=== PATIENT | male | born 1960 | race African-American/Black ===

== ENCOUNTER 2018-01-12 09:36 | Inpatient (IN) | payer MEDICAID ==
[2018-01-12] MEDS ORDERED: INSULIN REG, HUMAN 100 UNIT/ML 3 ML VIAL (PYX) SUBCUT ONE (09:51)
--- NOTE | 2018-01-12 09:51 | ER Document Report ---
ED General - General Stated Complaint: DIABETIC ISSUES Time Seen by Provider: 01/12/18 09:49 Notes: 57-year-old male patient to the emergency department chief complaint of possible DKA. Patient from [facility]. In an argument with family member. Staying at a hotel. Has not been taking his insulin or other medications. States that he was having a hard time eating as his mouth was extremely dry. Excessive thirst and urination. Denies any chest pain but states that it is difficult to swallow. Denies any open sores on his body. No recent surgeries. Denies any significant chest pain or shortness of breath. EMS was called. EMS noted blood sugar over 500. IV was established. Fluids begun. TRAVEL OUTSIDE OF THE [place] IN LAST 30 DAYS: No - HPI Onset: Yesterday Onset/Duration: Gradual, Worse Quality of pain: No pain Severity: Severe Associated symptoms: Vomiting Similar symptoms previously: Yes - Related Data Allergies/Adverse Reactions: No Known Allergies Allergy (Verified 08/22/14 10:28) Past Medical History - General Information source: Patient - Social History Smoking Status: Smoker,Current Status Unk Frequency of alcohol use: None Drug Abuse: None Lives with: Alone Family History: CAD - father at 59 of heart problems, DM - mother - Past Medical History Cardiac Medical History: Reports: Hx Hypercholesterolemia, Hx Hypertension Pulmonary Medical History: Denies: Hx Tuberculosis Endocrine Medical History: Reports: Hx Diabetes Mellitus Type 1, Hx Diabetes Mellitus Type 2 Renal/ Medical History: Reports: Hx Benign Prostatic Hyperplasia Psychiatric Medical History: Reports: Hx Depression Past Surgical History: Reports: Hx Orthopedic Surgery - jaw - Immunizations Hx Diphtheria, Pertussis, Tetanus Vaccination: No Hx Pneumococcal Vaccination: 05/09/13 Review of Systems - Review of Systems Constitutional: Weakness. denies: Chills, Diaphoresis, Fever, Malaise EENT: Blurred vision, Throat pain, Difficulty swallowing. denies: Double vision , Mouth pain, Mouth swelling Cardiovascular: Palpitations, Heart racing, Dizziness, Lightheaded. denies: Chest pain, Dyspnea, Syncope, Edema Respiratory: denies: Cough, Hurts to breathe, Short of breath, Wheezing Gastrointestinal: Nausea, Vomiting. denies: Abdominal pain, Diarrhea Genitourinary: denies: Burning, Dysuria, Discharge Skin: denies: Dryness, Lesions, Lumps, Rash Neurological/Psychological: denies: Confusion, Weakness, Numbness Physical Exam - Vital signs Vitals: Resp Pulse Ox 22 H 100 01/12/18 09:42 01/12/18 09:42 Interpretation: Tachycardic, Tachypneic - Notes Notes: Strong smell of ketones on breath - General General appearance: Appears well, Alert In distress: Mild - HEENT Head: Normocephalic, Atraumatic Eyes: Normal Pupils: PERRL Mucous membranes: Dry Pharynx: Normal Neck: Normal - Respiratory Respiratory status: No respiratory distress Chest status: Nontender Breath sounds: Normal Chest palpation: Normal - Cardiovascular Rhythm: Regular, Tachycardia Murmur: No - Abdominal Inspection: Normal Distension: No distension Bowel sounds: Normal Tenderness: Nontender Organomegaly: No organomegaly - Back Back: Normal, Nontender - Extremities General upper extremity: Normal inspection, Nontender, Normal color, Normal ROM , Normal temperature General lower extremity: Normal inspection, Nontender, Normal color, Normal ROM , Normal temperature, Normal weight bearing. No: Elvin's sign - Neurological Neuro grossly intact: Yes Cognition: Normal Orientation: AAOx4 Ethan Coma Scale Eye Opening: Spontaneous Ethan Coma Scale Verbal: Oriented [place] Coma Scale Motor: Obeys Commands Ethan Coma Scale Total: 15 Speech: Normal Motor strength normal: LUE, RUE, LLE, RLE Sensory: Normal - Psychological Associated symptoms: Normal affect, Normal mood - Skin Skin Temperature: Warm Skin Moisture: Dry Skin Color: Normal Course - Re-evaluation Re-evalutation: 01/12/18 14:12 Patient in DKA. Slightly elevated potassium that this should come down with insulin. Has a anion gap of 28. PH is 7.11. Patient meets criteria for ICU. Consulted hospitalist. Started on insulin drip at this time. Transfer to ICU shortly. 01/12/18 14:13 Laboratory 01/12/18 01/12/18 01/12/18 09:55 09:55 09:55 WBC 14.8 H RBC 4.82 Hgb 14.8 Hct 45.8 MCV 95 MCH 30.7 MCHC 32.3 RDW 14.1 H Plt Count 320 Seg Neutrophils % 86.8 H Lymphocytes % 8.5 L Monocytes % 4.3 Eosinophils % 0.0 Basophils % 0.4 Absolute Neutrophils 12.9 H Absolute Lymphocytes 1.3 Absolute Monocytes 0.6 Absolute Eosinophils 0.0 Absolute Basophils 0.1 VBG pH VBG pCO2 VBG HCO3 VBG Base Excess Sodium Cancelled Potassium Cancelled Chloride Cancelled Carbon Dioxide Cancelled Anion Gap Cancelled BUN Cancelled Creatinine Cancelled Est GFR ( Amer) Cancelled Est GFR (Non-Af Amer) Cancelled Glucose Cancelled POC Glucose Calcium Cancelled Phosphorus Cancelled Magnesium Cancelled Total Bilirubin Cancelled Direct Bilirubin Cancelled Neonat Total Bilirubin Cancelled Neonat Direct Bilirubin Cancelled Neonat Indirect Bili Cancelled AST Cancelled ALT Cancelled Alkaline Phosphatase Cancelled Troponin I < 0.012 Total Protein Cancelled Albumin Cancelled Urine Color Urine Appearance Urine pH Ur Specific [place] Urine Protein Urine Glucose (UA) Urine Ketones Urine Blood Urine Nitrite Urine Bilirubin Urine Urobilinogen Ur Leukocyte Esterase Urine WBC (Auto) Urine Mucus (Auto) Urine Ascorbic Acid 01/12/18 01/12/18 01/12/18 10:22 11:23 11:46 WBC RBC Hgb Hct MCV MCH MCHC RDW Plt Count Seg Neutrophils % Lymphocytes % Monocytes % Eosinophils % Basophils % Absolute Neutrophils Absolute Lymphocytes Absolute Monocytes Absolute Eosinophils Absolute Basophils VBG pH 7.11 L* VBG pCO2 28.6 L VBG HCO3 8.8 L VBG Base Excess -19.3 Sodium Cancelled Potassium Cancelled Chloride Cancelled Carbon Dioxide Cancelled Anion Gap Cancelled BUN Cancelled Creatinine Cancelled Est GFR ( Amer) Cancelled Est GFR (Non-Af Amer) Cancelled Glucose Cancelled POC Glucose 495 H* Calcium Cancelled Phosphorus Cancelled Magnesium Cancelled Total Bilirubin Cancelled Direct Bilirubin Cancelled Neonat Total Bilirubin Cancelled Neonat Direct Bilirubin Cancelled Neonat Indirect Bili Cancelled AST Cancelled ALT Cancelled Alkaline Phosphatase Cancelled Troponin I Total Protein Cancelled Albumin Cancelled Urine Color Urine Appearance Urine pH Ur Specific [place] Urine Protein Urine Glucose (UA) Urine Ketones Urine Blood Urine Nitrite Urine Bilirubin Urine Urobilinogen Ur Leukocyte Esterase Urine WBC (Auto) Urine Mucus (Auto) Urine Ascorbic Acid 01/12/18 01/12/18 01/12/18 11:49 12:55 13:10 WBC RBC Hgb Hct MCV MCH MCHC RDW Plt Count Seg Neutrophils % Lymphocytes % Monocytes % Eosinophils % Basophils % Absolute Neutrophils Absolute Lymphocytes Absolute Monocytes Absolute Eosinophils Absolute Basophils VBG pH VBG pCO2 VBG HCO3 VBG Base Excess Sodium 142.6 Potassium 5.8 H Chloride 109 H Carbon Dioxide 6 L* Anion Gap 28 H BUN 21 H Creatinine 1.36 H Est GFR ( Amer) > 60 Est GFR (Non-Af Amer) 54 L Glucose 437 H* POC Glucose 421 H* Calcium 9.2 Phosphorus 5.0 H Magnesium 2.6 H Total Bilirubin 0.4 Direct Bilirubin 0.4 Neonat Total Bilirubin Not Reportable Neonat Direct Bilirubin Not Reportable Neonat Indirect Bili Not Reportable AST 32 ALT 140 H Alkaline Phosphatase 107 Troponin I Total Protein 7.3 Albumin 4.2 Urine Color STRAW Urine Appearance CLEAR Urine pH 5.0 Ur Specific [place] 1.023 Urine Protein 30 H Urine Glucose (UA) >=500 H Urine Ketones 80 H Urine Blood SMALL H Urine Nitrite NEGATIVE Urine Bilirubin NEGATIVE Urine Urobilinogen NEGATIVE Ur Leukocyte Esterase NEGATIVE Urine WBC (Auto) 0 Urine Mucus (Auto) RARE Urine Ascorbic Acid NEGATIVE Chest X-Ray 01/12/18 10:02 IMPRESSION: NO ACUTE RADIOGRAPHIC FINDING IN THE CHEST. - Vital Signs Vital signs: Temp Pulse Resp BP Pulse Ox 98.1 F 21 H 131/87 H 99 01/12/18 09:50 01/12/18 12:01 01/12/18 12:01 01/12/18 12:01 - Laboratory Result Diagrams: 01/12/18 09:55 01/12/18 13:10 Laboratory results interpreted by me: 01/12/18 01/12/18 01/12/18 09:55 10:22 11:23 WBC 14.8 H RDW 14.1 H Seg Neutrophils % 86.8 H Lymphocytes % 8.5 L Absolute Neutrophils 12.9 H VBG pH 7.11 L* VBG pCO2 28.6 L VBG HCO3 8.8 L Potassium Chloride Carbon Dioxide Anion Gap BUN Creatinine Est GFR (Non-Af Amer) Glucose POC Glucose 495 H* Phosphorus Magnesium ALT Urine Protein Urine Glucose (UA) Urine Ketones Urine Blood 01/12/18 01/12/18 01/12/18 11:49 12:55 13:10 WBC RDW Seg Neutrophils % Lymphocytes % Absolute Neutrophils VBG pH VBG pCO2 VBG HCO3 Potassium 5.8 H Chloride 109 H Carbon Dioxide 6 L* Anion Gap 28 H BUN 21 H Creatinine 1.36 H Est GFR (Non-Af Amer) 54 L Glucose 437 H* POC Glucose 421 H* Phosphorus 5.0 H Magnesium 2.6 H ALT 140 H Urine Protein 30 H Urine Glucose (UA) >=500 H Urine Ketones 80 H Urine Blood SMALL H - EKG Interpretation by Me EKG shows normal: [place], Intervals, QRS Complexes, ST-T Waves Rate: Tachycardia Critical Care Note - Critical Care Note Total time excluding time spent on procedures (mins): 45 Comments: metabolic disturbance, acidosis, DKA Discharge - Discharge Clinical Impression: Diabetic ketoacidosis Qualifiers: Diabetes mellitus type: type 1 Diabetes mellitus complication detail: without coma Qualified Code(s): E10.10 - Type 1 diabetes mellitus with ketoacidosis without coma Condition: Good Disposition: ADMITTED INPATIENT Admitting Provider: [facility] Unit Admitted: ICU
[2018-01-12] MEDS ORDERED: PROCHLORPERAZINE EDISYLATE INJ 10 MG/2 ML VIAL IV ONE (10:02)
[2018-01-12 10:10] LABS: ABSOLUTE BASOPHILS # (AUTO) 0.1 10^3/uL (0.0-0.2); ABSOLUTE LYMPHOCYTES (AUTO) 1.3 10^3/uL (0.5-4.7); ABSOLUTE MONOCYTES (AUTO) 0.6 10^3/uL (0.1-1.4); ABSOLUTE NEUT (AUTO) 12.9 10^3/uL (1.7-8.2); BASOPHILS % (AUTO) 0.4 % (0-2); HEMATOCRIT 45.8 % (37.9-51.0); HEMOGLOBIN 14.8 g/dL (13.5-17.0); LYMPHOCYTES % (AUTO) 8.5 % (13-45); MEAN CORPUSCULAR HEMOGLOBIN 30.7 pg (27.0-33.4); MEAN CORPUSCULAR HGB CONC 32.3 g/dL (32.0-36.0); MEAN CORPUSCULAR VOLUME 95 fl (80-97); MONOCYTES % (AUTO) 4.3 % (3-13); PLATELET COUNT 320 10^3/uL (150-450); RED BLOOD COUNT 4.82 10^6/uL (4.35-5.55); RED CELL DISTRIBUTION WIDTH 14.1 % (11.5-14.0); SEGMENTED NEUTROPHILS % (AUTO) 86.8 % (42-78); TOTAL CELLS COUNTED % (AUTO) 100 %; WHITE BLOOD COUNT 14.8 10^3/uL (4.0-10.5)
[2018-01-12] MEDS ORDERED: LIDOCAINE 2% VISCOUS SOLN 20 ML UDCUP PO ONE (10:30)
[2018-01-12] MEDS ORDERED: MAG HYDROX/AL HYDROX/SIMETH SUSP 30 ML UDCUP PO ONE (10:30)
[2018-01-12] MEDS ORDERED: FAMOTIDINE INJ/PF 20 MG/2 ML SDV IV ONE (10:30)
--- NOTE | 2018-01-12 10:30 | RADIOLOGY REPORT (SQ) ---
EXAM DESCRIPTION: CHEST SINGLE VIEW COMPLETED DATE/TIME: 01/12/2018 10:22 am REASON FOR STUDY: sob COMPARISON: None. EXAM PARAMETERS: NUMBER OF VIEWS: One view. TECHNIQUE: Single frontal radiographic view of the chest acquired. RADIATION DOSE: NA LIMITATIONS: None. FINDINGS: LUNGS AND PLEURA: No opacities, masses or pneumothorax. No pleural effusion. MEDIASTINUM AND HILAR STRUCTURES: No masses. Contour normal. HEART AND VASCULAR STRUCTURES: Heart normal in size. Normal vasculature. BONES: No acute findings. HARDWARE: None in the chest. OTHER: No other significant finding. IMPRESSION: NO ACUTE RADIOGRAPHIC FINDING IN THE CHEST. TECHNICAL DOCUMENTATION: JOB ID: [id number] [employer]- All Rights Reserved Reading location - IP/workstation name: [email or web address]
[2018-01-12] MEDS: NORMAL SALINE 1000 ML 1,000 ML IV PRN ×2 (10:34→12:42)
[2018-01-12 10:39] LABS: VENOUS BLOOD BASE EXCESS -19.3 mmol/L; VENOUS BLOOD HCO3 8.8 mmol/L (20-32); VENOUS BLOOD PCO2 28.6 mmHg (35-63)
[2018-01-12 10:42] LABS: VENOUS BLOOD PH 7.11 (7.30-7.42)
[2018-01-12 12:38] LABS: APPEARANCE,URINE CLEAR; BILIRUBIN,URINE NEGATIVE (NEGATIVE); COLOR,URINE STRAW; GLUCOSE, URINE >=500 mg/dL (NEGATIVE); KETONES,URINE 80 mg/dL (NEGATIVE); LEUKOCYTE ESTERASE,URINE NEGATIVE (NEGATIVE); NITRITE,URINE NEGATIVE (NEGATIVE); PROTEIN,URINE 30 mg/dL (NEGATIVE); URINE SPECIFIC GRAVITY 1.023; UROBILINOGEN,URINE NEGATIVE mg/dL (<2.0)
[2018-01-12 13:52] LABS: ALANINE AMINOTRANSFERASE 140 U/L (21-72); ALBUMIN 4.2 g/dL (3.5-5.0); ALKALINE PHOSPHATASE 107 U/L (38-126); ASPARTATE AMINO TRANSFERASE 32 U/L (17-59); BILIRUBIN,DIRECT 0.4 mg/dL (0.0-0.4); BILIRUBIN,TOTAL 0.4 mg/dL (0.2-1.3); BLOOD UREA NITROGEN 21 mg/dL (7-20); CALCIUM 9.2 mg/dL (8.4-10.2); POTASSIUM 5.8 mmol/L (3.6-5.0); TOTAL PROTEIN 7.3 g/dL (6.3-8.2)
[2018-01-12 13:57] LABS: CHLORIDE 109 mmol/L (98-107); SODIUM 142.6 mmol/L (137-145)
[2018-01-12 14:08] LABS: ANION GAP 28 (5-19)
[2018-01-12 14:09] LABS: CARBON DIOXIDE 6 mmol/L (22-30); GLUCOSE 437 mg/dL (75-110)
[2018-01-12] MEDS ORDERED: ONDANSETRON HCL INJ/PF 4 MG/2 ML SDV IV PRN (14:12)
[2018-01-12] MEDS ORDERED: ALBUTEROL SULFATE 0.083% NEB 2.5 MG/3 ML AMPUL NEB PRN (14:12)
[2018-01-12] MEDS ORDERED: NORMAL SALINE 1000 ML 1,000 ML IV PRN (14:12)
[2018-01-12] MEDS ORDERED: ACETAMINOPHEN 325 MG TABLET PO PRN (14:12)
[2018-01-12] MEDS ORDERED: ONDANSETRON 4 MG TAB.RAPDIS PO PRN (14:12)
[2018-01-12] MEDS ORDERED: DEXTROSE 50%-WATER 25 GM/50 ML DISP.SYRIN IV PRN ×2 (14:13)
[2018-01-12] MEDS ORDERED: NORMAL SALINE 100 ML with INSULIN REGULAR, HUMAN 100 UNIT IV PRN ×2 (14:13)
[2018-01-12] MEDS ORDERED: DEXTROSE 40% GEL 15 GM TUBE PO PRN ×2 (14:13)
[2018-01-12] MEDS ORDERED: GLUCAGON,HUMAN RECOMB 1 MG INJ IM PRN (14:13)
--- NOTE | 2018-01-12 15:22 | PDOC H&P ---
History of Present Illness Admission Date/PCP: 01/12/18 14:27 No PCP at present Patient complains of: Excessive thirst and frequent urination History of Present Illness: The patient is a 57 year old male with Insulin dependent diabetes Hypertension Hyperlipidemia Prior admission for DKA He presented to the hospital with polyuria and polydipsia and reported not having taken his meds including Insulin for several days due to stress and arguments with family members. Is somnolent, but able to answer questions and oriented. Was found to have DKA and was giben IV fluids and Insulin. Past Medical History Cardiac Medical History: Reports: Hyperlipidema, Hypertension Pulmonary Medical History: Denies: Tuberculosis Endocrine Medical History: Reports: Diabetes Mellitus Type 2 Psychiatric Medical History: Reports: Depression Past Surgical History Past Surgical History: Reports: Orthopedic Surgery - jaw Social History Information Source: Patient Lives with: Alone Smoking Status: Smoker,Current Status Unk Frequency of Alcohol Use: Social Hx Recreational Drug Use: No Drugs: Marijuana Hx Prescription Drug Abuse: No - Advance Directive Resuscitation Status: Full Code Family History Family History: CAD - father at 59 of heart problems, DM - mother Parental Family History Reviewed: Yes Children Family History Reviewed: Yes Sibling(s) Family History Reviewed.: Yes Medication/Allergy Home Medications: No Home Medications 01/12/18 Allergies/Adverse Reactions: No Known Allergies Allergy (Verified 08/22/14 10:28) Review of Systems Constitutional: ABSENT: headache(s) Ears: ABSENT: hearing changes Nose, Mouth, and Throat: ABSENT: sore throat Cardiovascular: ABSENT: chest pain Respiratory: ABSENT: dyspnea Gastrointestinal: PRESENT: nausea Integumentary: ABSENT: pruritus Neurological: ABSENT: focal weakness Psychiatric: PRESENT: anxiety, depression Endocrine: PRESENT: polydipsia, polyuria Hematologic/Lymphatic: ABSENT: easy bleeding Allergic/Immunologic: ABSENT: seasonal rhinorrhea Physical Exam Vital Signs: Temp Pulse Resp BP Pulse Ox 98.1 F 18 146/88 H 99 01/12/18 09:50 01/12/18 14:12 01/12/18 14:12 01/12/18 14:12 General appearance: PRESENT: disheveled, thin Head exam: PRESENT: normocephalic Eye exam: PRESENT: PERRLA Ear exam: PRESENT: normal external ear exam Mouth exam: PRESENT: dry mucosa Teeth exam: PRESENT: poor dentation Neck exam: ABSENT: tracheal deviation Respiratory exam: PRESENT: symmetrical, unlabored. ABSENT: wheezes Cardiovascular exam: PRESENT: RRR GI/Abdominal exam: PRESENT: normal bowel sounds, soft. ABSENT: tenderness Rectal exam: PRESENT: deferred Extremities exam: ABSENT: pedal edema Neurological exam: PRESENT: oriented to person, oriented to place, oriented to situation, other - somnolent, no facial droop, motor strength 5/5 b/l upper extremities Psychiatric exam: PRESENT: other - somnolent Results Impressions: Chest X-Ray 01/12/18 10:02 IMPRESSION: NO ACUTE RADIOGRAPHIC FINDING IN THE CHEST. Assessment & Plan - Diagnosis (1) DKA (diabetic ketoacidoses) Qualifiers: Diabetes mellitus type: type 2 Diabetes mellitus complication detail: without coma Is this a current diagnosis for this admission?: Yes Plan: IV fluids, Insulin gtt per protocol, serial BMPs. (2) DVT prophylaxis Is this a current diagnosis for this admission?: Yes Plan: S/c Lovenox (3) Acute renal failure Is this a current diagnosis for this admission?: Yes Plan: Secondary to dehydration. IV fluids ordered. Monitor Creatinine ad urine output closely (4) Hyperkalemia Is this a current diagnosis for this admission?: Yes Plan: No EKG changes, will likely resolve with Insulin. - Time Time Spent: Greater than 70 Minutes - Inpatient Certification Based on my medical assessment, after consideration of the patient's comorbidities, presenting symptoms, or acuity I expect that the services needed warrant INPATIENT care.: Yes I certify that my determination is in accordance with my understanding of Medicare's requirements for reasonable and necessary INPATIENT services [42 CFR 412.3e].: Yes Medical Necessity: Need Close Monitoring Due to Risk of Patient Decompensation, Need For IV Fluids, Risk of Complication if Not Cared For in Hospital
[2018-01-12] MEDS ORDERED: PANTOPRAZOLE SODIUM 40 MG VIAL IV ONE (16:00)
[2018-01-12 17:07] LABS: URINE AMPHETAMINES SCREEN NEGATIVE; URINE BARBITURATES SCREEN NEGATIVE; URINE BENZODIAZEPINES SCREEN NEGATIVE; URINE MARIJUANA (THC) SCREEN NEGATIVE; URINE METHADONE SCREEN NEGATIVE; URINE PHENCYCLIDINE SCREEN NEGATIVE
[2018-01-12 17:30] LABS: URINE COCAINE SCREEN UNCONFIRMED POSITIVE
--- NOTE | 2018-01-12 17:31 | EKG REPORT ---
SEVERITY:- ABNORMAL ECG - SINUS TACHYCARDIA CONSIDER LEFT VENTRICULAR HYPERTROPHY : Confirmed by: Yang Pritchett 12-Jan-2018 17:30:58
[2018-01-12] MEDS: DEXTROSE 5%-NORMAL SALINE 1,000 ML IV PRN ×2 (17:32→22:39)
[2018-01-12 20:16] LABS: BLOOD UREA NITROGEN 16 mg/dL (7-20); CALCIUM 8.8 mg/dL (8.4-10.2); CHLORIDE 113 mmol/L (98-107); GLUCOSE 326 mg/dL (75-110); POTASSIUM 5.6 mmol/L (3.6-5.0)
[2018-01-12 20:22] LABS: SODIUM 143.3 mmol/L (137-145)
[2018-01-12 20:25] LABS: ANION GAP 20 (5-19)
[2018-01-12 20:26] LABS: CARBON DIOXIDE 10 mmol/L (22-30)
[2018-01-12] MEDS: PANTOPRAZOLE SODIUM 40 MG VIAL IV SCH (21:42)
[2018-01-13 00:11] LABS: BLOOD UREA NITROGEN 13 mg/dL (7-20); CALCIUM 8.8 mg/dL (8.4-10.2); CHLORIDE 118 mmol/L (98-107); GLUCOSE 126 mg/dL (75-110); SODIUM 146.5 mmol/L (137-145)
[2018-01-13 00:51] LABS: ANION GAP 12 (5-19)
[2018-01-13 00:52] LABS: CARBON DIOXIDE 17 mmol/L (22-30); POTASSIUM 3.7 mmol/L (3.6-5.0)
[2018-01-13 05:13] LABS: ALANINE AMINOTRANSFERASE 109 U/L (21-72); ALBUMIN 3.3 g/dL (3.5-5.0); ALKALINE PHOSPHATASE 80 U/L (38-126); ANION GAP 12 (5-19); ASPARTATE AMINO TRANSFERASE 24 U/L (17-59); BILIRUBIN,DIRECT 0.3 mg/dL (0.0-0.4); BILIRUBIN,TOTAL 0.4 mg/dL (0.2-1.3); BLOOD UREA NITROGEN 13 mg/dL (7-20); CALCIUM 8.7 mg/dL (8.4-10.2); CARBON DIOXIDE 18 mmol/L (22-30); CHLORIDE 115 mmol/L (98-107); CHOLESTEROL 213.18 mg/dL (0-200); GLUCOSE 167 mg/dL (75-110); LIPASE 58.3 U/L (23-300); SODIUM 144.5 mmol/L (137-145); TOTAL PROTEIN 6.1 g/dL (6.3-8.2); TRIGLYCERIDES 164 mg/dL (<150)
[2018-01-13 05:24] LABS: DIRECT LDL 88 mg/dL (<100)
[2018-01-13 05:27] LABS: ABSOLUTE LYMPHOCYTES (AUTO) 1.3 10^3/uL (0.5-4.7); ABSOLUTE MONOCYTES (AUTO) 0.8 10^3/uL (0.1-1.4); BASOPHILS % (AUTO) 0.4 % (0-2); EOSINOPHILS % (AUTO) 0.2 % (0-6); HEMATOCRIT 37.7 % (37.9-51.0); MEAN CORPUSCULAR HEMOGLOBIN 30.3 pg (27.0-33.4); MEAN CORPUSCULAR HGB CONC 33.7 g/dL (32.0-36.0); MONOCYTES % (AUTO) 7.6 % (3-13); PLATELET COUNT 264 10^3/uL (150-450); RED CELL DISTRIBUTION WIDTH 13.4 % (11.5-14.0); SEGMENTED NEUTROPHILS % (AUTO) 78.8 % (42-78); TOTAL CELLS COUNTED % (AUTO) 100 %; VLDL CHOLESTEROL 32.8 mg/dL (10-31); WHITE BLOOD COUNT 10.2 10^3/uL (4.0-10.5)
[2018-01-13 05:40] LABS: PHOSPHORUS 1.7 mg/dL (2.5-4.5)
[2018-01-13] MEDS: DEXTROSE 5%-NORMAL SALINE 1,000 ML IV PRN (05:43)
[2018-01-13 06:06] LABS: MEAN CORPUSCULAR VOLUME 90 fl (80-97)
[2018-01-13 06:13] LABS: HEMOGLOBIN 12.7 g/dL (13.5-17.0)
[2018-01-13] MEDS ORDERED: DEXTROSE 50%-WATER 25 GM/50 ML DISP.SYRIN IV PRN ×2 (08:40)
[2018-01-13] MEDS ORDERED: GLUCAGON,HUMAN RECOMB 1 MG INJ IM PRN (08:40)
[2018-01-13] MEDS ORDERED: INSULIN LISPRO 100 UNIT/ML 3 ML VIAL SUBCUT PRN (08:40)
[2018-01-13] MEDS ORDERED: DEXTROSE 40% GEL 15 GM TUBE PO PRN ×2 (08:40)
[2018-01-13 08:58] LABS: ANION GAP 8 (5-19); BLOOD UREA NITROGEN 11 mg/dL (7-20); CALCIUM 8.6 mg/dL (8.4-10.2); CARBON DIOXIDE 20 mmol/L (22-30); CHLORIDE 116 mmol/L (98-107); GLUCOSE 111 mg/dL (75-110); POTASSIUM 3.9 mmol/L (3.6-5.0); SODIUM 144.2 mmol/L (137-145)
[2018-01-13] MEDS: ASPIRIN 81 MG TABLET, ENT COATED PO SCH (09:38)
[2018-01-13] MEDS: ENOXAPARIN SODIUM INJ 40 MG/0.4 ML DISP.SYRIN SUBCUT SCH (09:39)
[2018-01-13] MEDS: PANTOPRAZOLE SODIUM 40 MG VIAL IV SCH ×2 (09:39→22:27)
[2018-01-13] MEDS ORDERED: GABAPENTIN 300 MG CAPSULE PO ONE (10:00)
[2018-01-13] MEDS ORDERED: INSULIN GLARGINE,HUM.REC.ANLOG 1,000 UNIT/10 ML UNIT SUBCUT ONE (10:28)
[2018-01-13] MEDS: PHOSPHORUS #1 250 MG TABLET PO SCH ×2 (10:47→16:29)
[2018-01-13] MEDS ORDERED: INSULIN GLARGINE,HUM.REC.ANLOG 300 UNIT/3 ML INSULN.PEN SUBCUT ONE (11:00)
--- NOTE | 2018-01-13 13:10 | PDOC PROGRESS REPORT ---
Subjective Progress Note for:: 01/13/18 Subjective:: 57 yr old male with h/o insulin dependent diabetes and medication non compliance. Presented to the ER with polyuria and polydypsia and was found to have DKA with a pH of 7.1. He was treated with IV fluids and Insulin gtt. His anion gap has closed. He has been started on lantus and meal time ISS. He is very hungry and would like something to eat. HbA1c 13.8. Urine drug screen was positive for Cocaine. Reason For Visit: DKA Physical Exam Vital Signs: Temp Pulse Resp BP Pulse Ox 98.1 F 91 19 122/70 99 01/13/18 08:18 01/13/18 08:18 01/13/18 10:00 01/13/18 09:29 01/13/18 10:00 Intake & Output 01/12/18 01/13/18 01/14/18 06:59 06:59 06:59 Intake Total 2142 650 Output Total 1000 350 Balance 1142 300 Weight 61.7 kg General appearance: PRESENT: no acute distress Head exam: PRESENT: normocephalic Ear exam: PRESENT: normal external ear exam Mouth exam: PRESENT: moist Neck exam: ABSENT: tracheal deviation Respiratory exam: PRESENT: symmetrical, unlabored. ABSENT: crackles Cardiovascular exam: PRESENT: RRR GI/Abdominal exam: PRESENT: normal bowel sounds, soft. ABSENT: tenderness Gentrourinary exam: ABSENT: indwelling catheter Extremities exam: ABSENT: pedal edema Neurological exam: PRESENT: alert, awake, oriented to person, oriented to place , oriented to time, oriented to situation Psychiatric exam: PRESENT: appropriate affect Results Laboratory Results: 01/13/18 03:50 01/13/18 08:04 01/12/18 01/12/18 01/12/18 17:20 18:17 19:45 WBC RBC Hgb Hct MCV MCH MCHC RDW Plt Count Seg Neutrophils % Lymphocytes % Monocytes % Eosinophils % Basophils % Absolute Neutrophils Absolute Lymphocytes Absolute Monocytes Absolute Eosinophils Absolute Basophils Sodium Cancelled Cancelled 143.3 Potassium Cancelled Cancelled 5.6 H Chloride Cancelled Cancelled 113 H Carbon Dioxide Cancelled Cancelled 10 L* Anion Gap Cancelled Cancelled 20 H BUN Cancelled Cancelled 16 Creatinine Cancelled Cancelled 1.13 Est GFR ( Amer) Cancelled Cancelled > 60 Est GFR (Non-Af Amer) Cancelled Cancelled > 60 Glucose Cancelled Cancelled 326 H Calcium Cancelled Cancelled 8.8 Phosphorus Magnesium Total Bilirubin AST ALT Alkaline Phosphatase Total Protein Albumin Triglycerides Cholesterol LDL Cholesterol Direct VLDL Cholesterol HDL Cholesterol Lipase TSH 01/12/18 01/13/18 01/13/18 23:46 03:50 03:50 WBC 10.2 RBC 4.20 L Hgb 12.7 L D Hct 37.7 L MCV 90 D MCH 30.3 MCHC 33.7 RDW 13.4 Plt Count 264 Seg Neutrophils % 78.8 H Lymphocytes % 13.0 Monocytes % 7.6 Eosinophils % 0.2 Basophils % 0.4 Absolute Neutrophils 8.0 Absolute Lymphocytes 1.3 Absolute Monocytes 0.8 Absolute Eosinophils 0.0 Absolute Basophils 0.0 Sodium 146.5 H 144.5 Potassium 3.7 D 4.0 Chloride 118 H 115 H Carbon Dioxide 17 L 18 L Anion Gap 12 12 BUN 13 13 Creatinine 1.00 0.97 Est GFR ( Amer) > 60 > 60 Est GFR (Non-Af Amer) > 60 > 60 Glucose 126 H 167 H Calcium 8.8 8.7 Phosphorus 1.7 L D Magnesium 2.3 Total Bilirubin 0.4 AST 24 ALT 109 H Alkaline Phosphatase 80 Total Protein 6.1 L Albumin 3.3 L Triglycerides 164 H Cholesterol 213.18 H LDL Cholesterol Direct 88 VLDL Cholesterol 32.8 H HDL Cholesterol 55 Lipase 58.3 TSH 01/13/18 01/13/18 03:50 08:04 WBC RBC Hgb Hct MCV MCH MCHC RDW Plt Count Seg Neutrophils % Lymphocytes % Monocytes % Eosinophils % Basophils % Absolute Neutrophils Absolute Lymphocytes Absolute Monocytes Absolute Eosinophils Absolute Basophils Sodium 144.2 Potassium 3.9 Chloride 116 H Carbon Dioxide 20 L Anion Gap 8 BUN 11 Creatinine 0.84 Est GFR ( Amer) > 60 Est GFR (Non-Af Amer) > 60 Glucose 111 H Calcium 8.6 Phosphorus Magnesium Total Bilirubin AST ALT Alkaline Phosphatase Total Protein Albumin Triglycerides Cholesterol LDL Cholesterol Direct VLDL Cholesterol HDL Cholesterol Lipase TSH 1.08 01/13/18 03:50 NT-Pro-B Natriuret Pep 110 Impressions: Chest X-Ray 01/12/18 10:02 IMPRESSION: NO ACUTE RADIOGRAPHIC FINDING IN THE CHEST. Assessment & Plan - Diagnosis (1) DKA (diabetic ketoacidoses) Qualifiers: Diabetes mellitus type: type 2 Diabetes mellitus complication detail: without coma Is this a current diagnosis for this admission?: Yes Plan: Resolved. lantus and ISS ordered (2) DVT prophylaxis Is this a current diagnosis for this admission?: Yes Plan: S/c Lovenox (3) Acute renal failure Is this a current diagnosis for this admission?: Yes Plan: Secondary to dehydration. Resolved (4) Hyperkalemia Is this a current diagnosis for this admission?: Yes Plan: Resolved (5) Hypertension Is this a current diagnosis for this admission?: Yes Plan: Lisinopril (6) Hyperlipidemia Is this a current diagnosis for this admission?: Yes Plan: Lipitor (7) Diabetic neuropathy Is this a current diagnosis for this admission?: Yes Plan: Gabapentin - Time Time Spent with patient: 35 or more minutes
[2018-01-13] MEDS: GABAPENTIN 300 MG CAPSULE PO SCH ×2 (13:34→22:27)
[2018-01-13] MEDS ORDERED: ATORVASTATIN CALCIUM 40 MG TABLET PO SCH (22:00)
[2018-01-14 04:50] LABS: ABSOLUTE BASOPHILS # (AUTO) 0.1 10^3/uL (0.0-0.2); ABSOLUTE LYMPHOCYTES (AUTO) 1.7 10^3/uL (0.5-4.7); ABSOLUTE MONOCYTES (AUTO) 0.5 10^3/uL (0.1-1.4); ABSOLUTE NEUT (AUTO) 4.4 10^3/uL (1.7-8.2); EOSINOPHILS % (AUTO) 0.5 % (0-6); HEMATOCRIT 36.7 % (37.9-51.0); HEMOGLOBIN 12.6 g/dL (13.5-17.0); MEAN CORPUSCULAR HEMOGLOBIN 30.2 pg (27.0-33.4); MEAN CORPUSCULAR HGB CONC 34.3 g/dL (32.0-36.0); MEAN CORPUSCULAR VOLUME 88 fl (80-97); MONOCYTES % (AUTO) 7.6 % (3-13); PLATELET COUNT 232 10^3/uL (150-450); RED BLOOD COUNT 4.16 10^6/uL (4.35-5.55); RED CELL DISTRIBUTION WIDTH 13.3 % (11.5-14.0); SEGMENTED NEUTROPHILS % (AUTO) 65.9 % (42-78); TOTAL CELLS COUNTED % (AUTO) 100 %; WHITE BLOOD COUNT 6.7 10^3/uL (4.0-10.5)
[2018-01-14 07:18] LABS: ALANINE AMINOTRANSFERASE 96 U/L (21-72); ALBUMIN 2.8 g/dL (3.5-5.0); ALKALINE PHOSPHATASE 75 U/L (38-126); ANION GAP 10 (5-19); ASPARTATE AMINO TRANSFERASE 46 U/L (17-59); BILIRUBIN,DIRECT 0.2 mg/dL (0.0-0.4); BILIRUBIN,TOTAL 0.3 mg/dL (0.2-1.3); BLOOD UREA NITROGEN 5 mg/dL (7-20); CALCIUM 8.7 mg/dL (8.4-10.2); CARBON DIOXIDE 22 mmol/L (22-30); CHLORIDE 111 mmol/L (98-107); GLUCOSE 109 mg/dL (75-110); PHOSPHORUS 3.2 mg/dL (2.5-4.5); POTASSIUM 3.5 mmol/L (3.6-5.0); SODIUM 142.6 mmol/L (137-145); TOTAL PROTEIN 5.7 g/dL (6.3-8.2)
[2018-01-14 07:51] VITALS: BP 151/94
[2018-01-14] MEDS ORDERED: INSULIN GLARGINE,HUM.REC.ANLOG 300 UNIT/3 ML INSULN.PEN SUBCUT SCH (08:00)
[2018-01-14] MEDS: PHOSPHORUS #1 250 MG TABLET PO SCH ×2 (08:34→10:29)
[2018-01-14] MEDS: GABAPENTIN 300 MG CAPSULE PO SCH (08:37)
[2018-01-14] MEDS ORDERED: MAGNESIUM OXIDE 400 MG TABLET PO SCH (10:00)
[2018-01-14] MEDS ORDERED: POTASSIUM CHLORIDE 10 MEQ TABLET.SA PO ONE (10:00)
[2018-01-14] MEDS: ENOXAPARIN SODIUM INJ 40 MG/0.4 ML DISP.SYRIN SUBCUT SCH (10:22)
[2018-01-14] MEDS: ASPIRIN 81 MG TABLET, ENT COATED PO SCH (10:29)
--- NOTE | 2018-01-14 10:50 | PDOC DISCHARGE SUMMARY ---
General - Admit/Disc Date/PCP Admission Date/Primary Care Provider: 01/12/18 14:27 No PCP- he will need to establish care Discharge Date: 01/14/18 - Discharge Diagnosis (1) DKA (diabetic ketoacidoses) Is this a current diagnosis for this admission?: Yes (2) DVT prophylaxis Is this a current diagnosis for this admission?: Yes (3) Acute renal failure Is this a current diagnosis for this admission?: Yes (4) Hyperkalemia Is this a current diagnosis for this admission?: Yes (5) Hypertension Is this a current diagnosis for this admission?: Yes (6) Hyperlipidemia Is this a current diagnosis for this admission?: Yes (7) Diabetic neuropathy Is this a current diagnosis for this admission?: Yes (8) Erectile dysfunction Is this a current diagnosis for this admission?: Yes (9) Hypophosphatemia Is this a current diagnosis for this admission?: Yes (10) Hypokalemia Is this a current diagnosis for this admission?: Yes - Additional Information Resuscitation Status: Full Code Discharge Diet: Diabetic Prescriptions: Atorvastatin Calcium [Lipitor 40 mg Tablet] 40 mg PO QHS 30 Days #30 tablet Aspirin [Ecotrin 81 mg EC Tablet] 81 mg PO DAILY 30 Days #30 tabec Insulin Aspart [Novolog Insulin 100 Unit/1 ml 10 ml] 4 unit SUBCUT AC #10 ml Insulin Glargine,Hum.rec.anlog [Lantus Insulin 100 Unit/mL] 25 unit SUBCUT QAM 30 Days #1 insuln.pen Lisinopril [Prinivil 5 mg Tablet] 5 mg PO DAILY 30 Days #30 tablet Magnesium Oxide [Mag-Ox 400 mg Tablet] 400 mg PO DAILY 30 Days #30 tablet Pregabalin [Lyrica 75 mg Capsule] 150 mg PO BID 30 Days #60 capsule Sildenafil Citrate [Viagra] 50 mg PO DAILYP PRN 30 Days #30 tablet PRN Reason: Home Medications: Gabapentin [Neurontin 300 mg Capsule] 900 mg PO Q8 01/12/18 Acetaminophen [Tylenol 325 mg Tablet] 650 mg PO Q4HP PRN tablet 01/14/18 Aspirin [Ecotrin 81 mg EC Tablet] 81 mg PO DAILY 30 Days #30 tabec 01/14/18 Atorvastatin Calcium [Lipitor 40 mg Tablet] 40 mg PO QHS 30 Days #30 tablet 06/ 04/18 Insulin Aspart [Novolog Insulin 100 Unit/1 ml 10 ml] 4 unit SUBCUT AC #10 ml 11/28 Insulin Glargine,Hum.rec.anlog [Lantus Insulin 100 Unit/mL] 25 unit SUBCUT QAM 30 Days #1 insuln.pen 01/14/18 Lisinopril [Prinivil 5 mg Tablet] 5 mg PO DAILY 30 Days #30 tablet 01/14/18 Magnesium Oxide [Mag-Ox 400 mg Tablet] 400 mg PO DAILY 30 Days #30 tablet Metformin HCl [Metformin HCl ER] 1,000 mg PO DAILY 30 Days #30 [id number] Pregabalin [Lyrica 75 mg Capsule] 150 mg PO BID 30 Days #60 capsule 01/14/18 Sildenafil Citrate [Viagra] 50 mg PO DAILYP PRN 30 Days #30 tablet 01/14/18 History of Present Illness History of Present Illness: The patient is a 57 year old male with Insulin dependent diabetes Hypertension Hyperlipidemia Prior admission for DKA He presented to the hospital with polyuria and polydipsia and reported not having taken his meds including Insulin for several days due to stress and arguments with family members. Was found to have DKA and was started on IV fluids and Insulin gtt. His ARF and DKA resolved. Electrolytes were replaced. He is doing better and has been able to tolerate meals. The patient reports that he is homeless and needs social work help to find a place to stay He requested prescriptions for all his meds including Metformin Atorvastatin Aspirin Lantus Novolog Lyrica Viagra Lisinopril Magnesium oxide Hospital Course Hospital Course: above Physical Exam Vital Signs: Temp Pulse Resp BP Pulse Ox 97.9 F 79 16 151/94 H 95 01/14/18 07:49 01/14/18 07:49 01/14/18 07:49 01/14/18 07:49 01/14/18 07:49 Intake & Output 01/13/18 01/14/18 01/15/18 06:59 06:59 06:59 Intake Total 2142 2094 350 Output Total 1000 975 Balance 1142 1119 350 Weight 61.7 kg 63.6 kg General appearance: PRESENT: no acute distress Respiratory exam: PRESENT: symmetrical, unlabored Results Laboratory Results: 01/14/18 04:31 01/14/18 04:31 01/14/18 01/14/18 04:31 04:31 WBC 6.7 RBC 4.16 L Hgb 12.6 L Hct 36.7 L MCV 88 MCH 30.2 MCHC 34.3 RDW 13.3 Plt Count 232 Seg Neutrophils % 65.9 Lymphocytes % 25.0 Monocytes % 7.6 Eosinophils % 0.5 Basophils % 1.0 Absolute Neutrophils 4.4 Absolute Lymphocytes 1.7 Absolute Monocytes 0.5 Absolute Eosinophils 0.0 Absolute Basophils 0.1 Sodium 142.6 Potassium 3.5 L Chloride 111 H Carbon Dioxide 22 Anion Gap 10 BUN 5 L Creatinine 0.81 Est GFR ( Amer) > 60 Est GFR (Non-Af Amer) > 60 Glucose 109 Calcium 8.7 Phosphorus 3.2 Magnesium 1.8 Total Bilirubin 0.3 AST 46 ALT 96 H Alkaline Phosphatase 75 Total Protein 5.7 L Albumin 2.8 L 01/13/18 03:50 NT-Pro-B Natriuret Pep 110 Impressions: Chest X-Ray 01/12/18 10:02 IMPRESSION: NO ACUTE RADIOGRAPHIC FINDING IN THE CHEST. Qualifiers - * PATIENT BEING DISCHARGED WITH ANY OF THE FOLLOWING DIAGNOSIS: No
[2018-01-14] MEDS ORDERED: LISINOPRIL 5 MG TABLET PO SCH (12:00)
[2018-01-14] MEDS ORDERED: PREGABALIN 75 MG CAPSULE PO SCH (18:00)
== END 2018-01-14 12:50 | disposition home or self-care (01) | DRG 638 ==
LOC: ER 09:36 → EH 14:27 → ICU 15:27
PROVIDERS: ADMIT Internal Medicine; ATTEND Internal Medicine
DX: E11.10 Type 2 diabetes mellitus with ketoacidosis without coma (principal); N17.9 Acute kidney failure, unspecified; E87.5 Hyperkalemia; E78.5 Hyperlipidemia, unspecified; I10 Essential (primary) hypertension; E86.0 Dehydration; E11.40 Type 2 diabetes mellitus with diabetic neuropathy, unspecified; E83.39 Other disorders of phosphorus metabolism; F14.90 Cocaine use, unspecified, uncomplicated; N52.9 Male erectile dysfunction, unspecified; Z79.82 Long term (current) use of aspirin; Z79.4 Long term (current) use of insulin; Z79.899 Other long term (current) drug therapy
CPT/HCPCS: 36415; 71045; 80048; 80053; 80061; 80076; 80307; 81001; 82803; 82962; 83036; 83690; 83735; 83880; 84100; 84443; 84484; 85025; 93005; 93010; 96361; 96374; 96375; 99291; J0780; J1650; J1815; J3490; J7030; S0028; S0164

== ENCOUNTER 2018-01-19 15:55 | Inpatient (IN) | payer MEDICAID ==
[2018-01-19] MEDS ORDERED: NORMAL SALINE 1000 ML 1,000 ML IV ONE ×2 (16:31→17:45)
[2018-01-19] MEDS ORDERED: ONDANSETRON 4 MG TAB.RAPDIS PO ONE (16:33)
--- NOTE | 2018-01-19 16:33 | ER Document Report ---
ED Medical Screen (RME) - General Chief Complaint: High Blood Sugar Stated Complaint: HIGH BLOOD SUGAR Time Seen by Provider: 01/19/18 16:31 Mode of Arrival: Wheelchair Information source: Patient Notes: This is a 57-year-old man with a history of insulin requiring diabetes and DKA in the past who presents to the emergency room with generalized weakness and just not feeling well which the patient states is consistent with previous episodes of DKA. Patient denies any vomiting. He states he has been taking his insulin. His Accu-Chek is high in triage. I have greeted and performed a rapid initial assessment of this patient. A comprehensive ED assessment and evaluation of the patient, analysis of test results and completion of medical decision making process we will be contacted by additional ED providers. TRAVEL OUTSIDE OF THE [place] IN LAST 30 DAYS: No - Related Data Allergies/Adverse Reactions: No Known Allergies Allergy (Verified 01/19/18 15:56) Past Medical History - Past Medical History Cardiac Medical History: Reports: Hx Hypercholesterolemia, Hx Hypertension Pulmonary Medical History: Denies: Hx Tuberculosis Endocrine Medical History: Reports: Hx Diabetes Mellitus Type 1, Hx Diabetes Mellitus Type 2 Renal/ Medical History: Reports: Hx Benign Prostatic Hyperplasia. Denies: Hx Peritoneal Dialysis Psychiatric Medical History: Reports: Hx Depression Past Surgical History: Reports: Hx Orthopedic Surgery - jaw - Immunizations Hx Diphtheria, Pertussis, Tetanus Vaccination: No Physical Exam - Vital signs Vitals: Temp Pulse Resp BP Pulse Ox 98.0 F 122 H 24 H 104/71 98 01/19/18 16:00 01/19/18 16:00 01/19/18 16:00 01/19/18 16:00 01/19/18 16:00 Course - Vital Signs Vital signs: Temp Pulse Resp BP Pulse Ox 98.0 F 122 H 24 H 104/71 98 01/19/18 16:00 01/19/18 16:00 01/19/18 16:00 01/19/18 16:00 01/19/18 16:00
[2018-01-19 17:07] LABS: VENOUS BLOOD PCO2 22.9 mmHg (35-63); VENOUS BLOOD PH 7.26 (7.30-7.42)
[2018-01-19 17:19] LABS: HEMATOCRIT 45.1 % (37.9-51.0); HEMOGLOBIN 14.8 g/dL (13.5-17.0); LYMPHOCYTES % (AUTO) 9.2 % (13-45); MEAN CORPUSCULAR HGB CONC 32.8 g/dL (32.0-36.0); MONOCYTES % (AUTO) 3.8 % (3-13); PLATELET COUNT 394 10^3/uL (150-450); RED BLOOD COUNT 4.93 10^6/uL (4.35-5.55); RED CELL DISTRIBUTION WIDTH 13.3 % (11.5-14.0); SEGMENTED NEUTROPHILS % (AUTO) 86.2 % (42-78); WHITE BLOOD COUNT 8.8 10^3/uL (4.0-10.5)
--- NOTE | 2018-01-19 17:19 | ER Document Report ---
ED General - General Chief Complaint: High Blood Sugar Stated Complaint: HIGH BLOOD SUGAR Time Seen by Provider: 01/19/18 16:31 Mode of Arrival: Wheelchair Information source: Patient Notes: 57-year-old male presents emergency department with complaints of generalized weakness. Patient feels like he is in DKA again. Patient states that he was just released from the hospital for DKA. He is a type I diabetic. Patient states that he has not had his insulin in the last day. He states that he left his insulin in a car and the car was towed. Patient states that he just got the insulin back this morning. He did give himself an injection. When he arrived in the emergency department, patient's blood sugar was reading high. Patient states that he is having some nausea and vomiting but denies any abdominal pain, diarrhea, constipation, chest pain, shortness of breath. TRAVEL OUTSIDE OF THE [place] IN LAST 30 DAYS: No - HPI Patient complains to provider of: generalized weakness Onset: Just prior to arrival Onset/Duration: Sudden Quality of pain: No pain Severity: None Pain Level: Denies Associated symptoms: None Exacerbated by: Denies Relieved by: Denies Similar symptoms previously: Yes Recently seen / treated by doctor: Yes - Related Data Allergies/Adverse Reactions: No Known Allergies Allergy (Verified 01/19/18 15:56) Past Medical History - General Information source: Patient - Social History Smoking Status: Never Smoker Chew tobacco use (# tins/day): No Frequency of alcohol use: None Drug Abuse: None Family History: CAD - father at 59 of heart problems, DM - mother Patient has suicidal ideation: No Patient has homicidal ideation: No - Past Medical History Cardiac Medical History: Reports: Hx Hypercholesterolemia, Hx Hypertension Pulmonary Medical History: Denies: Hx Tuberculosis Endocrine Medical History: Reports: Hx Diabetes Mellitus Type 1, Hx Diabetes Mellitus Type 2 Renal/ Medical History: Reports: Hx Benign Prostatic Hyperplasia. Denies: Hx Peritoneal Dialysis Psychiatric Medical History: Reports: Hx Depression Past Surgical History: Reports: Hx Orthopedic Surgery - jaw - Immunizations Hx Diphtheria, Pertussis, Tetanus Vaccination: No Hx Pneumococcal Vaccination: 05/09/13 Review of Systems - Review of Systems Constitutional: Weakness EENT: No symptoms reported Cardiovascular: No symptoms reported Respiratory: No symptoms reported Gastrointestinal: Nausea, Vomiting Genitourinary: No symptoms reported Male Genitourinary: No symptoms reported Musculoskeletal: No symptoms reported Skin: No symptoms reported Neurological/Psychological: No symptoms reported -: Yes All other systems reviewed and negative Physical Exam - Vital signs Vitals: Temp Pulse Resp BP Pulse Ox 98.0 F 122 H 24 H 104/71 98 01/19/18 16:00 01/19/18 16:00 01/19/18 16:00 01/19/18 16:00 01/19/18 16:00 - Notes Notes: PHYSICAL EXAMINATION: GENERAL: Well-appearing, well-nourished and in no acute distress. HEAD: Atraumatic, normocephalic. EYES: Pupils equal round and reactive to light, extraocular movements intact, sclera anicteric, conjunctiva are normal. ENT: Nares patent, oropharynx clear without exudates. Moist mucous membranes. NECK: Normal range of motion, supple without lymphadenopathy LUNGS: Breath sounds clear to auscultation bilaterally and equal. No wheezes rales or rhonchi. HEART: Regular rate and rhythm without murmurs ABDOMEN: Soft, nontender, nondistended abdomen. No guarding, no rebound. No masses appreciated. Musculoskeletal: Normal range of motion, no pitting or edema. No cyanosis. NEUROLOGICAL: Cranial nerves grossly intact. Normal speech, normal gait. Normal sensory, motor exams PSYCH: Normal mood, normal affect. SKIN: Warm, Dry, normal turgor, no rashes or lesions noted. Course - Re-evaluation Re-evalutation: 01/19/18 19:[address] Castillo. He will discuss the patient with the night hospitalist who is coming on, Dr. Delgado and put in orders. Patient started on DKA protocol. Currently stable. - Vital Signs Vital signs: Temp Pulse Resp BP Pulse Ox 98.0 F 122 H 17 137/98 H 100 01/19/18 16:00 01/19/18 16:00 01/19/18 17:01 01/19/18 17:01 01/19/18 17:01 - Laboratory Result Diagrams: 01/19/18 16:51 01/19/18 16:51 Laboratory results interpreted by me: 01/19/18 01/19/18 01/19/18 16:51 16:51 16:55 Seg Neutrophils % 86.2 H Lymphocytes % 9.2 L VBG pH 7.26 L VBG pCO2 22.9 L VBG HCO3 10.0 L Carbon Dioxide 10 L* Anion Gap 31 H Creatinine 1.76 H Est GFR ( Amer) 49 L Est GFR (Non-Af Amer) 40 L Glucose 573 H* POC Glucose Magnesium 2.9 H Direct Bilirubin 0.6 H Total Protein 8.7 H Urine Protein Urine Glucose (UA) Urine Ketones Urine Blood 01/19/18 01/19/18 17:05 19:05 Seg Neutrophils % Lymphocytes % VBG pH VBG pCO2 VBG HCO3 Carbon Dioxide Anion Gap Creatinine Est GFR ( Amer) Est GFR (Non-Af Amer) Glucose POC Glucose 233 H Magnesium Direct Bilirubin Total Protein Urine Protein 30 H Urine Glucose (UA) >=500 H Urine Ketones 80 H Urine Blood SMALL H Discharge - Discharge Clinical Impression: DKA (diabetic ketoacidoses) Qualifiers: Diabetes mellitus type: type 1 Diabetes mellitus complication detail: without coma Qualified Code(s): E10.10 - Type 1 diabetes mellitus with ketoacidosis without coma Condition: Stable Disposition: ADMITTED INPATIENT Admitting Provider: Hospitalist Unit Admitted: [facility]
[2018-01-19 17:20] LABS: ABSOLUTE BASOPHILS # (AUTO) 0.1 10^3/uL (0.0-0.2); ABSOLUTE LYMPHOCYTES (AUTO) 0.8 10^3/uL (0.5-4.7); ABSOLUTE MONOCYTES (AUTO) 0.3 10^3/uL (0.1-1.4); ABSOLUTE NEUT (AUTO) 7.6 10^3/uL (1.7-8.2); BASOPHILS % (AUTO) 0.8 % (0-2); TOTAL CELLS COUNTED % (AUTO) 100 %
[2018-01-19 17:21] LABS: MEAN CORPUSCULAR VOLUME 91 fl (80-97)
[2018-01-19 17:25] LABS: APPEARANCE,URINE CLEAR; BILIRUBIN,URINE NEGATIVE (NEGATIVE); COLOR,URINE STRAW; GLUCOSE, URINE >=500 mg/dL (NEGATIVE); KETONES,URINE 80 mg/dL (NEGATIVE); LEUKOCYTE ESTERASE,URINE NEGATIVE (NEGATIVE); NITRITE,URINE NEGATIVE (NEGATIVE); PROTEIN,URINE 30 mg/dL (NEGATIVE); URINE SPECIFIC GRAVITY 1.024; UROBILINOGEN,URINE NEGATIVE mg/dL (<2.0)
[2018-01-19 17:35] LABS: ALANINE AMINOTRANSFERASE 43 U/L (21-72); ALKALINE PHOSPHATASE 116 U/L (38-126); ASPARTATE AMINO TRANSFERASE 21 U/L (17-59); BILIRUBIN,DIRECT 0.6 mg/dL (0.0-0.4); BILIRUBIN,TOTAL 0.7 mg/dL (0.2-1.3); BLOOD UREA NITROGEN 20 mg/dL (7-20); CALCIUM 10.2 mg/dL (8.4-10.2); POTASSIUM 4.3 mmol/L (3.6-5.0); TOTAL PROTEIN 8.7 g/dL (6.3-8.2)
[2018-01-19 17:40] LABS: CHLORIDE 98 mmol/L (98-107); SODIUM 139.2 mmol/L (137-145)
[2018-01-19 17:42] LABS: ANION GAP 31 (5-19)
[2018-01-19 17:43] LABS: CARBON DIOXIDE 10 mmol/L (22-30); GLUCOSE 573 mg/dL (75-110)
[2018-01-19] MEDS ORDERED: NORMAL SALINE 100 ML with INSULIN REGULAR, HUMAN 100 UNIT IV PRN ×4 (17:45→19:13)
[2018-01-19] MEDS ORDERED: INSULIN REG, HUMAN 100 UNIT/ML 3 ML VIAL (PYX) IV ONE (17:47)
[2018-01-19] MEDS ORDERED: POTASSIUM CHLORIDE 20 MEQ/15 ML UDCUP PO ONE (19:11)
[2018-01-19] MEDS ORDERED: ACETAMINOPHEN 325 MG TABLET PO PRN (19:13)
[2018-01-19] MEDS ORDERED: INSULIN REG, HUMAN 100 UNIT/ML 3 ML VIAL (PYX) ONE (20:04)
[2018-01-19] MEDS: POTASSI CL 20 MEQ/D5-1/2NS 1L 1,000 ML IV PRN (20:39)
[2018-01-19 21:38] LABS: ANION GAP 17 (5-19); BLOOD UREA NITROGEN 16 mg/dL (7-20); CARBON DIOXIDE 17 mmol/L (22-30); CHLORIDE 108 mmol/L (98-107); GLUCOSE 191 mg/dL (75-110); POTASSIUM 4.3 mmol/L (3.6-5.0)
[2018-01-19] MEDS: POTASSI CL 20 MEQ/50 ML RIDER 20 MEQ/50 ML RTUPB IV SCH ×2 (22:06→22:27)
[2018-01-19] MEDS: HEPARIN SOD (PORCINE) 5,000 UNIT/ML 1 ML SYRINGE SUBCUT SCH (22:50)
[2018-01-20] MEDS: POTASSI CL 20 MEQ/D5-1/2NS 1L 1,000 ML IV PRN (01:20)
[2018-01-20 03:11] LABS: ABSOLUTE BASOPHILS # (AUTO) 0.1 10^3/uL (0.0-0.2); ABSOLUTE LYMPHOCYTES (AUTO) 1.5 10^3/uL (0.5-4.7); ABSOLUTE MONOCYTES (AUTO) 0.9 10^3/uL (0.1-1.4); BASOPHILS % (AUTO) 0.8 % (0-2); EOSINOPHILS % (AUTO) 0.3 % (0-6); HEMATOCRIT 36.6 % (37.9-51.0); MEAN CORPUSCULAR HEMOGLOBIN 30.3 pg (27.0-33.4); MEAN CORPUSCULAR HGB CONC 34.6 g/dL (32.0-36.0); MEAN CORPUSCULAR VOLUME 88 fl (80-97); PLATELET COUNT 309 10^3/uL (150-450); RED BLOOD COUNT 4.17 10^6/uL (4.35-5.55); RED CELL DISTRIBUTION WIDTH 13.2 % (11.5-14.0); SEGMENTED NEUTROPHILS % (AUTO) 69.9 % (42-78); TOTAL CELLS COUNTED % (AUTO) 100 %; WHITE BLOOD COUNT 8.5 10^3/uL (4.0-10.5)
[2018-01-20 03:12] LABS: HEMOGLOBIN 12.7 g/dL (13.5-17.0)
[2018-01-20 03:26] LABS: ANION GAP 7 (5-19); BLOOD UREA NITROGEN 12 mg/dL (7-20); CALCIUM 8.5 mg/dL (8.4-10.2); CARBON DIOXIDE 20 mmol/L (22-30); CHLORIDE 113 mmol/L (98-107); GLUCOSE 71 mg/dL (75-110); SODIUM 140.4 mmol/L (137-145)
--- NOTE | 2018-01-20 05:09 | PDOC H&P ---
History of Present Illness Admission Date/PCP: 01/19/18 19:41 Patient complains of: Nausea vomiting and hyperglycemia History of Present Illness: MAMTA CUEVA is a 57 year old male with history of insulin dependent diabetes and recurrent hospitalizations for diabetic ketoacidosis. Patient presents with 24 hours of nausea, vomiting, hyperglycemia following loss of access to insulin. Patient discharged 5 days ago with prescriptions which she states were filled however insulin was kept in his car which was towed. He denies fever headache or new medications. He admits polyuria polydipsia. In the emergency room is found to have severe metabolic acidosis he treated symptomatically and started on an IV fluid challenge and referred her to the hospitalist for admission. Past Medical History Cardiac Medical History: Reports: Hyperlipidema, Hypertension Pulmonary Medical History: Denies: Tuberculosis Endocrine Medical History: Reports: Diabetes Mellitus Type 1, Diabetes Mellitus Type 2 Psychiatric Medical History: Reports: Depression Past Surgical History Past Surgical History: Reports: Orthopedic Surgery - jaw Social History Information Source: Patient Smoking Status: Never Smoker Frequency of Alcohol Use: None Hx Recreational Drug Use: No Drugs: None Hx Prescription Drug Abuse: No - Advance Directive Resuscitation Status: Full Code Family History Family History: CAD - father at 59 of heart problems, DM - mother Parental Family History Reviewed: Yes Children Family History Reviewed: Yes Sibling(s) Family History Reviewed.: Yes Medication/Allergy Home Medications: Gabapentin [Neurontin 300 mg Capsule] 900 mg PO Q8 01/12/18 Acetaminophen [Tylenol 325 mg Tablet] 650 mg PO Q4HP PRN tablet 01/14/18 Aspirin [Ecotrin 81 mg EC Tablet] 81 mg PO DAILY 30 Days #30 tabec 01/14/18 Atorvastatin Calcium [Lipitor 40 mg Tablet] 40 mg PO QHS 30 Days #30 tablet 11/28 Insulin Aspart [Novolog Insulin 100 Unit/1 ml 10 ml] 4 unit SUBCUT AC #10 ml 11/28 Insulin Glargine,Hum.rec.anlog [Lantus Insulin 100 Unit/mL] 25 unit SUBCUT QAM 30 Days #1 insuln.pen 01/14/18 Lisinopril [Prinivil 5 mg Tablet] 5 mg PO DAILY 30 Days #30 tablet 01/14/18 Magnesium Oxide [Mag-Ox 400 mg Tablet] 400 mg PO DAILY 30 Days #30 tablet Metformin HCl [Metformin HCl ER] 1,000 mg PO DAILY 30 Days #30 [id number] Pregabalin [Lyrica 75 mg Capsule] 150 mg PO BID 30 Days #60 capsule 01/14/18 Sildenafil Citrate [Viagra] 50 mg PO DAILYP PRN 30 Days #30 tablet 01/14/18 Allergies/Adverse Reactions: No Known Allergies Allergy (Verified 01/19/18 15:56) Review of Systems Constitutional: PRESENT: as per HPI, fatigue. ABSENT: fever(s), headache(s), night sweats Eyes: ABSENT: visual disturbances Ears: ABSENT: hearing changes Cardiovascular: ABSENT: chest pain, dyspnea on exertion, edema, orthropnea, palpitations Respiratory: ABSENT: cough, hemoptysis Gastrointestinal: PRESENT: as per HPI, abdominal pain, bloating, nausea, vomiting. ABSENT: melena Genitourinary: ABSENT: dysuria, hematuria Musculoskeletal: ABSENT: joint swelling Integumentary: ABSENT: rash, wounds Neurological: ABSENT: abnormal gait, abnormal speech, confusion, dizziness, focal weakness, syncope Psychiatric: ABSENT: anxiety, depression, homidical ideation, suicidal ideation Endocrine: PRESENT: polydipsia, polyuria. ABSENT: cold intolerance, heat intolerance Hematologic/Lymphatic: ABSENT: easy bleeding, easy bruising Physical Exam Vital Signs: Temp Pulse Resp BP Pulse Ox 98.0 F 86 20 100/57 L 98 01/20/18 03:44 01/20/18 03:44 01/20/18 03:44 01/20/18 03:44 01/20/18 03:44 Intake & Output 01/18/18 01/19/18 01/20/18 11:59 11:59 11:59 Intake Total 0 Output Total 0 Balance 0 Weight 59.1 kg General appearance: PRESENT: cooperative, mild distress, well-developed, well- nourished Head exam: PRESENT: atraumatic, normocephalic Eye exam: PRESENT: conjunctiva pink, EOMI, PERRLA. ABSENT: scleral icterus Ear exam: PRESENT: normal external ear exam Mouth exam: PRESENT: dry mucosa, tongue midline Neck exam: ABSENT: carotid bruit, JVD, lymphadenopathy, thyromegaly Respiratory exam: PRESENT: clear to auscultation shoaib. ABSENT: rales, rhonchi, wheezes Cardiovascular exam: PRESENT: RRR. ABSENT: diastolic murmur, rubs, systolic murmur Pulses: PRESENT: normal dorsalis pedis pul Vascular exam: PRESENT: normal capillary refill GI/Abdominal exam: PRESENT: normal bowel sounds, soft. ABSENT: distended, guarding, mass, organolmegaly, rebound, tenderness Rectal exam: PRESENT: deferred Extremities exam: PRESENT: full ROM. ABSENT: calf tenderness, clubbing, pedal edema Neurological exam: PRESENT: alert, awake, oriented to person, oriented to place , oriented to time, oriented to situation, CN II-XII grossly intact. ABSENT: motor sensory deficit Psychiatric exam: PRESENT: appropriate affect, normal mood. ABSENT: homicidal ideation, suicidal ideation Skin exam: PRESENT: dry, intact, warm. ABSENT: cyanosis, rash Results Laboratory Results: 01/20/18 02:57 01/20/18 02:57 01/19/18 01/20/18 01/20/18 20:52 02:57 02:57 WBC 8.5 RBC 4.17 L Hgb 12.7 L D Hct 36.6 L MCV 88 MCH 30.3 MCHC 34.6 RDW 13.2 Plt Count 309 Seg Neutrophils % 69.9 Lymphocytes % 18.0 Monocytes % 11.0 Eosinophils % 0.3 Basophils % 0.8 Absolute Neutrophils 6.0 Absolute Lymphocytes 1.5 Absolute Monocytes 0.9 Absolute Eosinophils 0.0 Absolute Basophils 0.1 Sodium 142.0 140.4 Potassium 4.3 4.0 Chloride 108 H 113 H Carbon Dioxide 17 L 20 L Anion Gap 17 7 BUN 16 12 Creatinine 1.06 0.78 Est GFR ( Amer) > 60 > 60 Est GFR (Non-Af Amer) > 60 > 60 Glucose 191 H 71 L Calcium 9.0 8.5 Assessment & Plan - Diagnosis (1) DKA (diabetic ketoacidoses) Qualifiers: Diabetes mellitus type: type 1 Diabetes mellitus complication detail: without coma Qualified Code(s): E10.10 - Type 1 diabetes mellitus with ketoacidosis without coma Is this a current diagnosis for this admission?: Yes Plan: Diabetic ketoacidosis patient has had some degree of polyuria polydipsia with nausea and uncontrolled hyperglycemia with supporting labs. Patient will receive IV fluids IV insulin serial chemistries every 6 hours for evaluation for electrolyte repletion. Continued evaluation for underlying cause if not found Patient will require diabetic education and consideration of mental health evaluation. (2) Acute renal failure Is this a current diagnosis for this admission?: Yes Plan: Secondary to #1 IV fluid challenge reevaluate chemistry, avoid nephrotoxic meds and doses. - Time Time Spent: 50 to 70 Minutes - Inpatient Certification Medical Necessity: Need Close Monitoring Due to Risk of Patient Decompensation
[2018-01-20] MEDS: HEPARIN SOD (PORCINE) 5,000 UNIT/ML 1 ML SYRINGE SUBCUT SCH ×3 (05:52→22:16)
[2018-01-20] MEDS ORDERED: DEXTROSE 50%-WATER SYRINGE 12.5 GM/25 ML DOSE IV PRN (06:45)
[2018-01-20] MEDS ORDERED: GLUCAGON,HUMAN RECOMB 1 MG INJ IM PRN (06:45)
[2018-01-20] MEDS ORDERED: DEXTROSE 50%-WATER SYRINGE 25 GM/50 ML DOSE IV PRN (06:45)
[2018-01-20] MEDS ORDERED: DEXTROSE 40% GEL 15 GM TUBE PO PRN (06:45)
[2018-01-20] MEDS ORDERED: DEXTROSE 40% GEL 15 GM TUBE X 2 PO PRN (06:45)
[2018-01-20 09:45] LABS: ANION GAP 13 (5-19); BLOOD UREA NITROGEN 10 mg/dL (7-20); CALCIUM 8.2 mg/dL (8.4-10.2); CARBON DIOXIDE 17 mmol/L (22-30); CHLORIDE 106 mmol/L (98-107); GLUCOSE 267 mg/dL (75-110); POTASSIUM 4.7 mmol/L (3.6-5.0); SODIUM 136.2 mmol/L (137-145)
[2018-01-20] MEDS ORDERED: NORMAL SALINE 1000 ML 1,000 ML IV ONE (10:02)
[2018-01-20] MEDS: DOCUSATE SODIUM 100 MG CAPSULE PO SCH ×2 (10:55→19:19)
[2018-01-20] MEDS: INSULIN GLARGINE,HUM.REC.ANLOG 300 UNIT/3 ML INSULN.PEN SUBCUT SCH (10:55)
[2018-01-20] MEDS: GABAPENTIN 300 MG CAPSULE PO SCH ×2 (13:26→22:16)
[2018-01-20] MEDS: INSULIN LISPRO 100 UNIT/ML 3 ML VIAL SUBCUT PRN ×2 (13:29→22:22)
[2018-01-20 15:57] LABS: ANION GAP 10 (5-19); BLOOD UREA NITROGEN 10 mg/dL (7-20); CALCIUM 8.4 mg/dL (8.4-10.2); CARBON DIOXIDE 21 mmol/L (22-30); CHLORIDE 105 mmol/L (98-107); GLUCOSE 184 mg/dL (75-110); POTASSIUM 4.1 mmol/L (3.6-5.0); SODIUM 135.9 mmol/L (137-145)
[2018-01-20] MEDS ORDERED: NORMAL SALINE 1000 ML 1,000 ML IV PRN (17:39)
--- NOTE | 2018-01-20 17:46 | PDOC DISCHARGE SUMMARY ---
General - Admit/Disc Date/PCP Admission Date/Primary Care Provider: 01/19/18 19:41 Discharge Date: 01/20/18 - Discharge Diagnosis (1) DKA (diabetic ketoacidoses) Is this a current diagnosis for this admission?: Yes (2) Acute renal failure Is this a current diagnosis for this admission?: Yes - Additional Information Resuscitation Status: Full Code Discharge Diet: Diabetic, Other (Comments) Discharge Activity: Activity As Tolerated, Slowly Increase Activity Prescriptions: Insulin Glargine,Hum.rec.anlog [Lantus Insulin 100 Unit/mL] 25 unit SUBCUT DAILY #3 insuln.pen Insulin Aspart [Novolog Insulin (Aspart) 100 unit/mL] 4 units SQ MEALS #1 vial Home Medications: Acetaminophen [Tylenol 325 mg Tablet] 650 mg PO Q4HP PRN tablet 01/20/18 Aspirin [Aspirin EC] 81 mg PO DAILY 01/20/18 Atorvastatin Calcium [Lipitor 40 mg Tablet] 40 mg PO QHS 01/20/18 Gabapentin [Neurontin 300 mg Capsule] 900 mg PO Q8 01/20/18 Insulin Aspart [Novolog Insulin (Aspart) 100 unit/mL] 4 units SQ MEALS #1 vial 01/20/18 Insulin Glargine,Hum.rec.anlog [Lantus Insulin 100 Unit/1 ml 10 ml] 25 units SQ DAILY 01/20/18 Insulin Glargine,Hum.rec.anlog [Lantus Insulin 100 Unit/mL] 25 unit SUBCUT DAILY #3 insuln.pen 01/20/18 Lisinopril [Prinivil 5 mg Tablet] 5 mg PO DAILY 01/20/18 Metformin HCl [Glucophage 500 mg Tablet] 1,000 mg PO QAM 01/20/18 Metformin HCl [Glucophage 500 mg Tablet] 500 mg PO BID@12,18 01/20/18 Pregabalin [Lyrica 75 mg Capsule] 150 mg PO Q12 01/20/18 History of Present Illness History of Present Illness: Per H&P by Dr. Delgado: MAMTA CUEVA is a 57 year old male with history of insulin dependent diabetes and recurrent hospitalizations for diabetic ketoacidosis. Patient presents with 24 hours of nausea, vomiting, hyperglycemia following loss of access to insulin. Patient discharged 5 days ago with prescriptions which she states were filled however insulin was kept in his car which was towed. He denies fever headache or new medications. He admits polyuria polydipsia. In the emergency room is found to have severe metabolic acidosis he treated symptomatically and started on an IV fluid challenge and referred her to the hospitalist for admission. Hospital Course Hospital Course: The patient was admitted with diabetic ketoacidosis secondary to missed insulin dosing. Patient reports that his insulin was locked in his car which was towed away. He presented with polyuria, polydipsia, nausea, and uncontrolled hyperglycemia. He was admitted to [facility] on continuous cardiac telemetry. He was supported with aggressive IV fluid hydration. Chemistries were monitored closely. Initially he was placed on insulin drip and once anion gap was closed, was transitioned to his home dose Lantus. His diet was advanced to a consistent carb. Accu- Cheks were monitored before meals and at bedtime with Humalog provided for sliding scale coverage. Once tolerating p.o., his home medication regiment for blood pressure control and neuropathy was resumed. The patient's anion gap rapidly closed, bicarb is trending up, acute kidney injury resolved itself with IV fluid resuscitation. and potassium is normal. Patient educator and transplant registered nurse consultations were arranged. At time of discharge, the patient is in stable condition, main oxygen saturations on room air, tolerating a regular diet, with appropriately controlled glucose. He is discharged home with prescriptions for Lantus and Novolog. He is instructed to follow up with his primary care provider within 1 week. Physical Exam Vital Signs: Temp Pulse Resp BP Pulse Ox 98.6 F 91 16 135/80 H 96 01/20/18 16:59 01/20/18 16:59 01/20/18 16:59 01/20/18 16:59 01/20/18 16:59 Intake & Output 01/19/18 01/20/18 01/21/18 06:59 06:59 06:59 Intake Total 1472 459 Output Total 450 Balance 1022 459 Weight 59.1 kg General appearance: PRESENT: no acute distress, thin, well-developed, well- nourished. ABSENT: cooperative - Patient initially covered his head with blanket; would not answer most questions Head exam: PRESENT: atraumatic, normocephalic Eye exam: PRESENT: conjunctiva pink, EOMI, PERRLA. ABSENT: scleral icterus Mouth exam: PRESENT: moist, tongue midline Neck exam: ABSENT: carotid bruit, JVD, lymphadenopathy, thyromegaly Respiratory exam: PRESENT: clear to auscultation shoaib, symmetrical, unlabored. ABSENT: rales, rhonchi, wheezes Cardiovascular exam: PRESENT: RRR, +S1, +S2. ABSENT: diastolic murmur, rubs, systolic murmur Vascular exam: PRESENT: normal capillary refill GI/Abdominal exam: PRESENT: normal bowel sounds, soft. ABSENT: distended, guarding, mass, organolmegaly, rebound, tenderness Rectal exam: PRESENT: deferred Extremities exam: PRESENT: full ROM. ABSENT: calf tenderness, clubbing, pedal edema Neurological exam: PRESENT: alert, awake, oriented to person, oriented to place , oriented to time, oriented to situation, CN II-XII grossly intact. ABSENT: motor sensory deficit Psychiatric exam: PRESENT: appropriate affect, normal mood. ABSENT: homicidal ideation, suicidal ideation Skin exam: PRESENT: dry, intact, warm. ABSENT: cyanosis, rash Results Laboratory Results: 01/20/18 02:57 01/20/18 15:20 01/19/18 01/20/18 01/20/18 20:52 02:57 02:57 WBC 8.5 RBC 4.17 L Hgb 12.7 L D Hct 36.6 L MCV 88 MCH 30.3 MCHC 34.6 RDW 13.2 Plt Count 309 Seg Neutrophils % 69.9 Lymphocytes % 18.0 Monocytes % 11.0 Eosinophils % 0.3 Basophils % 0.8 Absolute Neutrophils 6.0 Absolute Lymphocytes 1.5 Absolute Monocytes 0.9 Absolute Eosinophils 0.0 Absolute Basophils 0.1 Sodium 142.0 140.4 Potassium 4.3 4.0 Chloride 108 H 113 H Carbon Dioxide 17 L 20 L Anion Gap 17 7 BUN 16 12 Creatinine 1.06 0.78 Est GFR ( Amer) > 60 > 60 Est GFR (Non-Af Amer) > 60 > 60 Glucose 191 H 71 L Calcium 9.0 8.5 01/20/18 01/20/18 08:50 15:20 WBC RBC Hgb Hct MCV MCH MCHC RDW Plt Count Seg Neutrophils % Lymphocytes % Monocytes % Eosinophils % Basophils % Absolute Neutrophils Absolute Lymphocytes Absolute Monocytes Absolute Eosinophils Absolute Basophils Sodium 136.2 L 135.9 L Potassium 4.7 4.1 Chloride 106 105 Carbon Dioxide 17 L 21 L Anion Gap 13 10 BUN 10 10 Creatinine 0.83 0.87 Est GFR ( Amer) > 60 > 60 Est GFR (Non-Af Amer) > 60 > 60 Glucose 267 H 184 H Calcium 8.2 L 8.4 Qualifiers - * PATIENT BEING DISCHARGED WITH ANY OF THE FOLLOWING DIAGNOSIS: No Plan Discharge Plan: The patient is discharged home with self-care. Follow-up with primary care provider within 1 week. Time Spent: Less than 30 Minutes
[2018-01-20] MEDS ORDERED: PREGABALIN 75 MG CAPSULE PO SCH (22:00)
[2018-01-20] MEDS ORDERED: ATORVASTATIN CALCIUM 40 MG TABLET PO SCH (22:00)
[2018-01-21] MEDS: GABAPENTIN 300 MG CAPSULE PO SCH ×2 (05:33→13:57)
[2018-01-21] MEDS: HEPARIN SOD (PORCINE) 5,000 UNIT/ML 1 ML SYRINGE SUBCUT SCH ×2 (05:33→14:00)
[2018-01-21 07:30] LABS: ABSOLUTE LYMPHOCYTES (AUTO) 1.2 10^3/uL (0.5-4.7); ABSOLUTE MONOCYTES (AUTO) 0.5 10^3/uL (0.1-1.4); ABSOLUTE NEUT (AUTO) 3.3 10^3/uL (1.7-8.2); BASOPHILS % (AUTO) 0.7 % (0-2); EOSINOPHILS % (AUTO) 0.7 % (0-6); HEMATOCRIT 35.3 % (37.9-51.0); HEMOGLOBIN 12.1 g/dL (13.5-17.0); LYMPHOCYTES % (AUTO) 24.5 % (13-45); MEAN CORPUSCULAR HEMOGLOBIN 30.8 pg (27.0-33.4); MEAN CORPUSCULAR HGB CONC 34.4 g/dL (32.0-36.0); MEAN CORPUSCULAR VOLUME 90 fl (80-97); PLATELET COUNT 260 10^3/uL (150-450); RED BLOOD COUNT 3.94 10^6/uL (4.35-5.55); RED CELL DISTRIBUTION WIDTH 13.4 % (11.5-14.0); SEGMENTED NEUTROPHILS % (AUTO) 65.1 % (42-78); TOTAL CELLS COUNTED % (AUTO) 100 %; WHITE BLOOD COUNT 5.1 10^3/uL (4.0-10.5)
--- NOTE | 2018-01-21 07:40 | EKG REPORT ---
SEVERITY:- ABNORMAL ECG - SINUS TACHYCARDIA LVH WITH SECONDARY REPOLARIZATION ABNORMALITY : Confirmed by: Navarro Gomez MD 21-Jan-2018 07:39:37
[2018-01-21] MEDS ORDERED: LISINOPRIL 5 MG TABLET PO SCH (10:00)
[2018-01-21] MEDS ORDERED: ASPIRIN 81 MG TABLET, ENT COATED PO SCH (10:00)
[2018-01-21] MEDS: INSULIN GLARGINE,HUM.REC.ANLOG 300 UNIT/3 ML INSULN.PEN SUBCUT SCH (10:47)
[2018-01-21] MEDS: DOCUSATE SODIUM 100 MG CAPSULE PO SCH (10:47)
[2018-01-21 12:34] VITALS: BP 135/80
[2018-01-21] MEDS: INSULIN LISPRO 100 UNIT/ML 3 ML VIAL SUBCUT PRN (13:57)
== END 2018-01-21 16:24 | disposition home or self-care (01) | DRG 638 ==
LOC: ER 15:55 → EH 19:41 → 3W 21:21
PROVIDERS: ADMIT Internal Medicine; ATTEND Internal Medicine
DX: E10.10 Type 1 diabetes mellitus with ketoacidosis without coma (principal); N17.9 Acute kidney failure, unspecified; E78.00 Pure hypercholesterolemia, unspecified; F32.9 Major depressive disorder, single episode, unspecified; I10 Essential (primary) hypertension; N40.0 Benign prostatic hyperplasia without lower urinary tract symptoms; Z59.0 Homelessness; Z79.82 Long term (current) use of aspirin; Z79.4 Long term (current) use of insulin; Z79.899 Other long term (current) drug therapy; Z83.3 Family history of diabetes mellitus; Z82.49 Family history of ischemic heart disease and other diseases of the circulatory system
CPT/HCPCS: 36415; 80048; 80053; 81001; 82803; 82962; 83735; 85025; 93005; 93010; 96360; 96361; 99284; J1644; J1815; J3480; J7030; S0119

== ENCOUNTER 2018-04-20 13:25 | Emergency (ER) | payer MEDICAID ==
[2018-04-20] MEDS ORDERED: NORMAL SALINE 1000 ML 1,000 ML IV ONE (13:44)
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
[2018-04-20 14:27] LABS: ABSOLUTE LYMPHOCYTES (AUTO) 1.3 10^3/uL (0.5-4.7); ABSOLUTE MONOCYTES (AUTO) 0.5 10^3/uL (0.1-1.4); BASOPHILS % (AUTO) 0.3 % (0-2); EOSINOPHILS % (AUTO) 0.4 % (0-6); HEMATOCRIT 48.8 % (37.9-51.0); HEMOGLOBIN 16.7 g/dL (13.5-17.0); LYMPHOCYTES % (AUTO) 16.2 % (13-45); MEAN CORPUSCULAR HEMOGLOBIN 30.9 pg (27.0-33.4); MEAN CORPUSCULAR HGB CONC 34.2 g/dL (32.0-36.0); MEAN CORPUSCULAR VOLUME 90 fl (80-97); PLATELET COUNT 298 10^3/uL (150-450); RED BLOOD COUNT 5.41 10^6/uL (4.35-5.55); RED CELL DISTRIBUTION WIDTH 13.1 % (11.5-14.0); SEGMENTED NEUTROPHILS % (AUTO) 77.1 % (42-78); TOTAL CELLS COUNTED % (AUTO) 100 %; WHITE BLOOD COUNT 7.8 10^3/uL (4.0-10.5)
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
--- NOTE | 2018-04-20 15:29 | EKG REPORT ---
SEVERITY:- ABNORMAL ECG - SINUS RHYTHM CONSIDER LEFT VENTRICULAR HYPERTROPHY ST ELEVATION SUGGESTS NORMAL VARIANT : Confirmed by: Navarro Gomez MD 20-Apr-2018 15:28:51
[2018-04-20 16:04] LABS: APPEARANCE,URINE SLIGHTLY-CLOUDY; BILIRUBIN,URINE NEGATIVE (NEGATIVE); COLOR,URINE YELLOW; GLUCOSE, URINE >=500 mg/dL (NEGATIVE); KETONES,URINE 20 mg/dL (NEGATIVE); LEUKOCYTE ESTERASE,URINE NEGATIVE (NEGATIVE); NITRITE,URINE NEGATIVE (NEGATIVE); PROTEIN,URINE 100 mg/dL (NEGATIVE); URINE SPECIFIC GRAVITY 1.022
[2018-04-20 16:08] LABS: ALANINE AMINOTRANSFERASE 32 U/L (21-72); ALBUMIN 3.4 g/dL (3.5-5.0); ALKALINE PHOSPHATASE 65 U/L (38-126); ANION GAP 7 (5-19); ASPARTATE AMINO TRANSFERASE 22 U/L (17-59); BILIRUBIN,DIRECT 0.3 mg/dL (0.0-0.4); BILIRUBIN,TOTAL 0.5 mg/dL (0.2-1.3); BLOOD UREA NITROGEN 20 mg/dL (7-20); CALCIUM 8.3 mg/dL (8.4-10.2); CARBON DIOXIDE 29 mmol/L (22-30); CHLORIDE 100 mmol/L (98-107); CREATINE KINASE 145 U/L (55-170); GLUCOSE 254 mg/dL (75-110); POTASSIUM 4.6 mmol/L (3.6-5.0); SODIUM 135.7 mmol/L (137-145); TOTAL PROTEIN 6.4 g/dL (6.3-8.2)
[2018-04-20 16:09] VITALS: BP 129/78
[2018-04-20 16:17] LABS: URINE AMPHETAMINES SCREEN NEGATIVE; URINE BARBITURATES SCREEN NEGATIVE; URINE BENZODIAZEPINES SCREEN NEGATIVE; URINE COCAINE SCREEN UNCONFIRMED POSITIVE; URINE MARIJUANA (THC) SCREEN UNCONFIRMED POSITIVE; URINE METHADONE SCREEN NEGATIVE; URINE PHENCYCLIDINE SCREEN NEGATIVE
[2018-04-20 16:26] LABS: CREATINE KINASE MB 1.21 ng/mL (<4.55); TROPONIN I < 0.012 ng/mL
[2018-04-20] MEDS ORDERED: GABAPENTIN 300 MG CAPSULE PO ONE (17:03)
== END 2018-04-20 17:21 | disposition home or self-care (01) ==
LOC: ER 13:25
DX: E10.65 Type 1 diabetes mellitus with hyperglycemia (principal); E10.42 Type 1 diabetes mellitus with diabetic polyneuropathy; R42 Dizziness and giddiness; R53.1 Weakness; E78.00 Pure hypercholesterolemia, unspecified; K59.00 Constipation, unspecified; Y04.0XXA Assault by unarmed brawl or fight, initial encounter; Z79.899 Other long term (current) drug therapy; Z79.84 Long term (current) use of oral hypoglycemic drugs; F17.200 Nicotine dependence, unspecified, uncomplicated; I10 Essential (primary) hypertension
CPT/HCPCS: 93005; 99285; 96360; 36415; 82553; 82550; 85025; 80053; 81001; 84484; 80307; 70450; 72125; 93010; J3490; J7030

== ENCOUNTER 2018-05-07 14:14 | Inpatient (IN) | payer MEDICAID ==
[2018-05-07] MEDS ORDERED: ONDANSETRON HCL INJ/PF 4 MG/2 ML SDV IV ONE (14:32)
[2018-05-07] MEDS ORDERED: NORMAL SALINE 1000 ML 1,000 ML IV ONE ×3 (14:32→19:19)
[2018-05-07] MEDS ORDERED: FAMOTIDINE INJ/PF 20 MG/2 ML SDV IV ONE (14:32)
--- NOTE | 2018-05-07 14:33 | ER Document Report ---
ED Medical Screen (RME) - General Chief Complaint: Vomiting Stated Complaint: VOMITING BLOOD Time Seen by Provider: 05/07/18 14:29 Notes: This is a 57-year-old male to the emergency department chief complaint of nausea and vomiting. Sent over by primary care doctor's office. Currently has been vomiting uncontrollably. Now vomiting up some blood-tinged emesis. History of diabetes. Blood sugar is "high". I have greeted and performed a rapid initial assessment of this patient. A comprehensive ED assessment and evaluation of the patient, analysis of test results and completion of the medical decision making process will be conducted by additional ED providers. TRAVEL OUTSIDE OF THE [place] IN LAST 30 DAYS: No - Related Data Allergies/Adverse Reactions: No Known Allergies Allergy (Verified 05/07/18 14:15) Past Medical History - Past Medical History Cardiac Medical History: Reports: Hx Hypercholesterolemia, Hx Hypertension Pulmonary Medical History: Denies: Hx Tuberculosis Endocrine Medical History: Reports: Hx Diabetes Mellitus Type 1, Hx Diabetes Mellitus Type 2 Renal/ Medical History: Reports: Hx Benign Prostatic Hyperplasia. Denies: Hx Peritoneal Dialysis Psychiatric Medical History: Reports: Hx Depression Past Surgical History: Reports: Hx Orthopedic Surgery - jaw - Immunizations Hx Diphtheria, Pertussis, Tetanus Vaccination: No History of Influenza Vaccine for 05/2017 - 10/2017 Season: Unknown Review of Systems - Review of Systems Notes: Review of systems positive following: Nausea, vomiting, hematemesis, hyperglycemia, DKA Physical Exam - Vital signs Vitals: Temp Pulse BP Pulse Ox 97.5 F 115 H 117/69 99 05/07/18 14:22 05/07/18 14:22 05/07/18 14:22 05/07/18 14:22 Course - Vital Signs Vital signs: Temp Pulse Resp BP Pulse Ox 97.5 F 115 H 117/69 99 05/07/18 14:22 05/07/18 14:22 05/07/18 14:22 05/07/18 14:22
--- NOTE | 2018-05-07 15:01 | ER Document Report ---
ED General - General Mode of Arrival: Ambulatory Information source: Patient TRAVEL OUTSIDE OF THE [place] IN LAST 30 DAYS: No <DAVION CONCEPCION - Last Filed: 05/07/18 15:22> <ELSIE SILVER - Last Filed: 05/07/18 19:32> - General Chief Complaint: Vomiting Stated Complaint: VOMITING BLOOD Time Seen by Provider: 05/07/18 14:29 Notes: Patient is a 57 year old male presenting to the emergency department complaining of vomiting onset this morning. Patient states that he has been vomiting uncontrollably and believes his blood sugar his high. Patient states he has not checked his blood sugar and does not have any insulin. He states he went to his PCP's office Dr. Mendez and was directed to come to the emergency department. Patient mentions a new onset of abdominal pain while at Dr. Mendez's office, further stating his abdomen did not hurt until Dr. Mendez palpated his abdomen earlier today. Patient also complains of feeling weak since yesterday. At bedside, patient is quite uncooperative and complains of being severely weak. He also begins to be uncooperative with nurses who are also at bedside. (DAVION CONCEPCION) - Related Data Allergies/Adverse Reactions: No Known Allergies Allergy (Verified 05/07/18 14:15) Past Medical History - General Information source: Patient - Social History Smoking Status: Current Every Day Smoker Family History: CAD - father at 59 of heart problems, DM - mother Patient has suicidal ideation: No Patient has homicidal ideation: No - Past Medical History Cardiac Medical History: Reports: Hx Hypercholesterolemia, Hx Hypertension Endocrine Medical History: Reports: Hx Diabetes Mellitus Type 2 Renal/ Medical History: Reports: Hx Benign Prostatic Hyperplasia Psychiatric Medical History: Reports: Hx Depression Past Surgical History: Reports: Hx Orthopedic Surgery - jaw - Immunizations Hx Diphtheria, Pertussis, Tetanus Vaccination: No Hx Pneumococcal Vaccination: 05/09/13 <DAVION CONCEPCION - Last Filed: 05/07/18 15:22> Review of Systems - Review of Systems Constitutional: See HPI, Weakness EENT: No symptoms reported Cardiovascular: No symptoms reported Respiratory: No symptoms reported Gastrointestinal: See HPI, Vomiting Genitourinary: No symptoms reported Male Genitourinary: No symptoms reported Musculoskeletal: No symptoms reported Skin: No symptoms reported Hematologic/Lymphatic: No symptoms reported Neurological/Psychological: No symptoms reported -: Yes All other systems reviewed and negative <DAVION CONCEPCION - Last Filed: 05/07/18 15:22> Physical Exam <DAVION CONCEPCION - Last Filed: 05/07/18 15:22> <ADRIANNE,ELSIE - Last Filed: 05/07/18 19:32> - Vital signs Vitals: Temp Pulse BP Pulse Ox 97.5 F 115 H 117/69 99 05/07/18 14:22 05/07/18 14:22 05/07/18 14:22 05/07/18 14:22 - Notes Notes: GENERAL: Alert, uncooperative. No acute distress. HEAD: Normocephalic, atraumatic. EYES: Pupils equal, round, and reactive to light. Extraocular movements intact. ENT: Oral mucosa dry, tongue midline. Ketones odor. NECK: Full range of motion. Supple. Trachea midline. LUNGS: Clear to auscultation bilaterally, no wheezes, rales, or rhonchi. No respiratory distress. HEART: Regular rate and rhythm. No murmurs, gallops, or rubs. ABDOMEN: Soft, diffuse abdominal tenderness to palpation. Non-distended. Bowel sounds present in all 4 quadrants. EXTREMITIES: Moves all 4 extremities spontaneously. NEUROLOGICAL: Alert and oriented x3. Normal speech. PSYCH: Uncooperative during exam with myself and nurses. SKIN: Warm, dry, normal turgor. No rashes or lesions noted. (DAVION CONCEPCION) Course - Laboratory Result Diagrams: 05/07/18 17:50 05/07/18 17:50 - EKG Interpretation by De EKG shows normal: Sinus rhythm, [place], Intervals, QRS Complexes. abnormal: ST-T Waves - Tall lateral T wave worse than the last DKA episode Rate: Tachycardia - 121 Voltage: Consistant with LVH <ELSIE SLIVER - Last Filed: 05/07/18 19:32> - Vital Signs Vital signs: Temp Pulse Resp BP Pulse Ox 97.5 F 115 H 117/69 99 05/07/18 14:22 05/07/18 14:22 05/07/18 14:22 05/07/18 14:22 - Laboratory Laboratory results interpreted by me: 05/07/18 05/07/18 05/07/18 16:15 17:50 17:50 WBC 22.4 H MCHC 31.5 L Seg Neuts % (Manual) 93 H Band Neutrophils % 1 L Lymphocytes % (Manual) 4 L Monocytes % (Manual) 2 L Abs Neuts (Manual) 21.1 H APTT 20.9 L Potassium Chloride Carbon Dioxide Anion Gap BUN Creatinine Est GFR ( Amer) Est GFR (Non-Af Amer) Glucose Magnesium Direct Bilirubin Urine Glucose (UA) >=500 H Urine Ketones 80 H 05/07/18 05/07/18 17:50 17:50 WBC MCHC Seg Neuts % (Manual) Band Neutrophils % Lymphocytes % (Manual) Monocytes % (Manual) Abs Neuts (Manual) APTT Potassium 6.3 H* Chloride 94 L Carbon Dioxide 6 L* Anion Gap 38 H BUN 28 H Creatinine 2.04 H Est GFR ( Amer) 41 L Est GFR (Non-Af Amer) 34 L Glucose 836 H* Magnesium 2.8 H Direct Bilirubin 0.5 H Urine Glucose (UA) Urine Ketones Critical Care Note - Critical Care Note Total time excluding time spent on procedures (mins): 40 <ELSIE SILVER - Last Filed: 05/07/18 19:32> Discharge <DAVION CONCEPCION - Last Filed: 05/07/18 15:22> - Discharge Admitting Provider: Hospitalist Unit Admitted: ICU <ELSIE SILVER - Last Filed: 05/07/18 19:32> - Discharge Clinical Impression: Noncompliance with medication regimen, Dehydration, Hyperkalemia, Hypermagnesemia DKA (diabetic ketoacidoses) Qualifiers: Diabetes mellitus type: type 1 Diabetes mellitus complication detail: without coma Qualified Code(s): E10.10 - Type 1 diabetes mellitus with ketoacidosis without coma Condition: Fair Disposition: ADMITTED INPATIENT Scribe Attestation: 05/07/18 15:52 I personally performed the services described in the documentation, reviewed and edited the documentation which was dictated to the scribe in my presence, and it accurately records my words and actions. (ELSIE SILVER) Scribe Documentation - Scribe Written by Jonahibe:: Cari Olivares, 05/07/2018 15:01 acting as scribe for :: Adrianne <DAVION CONCEPCION - Last Filed: 05/07/18 15:22>
[2018-05-07 16:31] LABS: APPEARANCE,URINE SLIGHTLY-CLOUDY; BILIRUBIN,URINE NEGATIVE (NEGATIVE); COLOR,URINE YELLOW; GLUCOSE, URINE >=500 mg/dL (NEGATIVE); KETONES,URINE 80 mg/dL (NEGATIVE); LEUKOCYTE ESTERASE,URINE NEGATIVE (NEGATIVE); NITRITE,URINE NEGATIVE (NEGATIVE); PROTEIN,URINE NEGATIVE (NEGATIVE); URINE SPECIFIC GRAVITY 1.024; UROBILINOGEN,URINE NEGATIVE mg/dL (<2.0)
[2018-05-07 18:09] LABS: INTERNATIONAL RATION (INR) 0.86; PROTHROMBIN TIME 12.2 SEC (11.4-15.4)
[2018-05-07 18:10] LABS: PARTIAL THROMBOPLASTIN TIME 20.9 SEC (23.5-35.8)
[2018-05-07 18:12] LABS: HEMATOCRIT 48.8 % (37.9-51.0); HEMOGLOBIN 15.4 g/dL (13.5-17.0); MEAN CORPUSCULAR HEMOGLOBIN 30.7 pg (27.0-33.4); MEAN CORPUSCULAR HGB CONC 31.5 g/dL (32.0-36.0); PLATELET COUNT 286 10^3/uL (150-450); RED BLOOD COUNT 5.01 10^6/uL (4.35-5.55); RED CELL DISTRIBUTION WIDTH 13.6 % (11.5-14.0); WHITE BLOOD COUNT 22.4 10^3/uL (4.0-10.5)
[2018-05-07 18:16] LABS: ALANINE AMINOTRANSFERASE 27 U/L (21-72); ALBUMIN 4.5 g/dL (3.5-5.0); ALKALINE PHOSPHATASE 102 U/L (38-126); ASPARTATE AMINO TRANSFERASE 20 U/L (17-59); BILIRUBIN,DIRECT 0.5 mg/dL (0.0-0.4); BILIRUBIN,TOTAL 0.6 mg/dL (0.2-1.3); BLOOD UREA NITROGEN 28 mg/dL (7-20); CALCIUM 9.4 mg/dL (8.4-10.2); LIPASE 45.7 U/L (23-300); TOTAL PROTEIN 7.6 g/dL (6.3-8.2)
[2018-05-07 18:18] LABS: MEAN CORPUSCULAR VOLUME 97 fl (80-97)
[2018-05-07 18:21] LABS: ABSOLUTE LYMPHOCYTES# (MANUAL) 0.9 10^3/uL (0.5-4.7); ABSOLUTE MONOCYTES # (MANUAL) 0.4 10^3/uL (0.1-1.4); ABSOLUTE NEUTROPHILS# (MANUAL) 21.1 10^3/uL (1.7-8.2); BAND NEUTROPHILS % (MANUAL) 1 % (3-5); BASOPHILS % (MANUAL) 0 % (0-2); CHLORIDE 94 mmol/L (98-107); EOSINOPHILS % (MANUAL) 0 % (0-6); LYMPHOCYTES % (MANUAL) 4 % (13-45); MONOCYTES % (MANUAL) 2 % (3-13); SEGMENTED NEUTROPHILS % (MAN) 93 % (42-78); SODIUM 137.5 mmol/L (137-145); TOTAL CELLS COUNTED 100
[2018-05-07 18:22] LABS: PLATELET COMMENT ADEQUATE; TOXIC VACUOLATION PRESENT
[2018-05-07 18:23] LABS: RBC MORPHOLOGY COMMENT NORMO-CYTIC/CHROMIC
[2018-05-07 18:26] LABS: ANION GAP 38 (5-19); CARBON DIOXIDE 6 mmol/L (22-30); GLUCOSE 836 mg/dL (75-110); POTASSIUM 6.3 mmol/L (3.6-5.0)
[2018-05-07] MEDS ORDERED: INSULIN REG, HUMAN 100 UNIT/ML 3 ML VIAL (PYX) IV ONE (18:28)
[2018-05-07] MEDS ORDERED: ACETAMINOPHEN 325 MG TABLET PO PRN (19:28)
[2018-05-07] MEDS ORDERED: DEXTROSE 50%-WATER 25 GM/50 ML DISP.SYRIN IV PRN ×2 (19:29)
[2018-05-07] MEDS ORDERED: NORMAL SALINE 100 ML with INSULIN REGULAR, HUMAN 100 UNIT IV PRN ×2 (19:29)
[2018-05-07] MEDS ORDERED: MAG HYDROX/AL HYDROX/SIMETH SUSP 30 ML UDCUP PO PRN (19:29)
[2018-05-07] MEDS ORDERED: DEXTROSE 40% GEL 15 GM TUBE PO PRN ×2 (19:29)
[2018-05-07] MEDS ORDERED: IPRATROPIUM/ALBUTEROL 0.5-2.5 MG/3 ML AMPUL NEB ONE (19:29)
[2018-05-07] MEDS ORDERED: IPRATROPIUM/ALBUTEROL 0.5-2.5 MG/3 ML AMPUL NEB PRN (19:29)
[2018-05-07] MEDS ORDERED: GLUCAGON,HUMAN RECOMB 1 MG INJ IM PRN (19:29)
[2018-05-07] MEDS ORDERED: MAGNESIUM HYDROXIDE SUSP 30 ML UDCUP PO PRN (19:29)
[2018-05-07 20:36] LABS: URINE AMPHETAMINES SCREEN NEGATIVE; URINE BARBITURATES SCREEN NEGATIVE; URINE BENZODIAZEPINES SCREEN NEGATIVE; URINE COCAINE SCREEN UNCONFIRMED POSITIVE; URINE MARIJUANA (THC) SCREEN NEGATIVE; URINE METHADONE SCREEN NEGATIVE; URINE PHENCYCLIDINE SCREEN NEGATIVE
[2018-05-07 20:56] LABS: BLOOD UREA NITROGEN 30 mg/dL (7-20); CREATINE KINASE 97 U/L (55-170)
[2018-05-07 21:01] LABS: CHLORIDE 100 mmol/L (98-107); SODIUM 137.4 mmol/L (137-145)
[2018-05-07 21:02] LABS: ANION GAP 30 (5-19)
[2018-05-07] MEDS ORDERED: LIDOCAINE 1%/EPINEPHRINE INJ 20 ML VIAL INJ ONE (21:03)
[2018-05-07 21:07] LABS: CARBON DIOXIDE 7 mmol/L (22-30); GLUCOSE 753 mg/dL (75-110); POTASSIUM 6.4 mmol/L (3.6-5.0)
--- NOTE | 2018-05-07 21:40 | PDOC CONSULTATION ---
Consultation Consult Date: 05/07/18 Consult reason:: need IV access History of Present Illness Admission Date/PCP: 05/07/18 19:56 History of Present Illness: MAMTA CUEVA is a 57 year old male with DKA in need of IV access for medications and fluids. Past Medical History Cardiac Medical History: Reports: Hyperlipidema, Hypertension Pulmonary Medical History: Denies: Tuberculosis Endocrine Medical History: Reports: Diabetes Mellitus Type 1, Diabetes Mellitus Type 2 Psychiatric Medical History: Reports: Depression Past Surgical History Past Surgical History: Reports: Orthopedic Surgery - jaw Social History Smoking Status: Current Every Day Smoker Frequency of Alcohol Use: None Hx Recreational Drug Use: No Drugs: None Hx Prescription Drug Abuse: No Family History Family History: CAD - father at 59 of heart problems, DM - mother Parental Family History Reviewed: No Children Family History Reviewed: No Sibling(s) Family History Reviewed.: No Medication/Allergy Home Medications: Acetaminophen [Tylenol 325 mg Tablet] 650 mg PO Q4HP PRN tablet 01/20/18 Aspirin [Aspirin EC] 81 mg PO DAILY 01/20/18 Atorvastatin Calcium [Lipitor 40 mg Tablet] 40 mg PO QHS 01/20/18 Gabapentin [Neurontin 300 mg Capsule] 900 mg PO Q8 01/20/18 Insulin Aspart [Novolog Insulin (Aspart) 100 unit/mL] 4 units SQ MEALS #1 vial 01/20/18 Insulin Glargine,Hum.rec.anlog [Lantus Insulin 100 Unit/1 ml 10 ml] 25 units SQ DAILY 01/20/18 Insulin Glargine,Hum.rec.anlog [Lantus Insulin 100 Unit/mL] 25 unit SUBCUT DAILY #3 insuln.pen 01/20/18 Lisinopril [Prinivil 5 mg Tablet] 5 mg PO DAILY 01/20/18 Metformin HCl [Glucophage 500 mg Tablet] 1,000 mg PO QAM 01/20/18 Metformin HCl [Glucophage 500 mg Tablet] 500 mg PO BID@,18 01/20/18 Pregabalin [Lyrica 75 mg Capsule] 150 mg PO Q12 01/20/18 Gabapentin [Neurontin 300 mg Capsule] 900 mg PO Q8 #90 capsule 01/21/18 Allergies/Adverse Reactions: No Known Allergies Allergy (Verified 05/07/18 14:15) Physical Exam Vital Signs: Temp Pulse Resp BP Pulse Ox 97.5 F 115 H 117/69 99 05/07/18 14:22 05/07/18 14:22 05/07/18 14:22 05/07/18 14:22 Intake & Output 05/06/18 05/07/18 05/08/18 06:59 06:59 06:59 Intake Total 1000 Balance 1000 General appearance: PRESENT: no acute distress Eye exam: PRESENT: EOMI Mouth exam: PRESENT: neck supple Respiratory exam: PRESENT: clear to auscultation shoaib Cardiovascular exam: PRESENT: RRR GI/Abdominal exam: PRESENT: soft Results Laboratory Results: 05/07/18 20:25 05/07/18 20:25 Sodium 137.4 Potassium 6.4 H* Chloride 100 Carbon Dioxide 7 L* Anion Gap 30 H BUN 30 H Creatinine 1.96 H Est GFR ( Amer) 43 L Est GFR (Non-Af Amer) 36 L Glucose 753 H* Calcium 9.0 05/07/18 05/07/18 20:25 20:25 Creatine Kinase 97 Troponin I < 0.012 Assessment & Plan - Diagnosis (1) need Is this a current diagnosis for this admission?: Yes - Plan Summary Plan Summary: A/ Need of IV access for meds/drugs Plan: Placement of central venous line Procedure, risks, benefits, complications explined to the patient. He understands and decides to proceed
--- NOTE | 2018-05-07 21:42 | Operative Report ---
Nonrecallable Operative Report DATE OF SURGERY: 05/07/18 PREOPERATIVE DIAGNOSIS: need IV access POSTOPERATIVE DIAGNOSIS: same- OPERATION: placement of left subclavian vein triple lumen central venous catheter- SURGEON: MILLER ONEAL ANESTHESIA: Local TISSUE REMOVED OR ALTERED: n/a COMPLICATIONS: n/a ESTIMATED BLOOD LOSS: < 2 mL INTRAOPERATIVE FINDINGS: as above PROCEDURE: see dictation
[2018-05-07] MEDS ORDERED: LIDOCAINE 1%/EPINEPHRINE INJ 20 ML VIAL ONE (22:22)
[2018-05-07 22:24] LABS: ARTERIAL BLOOD BASE EXCESS -17.1 mmol/L; ARTERIAL BLOOD FIO2 ROOM AIR; ARTERIAL BLOOD H2CO3 0.73 mmol/L (1.05-1.35); ARTERIAL BLOOD HCO3 9.2 mmol/L (20-24); ARTERIAL BLOOD O2 SATURATION 91.2 % (94-98); ARTERIAL BLOOD PCO2 24.3 mmHg (35-45); ARTERIAL BLOOD PO2 71.9 mmHg (80-100); ARTERIAL BLOOD TOTAL CO2 9.9 mmol/L (23-27)
--- NOTE | 2018-05-07 22:26 | OPERATIVE REPORT E ---
Operative Report NAME: MAMTA CUEAV : 1960 AGE: 57Y DATE OF SURGERY: 05/07/2018 ROOM: ED09 PREOPERATIVE DIAGNOSIS: NEED OF IV ACCESS FOR MEDICATIONS AND FLUIDS. POSTOPERATIVE DIAGNOSIS: NEED OF IV ACCESS FOR MEDICATIONS AND FLUIDS OPERATION: Placement of left subclavian vein triple lumen central venous catheter. SURGEON: MILLER ONEAL M.D. VIRTUAL ASSISTANT FOR ADVERTISERS: None. COMPLICATIONS: None. ANESTHESIA: Local, about 15 mL of 1% Lidocaine with epinephrine. INDICATIONS AND FINDINGS: This is a 57-year-old male in need of a central venous line for administration of fluids and medications. The procedure, risks, benefits, and complications were explained to the patient who understands all the above and desires to proceed. PROCEDURE: The procedure was done at the bedside in the Emergency Room. The patient was placed in the supine and [place] positions A towel was placed in between his shoulder blades. Then the left upper chest and neck were prepped and draped in the usual fashion. The midportion of the clavicle was infiltrated with lidocaine. Following this, a 16-gauge needle was used to cannulate the left subclavian vein. A guidewire was inserted through a needle into the subclavian vein and superior vena cava. The guidewire and needle were then removed. The guidewire insertion point was enlarged with a #11 blade and a tissue dilator which was then removed. A triple lumen catheter was inserted over the guidewire into the subclavian vein and superior vena cava. The guidewire was removed. Each port was then aspirated and flushed with normal saline without difficulty. The catheter was secured to the skin with silk sutures and sterile dressings. The patient tolerated the procedure well and a chest x-ray was obtained to confirm position of the line. DICTATING PHYSICIAN: MILLER ONEAL M.D. [id number] PHY#: [id number] ID: [id number] JOB#: [id number] ACCT: [id number] cc:MILLER ONEAL M.D. > [facility]
--- NOTE | 2018-05-07 22:57 | Operative Report ---
Nonrecallable Operative Report DATE OF SURGERY: 05/07/18 PREOPERATIVE DIAGNOSIS: left pneumothorax POSTOPERATIVE DIAGNOSIS: same OPERATION: left 16 gauge pleural catheter SURGEON: MILLER ONEAL ANESTHESIA: Local TISSUE REMOVED OR ALTERED: n/a COMPLICATIONS: n/a ESTIMATED BLOOD LOSS: < 2 mL INTRAOPERATIVE FINDINGS: as above PROCEDURE: see dictation
[2018-05-07] MEDS: HEPARIN SOD (PORCINE) 5,000 UNIT/ML 1 ML SYRINGE SUBCUT SCH (23:39)
[2018-05-07] MEDS ORDERED: CALCIUM GLUCONATE 1,000 MG in DEXTROSE 5%-WATER 50 ML IV ONE (23:45)
--- NOTE | 2018-05-07 23:54 | RADIOLOGY REPORT (SQ) ---
PROCEDURE: XR CHEST 1 VIEW HISTORY: POST CENTRAL LINE COMPARISON: 08/22/2014 TECHNIQUE: The study was done on 05/07/2018 at 9:40 PM Single projection of the chest was done. FINDINGS: The tip of the left-sided central line terminates in the midsuperior vena cava . There are no discrete airspace infiltrates, pneumothoraces or pleural effusions. The pulmonary vascularity is normal. The cardiomediastinal silhouette is unremarkable for patient's age and sex. IMPRESSION: There is no acute pleural-parenchymal process seen in the imaged lung carnes. The tip of the left-sided central line terminates in the midsuperior vena cava .
[2018-05-07] MEDS: GABAPENTIN 300 MG CAPSULE PO SCH (23:55)
[2018-05-07] MEDS: ATORVASTATIN CALCIUM 40 MG TABLET PO SCH (23:55)
--- NOTE | 2018-05-07 23:55 | RADIOLOGY REPORT (SQ) ---
EXAM DESCRIPTION: XR CHEST 1 VIEW COMPLETED DATE/TME: 05/07/2018 00:00 CLINICAL HISTORY: 57 years Male, chest tube COMPARISON: 1.3 hours prior. NUMBER OF VIEWS/TECHNIQUE: 1/AP FINDINGS: Increased lung volume, clear parenchyma, normal cardiac silhouette, and intact bony thorax. Left subclavian central line tip at the SVC. Left upper medial chest tube. IMPRESSION: Interval left chest tube. No significant residual pneumothorax.
[2018-05-08 00:55] LABS: BLOOD UREA NITROGEN 27 mg/dL (7-20); CALCIUM 8.9 mg/dL (8.4-10.2)
[2018-05-08 01:01] LABS: CHLORIDE 110 mmol/L (98-107)
[2018-05-08 01:05] LABS: ANION GAP 23 (5-19); POTASSIUM 5.4 mmol/L (3.6-5.0)
[2018-05-08 01:07] LABS: CARBON DIOXIDE 9 mmol/L (22-30); GLUCOSE 451 mg/dL (75-110)
[2018-05-08] MEDS ORDERED: NORMAL SALINE 1000 ML 1,000 ML IV PRN ×3 (01:52→12:54)
[2018-05-08] MEDS ORDERED: KETOROLAC TROMETHAMINE INJ/PF 30 MG/1 ML SDV IV ONE (02:00)
[2018-05-08] MEDS ORDERED: CALCIUM GLUCONATE 1000 MG/10 ML INJ IV ONE (02:03)
[2018-05-08] MEDS: ACETAMINOPHEN 325 MG TABLET PO PRN ×2 (02:14→16:08)
[2018-05-08] MEDS ORDERED: DEXTROSE 5%-1/2 NORMAL SALINE 1,000 ML IV PRN (04:06)
--- NOTE | 2018-05-08 04:47 | PDOC H&P ---
History of Present Illness Admission Date/PCP: 05/07/18 19:56 Patient complains of: Abdominal pain and nausea History of Present Illness: MAMTA CUEVA is a 57 year old male with history of polysubstance abuse, insulin -dependent diabetes and recurrent hospitalizations for diabetic ketoacidosis. Patient presents with 36 hours of nausea and abdominal pain with hyperglycemia. He denies illness, lifestyle indiscretion or missing insulin. In the emergency room he is found to have severe DKA with bicarb of 6. He started on normal saline and IV insulin then referred to the hospitalist for admission. Past Medical History Cardiac Medical History: Reports: Hyperlipidema, Hypertension Pulmonary Medical History: Denies: Tuberculosis Endocrine Medical History: Reports: Diabetes Mellitus Type 1, Diabetes Mellitus Type 2 Psychiatric Medical History: Reports: Depression, Substance Abuse, Tobacco Dependency Past Surgical History Past Surgical History: Reports: Orthopedic Surgery - jaw Social History Information Source: Patient, Emergency Med Personnel, [facility] Records Smoking Status: Current Every Day Smoker Frequency of Alcohol Use: None Hx Recreational Drug Use: No Drugs: Cocaine, Marijuana Hx Prescription Drug Abuse: No - Advance Directive Resuscitation Status: Full Code Family History Family History: CAD - father at 59 of heart problems, DM - mother Parental Family History Reviewed: Yes Children Family History Reviewed: Yes Sibling(s) Family History Reviewed.: Yes Medication/Allergy Home Medications: Acetaminophen [Tylenol 325 mg Tablet] 650 mg PO Q4HP PRN tablet 01/20/18 Aspirin [Aspirin EC] 81 mg PO DAILY 01/20/18 Atorvastatin Calcium [Lipitor 40 mg Tablet] 40 mg PO QHS 01/20/18 Gabapentin [Neurontin 300 mg Capsule] 900 mg PO Q8 01/20/18 Insulin Aspart [Novolog Insulin (Aspart) 100 unit/mL] 4 units SQ MEALS #1 vial 01/20/18 Insulin Glargine,Hum.rec.anlog [Lantus Insulin 100 Unit/1 ml 10 ml] 25 units SQ DAILY 01/20/18 Insulin Glargine,Hum.rec.anlog [Lantus Insulin 100 Unit/mL] 25 unit SUBCUT DAILY #3 insuln.pen 01/20/18 Lisinopril [Prinivil 5 mg Tablet] 5 mg PO DAILY 01/20/18 Metformin HCl [Glucophage 500 mg Tablet] 1,000 mg PO QAM 06/10/18 Metformin HCl [Glucophage 500 mg Tablet] 500 mg PO BID@12,18 01/20/18 Pregabalin [Lyrica 75 mg Capsule] 150 mg PO Q12 01/20/18 Gabapentin [Neurontin 300 mg Capsule] 900 mg PO Q8 #90 capsule 01/21/18 Allergies/Adverse Reactions: No Known Allergies Allergy (Verified 05/07/18 14:15) Review of Systems Constitutional: ABSENT: chills, fever(s), headache(s), weight gain, weight loss Eyes: ABSENT: visual disturbances Ears: ABSENT: hearing changes Cardiovascular: ABSENT: chest pain, dyspnea on exertion, edema, orthropnea, palpitations Respiratory: ABSENT: cough, hemoptysis Gastrointestinal: ABSENT: abdominal pain, constipation, diarrhea, hematemesis, hematochezia, nausea, vomiting Genitourinary: ABSENT: dysuria, hematuria Musculoskeletal: ABSENT: joint swelling Integumentary: ABSENT: rash, wounds Neurological: ABSENT: abnormal gait, abnormal speech, confusion, dizziness, focal weakness, syncope Psychiatric: ABSENT: anxiety, depression, homidical ideation, suicidal ideation Endocrine: ABSENT: cold intolerance, heat intolerance, polydipsia, polyuria Hematologic/Lymphatic: ABSENT: easy bleeding, easy bruising Physical Exam Vital Signs: Temp Pulse Resp BP Pulse Ox 98.4 F 114 H 14 126/76 H 97 05/08/18 04:00 05/08/18 01:20 05/08/18 04:00 05/08/18 03:24 05/08/18 04:00 Intake & Output 05/06/18 05/07/18 05/08/18 11:59 11:59 11:59 Intake Total 2000 Output Total 300 Balance 1700 Weight 55.9 kg General appearance: PRESENT: disheveled, severe distress, thin. ABSENT: cooperative Head exam: PRESENT: atraumatic, normocephalic Eye exam: PRESENT: conjunctiva pink, EOMI, PERRLA. ABSENT: scleral icterus Ear exam: PRESENT: normal external ear exam Mouth exam: PRESENT: dry mucosa, tongue midline. ABSENT: laceration Neck exam: ABSENT: carotid bruit, JVD, lymphadenopathy, thyromegaly Respiratory exam: PRESENT: clear to auscultation shoaib. ABSENT: rales, rhonchi, wheezes Cardiovascular exam: PRESENT: RRR. ABSENT: diastolic murmur, rubs, systolic murmur Pulses: PRESENT: normal dorsalis pedis pul Vascular exam: PRESENT: normal capillary refill GI/Abdominal exam: PRESENT: normal bowel sounds, soft. ABSENT: distended, guarding, mass, organolmegaly, rebound, tenderness Rectal exam: PRESENT: deferred Extremities exam: PRESENT: full ROM. ABSENT: calf tenderness, clubbing, pedal edema Neurological exam: PRESENT: alert, awake, oriented to person, oriented to place , oriented to time, oriented to situation, CN II-XII grossly intact. ABSENT: motor sensory deficit Psychiatric exam: PRESENT: appropriate affect, normal mood. ABSENT: homicidal ideation, suicidal ideation Skin exam: PRESENT: dry, intact, warm. ABSENT: cyanosis, rash Results Laboratory Results: 05/07/18 05/07/18 05/08/18 20:25 22:15 00:29 Carbonic Acid 0.73 L HCO3/H2CO3 Ratio 12:1 ABG pH 7.20 L* ABG pCO2 24.3 L ABG pO2 71.9 L ABG HCO3 9.2 L ABG O2 Saturation 91.2 L ABG Base Excess -17.1 FiO2 ROOM AIR Sodium 137.4 142.0 Potassium 6.4 H* 5.4 H D Chloride 100 110 H Carbon Dioxide 7 L* 9 L* Anion Gap 30 H 23 H BUN 30 H 27 H Creatinine 1.96 H 1.73 H Est GFR ( Amer) 43 L 50 L Est GFR (Non-Af Amer) 36 L 41 L Glucose 753 H* 451 H* Calcium 9.0 8.9 05/07/18 05/07/18 20:25 20:25 Creatine Kinase 97 Troponin I < 0.012 Impressions: Chest X-Ray 05/07/18 00:00 IMPRESSION: There is no acute pleural-parenchymal process seen in the imaged lung carnes. The tip of the left-sided central line terminates in the midsuperior vena cava . Assessment & Plan - Diagnosis (1) Diabetic ketoacidosis Qualifiers: Diabetes mellitus type: type 1 Diabetes mellitus complication detail: without coma Qualified Code(s): E10.10 - Type 1 diabetes mellitus with ketoacidosis without coma Is this a current diagnosis for this admission?: Yes Plan: Diabetic ketoacidosis patient has had some degree of polyuria polydipsia with nausea and uncontrolled hyperglycemia with supporting labs. Patient will receive IV fluids IV insulin serial chemistries every 6 hours for evaluation for electrolyte repletion. Continued evaluation for underlying cause if not found Patient will require diabetic education and consideration of mental health evaluation. Surgical consult for IV access (2) Hyperkalemia Is this a current diagnosis for this admission?: Yes Plan: Anticipated correction with DKA resolution. No peak T waves (3) Acute renal failure Is this a current diagnosis for this admission?: Yes Plan: Multifactorial secondary to diabetes and profound dehydration. Aggressive IV fluid challenge, follow-up chemistry. - Time Time Spent: 50 to 70 Minutes - Inpatient Certification Medical Necessity: Need Close Monitoring Due to Risk of Patient Decompensation
[2018-05-08 04:57] LABS: ABSOLUTE LYMPHOCYTES (AUTO) 0.8 10^3/uL (0.5-4.7); ABSOLUTE MONOCYTES (AUTO) 0.8 10^3/uL (0.1-1.4); ABSOLUTE NEUT (AUTO) 11.2 10^3/uL (1.7-8.2); BASOPHILS % (AUTO) 0.2 % (0-2); HEMATOCRIT 28.9 % (37.9-51.0); LYMPHOCYTES % (AUTO) 6.3 % (13-45); MEAN CORPUSCULAR HEMOGLOBIN 30.8 pg (27.0-33.4); MEAN CORPUSCULAR HGB CONC 32.5 g/dL (32.0-36.0); MEAN CORPUSCULAR VOLUME 95 fl (80-97); PLATELET COUNT 174 10^3/uL (150-450); RED BLOOD COUNT 3.05 10^6/uL (4.35-5.55); RED CELL DISTRIBUTION WIDTH 13.4 % (11.5-14.0); SEGMENTED NEUTROPHILS % (AUTO) 87.5 % (42-78); TOTAL CELLS COUNTED % (AUTO) 100 %; WHITE BLOOD COUNT 12.8 10^3/uL (4.0-10.5)
[2018-05-08 04:58] LABS: HEMOGLOBIN 9.4 g/dL (13.5-17.0)
[2018-05-08] MEDS: GABAPENTIN 300 MG CAPSULE PO SCH ×3 (06:00→22:43)
[2018-05-08] MEDS: HEPARIN SOD (PORCINE) 5,000 UNIT/ML 1 ML SYRINGE SUBCUT SCH ×3 (06:00→22:44)
[2018-05-08 06:07] LABS: ANION GAP 9 (5-19); BLOOD UREA NITROGEN 27 mg/dL (7-20); CALCIUM 8.8 mg/dL (8.4-10.2); CHLORIDE 116 mmol/L (98-107); CREATINE KINASE 141 U/L (55-170); GLUCOSE 201 mg/dL (75-110); POTASSIUM 4.9 mmol/L (3.6-5.0); SODIUM 144.5 mmol/L (137-145)
[2018-05-08 06:17] LABS: CARBON DIOXIDE 20 mmol/L (22-30)
--- NOTE | 2018-05-08 07:57 | EKG REPORT ---
SEVERITY:- BORDERLINE ECG - SINUS TACHYCARDIA BORDERLINE T WAVE ABNORMALITIES : Confirmed by: Daniela Dowd MD 08-May-2018 07:56:35
[2018-05-08] MEDS ORDERED: LISINOPRIL 5 MG TABLET PO SCH (10:00)
[2018-05-08 10:04] LABS: ANION GAP 5 (5-19); BLOOD UREA NITROGEN 24 mg/dL (7-20); CALCIUM 8.9 mg/dL (8.4-10.2); CARBON DIOXIDE 24 mmol/L (22-30); CHLORIDE 116 mmol/L (98-107); GLUCOSE 84 mg/dL (75-110); POTASSIUM 4.4 mmol/L (3.6-5.0); SODIUM 144.6 mmol/L (137-145)
--- NOTE | 2018-05-08 11:03 | OPERATIVE REPORT E ---
Operative Report NAME: MAMTA CUEVA : 1960 AGE: 57Y DATE OF SURGERY: 05/07/2018 ROOM: 605 PREOPERATIVE DIAGNOSIS: LEFT SIDE PNEUMOTHORAX. POSTOPERATIVE DIAGNOSIS: LEFT SIDE PNEUMOTHORAX. OPERATION: PLACEMENT OF 16 TURKMEN LEFT SIDE CHEST TUBE. COMPLICATIONS: None. SURGEON: MILLER ONEAL M.D. ESTIMATED BLOOD LOSS: None. ANESTHESIA: 10 mL of 1% lidocaine with epinephrine. INDICATIONS/FINDINGS: This is a 57-year-old male who presented with severe DKA, in need of IV access. The patient underwent placement of a left central vein triple lumen catheter. However, on a chest x-ray done after the procedure, a small left side pneumothorax was seen. A decision was made to insert a small chest tube inside the the left chest to evacuate the pneumothorax. The procedure, benefits, and complications were explained to the patient. He understands and wishes to proceed. PROCEDURE: In the ER, the patient was placed in a semi-Serna position on the ER bed. The left upper chest was prepped and draped in the usual fashion. The intersection of the midclavicular line with the 2nd intercostal space was identified and infiltrated with lidocaine with epinephrine. A stab wound was made with a #11 blade, and a 16 gauge needle with catheter was inserted through the skin into the second intercostal space and into the pleural cavity. Aspiration indicated the presence of air. After insertion of the catheter inside the left pleural cavity, the needle was then withdrawn and the catheter was advanced up to the hub. The needle was completely removed and the catheter connected to the chest skin with sutures and dressing with Tegaderm were applied. The patient tolerated the procedure well. A chest x-ray was obtained to confirm position of the catheter and expansion of the left lung. DICTATING PHYSICIAN: MILLER ONEAL M.D. [id number] PHY#: [id number] ID: [id number] JOB#: [id number] ACCT: [id number] cc:MILLER ONEAL M.D. > [facility]
--- NOTE | 2018-05-08 11:29 | RADIOLOGY REPORT (SQ) ---
EXAM DESCRIPTION: CHEST SINGLE VIEW COMPLETED DATE/TIME: 05/08/2018 10:59 am REASON FOR STUDY: chest tube/ pneumothorax COMPARISON: Chest films 08/22/2014, 01/12/2018, 05/07/2018 2136 hours and 2256 hours EXAM PARAMETERS: NUMBER OF VIEWS: One view. TECHNIQUE: Single frontal radiographic view of the chest acquired. RADIATION DOSE: NA LIMITATIONS: None. FINDINGS: LUNGS AND PLEURA: Trace residual left apical pneumothorax marked with arrows Lungs are grossly clear. No pleural effusion. No masses. MEDIASTINUM AND HILAR STRUCTURES: No masses. Contour normal. HEART AND VASCULAR STRUCTURES: Heart normal in size. Normal vasculature. BONES: No acute findings. HARDWARE: Left-sided triple-lumen catheter tip superior vena cava. Left apical Heimlich small calibe r chest tube in place OTHER: No other significant finding. IMPRESSION: Trace left apical pneumothorax with Heimlich tube left upper chest No focal infiltrates. Left triple-lumen catheter tip superior vena cava TECHNICAL DOCUMENTATION: JOB ID: [id number] [email or web address]- All Rights Reserved Reading location - IP/workstation name: [email or web address]
[2018-05-08] MEDS: ASPIRIN 81 MG TABLET, ENT COATED PO SCH (11:38)
[2018-05-08] MEDS: DOCUSATE SODIUM 100 MG CAPSULE PO SCH (11:38)
--- NOTE | 2018-05-08 12:56 | PDOC PROGRESS REPORT ---
Subjective Progress Note for:: 05/08/18 Subjective:: patient comfortabl Reason For Visit: DKA COCAINE Physical Exam Vital Signs: Temp Pulse Resp BP Pulse Ox 97.8 F 75 13 172/91 H 98 05/08/18 10:00 05/08/18 10:00 05/08/18 10:26 05/08/18 10:26 05/08/18 10:26 Intake & Output 05/07/18 05/08/18 05/09/18 06:59 06:59 06:59 Intake Total 2060 1050 Output Total 300 340 Balance 1760 710 Weight 55.9 kg General appearance: PRESENT: no acute distress Respiratory exam: PRESENT: clear to auscultation shoaib, other - left anterior upper chest with small pleural catheter connected to Pleurovac Results Laboratory Results: 05/08/18 04:15 05/08/18 09:16 05/07/18 05/07/18 05/08/18 20:25 22:15 00:29 WBC RBC Hgb Hct MCV MCH MCHC RDW Plt Count Seg Neutrophils % Lymphocytes % Monocytes % Eosinophils % Basophils % Absolute Neutrophils Absolute Lymphocytes Absolute Monocytes Absolute Eosinophils Absolute Basophils Carbonic Acid 0.73 L HCO3/H2CO3 Ratio 12:1 ABG pH 7.20 L* ABG pCO2 24.3 L ABG pO2 71.9 L ABG HCO3 9.2 L ABG O2 Saturation 91.2 L ABG Base Excess -17.1 FiO2 ROOM AIR Sodium 137.4 142.0 Potassium 6.4 H* 5.4 H D Chloride 100 110 H Carbon Dioxide 7 L* 9 L* Anion Gap 30 H 23 H BUN 30 H 27 H Creatinine 1.96 H 1.73 H Est GFR ( Amer) 43 L 50 L Est GFR (Non-Af Amer) 36 L 41 L Glucose 753 H* 451 H* Calcium 9.0 8.9 05/08/18 05/08/18 05/08/18 04:15 04:15 05:40 WBC 12.8 H RBC 3.05 L Hgb 9.4 L D Hct 28.9 L MCV 95 MCH 30.8 MCHC 32.5 RDW 13.4 Plt Count 174 Seg Neutrophils % 87.5 H Lymphocytes % 6.3 L Monocytes % 6.0 Eosinophils % 0.0 Basophils % 0.2 Absolute Neutrophils 11.2 H Absolute Lymphocytes 0.8 Absolute Monocytes 0.8 Absolute Eosinophils 0.0 Absolute Basophils 0.0 Carbonic Acid HCO3/H2CO3 Ratio ABG pH ABG pCO2 ABG pO2 ABG HCO3 ABG O2 Saturation ABG Base Excess FiO2 Sodium Cancelled 144.5 Potassium Cancelled 4.9 Chloride Cancelled 116 H Carbon Dioxide Cancelled 20 L D Anion Gap Cancelled 9 BUN Cancelled 27 H Creatinine Cancelled 1.41 H Est GFR ( Amer) Cancelled > 60 Est GFR (Non-Af Amer) Cancelled 52 L Glucose Cancelled 201 H Calcium Cancelled 8.8 05/08/18 09:16 WBC RBC Hgb Hct MCV MCH MCHC RDW Plt Count Seg Neutrophils % Lymphocytes % Monocytes % Eosinophils % Basophils % Absolute Neutrophils Absolute Lymphocytes Absolute Monocytes Absolute Eosinophils Absolute Basophils Carbonic Acid HCO3/H2CO3 Ratio ABG pH ABG pCO2 ABG pO2 ABG HCO3 ABG O2 Saturation ABG Base Excess FiO2 Sodium 144.6 Potassium 4.4 Chloride 116 H Carbon Dioxide 24 Anion Gap 5 BUN 24 H Creatinine 1.45 H Est GFR ( Amer) > 60 Est GFR (Non-Af Amer) 50 L Glucose 84 Calcium 8.9 05/07/18 05/07/18 05/08/18 20:25 20:25 04:15 Creatine Kinase 97 Cancelled Troponin I < 0.012 05/08/18 05/08/18 04:15 05:40 Creatine Kinase 141 Troponin I < 0.012 Impressions: Chest X-Ray 05/08/18 00:00 IMPRESSION: Trace left apical pneumothorax with Heimlich tube left upper chest No focal infiltrates. Left triple-lumen catheter tip superior vena cava Assessment & Plan - Diagnosis (1) Need for intravenous access Is this a current diagnosis for this admission?: Yes (2) Pneumothorax on left Is this a current diagnosis for this admission?: Yes - Plan Summary Plan Summary: A/ POD#1 after left pleural catheter with Heilmich valve placed for small posti central venous line pneumothorax Today's Chest Xray demonstates a small apical pneumothorax; No air leak noted in Pleurovac P/ Continue Left pleural catheter placement and Pleurovac wall suction If no pneumothorax is see on C-xray tomorrow, the leg pleural catheter can be placed on water seal and removed afterward
--- NOTE | 2018-05-08 15:19 | Physician Advisory Note ---
Physician Advisor ProgressNote .: Pursuant to the plan for [facility], I have reviewed the medical record for this patient. Physician Advisor Statement: Please consider documenting, if you agree: 1. "Baseline Cr = ." (to support dx ARF) Discussion: pt w/DM, DKA, ARF, hyperK, cocaine abuse; prior Cr was 0.8 in January , 1.1 on 04/20. Hgb was 12s in January, 16.7 on 04/20, 15.4 on adm, & just 9.4 the next day, but there is no documentation noted indicating any significant acute blood loss causing this anemia (while copious IVF resusc given). Thanks! CK
[2018-05-08 15:51] LABS: ANION GAP 13 (5-19); BLOOD UREA NITROGEN 20 mg/dL (7-20); CALCIUM 8.4 mg/dL (8.4-10.2); CARBON DIOXIDE 18 mmol/L (22-30); CHLORIDE 109 mmol/L (98-107); GLUCOSE 249 mg/dL (75-110); SODIUM 139.9 mmol/L (137-145)
[2018-05-08] MEDS: INSULIN LISPRO 100 UNIT/ML 3 ML VIAL SUBCUT PRN ×2 (16:03→17:17)
--- NOTE | 2018-05-08 16:40 | PDOC PROGRESS REPORT ---
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 Patients came to the my office with a complaint for nausea vomiting abdominal pain and patient was directed to the emergency department for most likely DKA and patient's blood sugar in my office was 585 Patient's currently getting better denied any chest pain denied any shortness of the breath Patient also have a history of cocaine abuse Patient also have a pneumothorax and currently a chest tube placementFollowed by the surgery Reason For Visit: DKA COCAINE Physical Exam Vital Signs: Temp Pulse Resp BP Pulse Ox 97.6 F 79 12 134/79 H 96 05/08/18 14:00 05/08/18 14:40 05/08/18 14:00 05/08/18 14:00 05/08/18 14:00 Intake & Output 05/07/18 05/08/18 05/09/18 06:59 06:59 06:59 Intake Total 2060 1050 Output Total 300 340 Balance 1760 710 Weight 55.9 kg General appearance: PRESENT: no acute distress, thin Head exam: PRESENT: atraumatic, normocephalic Eye exam: PRESENT: conjunctiva pink, EOMI, PERRLA. ABSENT: scleral icterus Ear exam: PRESENT: normal external ear exam Mouth exam: PRESENT: moist, tongue midline Neck exam: PRESENT: full ROM. ABSENT: carotid bruit, JVD, lymphadenopathy, thyromegaly Respiratory exam: PRESENT: clear to auscultation shoaib Additional comments: Chest tube is intact Cardiovascular exam: PRESENT: RRR. ABSENT: diastolic murmur, rubs, systolic murmur Pulses: PRESENT: normal dorsalis pedis pul, +2 pedal pulses bilateral Vascular exam: PRESENT: normal capillary refill GI/Abdominal exam: PRESENT: normal bowel sounds, soft. ABSENT: distended, guarding, mass, organolmegaly, rebound, tenderness Rectal exam: PRESENT: deferred Extremities exam: ABSENT: pedal edema Neurological exam: PRESENT: alert, awake, oriented to person, oriented to place , oriented to time, oriented to situation, CN II-XII grossly intact. ABSENT: motor sensory deficit Psychiatric exam: PRESENT: appropriate affect, normal mood. ABSENT: homicidal ideation, suicidal ideation Skin exam: PRESENT: dry, intact, warm. ABSENT: cyanosis, rash Results Laboratory Results: 05/08/18 04:15 05/07/18 05/07/18 05/08/18 20:25 22:15 00:29 WBC RBC Hgb Hct MCV MCH MCHC RDW Plt Count Seg Neutrophils % Lymphocytes % Monocytes % Eosinophils % Basophils % Absolute Neutrophils Absolute Lymphocytes Absolute Monocytes Absolute Eosinophils Absolute Basophils Carbonic Acid 0.73 L HCO3/H2CO3 Ratio 12:1 ABG pH 7.20 L* ABG pCO2 24.3 L ABG pO2 71.9 L ABG HCO3 9.2 L ABG O2 Saturation 91.2 L ABG Base Excess -17.1 FiO2 ROOM AIR Sodium 137.4 142.0 Potassium 6.4 H* 5.4 H D Chloride 100 110 H Carbon Dioxide 7 L* 9 L* Anion Gap 30 H 23 H BUN 30 H 27 H Creatinine 1.96 H 1.73 H Est GFR ( Amer) 43 L 50 L Est GFR (Non-Af Amer) 36 L 41 L Glucose 753 H* 451 H* Calcium 9.0 8.9 05/08/18 05/08/18 05/08/18 04:15 04:15 05:40 WBC 12.8 H RBC 3.05 L Hgb 9.4 L D Hct 28.9 L MCV 95 MCH 30.8 MCHC 32.5 RDW 13.4 Plt Count 174 Seg Neutrophils % 87.5 H Lymphocytes % 6.3 L Monocytes % 6.0 Eosinophils % 0.0 Basophils % 0.2 Absolute Neutrophils 11.2 H Absolute Lymphocytes 0.8 Absolute Monocytes 0.8 Absolute Eosinophils 0.0 Absolute Basophils 0.0 Carbonic Acid HCO3/H2CO3 Ratio ABG pH ABG pCO2 ABG pO2 ABG HCO3 ABG O2 Saturation ABG Base Excess FiO2 Sodium Cancelled 144.5 Potassium Cancelled 4.9 Chloride Cancelled 116 H Carbon Dioxide Cancelled 20 L D Anion Gap Cancelled 9 BUN Cancelled 27 H Creatinine Cancelled 1.41 H Est GFR ( Amer) Cancelled > 60 Est GFR (Non-Af Amer) Cancelled 52 L Glucose Cancelled 201 H Calcium Cancelled 8.8 05/08/18 09:16 WBC RBC Hgb Hct MCV MCH MCHC RDW Plt Count Seg Neutrophils % Lymphocytes % Monocytes % Eosinophils % Basophils % Absolute Neutrophils Absolute Lymphocytes Absolute Monocytes Absolute Eosinophils Absolute Basophils Carbonic Acid HCO3/H2CO3 Ratio ABG pH ABG pCO2 ABG pO2 ABG HCO3 ABG O2 Saturation ABG Base Excess FiO2 Sodium 144.6 Potassium 4.4 Chloride 116 H Carbon Dioxide 24 Anion Gap 5 BUN 24 H Creatinine 1.45 H Est GFR ( Amer) > 60 Est GFR (Non-Af Amer) 50 L Glucose 84 Calcium 8.9 05/07/18 05/07/18 05/08/18 20:25 20:25 04:15 Creatine Kinase 97 Cancelled Troponin I < 0.012 05/08/18 05/08/18 04:15 05:40 Creatine Kinase 141 Troponin I < 0.012 Impressions: Chest X-Ray 05/08/18 00:00 IMPRESSION: Trace left apical pneumothorax with Heimlich tube left upper chest No focal infiltrates. Left triple-lumen catheter tip superior vena cava Assessment & Plan - Diagnosis (1) Diabetic ketoacidosis Qualifiers: Diabetes mellitus type: type 2 Diabetes mellitus complication detail: without coma Qualified Code(s): E11.10 - Type 2 diabetes mellitus with ketoacidosis without coma Is this a current diagnosis for this admission?: Yes Plan: Currently all resolving continues to maintenance IV fluid and continues to sliding scale and resume the home insulin (2) Dehydration Is this a current diagnosis for this admission?: Yes Plan: Due to the above conditions currently all getting better (3) Hyperkalemia Is this a current diagnosis for this admission?: Yes Plan: Currently all resolved most likely from DKA (4) Noncompliance with medication regimen Is this a current diagnosis for this admission?: Yes Plan: Is very noncompliance very extensive discussed with the patient and the father and the patient's mother if the patient's continues to be noncompliance with not longer provide this service for this patient because needs to make any sense to me to provide the service of the scan of the patient's willing to not take the medications and continues to use the drugs (5) Pneumothorax on left Is this a current diagnosis for this admission?: Yes Plan: Currently follow with the surgery (6) Depression Qualifiers: Depression Type: major depressive disorder Psychotic features: without psychotic features Is this a current diagnosis for this admission?: Yes Plan: Consult the psychiatrist (7) Drug abuse Is this a current diagnosis for this admission?: Yes Plan: Follow with the psych (8) Acute renal failure Qualifiers: Acute renal failure type: unspecified Qualified Code(s): N17.9 - Acute kidney failure, unspecified Is this a current diagnosis for this admission?: Yes Plan: Due to the DKA and dehydration's currently all getting better - Time Time Spent with patient: 25-34 minutes Total Critical Time (Minutes): 30 Medications reviewed and adjusted accordingly: Yes Anticipated discharge: Home Within: Other - Inpatient Certification Medical Necessity: Need Close Monitoring Due to Risk of Patient Decompensation, Need For IV Fluids Post Hospital Care: D/C Physician Assistant Documentation - Plan Summary Plan Summary: See MD orders continues to current medication
[2018-05-08] MEDS: NORMAL SALINE 1000 ML 1,000 ML IV PRN (17:16)
[2018-05-08] MEDS: OXYCODONE HCL IR 5 MG TABLET PO PRN (17:17)
--- NOTE | 2018-05-08 19:36 | EKG REPORT ---
SEVERITY:- ABNORMAL ECG - SINUS TACHYCARDIA LEFT VENTRICULAR HYPERTROPHY : Confirmed by: Daniela Dowd MD 08-May-2018 19:35:56
[2018-05-08 21:37] LABS: ANION GAP 7 (5-19); BLOOD UREA NITROGEN 19 mg/dL (7-20); CALCIUM 8.1 mg/dL (8.4-10.2); CARBON DIOXIDE 24 mmol/L (22-30); CHLORIDE 106 mmol/L (98-107); GLUCOSE 224 mg/dL (75-110); POTASSIUM 4.1 mmol/L (3.6-5.0)
[2018-05-08] MEDS: AMLODIPINE BESYLATE 2.5 MG TABLET PO SCH (22:40)
[2018-05-08] MEDS: ATORVASTATIN CALCIUM 40 MG TABLET PO SCH (22:40)
[2018-05-08] MEDS: INSULIN GLARGINE,HUM.REC.ANLOG 300 UNIT/3 ML INSULN.PEN SUBCUT SCH (22:43)
[2018-05-09] MEDS: OXYCODONE HCL IR 5 MG TABLET PO PRN ×3 (03:10→22:14)
[2018-05-09 03:27] LABS: ABSOLUTE EOSINOPHILS # (AUTO) 0.1 10^3/uL (0.0-0.6); ABSOLUTE LYMPHOCYTES (AUTO) 1.5 10^3/uL (0.5-4.7); ABSOLUTE MONOCYTES (AUTO) 0.6 10^3/uL (0.1-1.4); ABSOLUTE NEUT (AUTO) 12.7 10^3/uL (1.7-8.2); BASOPHILS % (AUTO) 0.3 % (0-2); EOSINOPHILS % (AUTO) 0.7 % (0-6); HEMATOCRIT 37.5 % (37.9-51.0); LYMPHOCYTES % (AUTO) 9.9 % (13-45); MEAN CORPUSCULAR HEMOGLOBIN 30.8 pg (27.0-33.4); MEAN CORPUSCULAR HGB CONC 34.5 g/dL (32.0-36.0); MONOCYTES % (AUTO) 3.9 % (3-13); PLATELET COUNT 220 10^3/uL (150-450); RED CELL DISTRIBUTION WIDTH 13.2 % (11.5-14.0); SEGMENTED NEUTROPHILS % (AUTO) 85.2 % (42-78); TOTAL CELLS COUNTED % (AUTO) 100 %; WHITE BLOOD COUNT 14.9 10^3/uL (4.0-10.5)
[2018-05-09 03:28] LABS: HEMOGLOBIN 12.9 g/dL (13.5-17.0)
[2018-05-09 03:29] LABS: MEAN CORPUSCULAR VOLUME 89 fl (80-97)
[2018-05-09 03:37] LABS: ALANINE AMINOTRANSFERASE 28 U/L (21-72); ALKALINE PHOSPHATASE 59 U/L (38-126); ANION GAP 5 (5-19); ASPARTATE AMINO TRANSFERASE 33 U/L (17-59); BILIRUBIN,DIRECT 0.2 mg/dL (0.0-0.4); BILIRUBIN,TOTAL 0.5 mg/dL (0.2-1.3); BLOOD UREA NITROGEN 14 mg/dL (7-20); CALCIUM 8.2 mg/dL (8.4-10.2); CARBON DIOXIDE 23 mmol/L (22-30); CHLORIDE 110 mmol/L (98-107); GLUCOSE 175 mg/dL (75-110); POTASSIUM 4.2 mmol/L (3.6-5.0)
[2018-05-09 03:38] LABS: TOTAL PROTEIN 5.6 g/dL (6.3-8.2)
[2018-05-09] MEDS: GABAPENTIN 300 MG CAPSULE PO SCH ×3 (06:02→22:13)
[2018-05-09] MEDS: NORMAL SALINE 1000 ML 1,000 ML IV PRN (06:03)
[2018-05-09] MEDS: INSULIN LISPRO 100 UNIT/ML 3 ML VIAL SUBCUT PRN ×4 (06:08→22:18)
[2018-05-09] MEDS: HEPARIN SOD (PORCINE) 5,000 UNIT/ML 1 ML SYRINGE SUBCUT SCH ×3 (06:09→22:13)
--- NOTE | 2018-05-09 07:13 | RADIOLOGY REPORT (SQ) ---
EXAM DESCRIPTION: XR CHEST 1 VIEW COMPLETED DATE/TME: 05/09/2018 06:00 CLINICAL HISTORY: 57 years Male, f/u left pneumothorax andleft chest tube placement COMPARISON: One day prior. NUMBER OF VIEWS/TECHNIQUE: 1/AP FINDINGS: Clear lungs of increased volume, and normal cardiac silhouette. Left subclavian central line tip at the SVC. Left upper chest tube. No pneumothorax. Stable bony thorax. IMPRESSION: No significant change.
--- NOTE | 2018-05-09 08:58 | PDOC PROGRESS REPORT ---
Subjective Progress Note for:: 05/09/18 Subjective:: Patient is feeling much better Patient's desire to go home Patient's denied any chest pain denied any shortness of the breath In any abdominal pain no nausea no vomiting pt has blood sugar is much better Reason For Visit: DKA COCAINE Physical Exam Vital Signs: Temp Pulse Resp BP Pulse Ox 98.8 F 90 23 H 124/71 96 05/09/18 08:00 05/09/18 08:41 05/09/18 06:00 05/09/18 05:16 05/09/18 06:00 Intake & Output 05/08/18 05/09/18 05/10/18 06:59 06:59 06:59 Intake Total 2060 2417 300 Output Total 300 1515 275 Balance 1760 902 25 Weight 55.9 kg 61.6 kg General appearance: PRESENT: no acute distress, well-developed, well-nourished Head exam: PRESENT: atraumatic, normocephalic Eye exam: PRESENT: conjunctiva pink, EOMI, PERRLA. ABSENT: scleral icterus Ear exam: PRESENT: normal external ear exam Mouth exam: PRESENT: moist, tongue midline Neck exam: PRESENT: full ROM. ABSENT: carotid bruit, JVD, lymphadenopathy, thyromegaly Respiratory exam: PRESENT: clear to auscultation shoaib Cardiovascular exam: PRESENT: RRR. ABSENT: diastolic murmur, rubs, systolic murmur Pulses: PRESENT: normal dorsalis pedis pul, +2 pedal pulses bilateral Vascular exam: PRESENT: normal capillary refill GI/Abdominal exam: PRESENT: normal bowel sounds, soft. ABSENT: distended, guarding, mass, organolmegaly, rebound, tenderness Rectal exam: PRESENT: deferred Extremities exam: ABSENT: pedal edema Neurological exam: PRESENT: alert, awake, oriented to person, oriented to place , oriented to time, oriented to situation, CN II-XII grossly intact. ABSENT: motor sensory deficit Psychiatric exam: PRESENT: appropriate affect, normal mood. ABSENT: homicidal ideation, suicidal ideation Skin exam: PRESENT: dry, intact, warm. ABSENT: cyanosis, rash Results Laboratory Results: 05/09/18 03:07 05/08/18 05/08/18 05/08/18 09:16 15:10 21:05 WBC RBC Hgb Hct MCV MCH MCHC RDW Plt Count Seg Neutrophils % Lymphocytes % Monocytes % Eosinophils % Basophils % Absolute Neutrophils Absolute Lymphocytes Absolute Monocytes Absolute Eosinophils Absolute Basophils Sodium 144.6 139.9 137.0 Potassium 4.4 5.0 4.1 Chloride 116 H 109 H 106 Carbon Dioxide 24 18 L 24 Anion Gap 5 13 7 BUN 24 H 20 19 Creatinine 1.45 H 1.14 1.20 Est GFR ( Amer) > 60 > 60 > 60 Est GFR (Non-Af Amer) 50 L > 60 > 60 Glucose 84 249 H 224 H Calcium 8.9 8.4 8.1 L Total Bilirubin AST ALT Alkaline Phosphatase Total Protein Albumin 05/09/18 05/09/18 03:07 03:07 WBC 14.9 H RBC 4.20 L Hgb 12.9 L D Hct 37.5 L MCV 89 D MCH 30.8 MCHC 34.5 RDW 13.2 Plt Count 220 Seg Neutrophils % 85.2 H Lymphocytes % 9.9 L Monocytes % 3.9 Eosinophils % 0.7 Basophils % 0.3 Absolute Neutrophils 12.7 H Absolute Lymphocytes 1.5 Absolute Monocytes 0.6 Absolute Eosinophils 0.1 Absolute Basophils 0.0 Sodium 138.0 Potassium 4.2 Chloride 110 H Carbon Dioxide 23 Anion Gap 5 BUN 14 Creatinine 0.92 Est GFR ( Amer) > 60 Est GFR (Non-Af Amer) > 60 Glucose 175 H Calcium 8.2 L Total Bilirubin 0.5 AST 33 ALT 28 Alkaline Phosphatase 59 Total Protein 5.6 L Albumin 3.0 L 05/07/18 05/07/18 05/08/18 20:25 20:25 04:15 Creatine Kinase 97 Cancelled Troponin I < 0.012 05/08/18 05/08/18 05/08/18 04:15 05:40 15:10 Creatine Kinase 141 Troponin I < 0.012 < 0.012 Impressions: Chest X-Ray 05/09/18 06:00 IMPRESSION: No significant change. Assessment & Plan - Diagnosis (1) Diabetic ketoacidosis Qualifiers: Diabetes mellitus type: type 2 Diabetes mellitus complication detail: without coma Qualified Code(s): E11.10 - Type 2 diabetes mellitus with ketoacidosis without coma Is this a current diagnosis for this admission?: Yes Plan: Currently all resolved (2) Dehydration Is this a current diagnosis for this admission?: Yes Plan: Currently all resolved (3) Hyperkalemia Is this a current diagnosis for this admission?: Yes Plan: Currently all resolved most likely from DKA (4) Noncompliance with medication regimen Is this a current diagnosis for this admission?: Yes Plan: Is very noncompliance very extensive discussed with the patient and the father and the patient's mother if the patient's continues to be noncompliance with not longer provide this service for this patient because needs to make any sense to me to provide the service of the scan of the patient's willing to not take the medications and continues to use the drugs (5) Pneumothorax on left Is this a current diagnosis for this admission?: Yes Plan: Chest x-ray is all resolved follow with surgery to remove the chest tube (6) Depression Qualifiers: Depression Type: major depressive disorder Psychotic features: without psychotic features Is this a current diagnosis for this admission?: Yes Plan: Consult the psychiatrist (7) Drug abuse Is this a current diagnosis for this admission?: Yes Plan: Follow with the psych (8) Acute renal failure Qualifiers: Acute renal failure type: unspecified Qualified Code(s): N17.9 - Acute kidney failure, unspecified Is this a current diagnosis for this admission?: Yes Plan: Due to the DKA and dehydration's currently all getting better - Time Time Spent with patient: 15-24 minutes Medications reviewed and adjusted accordingly: Yes Anticipated discharge: Home Within: within 24 hours - Inpatient Certification Medical Necessity: Need Close Monitoring Due to Risk of Patient Decompensation Post 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 intake is very well Physical therapy evaluations Discharge Planning for the helping the patient's
[2018-05-09 09:50] LABS: ANION GAP 6 (5-19); BLOOD UREA NITROGEN 12 mg/dL (7-20); CALCIUM 8.4 mg/dL (8.4-10.2); CARBON DIOXIDE 26 mmol/L (22-30); CHLORIDE 106 mmol/L (98-107); GLUCOSE 136 mg/dL (75-110); POTASSIUM 3.8 mmol/L (3.6-5.0); SODIUM 137.6 mmol/L (137-145)
[2018-05-09] MEDS: DOCUSATE SODIUM 100 MG CAPSULE PO SCH (10:10)
[2018-05-09] MEDS: AMLODIPINE BESYLATE 2.5 MG TABLET PO SCH ×2 (10:10→22:14)
[2018-05-09] MEDS: ASPIRIN 81 MG TABLET, ENT COATED PO SCH (10:10)
[2018-05-09] MEDS: INSULIN GLARGINE,HUM.REC.ANLOG 300 UNIT/3 ML INSULN.PEN SUBCUT SCH ×2 (10:11→22:13)
--- NOTE | 2018-05-09 12:24 | PDOC PROGRESS REPORT ---
Subjective Progress Note for:: 05/09/18 Subjective:: No complaints. No shortness of breath. Reason For Visit: DKA COCAINE Physical Exam Vital Signs: Temp Pulse Resp BP Pulse Ox 98.6 F 90 13 147/84 H 95 05/09/18 10:00 05/09/18 08:41 05/09/18 10:00 05/09/18 09:16 05/09/18 10:00 Intake & Output 05/08/18 05/09/18 05/10/18 06:59 06:59 06:59 Intake Total 2060 2417 524 Output Total 300 1515 275 Balance 1760 902 249 Weight 55.9 kg 61.6 kg General appearance: PRESENT: no acute distress, cooperative Respiratory exam: PRESENT: clear to auscultation shoaib, other - Left-sided chest tube in place. Very small air leak seen every couple minutes. Cardiovascular exam: PRESENT: RRR Results Laboratory Results: 05/09/18 03:07 05/09/18 08:42 05/08/18 05/08/18 05/09/18 15:10 21:05 03:07 WBC RBC Hgb Hct MCV MCH MCHC RDW Plt Count Seg Neutrophils % Lymphocytes % Monocytes % Eosinophils % Basophils % Absolute Neutrophils Absolute Lymphocytes Absolute Monocytes Absolute Eosinophils Absolute Basophils Sodium 139.9 137.0 138.0 Potassium 5.0 4.1 4.2 Chloride 109 H 106 110 H Carbon Dioxide 18 L 24 23 Anion Gap 13 7 5 BUN 20 19 14 Creatinine 1.14 1.20 0.92 Est GFR ( Amer) > 60 > 60 > 60 Est GFR (Non-Af Amer) > 60 > 60 > 60 Glucose 249 H 224 H 175 H Calcium 8.4 8.1 L 8.2 L Total Bilirubin 0.5 AST 33 ALT 28 Alkaline Phosphatase 59 Total Protein 5.6 L Albumin 3.0 L 05/09/18 05/09/18 03:07 08:42 WBC 14.9 H RBC 4.20 L Hgb 12.9 L D Hct 37.5 L MCV 89 D MCH 30.8 MCHC 34.5 RDW 13.2 Plt Count 220 Seg Neutrophils % 85.2 H Lymphocytes % 9.9 L Monocytes % 3.9 Eosinophils % 0.7 Basophils % 0.3 Absolute Neutrophils 12.7 H Absolute Lymphocytes 1.5 Absolute Monocytes 0.6 Absolute Eosinophils 0.1 Absolute Basophils 0.0 Sodium 137.6 Potassium 3.8 Chloride 106 Carbon Dioxide 26 Anion Gap 6 BUN 12 Creatinine 0.96 Est GFR ( Amer) > 60 Est GFR (Non-Af Amer) > 60 Glucose 136 H Calcium 8.4 Total Bilirubin AST ALT Alkaline Phosphatase Total Protein Albumin 05/07/18 05/07/18 05/08/18 20:25 20:25 04:15 Creatine Kinase 97 Cancelled Troponin I < 0.012 05/08/18 05/08/18 05/08/18 04:15 05:40 15:10 Creatine Kinase 141 Troponin I < 0.012 < 0.012 Impressions: Chest X-Ray 05/09/18 06:00 IMPRESSION: No significant change. Assessment & Plan - Diagnosis (1) Pneumothorax on left Is this a current diagnosis for this admission?: Yes Plan: Very tiny air leak. Chest x-ray demonstrates no pneumothorax. Continue on Pleur-evac suction. If he continues to have a very small air leak and he is ready for discharge otherwise, may be able to discharge patient home with a Heimlich valve with follow-up as an outpatient.
--- NOTE | 2018-05-09 14:11 | RADIOLOGY REPORT (SQ) ---
EXAM DESCRIPTION: CT ABD/PELVIS NO ORAL OR IV COMPLETED DATE/TIME: 05/09/2018 1:56 pm REASON FOR STUDY: abd pain COMPARISON: None. TECHNIQUE: CT scan of the abdomen and pelvis performed without intravenous or oral contrast. Images reviewed with lung, soft tissue, and bone windows. Reconstructed coronal and sagittal MPR images revi ewed. All images stored on PACS. All CT scanners at this facility use dose modulation, iterative reconstruction, and/or weight based d osing when appropriate to reduce radiation dose to as low as reasonably achievable (ALARA). [facility]: Dose Right [facility]: CareDose [facility]: Dose Right [facility]: Teradose 4D [facility]: [employer] RADIATION DOSE: CT Rad equipment meets quality standard of care and radiation dose reduction techniq ues were employed. CTDIvol: 3.4 mGy. DLP: 187 mGy-cm.mGy. LIMITATIONS: Lack of contrast. Paucity of intra-abdominal fat. FINDINGS: LOWER CHEST: No significant findings. No nodules or infiltrates. NON-CONTRASTED LIVER, SPLEEN, ADRENALS: Evaluation limited by lack of IV contrast. No identified sign ificant masses. PANCREAS: No masses. No peripancreatic inflammatory changes. GALLBLADDER: No identified stones by CT criteria. No inflammatory changes to suggest cholecystitis. RIGHT KIDNEY AND URETER: No suspicious masses. Assessment limited by lack of IV contrast. No signif icant calcifications. No hydronephrosis or hydroureter. LEFT KIDNEY AND URETER: No suspicious masses. Assessment limited by lack of IV contrast. No signifi cant calcifications. No hydronephrosis or hydroureter. AORTA AND RETROPERITONEUM: No aneurysm. No retroperitoneal masses or adenopathy. BOWEL AND PERITONEAL CAVITY: Gastric distention. Considerable stool is present in the colon. No obv ious bowel mass. APPENDIX: Not identified. PELVIS, BLADDER, AND ABDOMINAL WALL:No abnormal masses. No free fluid. Bladder normal. BONES: No significant findings. OTHER: No other significant finding. IMPRESSION: 1. Gastric distention. Is there history of gastric outlet obstruction? 2. Possible constipation. 3. The study is limited. COMMENT: Quality ID # [id number]: Final reports with documentation of one or more dose reduction techniques (e.g., Automated exposure control, adjustment of the mA and/or kV according to patient size, use of iterative reconstruction technique) TECHNICAL DOCUMENTATION: JOB ID: [id number] [employer]- All Rights Reserved Reading location - IP/workstation name: [email or web address]
--- NOTE | 2018-05-09 16:35 | PSYCHOLOGICAL NOTE ---
Psych Note - Psych Note Psych Note: Reason for Consult: Substance Abuse / Cocaine Patient reports that his stepfather brought him to [facility] because he was DKA. Patient denies any thoughts of harming himself or others stating that he is "a horrible paulina" and that he would "give you everything." He reports that this trait has caused him difficulty because he is frequently taken advantage of. He continues to report that he does have a hard time controlling his emotions at times however this is reported to have been lifelong stating that family members call him a cry baby. He states that he knows there is nothing wrong with his brain he just sometimes has emotions that touch him that resulted in tears. Patient reports that he probably has a diagnosis of anxiety but is never been officially diagnosed or been on medication. Patient confirms he has a history of cocaine abuse going back 30 years. He reports that 30 years ago he was a "real crack head." He denies he continues to use with that frequency. He disclosed that in 1986 is when he started using cocaine while he worked for the [employer]. He reports that he was "even back then." When asked if he wanted assistance with sobriety he reports that he is not interested in receiving any information because "I have been to too many different places and no one can help me but me honestly... I know what I have to do if I want to" stop using. Patient is alert and orientated to person, place, time and circumstance. Mood is euthymic with congruent affect. Patient denies suicidal homicidal ideation. Delusions are absent behaviors congruent with intact reality based presentation i.e. organized linear thought process. Eye contact was well- maintained. Conversational speech is within normal rate, tone and prosody; it is noted patient is very verbose. Intellectual abilities appear to be within average range. Attention and concentration were fair. Insight, judgment, impulse control are fair. No medication recommendations at this time 292.9 (F14.99) Unspecified cocaine disorder Impression/Plan: Patient is cleared from acute psychiatric services. Patient denies thoughts of harming himself or others. Patient is not demonstrating any behaviours indicating he is responding to internal stimuli (ie conversational speech is within normal rate, tone, and prosody, good eye contact and organized and linear thought processes). Patient refuses assistance with substance abuse treatment stating; "no one can help me but me honestly...I know what I have to do if I want." Patient was encouraged to follow up with substance abuse treatment. Dr. Mejia was consulted on the care and management of this patient ; attending physician is in agreement with recommendations and disposition.
[2018-05-09] MEDS ORDERED: POLYETHYLENE GLYCOL 3350 POWDER 17 GM/1 PACKET PO ONE (16:51)
[2018-05-09] MEDS: ATORVASTATIN CALCIUM 40 MG TABLET PO SCH (22:14)
[2018-05-10] MEDS: HEPARIN SOD (PORCINE) 5,000 UNIT/ML 1 ML SYRINGE SUBCUT SCH ×2 (06:22→14:49)
[2018-05-10] MEDS: OXYCODONE HCL IR 5 MG TABLET PO PRN ×2 (06:57→15:16)
[2018-05-10 07:35] LABS: ABSOLUTE BASOPHILS # (AUTO) 0.1 10^3/uL (0.0-0.2); ABSOLUTE LYMPHOCYTES (AUTO) 1.1 10^3/uL (0.5-4.7); ABSOLUTE MONOCYTES (AUTO) 0.7 10^3/uL (0.1-1.4); ABSOLUTE NEUT (AUTO) 6.9 10^3/uL (1.7-8.2); BASOPHILS % (AUTO) 0.7 % (0-2); EOSINOPHILS % (AUTO) 0.2 % (0-6); HEMATOCRIT 37.2 % (37.9-51.0); HEMOGLOBIN 12.9 g/dL (13.5-17.0); LYMPHOCYTES % (AUTO) 12.4 % (13-45); MEAN CORPUSCULAR HEMOGLOBIN 30.7 pg (27.0-33.4); MEAN CORPUSCULAR HGB CONC 34.6 g/dL (32.0-36.0); MEAN CORPUSCULAR VOLUME 89 fl (80-97); MONOCYTES % (AUTO) 8.2 % (3-13); PLATELET COUNT 185 10^3/uL (150-450); RED BLOOD COUNT 4.18 10^6/uL (4.35-5.55); SEGMENTED NEUTROPHILS % (AUTO) 78.5 % (42-78); TOTAL CELLS COUNTED % (AUTO) 100 %; WHITE BLOOD COUNT 8.8 10^3/uL (4.0-10.5)
[2018-05-10 07:54] LABS: ANION GAP 5 (5-19); BLOOD UREA NITROGEN 11 mg/dL (7-20); CALCIUM 8.6 mg/dL (8.4-10.2); CARBON DIOXIDE 30 mmol/L (22-30); CHLORIDE 100 mmol/L (98-107); GLUCOSE 102 mg/dL (75-110); POTASSIUM 3.6 mmol/L (3.6-5.0); SODIUM 135.3 mmol/L (137-145)
--- NOTE | 2018-05-10 08:29 | PDOC CONSULTATION ---
Consultation Consult Date: 05/09/18 Attending physician:: LENORE HERNANDEZ Consult reason:: abdominal pain History of Present Illness Admission Date/PCP: 05/07/18 19:56 MELY MCDERMOTT MD History of Present Illness: MAMTA CUEVA is a 57 year old male I was asked to see this patient by Dr Lizarraga he had been admitted for DKA and has a previous history of drug use he had been in the ICU for a while had a CT scan, gastric distension is noted Radiologist is questioning if there is a gastric outlet obstruction patient states pain has improved but still present patient to have EGD done to exclude possible peptic ulcer disease Past Medical History Cardiac Medical History: Reports: Hyperlipidema, Hypertension Pulmonary Medical History: Denies: Tuberculosis Endocrine Medical History: Reports: Diabetes Mellitus Type 1, Diabetes Mellitus Type 2 Psychiatric Medical History: Reports: Depression, Substance Abuse, Tobacco Dependency Past Surgical History Past Surgical History: Reports: Orthopedic Surgery - jaw Social History Smoking Status: Current Every Day Smoker Frequency of Alcohol Use: None Hx Recreational Drug Use: No Drugs: Cocaine, Marijuana Hx Prescription Drug Abuse: No - Advance Directive Resuscitation Status: Full Code Family History Family History: CAD - father at 59 of heart problems, DM - mother Parental Family History Reviewed: Yes Children Family History Reviewed: Unknown Sibling(s) Family History Reviewed.: Unknown Medication/Allergy Home Medications: Aspirin [Aspirin EC] 81 mg PO DAILY 05/08/18 Gabapentin [Neurontin 300 mg Capsule] 300 mg PO QHS 05/08/18 Insulin Aspart [Novolog Flexpen] 4 units SQ MEALS 05/08/18 Insulin Glargine,Hum.rec.anlog [Lantus Solostar] 25 units SQ DAILY 05/08/18 Lisinopril [Prinivil 5 mg Tablet] 5 mg PO DAILY 05/08/18 Magnesium Oxide [Mag-Ox 400 mg Tablet] 400 mg PO DAILY 05/08/18 Allergies/Adverse Reactions: No Known Allergies Allergy (Verified 05/07/18 14:15) Review of Systems Constitutional: ABSENT: fever(s), headache(s), night sweats, weakness Eyes: ABSENT: visual disturbances Ears: ABSENT: hearing changes Nose, Mouth, and Throat: ABSENT: mouth pain, sore throat Cardiovascular: ABSENT: edema, orthropnea, palpitations Respiratory: ABSENT: dyspnea, hemoptysis Gastrointestinal: ABSENT: diarrhea, dysphagia, melena Genitourinary: ABSENT: dysuria, hematuria Musculoskeletal: ABSENT: deformity, joint swelling Integumentary: ABSENT: lesions, pruritus Neurological: ABSENT: syncope, tingling, tremor(s), vertigo Endocrine: ABSENT: polydipsia, polyphagia, polyuria Hematologic/Lymphatic: ABSENT: easy bruising Physical Exam Vital Signs: Temp Pulse Resp BP Pulse Ox 98.9 F 87 16 141/80 H 100 05/10/18 08:00 05/10/18 08:00 05/10/18 08:00 05/10/18 08:00 05/10/18 08:00 Intake & Output 05/09/18 05/10/18 05/11/18 06:59 06:59 06:59 Intake Total 2417 1074 Output Total 1515 1150 Balance 902 -76 Weight 61.6 kg 61.5 kg General appearance: PRESENT: no acute distress, well-developed, well-nourished Head exam: PRESENT: atraumatic, normocephalic Eye exam: PRESENT: EOMI, PERRLA. ABSENT: nystagmus, periorbital swelling, scleral icterus Mouth exam: PRESENT: moist, neck supple Throat exam: ABSENT: tonsillar exudate, tonsillogmegaly Neck exam: ABSENT: meningismus, tenderness, thyromegaly Respiratory exam: PRESENT: unlabored. ABSENT: symmetrical, tachypnea, wheezes Cardiovascular exam: PRESENT: RRR, +S1, +S2 GI/Abdominal exam: PRESENT: soft. ABSENT: rebound, rigid, tenderness Extremities exam: ABSENT: joint swelling, pedal edema Musculoskeletal exam: PRESENT: full ROM Neurological exam: PRESENT: alert, oriented to time, oriented to situation, CN II-XII grossly intact Focused psych exam: ABSENT: restlessness Skin exam: PRESENT: normal color. ABSENT: mottled, pallor, urticaria, vesicles Results Laboratory Results: 05/10/18 06:57 05/10/18 06:57 05/09/18 05/10/18 05/10/18 08:42 06:57 06:57 WBC 8.8 RBC 4.18 L Hgb 12.9 L Hct 37.2 L MCV 89 MCH 30.7 MCHC 34.6 RDW 13.0 Plt Count 185 Seg Neutrophils % 78.5 H Lymphocytes % 12.4 L Monocytes % 8.2 Eosinophils % 0.2 Basophils % 0.7 Absolute Neutrophils 6.9 Absolute Lymphocytes 1.1 Absolute Monocytes 0.7 Absolute Eosinophils 0.0 Absolute Basophils 0.1 Sodium 137.6 135.3 L Potassium 3.8 3.6 Chloride 106 100 Carbon Dioxide 26 30 Anion Gap 6 5 BUN 12 11 Creatinine 0.96 0.70 Est GFR ( Amer) > 60 > 60 Est GFR (Non-Af Amer) > 60 > 60 Glucose 136 H 102 Calcium 8.4 8.6 05/07/18 05/07/18 05/08/18 20:25 20:25 04:15 Creatine Kinase 97 Cancelled Troponin I < 0.012 05/08/18 05/08/18 05/08/18 04:15 05:40 15:10 Creatine Kinase 141 Troponin I < 0.012 < 0.012 Impressions: Abdomen/Pelvis CT 05/09/18 00:00 IMPRESSION: 1. Gastric distention. Is there history of gastric outlet obstruction? 2. Possible constipation. 3. The study is limited. Chest X-Ray 05/09/18 06:00 IMPRESSION: No significant change. Assessment & Plan - Diagnosis (1) Abdominal pain Plan: accompanied by abnormal CT scan will need EGD Risks, benefits and alternatives are discussed with the patient in detail further recommendations to follow - Time Time Spent: 50 to 70 Minutes
--- NOTE | 2018-05-10 09:07 | RADIOLOGY REPORT (SQ) ---
EXAM DESCRIPTION: CHEST SINGLE VIEW COMPLETED DATE/TIME: 05/10/2018 8:42 am REASON FOR STUDY: f/u left pneumothorax andleft chest tube placement COMPARISON: 05/09/2018 EXAM PARAMETERS: NUMBER OF VIEWS: One view. TECHNIQUE: Single frontal radiographic view of the chest acquired. RADIATION DOSE: NA LIMITATIONS: None. FINDINGS: LUNGS AND PLEURA: [id number] remains in place. Small bore left-sided chest tube is in place. The tip lies up against the mediastinum on the current film. No pneumothorax. No consolidat ion or effusions. MEDIASTINUM AND HILAR STRUCTURES: No masses. Contour normal. HEART AND VASCULAR STRUCTURES: Heart normal in size. Normal vasculature. BONES: No acute findings. HARDWARE: As above. OTHER: No other significant finding. IMPRESSION: No pneumothorax. Pigtail catheter remains in place on the left. Catheter tip is medial in location. TECHNICAL DOCUMENTATION: JOB ID: [id number] [employer]- All Rights Reserved Reading location - IP/workstation name: [email or web address]
[2018-05-10] MEDS: GABAPENTIN 300 MG CAPSULE PO SCH ×2 (09:32→14:48)
[2018-05-10] MEDS: DOCUSATE SODIUM 100 MG CAPSULE PO SCH (09:32)
[2018-05-10] MEDS: ASPIRIN 81 MG TABLET, ENT COATED PO SCH (09:33)
[2018-05-10] MEDS: INSULIN GLARGINE,HUM.REC.ANLOG 300 UNIT/3 ML INSULN.PEN SUBCUT SCH (09:33)
[2018-05-10] MEDS ORDERED: FLUMAZENIL INJ 0.5 MG/5 ML VIAL ONE (10:19)
[2018-05-10] MEDS ORDERED: ONDANSETRON HCL INJ/PF 4 MG/2 ML SDV ONE (10:19)
[2018-05-10] MEDS ORDERED: DIPHENHYDRAMINE HCL 50 MG/ML VIAL ONE (10:19)
[2018-05-10] MEDS ORDERED: EPINEPHRINE INJ 1 MG/10 ML DISP.SYRIN ONE (10:19)
[2018-05-10] MEDS ORDERED: NALOXONE HCL INJ/PF 0.4 MG/1 ML SDV ONE (10:19)
[2018-05-10] MEDS ORDERED: MIDAZOLAM 2 MG/2 ML INJ ONE (10:19)
[2018-05-10] MEDS ORDERED: GLUCAGON,HUMAN RECOMB 1 MG INJ ONE (10:20)
[2018-05-10] MEDS: FENTANYL CITRATE INJ/PF 100 MCG/2 ML AMPUL ONE ×2 (10:46→10:50)
--- NOTE | 2018-05-10 12:05 | Operative Report ---
Operative Report DATE OF SURGERY: 05/10/18 Operative Report: The risks benefits and alternatives of the procedure explained to the patient in detail and informed consent is obtained.A GIF Olympus video scope was inserted into the patient's mouth and hypopharynx, the esophagus is identified intubated and insufflated, the scope was then advanced through the esophagus stomach and duodenum, retroflexion maneuver is done the esophagus stomach and first and second portions of the duodenum examined PREOPERATIVE DIAGNOSIS: Abdominal pain question rule out gastric outlet obstruction, abnormal CT scan POSTOPERATIVE DIAGNOSIS: Gastritis status post biopsy rule out Helicobacter pylori. It does appear to have a very nodular appearance. Duodenitis OPERATION: EGD with biopsy SURGEON: LENORE HERNANDEZ ANESTHESIA: Moderate Sedation - 2 mg of Versed, 75 mcg of fentanyl. Conscious sedation monitoring time 30 minutes. TISSUE REMOVED OR ALTERED: As noted above. COMPLICATIONS: None. ESTIMATED BLOOD LOSS: None. INTRAOPERATIVE FINDINGS: as above PROCEDURE: Patient tolerated procedure well. He sent back to his room in good condition. No immediate postprocedure comp occasions are noted. Wait on biopsy Should be able to be discharged later today See as outpatient Should be discharged on the PPI
[2018-05-10] MEDS: AMLODIPINE BESYLATE 2.5 MG TABLET PO SCH (14:46)
--- NOTE | 2018-05-10 15:58 | PDOC PROGRESS REPORT ---
Subjective Progress Note for:: 05/10/18 Subjective:: Patient is doing much better Since very desperately wants to go home Endoscopy was done was all stable Patient's still waiting for the surgery to remove the chest tubes The patient about to wait for the surgery Patient's otherwise denied any chest pain denied any shortness of the breath Denied any abdominal pain His p.o. intake is all good Charge assistant media planner already discussed with the parent patient is going to stay with the parents Patient's all medications sent to the pharmacy Reason For Visit: DKA COCAINE Physical Exam Vital Signs: Temp Pulse Resp BP Pulse Ox 98.3 F 85 16 134/90 H 100 05/10/18 12:00 05/10/18 12:00 05/10/18 12:00 05/10/18 12:00 05/10/18 12:00 Intake & Output 05/09/18 05/10/18 05/11/18 06:59 06:59 06:59 Intake Total 2417 1074 350 Output Total 1515 1150 Balance 902 -76 350 Weight 61.6 kg 61.5 kg General appearance: PRESENT: no acute distress, well-developed, well-nourished Head exam: PRESENT: atraumatic, normocephalic Eye exam: PRESENT: conjunctiva pink, EOMI, PERRLA. ABSENT: scleral icterus Ear exam: PRESENT: normal external ear exam Mouth exam: PRESENT: moist, tongue midline Neck exam: PRESENT: full ROM. ABSENT: carotid bruit, JVD, lymphadenopathy, thyromegaly Respiratory exam: PRESENT: clear to auscultation shoaib Additional comments: Left-sided chest tube is intact Cardiovascular exam: PRESENT: RRR. ABSENT: diastolic murmur, rubs, systolic murmur Pulses: PRESENT: normal dorsalis pedis pul, +2 pedal pulses bilateral Vascular exam: PRESENT: normal capillary refill GI/Abdominal exam: PRESENT: normal bowel sounds, soft. ABSENT: distended, guarding, mass, organolmegaly, rebound, tenderness Rectal exam: PRESENT: deferred Musculoskeletal exam: PRESENT: ambulatory Neurological exam: PRESENT: alert, awake, oriented to person, oriented to place , oriented to time, oriented to situation, CN II-XII grossly intact. ABSENT: motor sensory deficit Psychiatric exam: PRESENT: appropriate affect, normal mood. ABSENT: homicidal ideation, suicidal ideation Skin exam: PRESENT: dry, intact, warm. ABSENT: cyanosis, rash Results Laboratory Results: 05/10/18 06:57 05/10/18 06:57 05/10/18 05/10/18 06:57 06:57 WBC 8.8 RBC 4.18 L Hgb 12.9 L Hct 37.2 L MCV 89 MCH 30.7 MCHC 34.6 RDW 13.0 Plt Count 185 Seg Neutrophils % 78.5 H Lymphocytes % 12.4 L Monocytes % 8.2 Eosinophils % 0.2 Basophils % 0.7 Absolute Neutrophils 6.9 Absolute Lymphocytes 1.1 Absolute Monocytes 0.7 Absolute Eosinophils 0.0 Absolute Basophils 0.1 Sodium 135.3 L Potassium 3.6 Chloride 100 Carbon Dioxide 30 Anion Gap 5 BUN 11 Creatinine 0.70 Est GFR ( Amer) > 60 Est GFR (Non-Af Amer) > 60 Glucose 102 Calcium 8.6 05/07/18 05/07/18 05/08/18 20:25 20:25 04:15 Creatine Kinase 97 Cancelled Troponin I < 0.012 05/08/18 05/08/18 05/08/18 04:15 05:40 15:10 Creatine Kinase 141 Troponin I < 0.012 < 0.012 Impressions: Abdomen/Pelvis CT 05/09/18 00:00 IMPRESSION: 1. Gastric distention. Is there history of gastric outlet obstruction? 2. Possible constipation. 3. The study is limited. Chest X-Ray 05/10/18 06:00 IMPRESSION: No pneumothorax. Pigtail catheter remains in place on the left. Catheter tip is medial in location. Assessment & Plan - Diagnosis (1) Diabetic ketoacidosis Qualifiers: Diabetes mellitus type: type 2 Diabetes mellitus complication detail: without coma Qualified Code(s): E11.10 - Type 2 diabetes mellitus with ketoacidosis without coma Is this a current diagnosis for this admission?: Yes Plan: Currently all resolved (2) Dehydration Is this a current diagnosis for this admission?: Yes Plan: Currently all resolved (3) Hyperkalemia Is this a current diagnosis for this admission?: Yes Plan: Currently all resolved most likely from DKA (4) Noncompliance with medication regimen Is this a current diagnosis for this admission?: Yes Plan: Is very noncompliance very extensive discussed with the patient and the father and the patient's mother if the patient's continues to be noncompliance with not longer provide this service for this patient because needs to make any sense to me to provide the service of the scan of the patient's willing to not take the medications and continues to use the drugs (5) Pneumothorax on left Is this a current diagnosis for this admission?: Yes Plan: Follow-up with the general surgery for the chest tube (6) Depression Qualifiers: Depression Type: major depressive disorder Psychotic features: without psychotic features Is this a current diagnosis for this admission?: Yes Plan: Consult the psychiatrist (7) Drug abuse Is this a current diagnosis for this admission?: Yes Plan: Follow with the psych (8) Acute renal failure Qualifiers: Acute renal failure type: unspecified Qualified Code(s): N17.9 - Acute kidney failure, unspecified Is this a current diagnosis for this admission?: Yes Plan: Due to the DKA and dehydration's currently all getting better - Time Time Spent with patient: 15-24 minutes Medications reviewed and adjusted accordingly: Yes Anticipated discharge: Home Within: within 24 hours - Inpatient Certification Medical Necessity: Need Close Monitoring Due to Risk of Patient Decompensation Post Hospital Care: D/C Mail Clerks Supervisor Documentation - Plan Summary Plan Summary: Will wait for the general surgery evaluations if the surgery says okay patients can discharge home today Discussed with the patient if the surgery is decided to keep the patient in the hospital patient is not dischargeable at this point Patient's all medications sent to the pharmacy so patients should have enough medication Discussed with the patient's father regarding the patient's current condition and probably need to help to stay Discussed with the patient about noncompliance and substance drug abuse if the patient is persistent noncompliance subsequent drug abuse patients to find other physicians
[2018-05-10 17:36] VITALS: BP 107/81
--- NOTE | 2018-05-10 17:55 | Operative Report ---
Nonrecallable Operative Report DATE OF SURGERY: 05/10/18 PREOPERATIVE DIAGNOSIS: Status post left thoracostomy tube placement for iatrogenic pneumothorax POSTOPERATIVE DIAGNOSIS: Same, pneumothorax and air leak resolved OPERATION: Removal of left thoracostomy tube; interpretation of portable upright chest x-ray SURGEON: DELBERT WASSERMAN ANESTHESIA: Other - None TISSUE REMOVED OR ALTERED: None COMPLICATIONS: None ESTIMATED BLOOD LOSS: None INTRAOPERATIVE FINDINGS: See below PROCEDURE: Patient was seen in room 533. Left chest tube inspected. A Heimlich valve, and Pleur-evac all attached to suction no fluctuation no air leak. Pleur-evac was disconnected. Chest tube dressing removed, chest tube sutures removed and chest tube removed on the vent Aguilar with a compression dressing applied with Xeroform 4 x 4's and tape. Patient tolerated procedure well Approximately 2-1/2 hours later patient had a PA lateral chest x-ray which showed excellent expansion of the lung with no subcutaneous air and no evidence of pneumothorax. The results of the study were shared with the nursing staff. Patient can discharge home to follow-up with surgeon on a as needed basis.
--- NOTE | 2018-05-10 19:26 | RADIOLOGY REPORT (SQ) ---
EXAM DESCRIPTION: CHEST 2 VIEWS COMPLETED DATE/TIME: 05/10/2018 5:24 pm REASON FOR STUDY: Post chest tube removal/pneumothorax COMPARISON: 08/22/2014 EXAM PARAMETERS: NUMBER OF VIEWS: two views TECHNIQUE: Digital Frontal and Lateral radiographic views of the chest acquired. RADIATION DOSE: NA LIMITATIONS: none FINDINGS: LUNGS AND PLEURA: Lungs are mildly hyperexpanded. There is no pneumothorax. No infiltrat e. MEDIASTINUM AND HILAR STRUCTURES: No masses or contour abnormalities. HEART AND VASCULAR STRUCTURES: Heart normal size. No evidence for failure. BONES: No acute findings. HARDWARE: Left subclavian catheter. OTHER: No other significant finding. IMPRESSION: NO ACUTE RADIOGRAPHIC FINDING IN THE CHEST. TECHNICAL DOCUMENTATION: JOB ID: [id number] [employer]- All Rights Reserved Reading location - IP/workstation name: [email or web address]
--- NOTE | 2018-05-13 16:53 | PDOC DISCHARGE SUMMARY ---
General - Admit/Disc Date/PCP Admission Date/Primary Care Provider: 05/07/18 19:56 MELY MCDERMOTT MD Discharge Date: 05/10/18 - Discharge Diagnosis (1) Diabetic ketoacidosis Is this a current diagnosis for this admission?: Yes Summary: Currently all resolved (2) Dehydration Is this a current diagnosis for this admission?: Yes Summary: Currently all resolved (3) Hyperkalemia Is this a current diagnosis for this admission?: Yes Summary: Currently all stable (4) Noncompliance with medication regimen Is this a current diagnosis for this admission?: Yes (5) Pneumothorax on left Is this a current diagnosis for this admission?: Yes Summary: Currently all resolved (6) Depression Is this a current diagnosis for this admission?: Yes Summary: Follow-up with the psych (7) Drug abuse Is this a current diagnosis for this admission?: Yes (8) Acute renal failure Is this a current diagnosis for this admission?: Yes Summary: Currently all resolved - Additional Information Resuscitation Status: Full Code Discharge Diet: Diabetic Discharge Activity: Activity As Tolerated, Balance Activity w/Rest, Slowly Increase Activity Prescriptions: Amlodipine Besylate [Norvasc 2.5 mg Tablet] 2.5 mg PO Q12 #60 tablet Insulin Lispro [Humalog Insulin (Lispro) 100 unit/mL] 0 - 12 unit SUBCUT ACHSP PRN #1 unit PRN Reason: Home Medications: Aspirin [Aspirin EC] 81 mg PO DAILY 05/08/18 Insulin Aspart [Novolog Flexpen] 4 units SQ MEALS 05/08/18 Magnesium Oxide [Mag-Ox 400 mg Tablet] 400 mg PO DAILY 05/08/18 Amlodipine Besylate [Norvasc 2.5 mg Tablet] 2.5 mg PO Q12 #60 tablet 05/10/18 Insulin Lispro [Humalog Insulin (Lispro) 100 unit/mL] 0 - 12 unit SUBCUT ACHSP PRN #1 unit 05/10/18 History of Present Illness History of Present Illness: MAMTA CUEVA is a 57 year old male This 57-year-old male with the very noncompliance with the medications depression substance drug abuse several hospital admissions due to the above conditions admitted for the abdominal pain nausea vomiting and diagnosed with a diabetic ketoacidosis and started on a insulin drip and IV fluid Hospital Course Hospital Course: This is a 57-year-old male with a history of substance drug abuse including the cocaine and marijuana history of the patient's type 2 diabetes mellitus insulin- dependent hypertension's physically admitting in the hospital because of the diabetic ketoacidosis Initially was diagnosed with renal failure hyperkalemia due to the above conditions start on insulin drip and IV fluid and patients all the symptoms resolved Patient also have a CT abdomen and pelvis was done with so some gastric distention's and underwent for the endoscopy with so some mild gastritis Also have some constipation issue resolved with the MiraLAX and Colace Seen by the psychiatrist She is otherwise very eager to go home's patients also develop a pneumothorax on the left side due to the central line treated with the chest tube placement follow chest x-ray was all resolved remove the chest tube by surgery Very extensive discussed with the patient about compliance of the medications and substance drug abuse at the patient's continues to be noncompliance of some drug abuse and is to follow with a different primary care physicians patient understand very well about that This with the patient's parents regarding the patient's current conditions Physical Exam Vital Signs: Temp Pulse Resp BP Pulse Ox 98.1 F 112 H 18 107/81 97 05/10/18 18:07 05/10/18 18:07 05/10/18 18:07 05/10/18 18:07 05/10/18 18:07 General appearance: PRESENT: no acute distress, well-developed, well-nourished Head exam: PRESENT: atraumatic, normocephalic Eye exam: PRESENT: conjunctiva pink, EOMI, PERRLA. ABSENT: scleral icterus Ear exam: PRESENT: normal external ear exam Mouth exam: PRESENT: moist, tongue midline Neck exam: PRESENT: full ROM. ABSENT: carotid bruit, JVD, lymphadenopathy, thyromegaly Respiratory exam: PRESENT: clear to auscultation shoaib Cardiovascular exam: PRESENT: RRR. ABSENT: diastolic murmur, rubs, systolic murmur Pulses: PRESENT: normal dorsalis pedis pul, +2 pedal pulses bilateral Vascular exam: PRESENT: normal capillary refill GI/Abdominal exam: PRESENT: normal bowel sounds, soft. ABSENT: distended, guarding, mass, organolmegaly, rebound, tenderness Rectal exam: PRESENT: deferred Extremities exam: ABSENT: pedal edema Musculoskeletal exam: PRESENT: ambulatory Neurological exam: PRESENT: alert, awake, oriented to person, oriented to place , oriented to time, oriented to situation, CN II-XII grossly intact. ABSENT: motor sensory deficit Psychiatric exam: PRESENT: appropriate affect, normal mood. ABSENT: homicidal ideation, suicidal ideation Skin exam: PRESENT: dry, intact, warm. ABSENT: cyanosis, rash Results Laboratory Results: 05/10/18 06:57 05/10/18 06:57 05/07/18 20:25 Blood Blood Culture - Final NO GROWTH IN 5 DAYS 05/07/18 05/07/18 05/08/18 20:25 20:25 04:15 Creatine Kinase 97 Cancelled Troponin I < 0.012 05/08/18 05/08/18 05/08/18 04:15 05:40 15:10 Creatine Kinase 141 Troponin I < 0.012 < 0.012 Impressions: Abdomen/Pelvis CT 05/09/18 00:00 IMPRESSION: 1. Gastric distention. Is there history of gastric outlet obstruction? 2. Possible constipation. 3. The study is limited. Chest X-Ray 05/10/18 18:00 IMPRESSION: NO ACUTE RADIOGRAPHIC FINDING IN THE CHEST. Qualifiers - * PATIENT BEING DISCHARGED WITH ANY OF THE FOLLOWING DIAGNOSIS: No VTE patient discharged on overlapping Therapy?: Yes Plan Time Spent: Greater than 30 Minutes - Discharge home with the stable conditions follow outpatient in 1 week Follow outpatients psych
== END 2018-05-10 18:21 | disposition home or self-care (01) | DRG 638 ==
LOC: ER 14:14 → EH 19:56 → ICU 05-08 01:17 → 5 05-09 22:52
PROVIDERS: ADMIT Internal Medicine; ATTEND Family Medicine
PROC: 02HV33Z Insertion of Infusion Device into Superior Vena Cava, Percutaneous Approach (ICD-10-PCS; principal; 2018-05-07)
PROC: 0W9B30Z Drainage of Left Pleural Cavity with Drainage Device, Percutaneous Approach (ICD-10-PCS; 2018-05-07)
PROC: 0DD68ZX Extraction of Stomach, Via Natural or Artificial Opening Endoscopic, Diagnostic (ICD-10-PCS; 2018-05-10)
PROC: 0BPLX0Z Removal of Drainage Device from Left Lung, External Approach (ICD-10-PCS; 2018-05-10)
DX: E10.10 Type 1 diabetes mellitus with ketoacidosis without coma (principal); N17.9 Acute kidney failure, unspecified; J95.811 Postprocedural pneumothorax; E87.5 Hyperkalemia; E83.41 Hypermagnesemia; E86.0 Dehydration; E78.5 Hyperlipidemia, unspecified; F14.10 Cocaine abuse, uncomplicated; F19.10 Other psychoactive substance abuse, uncomplicated; I10 Essential (primary) hypertension; N40.0 Benign prostatic hyperplasia without lower urinary tract symptoms; F32.9 Major depressive disorder, single episode, unspecified; F17.210 Nicotine dependence, cigarettes, uncomplicated; Z91.14 Patient's other noncompliance with medication regimen; Z79.84 Long term (current) use of oral hypoglycemic drugs; Z79.82 Long term (current) use of aspirin; Z79.4 Long term (current) use of insulin; Z79.899 Other long term (current) drug therapy; K29.70 Gastritis, unspecified, without bleeding; K29.80 Duodenitis without bleeding
CPT/HCPCS: 36415; 36600; 43239; 71045; 71046; 74176; 80048; 80053; 80076; 80307; 81001; 82550; 82803; 82962; 83690; 83735; 84484; 85025; 85610; 85730; 87040; 87086; 88305; 88342; 93005; 93010; 96361; 96374; 96375; 99291; C1751; J0171; J0610; J1200; J1610; J1644; J1815; J1885; J2250; J2310; J2405; J3010; J3490; S0028

== ENCOUNTER → 2018-05-22 | Outpatient (CLI) | payer MEDICAID ==
--- NOTE | 2018-05-22 16:36 | RADIOLOGY REPORT (SQ) ---
EXAM DESCRIPTION: CHEST PA/LATERAL COMPLETED DATE/TIME: 05/22/2018 4:21 pm REASON FOR STUDY: COUGH COMPARISON: 05/10/2018 chest films EXAM PARAMETERS: NUMBER OF VIEWS: two views TECHNIQUE: Digital Frontal and Lateral radiographic views of the chest acquired. RADIATION DOSE: NA LIMITATIONS: none FINDINGS: LUNGS AND PLEURA: No opacities, masses or pneumothorax. No pleural effusion. MEDIASTINUM AND HILAR STRUCTURES: No masses or contour abnormalities. HEART AND VASCULAR STRUCTURES: Heart normal size. No evidence for failure. BONES: No acute findings. HARDWARE: None in the chest. OTHER: No other significant finding. IMPRESSION: NO SIGNIFICANT RADIOGRAPHIC FINDING IN THE CHEST. TECHNICAL DOCUMENTATION: JOB ID: [id number] [employer]- All Rights Reserved Reading location - IP/workstation name: [email or web address]
== END ==
LOC: OD 15:52
PROVIDERS: ATTEND Family Medicine
DX: R05 Cough (principal)
CPT/HCPCS: 71046

== ENCOUNTER 2018-06-16 07:44 | Emergency (ER) | payer MEDICAID ==
[2018-06-16] MEDS ORDERED: ASPIRIN 81 MG TABLET, CHEWABLE PO ONE (08:24)
--- NOTE | 2018-06-16 09:40 | EKG REPORT ---
SEVERITY:- ABNORMAL ECG - SINUS RHYTHM LEFT VENTRICULAR HYPERTROPHY : Confirmed by: Daniela Dowd MD 16-Jun-2018 09:39:13
--- NOTE | 2018-06-16 09:41 | RADIOLOGY REPORT (SQ) ---
EXAM DESCRIPTION: CHEST SINGLE VIEW COMPLETED DATE/TIME: 06/16/2018 9:32 am REASON FOR STUDY: bed 4 cp COMPARISON: 05/22/2018. EXAM PARAMETERS: NUMBER OF VIEWS: One view. TECHNIQUE: Single frontal radiographic view of the chest acquired. RADIATION DOSE: NA LIMITATIONS: None. FINDINGS: LUNGS AND PLEURA: No opacities, masses or pneumothorax. No pleural effusion. MEDIASTINUM AND HILAR STRUCTURES: No masses. Contour normal. HEART AND VASCULAR STRUCTURES: Heart normal in size. Normal vasculature. BONES: No acute findings. HARDWARE: None in the chest. OTHER: No other significant finding. IMPRESSION: NO ACUTE RADIOGRAPHIC FINDING IN THE CHEST. TECHNICAL DOCUMENTATION: JOB ID: [id number] [employer]- All Rights Reserved Reading location - IP/workstation name: [email or web address]
[2018-06-16] MEDS ORDERED: GABAPENTIN 300 MG CAPSULE PO ONE (10:19)
[2018-06-16 10:42] LABS: APPEARANCE,URINE CLEAR; BILIRUBIN,URINE NEGATIVE (NEGATIVE); COLOR,URINE STRAW; GLUCOSE, URINE >=500 mg/dL (NEGATIVE); KETONES,URINE NEGATIVE (NEGATIVE); LEUKOCYTE ESTERASE,URINE NEGATIVE (NEGATIVE); NITRITE,URINE NEGATIVE (NEGATIVE); PROTEIN,URINE NEGATIVE (NEGATIVE); URINE SPECIFIC GRAVITY 1.029; UROBILINOGEN,URINE NEGATIVE mg/dL (<2.0)
[2018-06-16 11:31] LABS: HEMATOCRIT 39.3 % (37.9-51.0); HEMOGLOBIN 13.6 g/dL (13.5-17.0); MEAN CORPUSCULAR HEMOGLOBIN 31.5 pg (27.0-33.4); MEAN CORPUSCULAR HGB CONC 34.6 g/dL (32.0-36.0); MEAN CORPUSCULAR VOLUME 91 fl (80-97); PLATELET COUNT 248 10^3/uL (150-450); RED BLOOD COUNT 4.31 10^6/uL (4.35-5.55); RED CELL DISTRIBUTION WIDTH 13.7 % (11.5-14.0); WHITE BLOOD COUNT 9.6 10^3/uL (4.0-10.5)
[2018-06-16 11:54] LABS: ALANINE AMINOTRANSFERASE 21 U/L (21-72); ALBUMIN 3.4 g/dL (3.5-5.0); ALKALINE PHOSPHATASE 120 U/L (38-126); ANION GAP 11 (5-19); ASPARTATE AMINO TRANSFERASE 34 U/L (17-59); BILIRUBIN,DIRECT 0.2 mg/dL (0.0-0.4); BILIRUBIN,TOTAL 0.5 mg/dL (0.2-1.3); BLOOD UREA NITROGEN 15 mg/dL (7-20); CALCIUM 9.1 mg/dL (8.4-10.2); CARBON DIOXIDE 26 mmol/L (22-30); CHLORIDE 96 mmol/L (98-107); CREATINE KINASE 160 U/L (55-170); POTASSIUM 4.6 mmol/L (3.6-5.0); SODIUM 132.7 mmol/L (137-145); TOTAL PROTEIN 6.1 g/dL (6.3-8.2)
[2018-06-16 12:00] LABS: TROPONIN I < 0.012 ng/mL
[2018-06-16 12:02] LABS: GLUCOSE 504 mg/dL (75-110)
[2018-06-16 12:04] LABS: ABSOLUTE LYMPHOCYTES# (MANUAL) 0.9 10^3/uL (0.5-4.7); ABSOLUTE MONOCYTES # (MANUAL) 0.6 10^3/uL (0.1-1.4); ABSOLUTE NEUTROPHILS# (MANUAL) 8.2 10^3/uL (1.7-8.2); BASOPHILS % (MANUAL) 0 % (0-2); EOSINOPHILS % (MANUAL) 0 % (0-6); LYMPHOCYTES % (MANUAL) 9 % (13-45); MONOCYTES % (MANUAL) 6 % (3-13); SEGMENTED NEUTROPHILS % (MAN) 85 % (42-78); TOTAL CELLS COUNTED 100
[2018-06-16 12:07] LABS: PLATELET COMMENT ADEQUATE; PLATELET LARGE PRESENT; RBC MORPHOLOGY COMMENT NORMO-CYTIC/CHROMIC
[2018-06-16] MEDS ORDERED: INSULIN REG, HUMAN 100 UNIT/ML 3 ML VIAL (PYX) SUBCUT ONE (12:28)
--- NOTE | 2018-06-16 13:21 | ER Document Report ---
ED Cardiac - General Chief Complaint: Chest Pain Stated Complaint: CHEST HURTING Time Seen by Provider: 06/16/18 10:00 TRAVEL OUTSIDE OF THE [place] IN LAST 30 DAYS: No - HPI Patient complains to provider of: Other - 57-year-old man who is currently homeless as well as a type I diabetic requiring insulin that presents for evaluation of pain along his chest which is been persistent since undergoing placement of a chest tube as a result of a punctured lung while attempting to place a central line previously. He denies any lightheadedness, abdominal pain diarrhea constipation or dysuria no recent rashes does note that the breathing seems to be slightly worse because of the pain in the chest. He is never had any pain like this before prior to having his lung puncture. Notes that he is also pretty hungry but is otherwise doing okay. - Related Data Allergies/Adverse Reactions: No Known Allergies Allergy (Verified 05/07/18 14:15) Past Medical History - General Information source: Patient - Social History Smoking Status: Unknown if Ever Smoked Chew tobacco use (# tins/day): No Frequency of alcohol use: None Drug Abuse: None Family History: CAD - father at 59 of heart problems, DM - mother Patient has suicidal ideation: No Patient has homicidal ideation: No - Past Medical History Cardiac Medical History: Reports: Hx Hypercholesterolemia, Hx Hypertension Pulmonary Medical History: Denies: Hx Tuberculosis Neurological Medical History: Denies: Hx Seizures Endocrine Medical History: Reports: Hx Diabetes Mellitus Type 1, Hx Diabetes Mellitus Type 2 Renal/ Medical History: Reports: Hx Benign Prostatic Hyperplasia. Denies: Hx Peritoneal Dialysis Psychiatric Medical History: Reports: Hx Depression Past Surgical History: Reports: Hx Orthopedic Surgery - jaw - Immunizations Hx Diphtheria, Pertussis, Tetanus Vaccination: No Hx Pneumococcal Vaccination: 05/09/13 Review of Systems - Review of Systems -: Yes All other systems reviewed and negative Physical Exam - Vital signs Vitals: Temp Pulse Resp BP Pulse Ox 98.6 F 92 18 137/84 H 96 06/16/18 08:06 06/16/18 08:06 06/16/18 08:06 06/16/18 08:06 06/16/18 08:06 - General General appearance: Appears well In distress: None - HEENT Head: Normocephalic Eyes: Normal Conjunctiva: Normal Cornea: Normal Extraocular movements intact: Yes Eyelashes: Normal Pupils: PERRL - Respiratory Respiratory status: No respiratory distress Chest status: Nontender Breath sounds: Normal Chest palpation: Normal - Cardiovascular Rhythm: Regular Heart sounds: Normal auscultation Murmur: No - Abdominal Inspection: Normal Distension: No distension Tenderness: Nontender - Back Back: Normal - Extremities General upper extremity: Normal inspection, Nontender, Normal strength, Normal temperature General lower extremity: Normal inspection, Nontender, Normal strength, Normal temperature - Neurological Neuro grossly intact: Yes Cognition: Normal Orientation: AAOx4 Ethan Coma Scale Eye Opening: Spontaneous Ethan Coma Scale Verbal: Oriented [place] Coma Scale Motor: Obeys Commands [place] Coma Scale Total: 15 Speech: Normal Cranial nerves: Normal Cerebellar coordination: Normal Motor strength normal: LUE, RUE, LLE, RLE - Psychological Associated symptoms: Normal affect Course - Re-evaluation Re-evalutation: 06/16/18 16:59 Is a 57-year-old type I diabetic with chronic chest pain after having a thoracostomy tube placed as a result of a central line placed previously. Presents for persistent pain as he did not want to wait until Sunday to get a chest x-ray taken to see if his lung was okay. He also notes that he is hungry. He denies any fevers or chills, denies any loss of consciousness, palpitations lightheadedness diaphoresis or other secondary symptoms to suggest more sinister underlying process such as but not limited to ACS PE dissection. We will plan for workup including x-ray and cardiac markers. X-ray does not demonstrate any obvious pneumothorax, patient's cardiac markers are normal. Given that he is well-appearing, able tolerate p.o., resting comfortably on room air believe is safe for discharge at this time will be given return precautions encouraged follow-up as previously scheduled tomorrow. He is in agreement's course of action eating a tray is that he is his primary concern at this time noting that he mostly is just hungry and is on foot now wants something to eat. - Vital Signs Vital signs: Temp Pulse Resp BP Pulse Ox 98.6 F 92 18 137/84 H 96 06/16/18 08:06 06/16/18 08:06 06/16/18 08:06 06/16/18 08:06 06/16/18 08:06 - Laboratory Result Diagrams: 06/16/18 11:09 06/16/18 11:09 Laboratory results interpreted by me: 06/16/18 06/16/18 06/16/18 09:05 11:09 11:09 RBC 4.31 L Seg Neuts % (Manual) 85 H Lymphocytes % (Manual) 9 L Sodium 132.7 L Chloride 96 L Glucose 504 H* Total Protein 6.1 L Albumin 3.4 L Urine Glucose (UA) >=500 H Discharge - Discharge Clinical Impression: Chest wall pain, Rib pain on left side Hunger Qualifiers: Encounter type: initial encounter Qualified Code(s): T73.0XXA - Starvation, initial encounter Condition: Good Disposition: HOME, SELF-CARE Instructions: Anti-Inflammatory Medication ([facility]), Chest Wall Pain ([facility]), Chest Pain of Unclear Cause ([facility]) Forms: Smoking Cessation Education Referrals: MELY MCDERMOTT MD [Primary Care Provider] - Follow up as needed
[2018-06-16 17:23] VITALS: BP 133/86
== END 2018-06-16 17:23 | disposition home or self-care (01) ==
LOC: ER 07:44
DX: R07.81 Pleurodynia (principal); T73.0XXA Starvation, initial encounter; X58.XXXA Exposure to other specified factors, initial encounter; Z59.0 Homelessness; E10.9 Type 1 diabetes mellitus without complications; E78.00 Pure hypercholesterolemia, unspecified; I10 Essential (primary) hypertension
CPT/HCPCS: 93005; 99285; 36415; 87086; 82553; 82962; 82550; 85025; 80053; 81001; 84484; 71045; 93010; J3490; J1815

== ENCOUNTER 2018-06-16 22:49 | Emergency (ER) | payer MEDICAID ==
--- NOTE | 2018-06-16 23:54 | ER Document Report ---
ED General - General Chief Complaint: Hemorrhoids Stated Complaint: BLOOD SUGAR ISSUE,RECTAL BLEED Time Seen by Provider: 06/16/18 23:34 Mode of Arrival: Ambulatory Information source: Patient, [facility] Records Notes: 57-year-old male with type 1 diabetes, hypertension, hyperlipidemia, depression , currently homeless presents with complaint of bleeding hemorrhoids and "I want my sugar checked". Patient was seen earlier today for chest pain. He states he was discharged home and stayed sitting in the hospital cafeteria and then decided that he wanted his bleeding hemorrhoids and sugar checked. TRAVEL OUTSIDE OF THE [place] IN LAST 30 DAYS: No - HPI Onset: Other Quality of pain: Achy Associated symptoms: Chest pain - Chronic, ruled out this morning, Other - Bleeding hemorrhoids. denies: Nausea, Vomiting Exacerbated by: Denies Relieved by: Denies Recently seen / treated by doctor: Yes - Earlier today - Related Data Allergies/Adverse Reactions: No Known Allergies Allergy (Verified 05/07/18 14:15) Past Medical History - General Information source: Patient, [facility] Records - Social History Smoking Status: Current Every Day Smoker Cigarette use (# per day): Yes Frequency of alcohol use: Rare Drug Abuse: None Lives with: Homeless Family History: CAD - father at 59 of heart problems, DM - mother Patient has suicidal ideation: No Patient has homicidal ideation: No - Past Medical History Cardiac Medical History: Reports: Hx Hypercholesterolemia, Hx Hypertension Pulmonary Medical History: Denies: Hx Tuberculosis Neurological Medical History: Denies: Hx Seizures Endocrine Medical History: Reports: Hx Diabetes Mellitus Type 1, Hx Diabetes Mellitus Type 2 Renal/ Medical History: Reports: Hx Benign Prostatic Hyperplasia. Denies: Hx Peritoneal Dialysis Psychiatric Medical History: Reports: Hx Depression Past Surgical History: Reports: Hx Orthopedic Surgery - jaw - Immunizations Hx Diphtheria, Pertussis, Tetanus Vaccination: No Hx Pneumococcal Vaccination: 05/09/13 Physical Exam - Vital signs Vitals: Temp Pulse Resp BP Pulse Ox 98.5 F 103 H 18 130/85 H 97 06/16/18 23:02 06/16/18 23:02 06/16/18 23:02 06/16/18 23:02 06/16/18 23:02 - Notes Notes: PHYSICAL EXAMINATION: GENERAL: Well-appearing, well-nourished and in no acute distress. HEAD: Atraumatic, normocephalic. EYES: Pupils equal round and reactive to light, extraocular movements intact, sclera anicteric, conjunctiva are normal. ENT: Nares patent, oropharynx clear without exudates. Moist mucous membranes. NECK: Normal range of motion, supple without lymphadenopathy LUNGS: Breath sounds clear to auscultation bilaterally and equal. No wheezes rales or rhonchi. HEART: Regular rate and rhythm without murmurs ABDOMEN: Soft, nontender, nondistended abdomen. No guarding, no rebound. No masses appreciated. Rectal: Brown stool. Small nonthrombosed external hemorrhoid. Musculoskeletal: Normal range of motion, no pitting or edema. No cyanosis. NEUROLOGICAL: Cranial nerves grossly intact. Normal speech, normal gait. Normal sensory, motor exams PSYCH: Normal mood, normal affect. SKIN: Warm, Dry, normal turgor, no rashes or lesions noted. Course - Re-evaluation Re-evalutation: 06/17/18 03:34 Laboratory 06/17/18 06/17/18 06/17/18 00:05 00:05 00:15 VBG pH 7.42 VBG pCO2 52.7 VBG HCO3 33.1 H VBG Base Excess 7.1 Sodium 130.9 L Potassium 4.5 Chloride 88 L Carbon Dioxide 32 H Anion Gap 11 BUN 16 Creatinine 1.11 Est GFR ( Amer) > 60 Est GFR (Non-Af Amer) > 60 Glucose 655 H* POC Glucose Calcium 9.2 Urine Color STRAW Urine Appearance CLEAR Urine pH 6.0 Ur Specific [place] 1.026 Urine Protein NEGATIVE Urine Glucose (UA) >=500 H Urine Ketones NEGATIVE Urine Blood NEGATIVE Urine Nitrite NEGATIVE Urine Bilirubin NEGATIVE Urine Urobilinogen NEGATIVE Ur Leukocyte Esterase NEGATIVE Urine WBC (Auto) 0 Urine Mucus (Auto) RARE Urine Ascorbic Acid NEGATIVE 06/17/18 03:04 VBG pH VBG pCO2 VBG HCO3 VBG Base Excess Sodium Potassium Chloride Carbon Dioxide Anion Gap BUN Creatinine Est GFR ( Amer) Est GFR (Non-Af Amer) Glucose POC Glucose 311 H Calcium Urine Color Urine Appearance Urine pH Ur Specific [place] Urine Protein Urine Glucose (UA) Urine Ketones Urine Blood Urine Nitrite Urine Bilirubin Urine Urobilinogen Ur Leukocyte Esterase Urine WBC (Auto) Urine Mucus (Auto) Urine Ascorbic Acid 06/17/18 03:34 57-year-old male with type 1 diabetes, hypertension, hyperlipidemia, depression , currently homeless presents with complaint of bleeding hemorrhoids and "I want my sugar checked". Patient was seen earlier today for chest pain. He states he was discharged home and stayed sitting in the hospital cafeteria and then decided that he wanted his bleeding hemorrhoids and sugar checked. Vital signs reviewed upon arrival. Patient has mild tachycardia but is afebrile, normotensive and not hypoxic. Patient does not appear toxic or dehydrated. He is in no acute distress. Patient stating that he does not want to go outside because it is too cold. He is currently homeless so he was hanging around in the hospital after he was discharged earlier today and decided to check back in for an external hemorrhoid and repeat glucose check. Patient states that he has the appropriate medication that he needs and that he has been taking it. Patient's CMP does show significant hyperglycemia with a glucose of 655 but without evidence of DKA. Patient received 3 L of IV fluids, 15 units of subcu insulin, 15 units of Lantus. Repeat glucose is 311. Patient has had no nausea , vomiting. He does have a small non-thrombosed external hemorrhoid that is not bleeding. Patient was evaluated and treated as appropriate for the patient' s presenting symptoms and complaint, with consideration of any critical or life threatening conditions that may be associated with their obtained history and exam as noted above. All results were discussed with patient. Patient provided the opportunity to ask questions, and express concerns. Patient was educated on treatments based on their presumed diagnosis as noted above. At this time we will discharge the patient with return precautions and follow-up recommendations. Verbal discharge instructions given a the bedside. Medication warnings reviewed. Patient is in agreement with this plan and has verbalized understanding of return precautions. Presentation of asymptomatic hyperglycemia. There is no evidence of HHS or diabetic ketoacidosis on laboratories or based on clinical history. Patient's vitals are within normal limits. They deny any acute focal complaints. Treatment with insulin and IV fluids given here in the emergency department with appropriate response of the blood sugar. Patient does have primary care follow-up. Patient was instructed to continue taking their insulin and advised they will likely need to increase dietary modification and may also need medication changes. Indications to return to emergency department as well as the importance of close outpatient follow-up were discussed at length. Patient verbalized understanding of the need for close follow-up and indications to return to the ED. After careful consideration I feel that that patient can be safely discharged from the emergency department, they were advised to followup with a primary care physician in 2-3 days. Dictation on this chart was performed using voice recognition software and may result in unintended grammatical, spelling, syntax or errors. 06/17/18 03:34 06/17/18 03:39 - Vital Signs Vital signs: Temp Pulse Resp BP Pulse Ox 98.5 F 103 H 18 130/85 H 97 06/16/18 23:02 06/16/18 23:02 06/16/18 23:02 06/16/18 23:02 06/16/18 23:02 - Laboratory Result Diagrams: 06/17/18 00:05 Laboratory results interpreted by me: 06/17/18 06/17/18 06/17/18 00:05 00:05 00:15 VBG HCO3 33.1 H Sodium 130.9 L Chloride 88 L Carbon Dioxide 32 H Glucose 655 H* POC Glucose Urine Glucose (UA) >=500 H 06/17/18 03:04 VBG HCO3 Sodium Chloride Carbon Dioxide Glucose POC Glucose 311 H Urine Glucose (UA) Discharge - Discharge Clinical Impression: Hyperglycemia, Elevated blood pressure reading, External hemorrhoid Condition: Good Disposition: HOME, SELF-CARE Instructions: Hemorrhoids ([facility]), HC Hemorrhoid Cream ([facility]), Hyperglycemia ([facility]) , Diabetes ([facility]) Additional Instructions: You need to followup urgently with your primary care doctor as your blood sugars were dangerously high today. You did not have any evidence of a dangerous condition associated with these blood sugars at this time. However, it is very important that you get your blood sugars under control. Please take all of your medications exactly as directed. You should avoid foods that are high in carbohydrates and sugary foods. Losing weight will also help to better control your blood sugars. Please return to emergency department immediately if you develop weakness, persistent vomiting, confusion, or any other symptoms that are concerning to you. Prescriptions: Pramoxine HCl/Mineral Oil/Znox [Anusol Ointment] 24 gm RC BID #150 oint..gm. Forms: Elevated Blood Pressure Referrals: MELY MCDERMOTT MD [Primary Care Provider] - Follow up as needed
[2018-06-16] MEDS ORDERED: NORMAL SALINE 1000 ML 1,000 ML IV ONE (23:56)
[2018-06-17 00:16] LABS: VENOUS BLOOD BASE EXCESS 7.1 mmol/L; VENOUS BLOOD HCO3 33.1 mmol/L (20-32); VENOUS BLOOD PCO2 52.7 mmHg (35-63); VENOUS BLOOD PH 7.42 (7.30-7.42)
[2018-06-17] MEDS ORDERED: NORMAL SALINE 1000 ML 1,000 ML IV ONE ×2 (00:30→00:57)
[2018-06-17 00:35] LABS: ANION GAP 11 (5-19); BLOOD UREA NITROGEN 16 mg/dL (7-20); CALCIUM 9.2 mg/dL (8.4-10.2); CARBON DIOXIDE 32 mmol/L (22-30); CHLORIDE 88 mmol/L (98-107); POTASSIUM 4.5 mmol/L (3.6-5.0); SODIUM 130.9 mmol/L (137-145)
[2018-06-17 00:40] LABS: APPEARANCE,URINE CLEAR; BILIRUBIN,URINE NEGATIVE (NEGATIVE); COLOR,URINE STRAW; GLUCOSE, URINE >=500 mg/dL (NEGATIVE); KETONES,URINE NEGATIVE (NEGATIVE); LEUKOCYTE ESTERASE,URINE NEGATIVE (NEGATIVE); NITRITE,URINE NEGATIVE (NEGATIVE); PROTEIN,URINE NEGATIVE (NEGATIVE); URINE SPECIFIC GRAVITY 1.026; UROBILINOGEN,URINE NEGATIVE mg/dL (<2.0)
[2018-06-17 00:47] LABS: GLUCOSE 655 mg/dL (75-110)
[2018-06-17] MEDS ORDERED: INSULIN REG, HUMAN 100 UNIT/ML 3 ML VIAL (PYX) SUBCUT ONE (01:08)
[2018-06-17] MEDS ORDERED: INSULIN GLARGINE,HUM.REC.ANLOG 1,000 UNIT/10 ML UNIT SUBCUT ONE (03:33)
[2018-06-17 04:21] VITALS: BP 143/89
== END 2018-06-17 04:21 | disposition home or self-care (01) ==
LOC: ER 22:49
DX: I10 Essential (primary) hypertension (principal); K64.4 Residual hemorrhoidal skin tags; E11.65 Type 2 diabetes mellitus with hyperglycemia; F17.210 Nicotine dependence, cigarettes, uncomplicated; E78.00 Pure hypercholesterolemia, unspecified
CPT/HCPCS: 99284; 96360; 96361; 36415; 82962; 80048; 81001; 82803; J1815 ×2; J7030

== ENCOUNTER → 2018-06-17 | Outpatient (CLI) | payer MEDICAID ==
--- NOTE | 2018-06-17 08:49 | RADIOLOGY REPORT (SQ) ---
EXAM DESCRIPTION: CHEST PA/LATERAL COMPLETED DATE/TIME: 06/17/2018 8:20 am REASON FOR STUDY: TRAUMATIC PNEUMOTHORAX, SUBSEQUENT ENCOUNTER COMPARISON: 06/16/2018 EXAM PARAMETERS: NUMBER OF VIEWS: two views TECHNIQUE: Digital Frontal and Lateral radiographic views of the chest acquired. RADIATION DOSE: NA LIMITATIONS: none FINDINGS: LUNGS AND PLEURA: Small calcified granuloma left upper lung. No acute pulmonary consolid ation. No pneumothorax or pleural effusion. MEDIASTINUM AND HILAR STRUCTURES: No masses or contour abnormalities. HEART AND VASCULAR STRUCTURES: Heart normal size. No evidence for failure. BONES: No acute findings. HARDWARE: None in the chest. OTHER: No other significant finding. IMPRESSION: 1. No significant interval changes since the prior examination dated 06/16/2018. No acu te finding. TECHNICAL DOCUMENTATION: JOB ID: [id number] [employer]- All Rights Reserved Reading location - IP/workstation name: [email or web address]
== END ==
LOC: OD 08:04
PROVIDERS: ATTEND Family Medicine
DX: S27.0XXD Traumatic pneumothorax, subsequent encounter (principal); X58.XXXD Exposure to other specified factors, subsequent encounter
CPT/HCPCS: 71046

== ENCOUNTER 2018-08-22 01:15 | Inpatient (IN) | payer MEDICAID ==
[2018-08-22] MEDS ORDERED: LORAZEPAM INJ 2 MG/1 ML VIAL ONE (01:30)
[2018-08-22 01:46] LABS: ABSOLUTE BASOPHILS # (AUTO) 0.1 10^3/uL (0.0-0.2); ABSOLUTE LYMPHOCYTES (AUTO) 1.2 10^3/uL (0.5-4.7); ABSOLUTE MONOCYTES (AUTO) 0.5 10^3/uL (0.1-1.4); ABSOLUTE NEUT (AUTO) 17.9 10^3/uL (1.7-8.2); BASOPHILS % (AUTO) 0.7 % (0-2); HEMOGLOBIN 15.1 g/dL (13.5-17.0); LYMPHOCYTES % (AUTO) 6.1 % (13-45); MEAN CORPUSCULAR HEMOGLOBIN 30.7 pg (27.0-33.4); MEAN CORPUSCULAR HGB CONC 30.9 g/dL (32.0-36.0); MEAN CORPUSCULAR VOLUME 99 fl (80-97); MONOCYTES % (AUTO) 2.3 % (3-13); PLATELET COUNT 343 10^3/uL (150-450); RED BLOOD COUNT 4.93 10^6/uL (4.35-5.55); RED CELL DISTRIBUTION WIDTH 13.7 % (11.5-14.0); SEGMENTED NEUTROPHILS % (AUTO) 90.9 % (42-78); TOTAL CELLS COUNTED % (AUTO) 100 %; WHITE BLOOD COUNT 19.7 10^3/uL (4.0-10.5)
[2018-08-22] MEDS ORDERED: LORAZEPAM INJ 2 MG/1 ML VIAL IV ONE (01:48)
[2018-08-22 01:52] LABS: VENOUS BLOOD BASE EXCESS -23.9 mmol/L; VENOUS BLOOD HCO3 5.7 mmol/L (20-32); VENOUS BLOOD PCO2 22.7 mmHg (35-63)
--- NOTE | 2018-08-22 01:53 | ER Document Report ---
Addendum entered and electronically signed by MOSES ARITA PA 08/22/18 04:26: Course - Vital Signs Vital signs: Temp Pulse Resp BP Pulse Ox 97.7 F 108 H 15 150/91 H 99 08/22/18 04:00 08/22/18 01:22 08/22/18 04:00 08/22/18 03:46 08/22/18 04:00 - Laboratory Result Diagrams: 08/22/18 01:35 08/22/18 01:35 Laboratory results interpreted by me: 08/22/18 08/22/18 08/22/18 01:35 01:35 01:35 WBC 19.7 H MCV 99 H MCHC 30.9 L Seg Neutrophils % 90.9 H Lymphocytes % 6.1 L Monocytes % 2.3 L Absolute Neutrophils 17.9 H VBG pH 7.02 L* VBG pCO2 22.7 L VBG HCO3 5.7 L Sodium 136.8 L Potassium 6.0 H* Chloride 88 L Carbon Dioxide > 5 L* BUN 35 H Creatinine 2.64 H Est GFR ( Amer) 31 L Est GFR (Non-Af Amer) 25 L Glucose 901 H* Lactic Acid Calcium 10.9 H Direct Bilirubin 0.5 H Alkaline Phosphatase 136 H Urine Protein Urine Glucose (UA) Urine Ketones Urine Blood 08/22/18 08/22/18 01:35 02:20 WBC MCV MCHC Seg Neutrophils % Lymphocytes % Monocytes % Absolute Neutrophils VBG pH VBG pCO2 VBG HCO3 Sodium Potassium Chloride Carbon Dioxide BUN Creatinine Est GFR ( Amer) Est GFR (Non-Af Amer) Glucose Lactic Acid 7.5 H Calcium Direct Bilirubin Alkaline Phosphatase Urine Protein 30 H Urine Glucose (UA) >=500 H Urine Ketones 80 H Urine Blood SMALL H - EKG Interpretation by Me Additional EKG results interpreted by me: 08/22/18 04:25 EKG reviewed and interpreted by me. Showing sinus tachycardia at a rate of 109, CT interval of 124, QTc 437. Normal axis. Peaked T waves. Very strong voltage but very thin muscular patient. No T wave inversions or ST segment changes in consecutive leads. No significant change from prior. Original Note: ED General - General Stated Complaint: DIABETIC ISSUE Time Seen by Provider: 08/22/18 01:18 Notes: Patient is a 57-year-old male with a history of type 1 diabetes and cocaine abuse that comes to the emergency department for chief complaint of vomiting, EMS states that when they arrived patient cannot tell them what his complaint was but he was restless, tachypneic, and ill-appearing. On my evaluation patient states that he called EMS because he has been vomiting and feeling bad for the past 2 days. He states that he has used cocaine today. He denies alcohol. He denies fevers, he denies any particular location of pain. TRAVEL OUTSIDE OF THE [place] IN LAST 30 DAYS: No - Related Data Allergies/Adverse Reactions: No Known Allergies Allergy (Verified 05/07/18 14:15) Past Medical History - General Information source: Patient, Emergency Med Personnel - Social History Smoking Status: Never Smoker Frequency of alcohol use: Occasional Drug Abuse: Cocaine Lives with: Alone Family History: CAD - father at 59 of heart problems, DM - mother - Past Medical History Cardiac Medical History: Reports: Hx Hypercholesterolemia, Hx Hypertension Pulmonary Medical History: Denies: Hx Tuberculosis Neurological Medical History: Denies: Hx Seizures Endocrine Medical History: Reports: Hx Diabetes Mellitus Type 2 Renal/ Medical History: Reports: Hx Benign Prostatic Hyperplasia. Denies: Hx Peritoneal Dialysis Psychiatric Medical History: Reports: Hx Depression Past Surgical History: Reports: Hx Orthopedic Surgery - jaw - Immunizations Hx Diphtheria, Pertussis, Tetanus Vaccination: No Hx Pneumococcal Vaccination: 05/09/13 Review of Systems - Review of Systems Constitutional: See HPI EENT: No symptoms reported Cardiovascular: No symptoms reported Respiratory: No symptoms reported Gastrointestinal: See HPI Genitourinary: No symptoms reported Male Genitourinary: No symptoms reported Musculoskeletal: No symptoms reported Skin: No symptoms reported Hematologic/Lymphatic: No symptoms reported Neurological/Psychological: See HPI Physical Exam - Vital signs Vitals: Temp Pulse Resp BP Pulse Ox 95.2 F L 108 H 18 126/70 H 91 L 08/22/18 01:22 08/22/18 01:22 08/22/18 01:08/22/18 01:08/22/18 01:22 - Notes Notes: GENERAL: Restless, anxious, tachypneic, chronically ill-appearing. HEAD: Normocephalic, atraumatic. EYES: Pupils equal, round, and reactive to light. Extraocular movements intact. ENT: Oral mucosa extremely dry with parched tongue, tongue midline. Oropharynx unremarkable. Airway patent. Nares patent, no nasal septal hematoma, TM's intact. NECK: Full range of motion. Supple. Trachea midline. LUNGS: Clear to auscultation bilaterally, no wheezes, rales, or rhonchi. No respiratory distress. Tachypnea HEART: Tachycardia, normal rhythm, no murmur. ABDOMEN: Soft, non-tender. Non-distended. Bowel sounds present in all 4 quadrants. GENITOURINARY: Deferred EXTREMITIES: Moves all 4 extremities spontaneously. No edema, normal radial and dorsalis pedis pulses bilaterally. No cyanosis. BACK: no cervical, thoracic, lumbar midline tenderness. No saddle anesthesia, normal distal neurovascular exam. NEUROLOGICAL: Alert and oriented x3. Normal speech. [cranial nerves II through XII grossly intact]. PSYCH: Restless and anxious SKIN: Pale Course - Re-evaluation Re-evalutation: On my initial evaluation patient with tachypnea, tachycardia, and he is unwell appearing. His mucous membranes are extremely dry. His accucheck at bedside is reading High. Patient has difficult IV access, he states last time he had a central line placed but this caused a pneumothorax. I did place 2 peripheral IV 18-gauge IVs using ultrasound. Beginning lactated Ringer's bolus. Because patient is extremely restless, he is tachycardic, given 1 mg ativan. He became much more calm but remained slightly restless and continues to be responsive. 08/22/18 PH of 7.02 with low bicarbonate. Leukocytosis at 19. Chest x-ray appears to be clear, tiny area of possible pneumoperitoneum. Chemistry pending. Chemistry shows hyperglycemia in the 900s, anion gap unreportable, potassium of 6, creatinine greater than 2.5. Changing IV fluids to normal saline because of hyperkalemia. Given calcium gluconate. Patient is on insulin drip. Patient is sleepy but easily aroused, responds appropriate to questions. After he was found to be hypothermic he was placed on warmed fluids and Pamela hugger. Aguilar was placed. 08/22/18 04:00 CT was performed to rule out pneumoperitoneum. This is negative. Patient's core temperature has improved. He appears much improved on reevaluation, tachypnea has resolved. Will repeat BMP. Will discuss with hospitalist for admission. Patient seen by Dr. Mendez. Patient was discussed with Dr. Boykin. 08/22/18 04:[address] Mendez, patient's provider, patient will be admitted to the ICU. - Vital Signs Vital signs: Temp Pulse Resp BP Pulse Ox 97.7 F 108 H 15 150/91 H 99 08/22/18 04:00 08/22/18 01:22 08/22/18 04:00 08/22/18 03:46 08/22/18 04:00 - Laboratory Result Diagrams: 08/22/18 01:35 08/22/18 01:35 Laboratory results interpreted by me: 08/22/18 08/22/18 08/22/18 01:35 01:35 01:35 WBC 19.7 H MCV 99 H MCHC 30.9 L Seg Neutrophils % 90.9 H Lymphocytes % 6.1 L Monocytes % 2.3 L Absolute Neutrophils 17.9 H VBG pH 7.02 L* VBG pCO2 22.7 L VBG HCO3 5.7 L Sodium 136.8 L Potassium 6.0 H* Chloride 88 L Carbon Dioxide > 5 L* BUN 35 H Creatinine 2.64 H Est GFR ( Amer) 31 L Est GFR (Non-Af Amer) 25 L Glucose 901 H* Lactic Acid Calcium 10.9 H Direct Bilirubin 0.5 H Alkaline Phosphatase 136 H Urine Protein Urine Glucose (UA) Urine Ketones Urine Blood 08/22/18 08/22/18 01:35 02:20 WBC MCV MCHC Seg Neutrophils % Lymphocytes % Monocytes % Absolute Neutrophils VBG pH VBG pCO2 VBG HCO3 Sodium Potassium Chloride Carbon Dioxide BUN Creatinine Est GFR ( Amer) Est GFR (Non-Af Amer) Glucose Lactic Acid 7.5 H Calcium Direct Bilirubin Alkaline Phosphatase Urine Protein 30 H Urine Glucose (UA) >=500 H Urine Ketones 80 H Urine Blood SMALL H Critical Care Note - Critical Care Note Total time excluding time spent on procedures (mins): 40 - DKA, hypothermia, hyperkalemia, ARF Comments: Please allow 40 minutes of critical care time excluding any procedures for evaluation and management of patient with severe DKA, hyperkalemia, acute renal failure, hypothermia. Interventions including insulin drip, IV fluid hydration, and warming techniques. Multiple re-evaluations. Consultation and admission to the ICU. Discharge - Discharge Clinical Impression: Hyperkalemia, Cocaine abuse DKA (diabetic ketoacidoses) Qualifiers: Diabetes mellitus type: type 1 Diabetes mellitus complication detail: without coma Qualified Code(s): E10.10 - Type 1 diabetes mellitus with ketoacidosis without coma Acute renal failure Qualifiers: Acute renal failure type: unspecified Qualified Code(s): N17.9 - Acute kidney failure, unspecified Condition: Serious Disposition: ADMITTED INPATIENT Admitting Provider: Mendez Unit Admitted: ICU Referrals: MELY MENDEZ MD [Primary Care Provider] - Follow up as needed
[2018-08-22 01:55] LABS: VENOUS BLOOD PH 7.02 (7.30-7.42)
--- NOTE | 2018-08-22 02:01 | RADIOLOGY REPORT (SQ) ---
EXAM DESCRIPTION: XR CHEST 1 VIEW COMPLETED DATE/TME: 08/22/2018 01:22 CLINICAL HISTORY: 57 years, Male, hyperventilation, confusion COMPARISON: 06/17/2018 chest NUMBER OF VIEWS: 1 TECHNIQUE: Portable chest LIMITATIONS: None. FINDINGS: The heart size is normal. Lungs are hyperinflated but clear. No discrete pneumothorax. Linear lucency associated with the right superior mediastinum in the right paratracheal region is however suggested. This may simply relate to superimposition of structures. A component of pneumomediastinum would be difficult to exclude entirely. Consider follow-up with CT chest. IMPRESSION: Underlying hyperinflation. The lungs are clear. Vague linear lucency along the right paratracheal region, as above. While this could be artifactual, a small component of pneumomediastinum is not entirely excluded. Consider follow-up with CT copyright 2010 [email or web address]- All Rights Reserved
[2018-08-22] MEDS: RINGERS SOLUTION,LACTATED 1,000 ML IV PRN ×2 (02:05→02:30)
[2018-08-22] MEDS ORDERED: LIDOCAINE 2% URO-JET 5 ML KIT MM ONE (02:06)
[2018-08-22] MEDS ORDERED: INSULIN REG, HUMAN 100 UNIT/ML 3 ML VIAL (PYX) ONE (02:10)
[2018-08-22] MEDS ORDERED: INSULIN REG, HUMAN 100 UNIT/ML 3 ML VIAL (PYX) IV ONE (02:19)
[2018-08-22 02:21] LABS: ALANINE AMINOTRANSFERASE 38 U/L (21-72); ALBUMIN 4.7 g/dL (3.5-5.0); ALKALINE PHOSPHATASE 136 U/L (38-126); ASPARTATE AMINO TRANSFERASE 33 U/L (17-59); BILIRUBIN,DIRECT 0.5 mg/dL (0.0-0.4); BILIRUBIN,TOTAL 0.6 mg/dL (0.2-1.3); BLOOD UREA NITROGEN 35 mg/dL (7-20); CALCIUM 10.9 mg/dL (8.4-10.2); CHLORIDE 88 mmol/L (98-107); SODIUM 136.8 mmol/L (137-145); TOTAL PROTEIN 6.9 g/dL (6.3-8.2)
[2018-08-22 02:35] LABS: APPEARANCE,URINE SLIGHTLY-CLOUDY; BILIRUBIN,URINE NEGATIVE (NEGATIVE); COLOR,URINE YELLOW; GLUCOSE, URINE >=500 mg/dL (NEGATIVE); KETONES,URINE 80 mg/dL (NEGATIVE); LEUKOCYTE ESTERASE,URINE NEGATIVE (NEGATIVE); NITRITE,URINE NEGATIVE (NEGATIVE); PROTEIN,URINE 30 mg/dL (NEGATIVE); UROBILINOGEN,URINE NEGATIVE mg/dL (<2.0)
[2018-08-22] MEDS ORDERED: CALCIUM GLUCONATE 1000 MG/10 ML INJ IV ONE (02:43)
[2018-08-22 02:44] LABS: GLUCOSE 901 mg/dL (75-110)
[2018-08-22 02:46] LABS: CARBON DIOXIDE > 5 mmol/L (22-30)
[2018-08-22] MEDS ORDERED: RINGERS SOLUTION,LACTATED 1,000 ML IV ONE (02:47)
[2018-08-22 02:53] LABS: URINE AMPHETAMINES SCREEN NEGATIVE; URINE BARBITURATES SCREEN NEGATIVE; URINE BENZODIAZEPINES SCREEN NEGATIVE; URINE COCAINE SCREEN UNCONFIRMED POSITIVE; URINE MARIJUANA (THC) SCREEN NEGATIVE; URINE METHADONE SCREEN NEGATIVE; URINE PHENCYCLIDINE SCREEN NEGATIVE
[2018-08-22] MEDS ORDERED: NORMAL SALINE 1000 ML 1,000 ML IV ONE (02:56)
[2018-08-22] MEDS ORDERED: DEXTROSE 40% GEL 15 GM TUBE PO PRN ×3 (03:51→10:00)
[2018-08-22] MEDS ORDERED: DEXTROSE 50%-WATER 25 GM/50 ML DISP.SYRIN IV PRN ×2 (03:51)
[2018-08-22] MEDS ORDERED: GLUCAGON,HUMAN RECOMB 1 MG INJ IM PRN ×2 (03:51→10:00)
[2018-08-22] MEDS ORDERED: NORMAL SALINE 100 ML with INSULIN REGULAR, HUMAN 100 UNIT IV PRN ×2 (03:51)
--- NOTE | 2018-08-22 03:55 | RADIOLOGY REPORT (SQ) ---
EXAM DESCRIPTION: CT CHEST WITHOUT IV CONTRAST COMPLETED DATE/TME: 08/22/2018 02:56 CLINICAL HISTORY: 57 years, Male, ?pneumomediastinum COMPARISON: Chest x-ray today's date TECHNIQUE: 525 Images stored on PACS. All CT scanners at this facility use dose modulation, iterative reconstruction, and/or weight based dosing when appropriate to reduce radiation dose to as low as reasonably achievable (ALARA). [facility]: Dose Right [facility]: CareDose [facility]: Dose Right [facility]: Teradose 4D [facility]: [employer] LIMITATIONS: None. FINDINGS: Evaluation of the mediastinum and hilum limited due to lack of IV contrast however no convincing evidence for mediastinal or hilar adenopathy. The heart and pericardium are unremarkable. Limited evaluation of upper abdomen unremarkable. Osseous structures are grossly intact. No pneumothorax. No mediastinum as was questioned on plain film. Visualized airways are patent. Lungs are clear. IMPRESSION: Negative for acute intrathoracic process. Negative for pneumomediastinum. TECHNICAL DOCUMENTATION: Quality ID # 436: Final reports with documentation of one or more dose reduction techniques (e.g., Automated exposure control, adjustment of the mA and/or kV according to patient size, use of iterative reconstruction technique) copyright 2010 [employer]- All Rights Reserved
[2018-08-22] MEDS ORDERED: ONDANSETRON HCL INJ/PF 4 MG/2 ML SDV IV PRN (04:04)
[2018-08-22] MEDS ORDERED: PANTOPRAZOLE SODIUM 40 MG VIAL IV ONE (04:30)
[2018-08-22 04:59] LABS: BLOOD UREA NITROGEN 33 mg/dL (7-20); CALCIUM 10.5 mg/dL (8.4-10.2)
[2018-08-22 05:04] LABS: CHLORIDE 96 mmol/L (98-107); SODIUM 135.5 mmol/L (137-145)
[2018-08-22 05:09] LABS: ANION GAP 35 (5-19)
[2018-08-22 05:11] LABS: CARBON DIOXIDE 5 mmol/L (22-30); GLUCOSE 760 mg/dL (75-110); POTASSIUM 6.5 mmol/L (3.6-5.0)
[2018-08-22 07:32] LABS: BLOOD UREA NITROGEN 33 mg/dL (7-20); POTASSIUM 5.6 mmol/L (3.6-5.0)
[2018-08-22 07:38] LABS: CHLORIDE 102 mmol/L (98-107); SODIUM 139.1 mmol/L (137-145)
[2018-08-22 07:41] LABS: ANION GAP 29 (5-19)
--- NOTE | 2018-08-22 07:43 | EKG REPORT ---
SEVERITY:- ABNORMAL ECG - SINUS TACHYCARDIA LVH WITH SECONDARY REPOLARIZATION ABNORMALITY : Confirmed by: Navarro Gomez MD 22-Aug-2018 07:42:08
[2018-08-22 07:44] LABS: CARBON DIOXIDE 8 mmol/L (22-30); GLUCOSE 608 mg/dL (75-110)
[2018-08-22] MEDS: HEPARIN SOD (PORCINE) 5,000 UNIT/ML 1 ML SYRINGE SUBCUT SCH ×3 (08:16→21:19)
[2018-08-22] MEDS: NORMAL SALINE 1000 ML 1,000 ML IV PRN ×3 (09:15→21:16)
[2018-08-22] MEDS ORDERED: DEXTROSE 50%-WATER SYRINGE 25 GM/50 ML DOSE IV PRN (10:00)
[2018-08-22] MEDS ORDERED: DEXTROSE 40% GEL 15 GM TUBE X 2 PO PRN (10:00)
[2018-08-22] MEDS ORDERED: DEXTROSE 50%-WATER SYRINGE 12.5 GM/25 ML DOSE IV PRN (10:00)
[2018-08-22] MEDS ORDERED: INSULIN, REGULAR 100 UNIT/100 ML NORMAL SALINE IV PRN ×2 (10:00)
[2018-08-22] MEDS: PANTOPRAZOLE SODIUM 40 MG VIAL IV SCH ×2 (10:38→21:19)
--- NOTE | 2018-08-22 12:49 | PDOC H&P ---
History of Present Illness Admission Date/PCP: 08/22/18 04:18 MLEY MCDERMOTT MD Patient complains of: Nausea vomiting elevated blood sugar History of Present Illness: MAMTA CUEVA is a 57 year old male This is a 57-year-old male with a history of insulin-dependent diabetes history of the hypertension's chronic kidney disease and a history of the cocaine abuser with the multiple hospital admissions for the noncompliance substance abuse and DKA not feeling well since last couple of days and patient was complaints of nausea vomiting and the patient's call her mother and advised to call EMS and the EMS noticed the patient's was complaining some nausea vomiting blood sugar was about 900 range came to the emergency department Ketoacidosis with acute renal failure with hyperkalemia Patient start on insulin drip and IV fluid Patient is a very noncompliance several hospital admissions Discussed with the mother today myself and see pretty much medicine the patient is a noncompliance does not listen does not take the medicine as prescribed and continues to use cocaine and marijuana Patients after IV fluid and insulin drips potassium is coming down from 6.5-5.6 Patient is still kind of sleepy lethargic but when you ask the questions answered the questions with the head movement Past Medical History Cardiac Medical History: Reports: Hyperlipidema, Hypertension Pulmonary Medical History: Reports: Chronic Obstructive Pulmonary Disease (COPD) Denies: Tuberculosis Neurological Medical History: Denies: Seizures Endocrine Medical History: Reports: Diabetes Mellitus Type 2 Renal/ Medical History: Reports: Chronic Kidney Disease GI Medical History: Reports: Gastroesophageal Reflux Disease Psychiatric Medical History: Reports: Depression, General Anxiety Disorder, Substance Abuse, Tobacco Dependency Past Surgical History Past Surgical History: Reports: Orthopedic Surgery - jaw Social History Lives with: Alone Smoking Status: Never Smoker Frequency of Alcohol Use: Occasional Hx Recreational Drug Use: Yes Drugs: Cocaine, Marijuana Hx Prescription Drug Abuse: No Family History Family History: Reviewed & Not Pertinent, CAD - father at 59 of heart problems, DM - mother Parental Family History Reviewed: Yes Children Family History Reviewed: Yes Sibling(s) Family History Reviewed.: Yes Medication/Allergy Home Medications: Gabapentin [Neurontin] 600 mg PO Q8 08/22/18 Insulin Aspart [Novolog Flexpen] 6 units SQ TID 08/22/18 Insulin Glargine,Hum.rec.anlog [Lantus Insulin 100 Unit/mL] 15 units SQ BID 08/22/18 Allergies/Adverse Reactions: No Known Allergies Allergy (Verified 05/07/18 14:15) Review of Systems ROS unobtainable: Due to mental status All systems: reviewed and no additional remarkable complaints except as stated Physical Exam Vital Signs: Temp Pulse Resp BP Pulse Ox 98.1 F 100 13 138/83 H 99 08/22/18 11:53 08/22/18 10:00 08/22/18 10:00 08/22/18 10:00 08/22/18 10:00 Intake & Output 08/21/18 08/22/18 08/23/18 06:59 06:59 06:59 Intake Total 2416 75 Output Total 1778 Balance 2416 -1703 Weight 65.771 kg 57.3 kg General appearance: PRESENT: no acute distress, well-developed, well-nourished Head exam: PRESENT: atraumatic, normocephalic Eye exam: PRESENT: conjunctiva pink, EOMI, PERRLA. ABSENT: scleral icterus Ear exam: PRESENT: normal external ear exam Mouth exam: PRESENT: moist, tongue midline Neck exam: PRESENT: full ROM. ABSENT: carotid bruit, JVD, lymphadenopathy, thyromegaly Respiratory exam: PRESENT: clear to auscultation shoaib Cardiovascular exam: PRESENT: RRR. ABSENT: diastolic murmur, rubs, systolic murmur Pulses: PRESENT: normal dorsalis pedis pul, +2 pedal pulses bilateral Vascular exam: PRESENT: normal capillary refill GI/Abdominal exam: PRESENT: normal bowel sounds, soft. ABSENT: distended, guarding, mass, organolmegaly, rebound, tenderness Rectal exam: PRESENT: deferred Extremities exam: ABSENT: pedal edema Neurological exam: PRESENT: altered. ABSENT: motor sensory deficit Psychiatric exam: PRESENT: appropriate affect, normal mood. ABSENT: homicidal ideation, suicidal ideation Skin exam: PRESENT: dry, intact, warm. ABSENT: cyanosis, rash Results Laboratory Results: 08/22/18 01:35 08/22/18 10:02 08/22/18 08/22/18 08/22/18 01:35 01:35 01:35 WBC 19.7 H RBC 4.93 Hgb 15.1 Hct 49.0 MCV 99 H MCH 30.7 MCHC 30.9 L RDW 13.7 Plt Count 343 Seg Neutrophils % 90.9 H Lymphocytes % 6.1 L Monocytes % 2.3 L Eosinophils % 0.0 Basophils % 0.7 Absolute Neutrophils 17.9 H Absolute Lymphocytes 1.2 Absolute Monocytes 0.5 Absolute Eosinophils 0.0 Absolute Basophils 0.1 VBG pH 7.02 L* VBG pCO2 22.7 L VBG HCO3 5.7 L VBG Base Excess -23.9 Sodium 136.8 L Potassium 6.0 H* Chloride 88 L Carbon Dioxide > 5 L* Anion Gap BUN 35 H Creatinine 2.64 H Est GFR ( Amer) 31 L Est GFR (Non-Af Amer) 25 L Glucose 901 H* Lactic Acid Calcium 10.9 H Total Bilirubin 0.6 AST 33 ALT 38 Alkaline Phosphatase 136 H Total Protein 6.9 Albumin 4.7 Urine Color Urine Appearance Urine pH Ur Specific [place] Urine Protein Urine Glucose (UA) Urine Ketones Urine Blood Urine Nitrite Ur Leukocyte Esterase Urine WBC (Auto) Urine RBC (Auto) 08/22/18 08/22/18 08/22/18 01:35 02:20 04:21 WBC RBC Hgb Hct MCV MCH MCHC RDW Plt Count Seg Neutrophils % Lymphocytes % Monocytes % Eosinophils % Basophils % Absolute Neutrophils Absolute Lymphocytes Absolute Monocytes Absolute Eosinophils Absolute Basophils VBG pH VBG pCO2 VBG HCO3 VBG Base Excess Sodium 135.5 L Potassium 6.5 H* Chloride 96 L Carbon Dioxide 5 L* Anion Gap 35 H BUN 33 H Creatinine 2.26 H Est GFR ( Amer) 37 L Est GFR (Non-Af Amer) 30 L Glucose 760 H* Lactic Acid 7.5 H Calcium 10.5 H Total Bilirubin AST ALT Alkaline Phosphatase Total Protein Albumin Urine Color YELLOW Urine Appearance SLIGHTLY-CLOUDY Urine pH 5.0 Ur Specific [place] 1.020 Urine Protein 30 H Urine Glucose (UA) >=500 H Urine Ketones 80 H Urine Blood SMALL H Urine Nitrite NEGATIVE Ur Leukocyte Esterase NEGATIVE Urine WBC (Auto) 1 Urine RBC (Auto) 1 08/22/18 08/22/18 08/22/18 06:42 06:42 10:02 WBC RBC Hgb Hct MCV MCH MCHC RDW Plt Count Seg Neutrophils % Lymphocytes % Monocytes % Eosinophils % Basophils % Absolute Neutrophils Absolute Lymphocytes Absolute Monocytes Absolute Eosinophils Absolute Basophils VBG pH VBG pCO2 VBG HCO3 VBG Base Excess Sodium 139.1 Potassium 5.6 H Chloride 102 Carbon Dioxide 8 L* Anion Gap 29 H BUN 33 H Creatinine 2.12 H Est GFR ( Amer) 39 L Est GFR (Non-Af Amer) 32 L Glucose 608 H* 445 H* Lactic Acid 1.6 Calcium 10.0 Total Bilirubin AST ALT Alkaline Phosphatase Total Protein Albumin Urine Color Urine Appearance Urine pH Ur Specific [place] Urine Protein Urine Glucose (UA) Urine Ketones Urine Blood Urine Nitrite Ur Leukocyte Esterase Urine WBC (Auto) Urine RBC (Auto) 08/22/18 01:35 Troponin I < 0.012 Impressions: Chest X-Ray 08/22/18 01:22 IMPRESSION: Underlying hyperinflation. The lungs are clear. Vague linear lucency along the right paratracheal region, as above. While this could be artifactual, a small component of pneumomediastinum is not entirely excluded. Consider follow-up with CT copyright 2010 [employer]- All Rights Reserved Chest CT 08/22/18 02:56 IMPRESSION: Negative for acute intrathoracic process. Negative for pneumomediastinum. TECHNICAL DOCUMENTATION: Quality ID # 436: Final reports with documentation of one or more dose reduction techniques (e.g., Automated exposure control, adjustment of the mA and/or kV according to patient size, use of iterative reconstruction technique) copyright 2011 [email or web address]- All Rights Reserved Assessment & Plan - Diagnosis (1) DKA (diabetic ketoacidoses) Qualifiers: Diabetes mellitus type: type 2 Diabetes mellitus complication detail: without coma Qualified Code(s): E10.10 - Type 1 diabetes mellitus with ketoacidosis without coma Is this a current diagnosis for this admission?: Yes Plan: Start the patient on insulin drip per protocol continues the patient in IV fluid placed the patient in the ICU (2) Hyperkalemia Is this a current diagnosis for this admission?: Yes Plan: due to the diabetic ketoacidosis Patient EKG is stable Patient already get the calcium gluconate injection in the ER Potassium is improving with the treatment of DKA (3) Cocaine abuse Is this a current diagnosis for this admission?: Yes Plan: Consult the psych put potentially in patients rehab (4) Acute renal failure Qualifiers: Acute renal failure type: unspecified Qualified Code(s): N17.9 - Acute kidney failure, unspecified Is this a current diagnosis for this admission?: Yes Plan: continue IV fluid (5) Noncompliance with medication regimen Is this a current diagnosis for this admission?: Yes Plan: Discussed with the patient's mother very extensively regarding the patient's current conditions with the poor prognosis mother know very well explained the patient several times myself with all the parents and family member but patient still continues to be a noncompliance - Time Time Spent: Greater than 70 Minutes Critical Time spent with patient: 35 or more minutes Medications reviewed and adjusted accordingly: Yes Anticipated discharge: SNF Within: Other - Inpatient Certification Based on my medical assessment, after consideration of the patient's comorbidities, presenting symptoms, or acuity I expect that the services needed warrant INPATIENT care.: Yes I certify that my determination is in accordance with my understanding of Medicare's requirements for reasonable and necessary INPATIENT services [42 CFR 412.3e].: Yes Medical Necessity: Significant Comorbidiites Make Outpatient Treatment Too Risky, Need For IV Fluids, Need For Continuous Telemetry Monitoring Post Hospital 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
[2018-08-22 14:51] LABS: ANION GAP 9 (5-19); BLOOD UREA NITROGEN 29 mg/dL (7-20); CALCIUM 9.7 mg/dL (8.4-10.2); CHLORIDE 113 mmol/L (98-107); GLUCOSE 243 mg/dL (75-110); SODIUM 145.2 mmol/L (137-145)
[2018-08-22 15:09] LABS: CARBON DIOXIDE 23 mmol/L (22-30); POTASSIUM 4.5 mmol/L (3.6-5.0)
[2018-08-22] MEDS ORDERED: DEXTROSE 5%-1/2 NORMAL SALINE 1,000 ML IV PRN (16:32)
[2018-08-22 18:15] LABS: ANION GAP 7 (5-19); BLOOD UREA NITROGEN 28 mg/dL (7-20); CALCIUM 9.5 mg/dL (8.4-10.2); CARBON DIOXIDE 25 mmol/L (22-30); CHLORIDE 115 mmol/L (98-107); GLUCOSE 167 mg/dL (75-110); POTASSIUM 4.4 mmol/L (3.6-5.0); SODIUM 146.7 mmol/L (137-145)
[2018-08-22 22:01] LABS: ANION GAP 6 (5-19); BLOOD UREA NITROGEN 25 mg/dL (7-20); CALCIUM 9.4 mg/dL (8.4-10.2); CARBON DIOXIDE 24 mmol/L (22-30); CHLORIDE 116 mmol/L (98-107); GLUCOSE 78 mg/dL (75-110); POTASSIUM 4.1 mmol/L (3.6-5.0); SODIUM 145.6 mmol/L (137-145)
[2018-08-22] MEDS ORDERED: INSULIN REG, HUMAN 100 UNIT/ML 3 ML VIAL (PYX) SUBCUT PRN (23:30)
[2018-08-23] MEDS: NORMAL SALINE 1000 ML 1,000 ML IV PRN ×2 (00:54→05:19)
[2018-08-23 04:34] LABS: HEMATOCRIT 41.6 % (37.9-51.0); HEMOGLOBIN 14.4 g/dL (13.5-17.0); MEAN CORPUSCULAR HEMOGLOBIN 30.9 pg (27.0-33.4); MEAN CORPUSCULAR HGB CONC 34.6 g/dL (32.0-36.0); PLATELET COUNT 255 10^3/uL (150-450); RED BLOOD COUNT 4.66 10^6/uL (4.35-5.55); RED CELL DISTRIBUTION WIDTH 12.8 % (11.5-14.0); WHITE BLOOD COUNT 16.5 10^3/uL (4.0-10.5)
[2018-08-23 04:35] LABS: MEAN CORPUSCULAR VOLUME 89 fl (80-97)
[2018-08-23 04:43] LABS: ARTERIAL BLOOD BASE EXCESS -1.6 mmol/L; ARTERIAL BLOOD H2CO3 1.26 mmol/L (1.05-1.35); ARTERIAL BLOOD HCO3 23.6 mmol/L (20-24); ARTERIAL BLOOD O2 SATURATION 96.7 % (94-98); ARTERIAL BLOOD PCO2 41.7 mmHg (35-45); ARTERIAL BLOOD PH 7.37 (7.35-7.45); ARTERIAL BLOOD PO2 89.8 mmHg (80-100); ARTERIAL BLOOD TOTAL CO2 24.9 mmol/L (23-27)
[2018-08-23 04:46] LABS: ARTERIAL BLOOD FIO2 ROOM AIR
[2018-08-23 04:52] LABS: ANION GAP 7 (5-19); BLOOD UREA NITROGEN 20 mg/dL (7-20); CALCIUM 8.9 mg/dL (8.4-10.2); CARBON DIOXIDE 22 mmol/L (22-30); CHLORIDE 114 mmol/L (98-107); GLUCOSE 73 mg/dL (75-110); POTASSIUM 3.7 mmol/L (3.6-5.0); SODIUM 143.1 mmol/L (137-145)
[2018-08-23] MEDS: HEPARIN SOD (PORCINE) 5,000 UNIT/ML 1 ML SYRINGE SUBCUT SCH ×3 (05:10→22:08)
[2018-08-23] MEDS ORDERED: GLUCAGON,HUMAN RECOMB 1 MG INJ IM PRN (08:27)
[2018-08-23] MEDS ORDERED: DEXTROSE 40% GEL 15 GM TUBE PO PRN ×2 (08:27)
[2018-08-23] MEDS ORDERED: DEXTROSE 50%-WATER 25 GM/50 ML DISP.SYRIN IV PRN ×2 (08:27)
[2018-08-23] MEDS ORDERED: NORMAL SALINE 1000 ML 1,000 ML IV PRN (08:28)
--- NOTE | 2018-08-23 09:52 | PDOC PROGRESS REPORT ---
Subjective Progress Note for:: 08/23/18 Subjective:: Patient is currently doing much better Patient's all DKA was resolved Patient is off the insulin drip since last night Patient is currently on a sliding scale Patient's all renal failure is resolved Patient is denied any chest pain denied any shortness of the breath Patient is alert awake and oriented x3 Patient is denied any abdominal pain no nausea no Reason For Visit: DKA Physical Exam Vital Signs: Temp Pulse Resp BP Pulse Ox 97.6 F 99 13 141/87 H 99 08/23/18 06:00 08/22/18 20:19 08/23/18 06:00 08/23/18 05:44 08/23/18 06:00 Intake & Output 08/22/18 08/23/18 08/24/18 06:59 06:59 06:59 Intake Total 2416 4565 Output Total 2603 Balance 2416 1962 Weight 65.771 kg 61.8 kg General appearance: PRESENT: no acute distress, well-developed, well-nourished Head exam: PRESENT: atraumatic, normocephalic Eye exam: PRESENT: conjunctiva pink, EOMI, PERRLA. ABSENT: scleral icterus Ear exam: PRESENT: normal external ear exam Mouth exam: PRESENT: moist, tongue midline Neck exam: PRESENT: full ROM. ABSENT: carotid bruit, JVD, lymphadenopathy, thyromegaly Respiratory exam: PRESENT: clear to auscultation shoaib Cardiovascular exam: PRESENT: RRR. ABSENT: diastolic murmur, rubs, systolic murmur Pulses: PRESENT: normal dorsalis pedis pul, +2 pedal pulses bilateral Vascular exam: PRESENT: normal capillary refill GI/Abdominal exam: PRESENT: normal bowel sounds, soft. ABSENT: distended, guarding, mass, organolmegaly, rebound, tenderness Rectal exam: PRESENT: deferred Neurological exam: PRESENT: alert, awake, oriented to person, oriented to place, oriented to time, oriented to situation, CN II-XII grossly intact. ABSENT: motor sensory deficit Psychiatric exam: PRESENT: appropriate affect, normal mood. ABSENT: homicidal ideation, suicidal ideation Skin exam: PRESENT: dry, intact, warm. ABSENT: cyanosis, rash Results Laboratory Results: 08/23/18 04:09 08/23/18 04:09 08/22/18 08/22/18 08/22/18 10:02 14:24 17:00 WBC RBC Hgb Hct MCV MCH MCHC RDW Plt Count Carbonic Acid HCO3/H2CO3 Ratio ABG pH ABG pCO2 ABG pO2 ABG HCO3 ABG O2 Saturation ABG Base Excess FiO2 Sodium 145.2 H 146.7 H Potassium 4.5 D 4.4 Chloride 113 H 115 H Carbon Dioxide 23 D 25 Anion Gap 9 7 BUN 29 H 28 H Creatinine 1.34 H 1.20 Est GFR ( Amer) > 60 > 60 Est GFR (Non-Af Amer) 55 L > 60 Glucose 445 H* 243 H 167 H Calcium 9.7 9.5 08/22/18 08/23/18 08/23/18 21:31 04:09 04:09 WBC 16.5 H RBC 4.66 Hgb 14.4 Hct 41.6 MCV 89 D MCH 30.9 MCHC 34.6 RDW 12.8 Plt Count 255 Carbonic Acid HCO3/H2CO3 Ratio ABG pH ABG pCO2 ABG pO2 ABG HCO3 ABG O2 Saturation ABG Base Excess FiO2 Sodium 145.6 H 143.1 Potassium 4.1 3.7 Chloride 116 H 114 H Carbon Dioxide 24 22 Anion Gap 6 7 BUN 25 H 20 Creatinine 1.13 0.99 Est GFR ( Amer) > 60 > 60 Est GFR (Non-Af Amer) > 60 > 60 Glucose 78 73 L Calcium 9.4 8.9 08/23/18 04:25 WBC RBC Hgb Hct MCV MCH MCHC RDW Plt Count Carbonic Acid 1.26 HCO3/H2CO3 Ratio 18:1 ABG pH 7.37 ABG pCO2 41.7 ABG pO2 89.8 ABG HCO3 23.6 ABG O2 Saturation 96.7 ABG Base Excess -1.6 FiO2 ROOM AIR Sodium Potassium Chloride Carbon Dioxide Anion Gap BUN Creatinine Est GFR ( Amer) Est GFR (Non-Af Amer) Glucose Calcium 08/22/18 01:35 Troponin I < 0.012 Impressions: Chest X-Ray 08/22/18 01:22 IMPRESSION: Underlying hyperinflation. The lungs are clear. Vague linear lucency along the right paratracheal region, as above. While this could be artifactual, a small component of pneumomediastinum is not entirely excluded. Consider follow-up with CT copyright 2010 [employer]- All Rights Reserved Chest CT 08/22/18 02:56 IMPRESSION: Negative for acute intrathoracic process. Negative for pneumomediastinum. TECHNICAL DOCUMENTATION: Quality ID # 436: Final reports with documentation of one or more dose reduction techniques (e.g., Automated exposure control, adjustment of the mA and/or kV according to patient size, use of iterative reconstruction technique) copyright 2011 [employer]- All Rights Reserved Assessment & Plan - Diagnosis (1) DKA (diabetic ketoacidoses) Qualifiers: Diabetes mellitus type: type 2 Diabetes mellitus complication detail: without coma Qualified Code(s): E10.10 - Type 1 diabetes mellitus with ketoacidosis without coma Is this a current diagnosis for this admission?: Yes Plan: Currently all resolved (2) Hyperkalemia Is this a current diagnosis for this admission?: Yes Plan: due to the diabetic ketoacidosis Patient EKG is stable Patient already get the calcium gluconate injection in the ER Potassium is improving with the treatment of DKA (3) Cocaine abuse Is this a current diagnosis for this admission?: Yes Plan: Consult the psych put potentially in patients rehab (4) Acute renal failure Qualifiers: Acute renal failure type: unspecified Qualified Code(s): N17.9 - Acute kidney failure, unspecified Is this a current diagnosis for this admission?: Yes Plan: All resolved (5) Noncompliance with medication regimen Is this a current diagnosis for this admission?: Yes Plan: Discussed with the patient's mother very extensively regarding the patient's current conditions with the poor prognosis mother know very well explained the patient several times myself with all the parents and family member but patient still continues to be a noncompliance - Time Time Spent with patient: 25-34 minutes Total Critical Time (Minutes): 30 Medications reviewed and adjusted accordingly: Yes Anticipated discharge: Home - Plan Summary Plan Summary: We will start the patient on a sliding scale and the Lantus Consult the psych We will downgrade the patient in IMCU
[2018-08-23] MEDS: INSULIN GLARGINE,HUM.REC.ANLOG 300 UNIT/3 ML INSULN.PEN SUBCUT SCH ×2 (11:04→22:09)
[2018-08-23] MEDS: PANTOPRAZOLE SODIUM 40 MG VIAL IV SCH ×2 (11:05→22:09)
--- NOTE | 2018-08-23 12:57 | PSYCHOLOGICAL NOTE ---
Psych Note - Psych Note Date seen by psych provider: 08/23/18 Time seen by psych provider: 12:00 Psych Note: Reason for Consult: depression, talent assistant attempted to fully evaluate patient however patient refused to remove the blanket from his head and engage. He did respond and deny thoughts of wanting to harm himself or others and refuses assistance for sobriety. Patient was irritable and wanting clinician out of the room. Chart review conducted Patient was seen on 05/09/2018. During that visit the patient fully engaged with clinician. He reported he was not interested in assistance with sobriety because if he wanted to stop he already has all the skills and knowledge needed. No medication recommendations at this time 292.9 (F14.99) Unspecified cocaine disorder Impression/Plan: Patient is cleared from acute psychiatric services. Patient denies thoughts of harming himself or others. While patient refused to fully engage with clinician, the patient does refuses assistance with substance abuse. This patient has been seen before by this clinician on 05/09/2018 and he refused assistance for substance abuse treatment during that visit also. Patient needs to obtain and maintain sobriety to effectively evaluate mental health. The patient's expressed concerns for depression could directly correlate with his cocaine use. Outpatient mental health providers would be appropriate to assist the patient, they can follow the patient for both mental health and his substance abuse; ie [facility] or [facility]. Please re-consult if new concerns arise. Dr. Mejia was consulted on the care and management of this patient; attending physician was contacted and notified of recommendations.
[2018-08-23] MEDS: GABAPENTIN 300 MG CAPSULE PO SCH ×2 (14:02→22:07)
[2018-08-23 19:16] LABS: ANION GAP 8 (5-19); BLOOD UREA NITROGEN 12 mg/dL (7-20); CARBON DIOXIDE 20 mmol/L (22-30); CHLORIDE 108 mmol/L (98-107); GLUCOSE 188 mg/dL (75-110); POTASSIUM 3.5 mmol/L (3.6-5.0); SODIUM 136.3 mmol/L (137-145)
[2018-08-24 04:29] LABS: HEMATOCRIT 39.7 % (37.9-51.0); HEMOGLOBIN 13.7 g/dL (13.5-17.0); MEAN CORPUSCULAR HEMOGLOBIN 30.6 pg (27.0-33.4); MEAN CORPUSCULAR HGB CONC 34.5 g/dL (32.0-36.0); MEAN CORPUSCULAR VOLUME 89 fl (80-97); PLATELET COUNT 189 10^3/uL (150-450); RED BLOOD COUNT 4.48 10^6/uL (4.35-5.55); RED CELL DISTRIBUTION WIDTH 12.7 % (11.5-14.0); WHITE BLOOD COUNT 8.4 10^3/uL (4.0-10.5)
[2018-08-24 04:53] LABS: BLOOD UREA NITROGEN 10 mg/dL (7-20); CALCIUM 8.1 mg/dL (8.4-10.2); GLUCOSE 63 mg/dL (75-110); POTASSIUM 3.2 mmol/L (3.6-5.0)
[2018-08-24 04:58] LABS: CARBON DIOXIDE 26 mmol/L (22-30); CHLORIDE 107 mmol/L (98-107); SODIUM 137.1 mmol/L (137-145)
[2018-08-24 05:00] LABS: ANION GAP 4 (5-19)
[2018-08-24] MEDS: GABAPENTIN 300 MG CAPSULE PO SCH (05:48)
[2018-08-24] MEDS: HEPARIN SOD (PORCINE) 5,000 UNIT/ML 1 ML SYRINGE SUBCUT SCH (05:48)
[2018-08-24] MEDS: PANTOPRAZOLE SODIUM 40 MG VIAL IV SCH (10:29)
[2018-08-24] MEDS: INSULIN GLARGINE,HUM.REC.ANLOG 300 UNIT/3 ML INSULN.PEN SUBCUT SCH (10:30)
[2018-08-24 15:11] VITALS: BP 122/76
--- NOTE | 2018-08-24 15:42 | PDOC DISCHARGE SUMMARY ---
General - Admit/Disc Date/PCP Admission Date/Primary Care Provider: 08/22/18 04:18 MELY MCDERMOTT MD Discharge Date: 08/24/18 - Discharge Diagnosis (1) DKA (diabetic ketoacidoses) Is this a current diagnosis for this admission?: Yes (2) Cocaine abuse Is this a current diagnosis for this admission?: Yes (3) Acute kidney injury Is this a current diagnosis for this admission?: Yes (4) Albuminuria Is this a current diagnosis for this admission?: Yes - Additional Information Discharge Diet: Diabetic Discharge Activity: Activity As Tolerated Prescriptions: Gabapentin [Neurontin] 600 mg PO Q8 #90 tablet Insulin Aspart [Novolog Flexpen] 6 units SQ TID #30 insuln.pen Insulin Glargine,Hum.rec.anlog [Lantus Insulin 100 Unit/mL] 20 unit SUBCUT Q12 #2 insuln.pen Home Medications: Gabapentin [Neurontin] 600 mg PO Q8 #90 tablet 08/24/18 Insulin Aspart [Novolog Flexpen] 6 units SQ TID #30 insuln.pen 08/24/18 Insulin Glargine,Hum.rec.anlog [Lantus Insulin 100 Unit/mL] 20 unit SUBCUT Q12 #2 insuln.pen 08/24/18 History of Present Illness History of Present Illness: MAMTA CUEVA is a 57 year old male, extremely noncompliant, history of type 1 diabetes mellitus, presented with diabetic ketoacidosis Hospital Course Hospital Course: Patient was admitted for the management of diabetic ketoacidosis, with a background of cocaine abuse. He was treated with insulin drip and also normal saline infusion, patient has shown consistent pattern of noncompliance with multiple hospital admission for DKA. He has albuminuria, acute kidney injury most likely prerenal corrected with infusion with normal saline. I saw the patient on the floor today, he wants to go home he is stable enough to be discharged Physical Exam Vital Signs: Temp Pulse Resp BP Pulse Ox 98.4 F 75 22 H 122/76 98 08/24/18 15:08 08/24/18 15:08 08/24/18 15:08 08/24/18 15:08 08/24/18 15:08 Intake & Output 08/23/18 08/24/18 08/25/18 06:59 06:59 06:59 Intake Total 4565 1000 500 Output Total 2603 1050 Balance 1962 -50 500 Weight 61.8 kg 70.3 kg General appearance: PRESENT: no acute distress, well-developed, well-nourished Head exam: PRESENT: atraumatic, normocephalic Eye exam: PRESENT: conjunctiva pink, EOMI, PERRLA Ear exam: PRESENT: normal external ear exam Mouth exam: PRESENT: moist, tongue midline Neck exam: PRESENT: full ROM Respiratory exam: PRESENT: clear to auscultation shoaib Cardiovascular exam: PRESENT: RRR, +S1, +S2 Pulses: PRESENT: normal dorsalis pedis pul, +2 pedal pulses bilateral Vascular exam: PRESENT: normal capillary refill GI/Abdominal exam: PRESENT: normal bowel sounds, soft Rectal exam: PRESENT: deferred Neurological exam: PRESENT: alert, awake, oriented to person, oriented to place, oriented to time, oriented to situation, CN II-XII grossly intact Psychiatric exam: PRESENT: appropriate affect, normal mood Skin exam: PRESENT: dry, intact, warm Results Laboratory Results: 08/24/18 04:23 08/24/18 04:23 08/23/18 08/24/18 08/24/18 18:35 04:23 04:23 WBC 8.4 RBC 4.48 Hgb 13.7 Hct 39.7 MCV 89 MCH 30.6 MCHC 34.5 RDW 12.7 Plt Count 189 Sodium 136.3 L 137.1 Potassium 3.5 L 3.2 L Chloride 108 H 107 Carbon Dioxide 20 L 26 Anion Gap 8 4 L BUN 12 10 Creatinine 0.87 0.79 Est GFR ( Amer) > 60 > 60 Est GFR (Non-Af Amer) > 60 > 60 Glucose 188 H 63 L Calcium 8.0 L 8.1 L Magnesium 08/24/18 04:23 WBC RBC Hgb Hct MCV MCH MCHC RDW Plt Count Sodium Potassium Chloride Carbon Dioxide Anion Gap BUN Creatinine Est GFR ( Amer) Est GFR (Non-Af Amer) Glucose Calcium Magnesium 1.7 08/22/18 01:35 Troponin I < 0.012 Impressions: Chest X-Ray 08/22/18 01:22 IMPRESSION: Underlying hyperinflation. The lungs are clear. Vague linear lucency along the right paratracheal region, as above. While this could be artifactual, a small component of pneumomediastinum is not entirely excluded. Consider follow-up with CT copyright 2011 [employer]- All Rights Reserved Chest CT 08/22/18 02:56 IMPRESSION: Negative for acute intrathoracic process. Negative for pneumomediastinum. TECHNICAL DOCUMENTATION: Quality ID # 436: Final reports with documentation of one or more dose reduction techniques (e.g., Automated exposure control, adjustment of the mA and/or kV according to patient size, use of iterative reconstruction technique) copyright 2011 [employer]- All Rights Reserved Qualifiers - * PATIENT BEING DISCHARGED WITH ANY OF THE FOLLOWING DIAGNOSIS: No
== END 2018-08-24 15:30 | disposition home or self-care (01) | DRG 638 ==
LOC: ER 01:15 → EH 04:18 → ICU 09:03
PROVIDERS: ADMIT Family Medicine; ATTEND Family Medicine
DX: E10.10 Type 1 diabetes mellitus with ketoacidosis without coma (principal); N17.9 Acute kidney failure, unspecified; F14.10 Cocaine abuse, uncomplicated; I12.9 Hypertensive chronic kidney disease with stage 1 through stage 4 chronic kidney disease, or unspecified chronic kidney disease; N18.9 Chronic kidney disease, unspecified; E87.5 Hyperkalemia; E10.22 Type 1 diabetes mellitus with diabetic chronic kidney disease; E78.00 Pure hypercholesterolemia, unspecified; J44.9 Chronic obstructive pulmonary disease, unspecified; K21.9 Gastro-esophageal reflux disease without esophagitis; F32.9 Major depressive disorder, single episode, unspecified; F41.1 Generalized anxiety disorder; F17.210 Nicotine dependence, cigarettes, uncomplicated; Z60.2 Problems related to living alone; Z79.899 Other long term (current) drug therapy; Z91.19 Patient's noncompliance with other medical treatment and regimen; Z79.4 Long term (current) use of insulin; Z91.14 Patient's other noncompliance with medication regimen; Z83.3 Family history of diabetes mellitus; Z82.49 Family history of ischemic heart disease and other diseases of the circulatory system
CPT/HCPCS: 36415; 71045; 71250; 80048; 80053; 80307; 81001; 82803; 82947; 82962; 83605; 83735; 84484; 85025; 85027; 87040; 87086; 93005; 93010; 96361; 96374; 96375; 99291; J0610; J1644; J1815; J2060; J3490; J7030; J7120; S0164

== ENCOUNTER 2018-08-27 02:29 | Emergency (ER) | payer MEDICAID ==
--- NOTE | 2018-08-27 03:01 | ER Document Report ---
ED General - General TRAVEL OUTSIDE OF THE [place] IN LAST 30 DAYS: No <LITO HILL - Last Filed: 08/27/18 05:54> <CARLA CARLTON - Last Filed: 08/27/18 12:27> - General Chief Complaint: Leg Swelling Stated Complaint: LEG SWELLING Time Seen by Provider: 08/27/18 02:57 Notes: Patient is a 57-year-old male presents with complaint of sudden onset of bilateral lower extremity edema and edema into his genitalia and pelvis. Said that occurred rapidly over the course of a few hours. He had some pain in his lower back. There is mild pain in his lower pelvis. No fevers. No vomiting. This is never happened before. He says he typically does not have edema. He does have a history of recurrent DKA and was recently discharged from the hospital after being treated for DKA. He does admit to cocaine use and says last time he used cocaine was before he was recently admitted to the hospital. No cocaine use since discharge. No chest pain. No shortness of breath. No other complaints at this time. (LITO HILL) - Related Data Allergies/Adverse Reactions: No Known Allergies Allergy (Verified 05/07/18 14:15) Past Medical History - Social History Smoking Status: Unknown if Ever Smoked Frequency of alcohol use: Occasional Drug Abuse: Cocaine Family History: Reviewed & Not Pertinent, CAD - father at 59 of heart problems, DM - mother - Past Medical History Cardiac Medical History: Reports: Hx Hypercholesterolemia, Hx Hypertension Pulmonary Medical History: Reports: Hx COPD Denies: Hx Tuberculosis Neurological Medical History: Denies: Hx Seizures Endocrine Medical History: Reports: Hx Diabetes Mellitus Type 1, Hx Diabetes Mellitus Type 2 Renal/ Medical History: Reports: Hx Benign Prostatic Hyperplasia. Denies: Hx Peritoneal Dialysis GI Medical History: Reports: Hx Gastroesophageal Reflux Disease Psychiatric Medical History: Reports: Hx Depression Past Surgical History: Reports: Hx Orthopedic Surgery - jaw - Immunizations Hx Diphtheria, Pertussis, Tetanus Vaccination: No Hx Pneumococcal Vaccination: 05/09/13 <LITO HILL - Last Filed: 08/27/18 05:54> Review of Systems <LITO HILL - Last Filed: 08/27/18 05:54> - Review of Systems Notes: My Normal Review Basic REVIEW OF SYSTEMS: CONSTITUTIONAL : Denies fever, chills, or sweats. Denies recent illness. EENT: Denies eye, ear, throat, or mouth pain or symptoms. Denies nasal or sinus congestion. CARDIOVASCULAR: Denies chest pain. RESPIRATORY: Denies cough, cold, or chest congestion. Denies shortness of breath, difficulty breathing, or wheezing. GASTROINTESTINAL: Denies abdominal pain. Denies nausea, vomiting, or diarrhea. Denies constipation. Last BM: GENITOURINARY: Edema to genitalia. MUSCULOSKELETAL: Edema in lower extremities. SKIN: Denies rash or skin lesions. HEMATOLOGIC : Denies easy bruising or bleeding. NEUROLOGICAL: Denies altered mental status or loss of consciousness. Denies headache. Denies weakness or paralysis or loss of use of either side. Denies p roblems with gait or speech. Denies sensory or motor loss. ALL OTHER SYSTEMS REVIEWED AND NEGATIVE. (LITO HILL) Physical Exam <LITO HILL - Last Filed: 08/27/18 05:54> - Vital signs Vitals: Temp Pulse Resp BP Pulse Ox 98.6 F 95 17 136/71 H 98 08/27/18 04:03 08/27/18 04:03 08/27/18 04:03 08/27/18 04:03 08/27/18 04:03 - Notes Notes: General Appearance: Well nourished, alert, cooperative, no acute distress, no obvious discomfort. Vitals: reviewed, See vital signs table. Head: no swelling or tenderness to the head Eyes: PERRL, EOMI, Conjuctiva clear Mouth: No decreasd moisture Throat: No tonsillar inflammation, No airway obstruction, No lymphadenopathy Neck: Supple, no neck tenderness, No thyromegaly Lungs: No wheezing, No rales, No rhonci, No accessory muscle use, good air exchange bilaterally. Heart: Normal rate, Regular rythm, No murmur, no rub Abdomen: Normal BS, soft, No rigidity, patient has obvious edema that is subcutaneous and goes all the way up to the level of the umbilicus. Mild pain to palpation in the suprapubic region. Genitalia: Patient has obvious edema into the genitalia region. Extremities: strength 5/5 in all extremities, good pulses in all extremities, no swelling or tenderness in the extremities, patient has tight edema in bilateral lower extremities is equal. Skin on the legs is shiny. Peripheral pulses are normal. Skin: warm, dry, appropriate color, no rash Neuro: speech clear, oriented x 3, normal affect, responds appropriately to questions. (LITO HILL) Course - Laboratory Result Diagrams: 08/27/18 03:27 08/27/18 03:27 <LITO HILL - Last Filed: 08/27/18 05:54> - Laboratory Result Diagrams: 08/27/18 03:27 08/27/18 03:27 - Diagnostic Test Radiology reviewed: Image reviewed, Reports reviewed <CARLA CARLTON - Last Filed: 08/27/18 12:27> - Re-evaluation Re-evalutation: 08/27/18 02:57 Patient's rapid onset of bilateral lower extremity edema going into the pelvis and lower abdomen is very concerning for possible IVC occlusion. I have ordered a CTA with venous phase contrast to look at the IVC. I contacted audio/video technician, Sean, to inform him that this is a type of study I want performed. 08/27/18 05:[address] scan they could not get a venous phase contrast into the IVC and therefore is not opacified and therefore they cannot rule out any occlusion. I therefore called ultrasound and ultrasound will attempt to look at the IVC. 08/27/18 05:44 I spoke with the satellite technician. She was unable to visualize the mid to distal IVC. We will therefore have to get an MRV of the patient's abdomen. We will have MRI capability this morning and therefore I have put an order for an MRV this morning. I informed the patient of this and is agreeable to it. Patient is stable and has no further concerns. (LITO HILL) Abdomen/Pelvis CTA 08/27/18 02:52 IMPRESSION: No significant vascular abnormalities, although the inferior vena cava is not opacified with contrast. IVC thrombus is therefore not excluded. Distended stomach with at least two hepatic hemangiomas. Abdomen Ultrasound 08/27/18 05:00 IMPRESSION: Poor visualization of IVC. Upper portion is clear of thrombus. Abdomen MRI 08/27/18 05:37 IMPRESSION: No evidence of IVC occlusion. Chest X-Ray 08/27/18 10:57 IMPRESSION: NO ACUTE RADIOGRAPHIC FINDING IN THE CHEST. 08/27/18 12:24 Patient reevaluated multiple times since signout. He has remained resting comfortably. Repeat physical exam shows no significant lower extremity edema and mild penile edema. Breath sounds clear. Chest x-ray and BMP were obtained to assess for congestive heart failure and these were within normal limits. I did speak to Dr. Mcdermott who is very familiar with the patient and believes that his lower extremity edema is likely secondary to receiving many liters of fluids during his recent admission for DKA. I was advised to place the patient on 10 mg of Lasix daily and have him follow-up and Dr. Mcdermott's office in 2-3 days. Patient expressed understanding of the plan and will be discharged home in stable condition. 08/27/18 12:25 (CARLA CARLTON) - Vital Signs Vital signs: Temp Pulse Resp BP Pulse Ox 98.6 F 95 17 136/71 H 98 08/27/18 04:03 08/27/18 04:03 08/27/18 04:03 08/27/18 04:03 08/27/18 04:03 - Laboratory Laboratory results interpreted by me: 08/27/18 08/27/18 08/27/18 03:27 03:27 03:27 RBC 4.31 L Hgb 13.1 L PT 10.9 L POC Glucose AST 216 H ALT 91 H 08/27/18 05:47 RBC Hgb PT POC Glucose 186 H AST ALT Discharge <LITO HILL - Last Filed: 08/27/18 05:54> <CARLA CARLTON - Last Filed: 08/27/18 12:27> - Discharge Clinical Impression: Lower extremity edema, Penile edema Condition: Good Disposition: HOME, SELF-CARE Instructions: Edema, Peripheral ([facility]) Additional Instructions: Follow up with your [id number] hours for further care or return to the ED IMMEDIATELY if symptoms worsen or you have any concerns. If you cannot afford to follow up with your primary care physician a list of low cost clinics have been provided at the end of your discharge papers as well. Most prescribed medications have multiple side effects. The safest thing to do is when filling your prescription speak to your pharmacist regarding possible interactions with your normal home medications and over the counter medications such as Ibuprofen, Tylenol, Benadryl. If you experience any symptoms that cause you discomfort or concern you should discontinue the medication immediately and return to the emergency room or call your primary care physician. Prescriptions: Furosemide [Lasix 20 mg Tablet] 10 mg PO QAM #10 tablet Forms: Elevated Blood Pressure Referrals: MELY MCDERMOTT MD [Primary Care Provider] - Follow up as needed
[2018-08-27 03:37] LABS: ABSOLUTE BASOPHILS # (AUTO) 0.1 10^3/uL (0.0-0.2); ABSOLUTE LYMPHOCYTES (AUTO) 1.3 10^3/uL (0.5-4.7); ABSOLUTE MONOCYTES (AUTO) 0.7 10^3/uL (0.1-1.4); ABSOLUTE NEUT (AUTO) 4.7 10^3/uL (1.7-8.2); BASOPHILS % (AUTO) 0.8 % (0-2); EOSINOPHILS % (AUTO) 0.7 % (0-6); HEMATOCRIT 38.4 % (37.9-51.0); HEMOGLOBIN 13.1 g/dL (13.5-17.0); LYMPHOCYTES % (AUTO) 19.8 % (13-45); MEAN CORPUSCULAR HEMOGLOBIN 30.4 pg (27.0-33.4); MEAN CORPUSCULAR HGB CONC 34.2 g/dL (32.0-36.0); MEAN CORPUSCULAR VOLUME 89 fl (80-97); MONOCYTES % (AUTO) 9.9 % (3-13); PLATELET COUNT 182 10^3/uL (150-450); RED BLOOD COUNT 4.31 10^6/uL (4.35-5.55); RED CELL DISTRIBUTION WIDTH 12.9 % (11.5-14.0); SEGMENTED NEUTROPHILS % (AUTO) 68.8 % (42-78); TOTAL CELLS COUNTED % (AUTO) 100 %; WHITE BLOOD COUNT 6.8 10^3/uL (4.0-10.5)
[2018-08-27 03:42] LABS: INTERNATIONAL RATION (INR) 0.75; PROTHROMBIN TIME 10.9 SEC (11.4-15.4)
[2018-08-27 03:43] LABS: PARTIAL THROMBOPLASTIN TIME 24.2 SEC (23.5-35.8)
[2018-08-27 03:50] LABS: ALANINE AMINOTRANSFERASE 91 U/L (21-72); ALBUMIN 3.7 g/dL (3.5-5.0); ALKALINE PHOSPHATASE 102 U/L (38-126); ANION GAP 7 (5-19); ASPARTATE AMINO TRANSFERASE 216 U/L (17-59); BILIRUBIN,DIRECT 0.3 mg/dL (0.0-0.4); BILIRUBIN,TOTAL 0.4 mg/dL (0.2-1.3); BLOOD UREA NITROGEN 10 mg/dL (7-20); CALCIUM 8.6 mg/dL (8.4-10.2); CARBON DIOXIDE 28 mmol/L (22-30); CHLORIDE 106 mmol/L (98-107); GLUCOSE 77 mg/dL (75-110); POTASSIUM 3.7 mmol/L (3.6-5.0); SODIUM 140.6 mmol/L (137-145); TOTAL PROTEIN 6.4 g/dL (6.3-8.2)
--- NOTE | 2018-08-27 04:56 | RADIOLOGY REPORT (SQ) ---
CLINICAL HISTORY: time bolus to highlight venous phase focusing IVC. IVC OCCLUSION? COMPARISON: None. TECHNIQUE: CT ABDOMEN PELVIS WITHOUT THEN WITH IV CONTRAST on 08/27/2018 2:52 AM [employer]IMER CHARGING TOOL SETTER This exam was performed according to our departmental dose-optimization program, which includes automated exposure control, adjustment of the mA and/or kV according to patient size and/or use of iterative reconstruction technique. MIPS reconstructions were generated. FINDINGS: Lower lungs are clear. Abdomen: There is a probable hemangioma in the posterior right lobe of the liver measuring 1.8 cm. Portal vein is patent. There is a hemangioma within the caudate lobe of the liver measuring 3.2 cm. The inferior vena cava is not opacified with contrast. There is no biliary dilatation. Gallbladder is normal in appearance. Stomach is distended. The pancreas and spleen are normal in appearance. The adrenal glands and kidneys are unremarkable. Abdominal aorta is normal in course and caliber without aneurysm. There is no free air. There is no retroperitoneal adenopathy. Skeleton: There are no acute osseous findings. No suspicious bony lesions. IMPRESSION: No significant vascular abnormalities, although the inferior vena cava is not opacified with contrast. IVC thrombus is therefore not excluded. Distended stomach with at least two hepatic hemangiomas.
[2018-08-27] MEDS ORDERED: INSULIN GLARGINE,HUM.REC.ANLOG 1,000 UNIT/10 ML UNIT SUBCUT ONE (05:54)
--- NOTE | 2018-08-27 06:09 | RADIOLOGY REPORT (SQ) ---
CLINICAL HISTORY: evaluate IVC for thrombus and flow COMPARISON: None. TECHNIQUE: US ABDOMEN DOPPLER LIMITED on 08/27/2018 5:00 AM FIRST AID ATTENDANT FINDINGS: I the upper portion of the IVC is visualized and is patent. Hepatic and portal veins are patent. IMPRESSION: Poor visualization of IVC. Upper portion is clear of thrombus.
[2018-08-27] MEDS ORDERED: GABAPENTIN 300 MG CAPSULE PO ONE (07:37)
--- NOTE | 2018-08-27 09:59 | ER Document Report ---
Doctor's Note Notes: Temp Pulse Resp BP Pulse Ox 98.6 F 71 15 126/86 H 98 08/27/18 13:50 08/27/18 13:50 08/27/18 13:50 08/27/18 13:50 08/27/18 13:50 Abdomen/Pelvis CTA 08/27/18 02:52 IMPRESSION: No significant vascular abnormalities, although the inferior vena cava is not opacified with contrast. IVC thrombus is therefore not excluded. Distended stomach with at least two hepatic hemangiomas. Abdomen Ultrasound 08/27/18 05:00 IMPRESSION: Poor visualization of IVC. Upper portion is clear of thrombus. Abdomen MRI 08/27/18 05:37 IMPRESSION: No evidence of IVC occlusion. Chest X-Ray 08/27/18 10:57 IMPRESSION: NO ACUTE RADIOGRAPHIC FINDING IN THE CHEST. Laboratory 08/27/18 08/27/18 08/27/18 03:27 03:27 03:27 WBC 6.8 RBC 4.31 L Hgb 13.1 L Hct 38.4 MCV 89 MCH 30.4 MCHC 34.2 RDW 12.9 Plt Count 182 Seg Neutrophils % 68.8 Lymphocytes % 19.8 Monocytes % 9.9 Eosinophils % 0.7 Basophils % 0.8 Absolute Neutrophils 4.7 Absolute Lymphocytes 1.3 Absolute Monocytes 0.7 Absolute Eosinophils 0.0 Absolute Basophils 0.1 PT 10.9 L INR 0.75 APTT 24.2 Sodium 140.6 Potassium 3.7 Chloride 106 Carbon Dioxide 28 Anion Gap 7 BUN 10 Creatinine 0.73 Est GFR ( Amer) > 60 Est GFR (Non-Af Amer) > 60 Glucose 77 POC Glucose Calcium 8.6 Total Bilirubin 0.4 Direct Bilirubin 0.3 Neonat Total Bilirubin Not Reportable Neonat Direct Bilirubin Not Reportable Neonat Indirect Bili Not Reportable AST 216 H ALT 91 H Alkaline Phosphatase 102 NT-Pro-B Natriuret Pep Total Protein 6.4 Albumin 3.7 08/27/18 08/27/18 08/27/18 03:27 03:29 05:47 WBC RBC Hgb Hct MCV MCH MCHC RDW Plt Count Seg Neutrophils % Lymphocytes % Monocytes % Eosinophils % Basophils % Absolute Neutrophils Absolute Lymphocytes Absolute Monocytes Absolute Eosinophils Absolute Basophils PT INR APTT Sodium Potassium Chloride Carbon Dioxide Anion Gap BUN Creatinine Est GFR ( Amer) Est GFR (Non-Af Amer) Glucose POC Glucose 91 186 H Calcium Total Bilirubin Direct Bilirubin Neonat Total Bilirubin Neonat Direct Bilirubin Neonat Indirect Bili AST ALT Alkaline Phosphatase NT-Pro-B Natriuret Pep 270 Total Protein Albumin 08/27/18 08/27/18 08/27/18 08:10 12:43 13:31 WBC RBC Hgb Hct MCV MCH MCHC RDW Plt Count Seg Neutrophils % Lymphocytes % Monocytes % Eosinophils % Basophils % Absolute Neutrophils Absolute Lymphocytes Absolute Monocytes Absolute Eosinophils Absolute Basophils PT INR APTT Sodium Potassium Chloride Carbon Dioxide Anion Gap BUN Creatinine Est GFR ( Amer) Est GFR (Non-Af Amer) Glucose POC Glucose 92 45 L 160 H Calcium Total Bilirubin Direct Bilirubin Neonat Total Bilirubin Neonat Direct Bilirubin Neonat Indirect Bili AST ALT Alkaline Phosphatase NT-Pro-B Natriuret Pep Total Protein Albumin 08/27/18 09:58 Patient reevaluated and is resting comfortably. He is requesting his home medicine of gabapentin which I have given him. Patient is consistently asking on something to eat but I have explained to him that if he requires an emergent procedure I do not want him eating to postpone that. He is agreeable to wait for MRI results which should be resulted within the next 30 minutes hopefully. 08/27/18 10:55 MRI resulted and showed no evidence of IVC occlusion. 08/27/18 12:07 Patient reevaluated. He is sleeping comfortably. Patient's lower extremity edema has improved. Will touch base with Dr. Mendez the patient's primary care physician. 08/27/18 12:[address] Mendez regarding the patient's findings, acute onset of lower extremity edema that has now resolved. He believes that this could be secondary to the patient receiving 6-7 L of fluids during his recent admission for DKA. Just a few days ago. He does not recommend admission at this time but does recommend 10 mg of Lasix daily and follow-up in his office in 2-3 days. Discussed plan with the patient. Who expresses understanding. Patient tolerating p.o. Repeat Accu-Chek shows glucose of 160. 08/27/18 18:09
--- NOTE | 2018-08-27 10:36 | RADIOLOGY REPORT (SQ) ---
EXAM DESCRIPTION: MRI ABDOMEN WITHOUT COMPLETED DATE/TIME: 08/27/2018 10:23 am REASON FOR STUDY: MRV of abdomen to rule out IVC occlusion COMPARISON: None. TECHNIQUE: MRV of the inferior vena cava without contrast. Images saved to PACs. LIMITATIONS: Overlying bowel gas. FINDINGS: There is normal signal in the IVC and common iliac veins. IMPRESSION: No evidence of IVC occlusion. TECHNICAL DOCUMENTATION: JOB ID: [id number] [employer]- All Rights Reserved Reading location - IP/workstation name: [email or web address]
--- NOTE | 2018-08-27 11:53 | RADIOLOGY REPORT (SQ) ---
EXAM DESCRIPTION: CHEST 2 VIEWS COMPLETED DATE/TIME: 08/27/2018 11:43 am REASON FOR STUDY: lower extremity edema COMPARISON: None. EXAM PARAMETERS: NUMBER OF VIEWS: two views TECHNIQUE: Digital Frontal and Lateral radiographic views of the chest acquired. RADIATION DOSE: NA LIMITATIONS: none FINDINGS: LUNGS AND PLEURA: No opacities, masses or pneumothorax. No pleural effusion. MEDIASTINUM AND HILAR STRUCTURES: No masses or contour abnormalities. HEART AND VASCULAR STRUCTURES: Heart normal size. No evidence for failure. BONES: No acute findings. HARDWARE: None in the chest. OTHER: No other significant finding. IMPRESSION: NO ACUTE RADIOGRAPHIC FINDING IN THE CHEST. TECHNICAL DOCUMENTATION: JOB ID: [id number] [employer]- All Rights Reserved Reading location - IP/workstation name: [email or web address]
[2018-08-27] MEDS ORDERED: FUROSEMIDE 20 MG TABLET PO ONE (12:22)
[2018-08-27 13:51] VITALS: BP 126/86
== END 2018-08-27 13:51 | disposition home or self-care (01) ==
LOC: ER 02:29
DX: R60.9 Edema, unspecified (principal); D18.03 Hemangioma of intra-abdominal structures; R10.30 Lower abdominal pain, unspecified; M54.5 Low back pain; F14.10 Cocaine abuse, uncomplicated; E11.9 Type 2 diabetes mellitus without complications; I10 Essential (primary) hypertension; Z82.49 Family history of ischemic heart disease and other diseases of the circulatory system; Z83.3 Family history of diabetes mellitus; Z79.899 Other long term (current) drug therapy
CPT/HCPCS: 99284; 36415; 82962; 85025; 85610; 85730; 80053; 83880; 74181; 71046; 76705; 93976; 74174; J1815; J3490 ×2

== ENCOUNTER 2018-10-14 13:16 | Inpatient (IN) | payer MEDICAID ==
[2018-10-14] MEDS ORDERED: NORMAL SALINE 1000 ML 1,000 ML IV ONE ×2 (13:24→13:58)
[2018-10-14 13:50] LABS: ABSOLUTE LYMPHOCYTES (AUTO) 1.2 10^3/uL (0.5-4.7); ABSOLUTE MONOCYTES (AUTO) 0.4 10^3/uL (0.1-1.4); ABSOLUTE NEUT (AUTO) 13.2 10^3/uL (1.7-8.2); BASOPHILS % (AUTO) 0.3 % (0-2); HEMATOCRIT 47.1 % (37.9-51.0); HEMOGLOBIN 15.1 g/dL (13.5-17.0); LYMPHOCYTES % (AUTO) 8.4 % (13-45); MEAN CORPUSCULAR HGB CONC 32.1 g/dL (32.0-36.0); MEAN CORPUSCULAR VOLUME 97 fl (80-97); MONOCYTES % (AUTO) 2.6 % (3-13); PLATELET COUNT 355 10^3/uL (150-450); RED BLOOD COUNT 4.87 10^6/uL (4.35-5.55); RED CELL DISTRIBUTION WIDTH 14.1 % (11.5-14.0); SEGMENTED NEUTROPHILS % (AUTO) 88.7 % (42-78); TOTAL CELLS COUNTED % (AUTO) 100 %; WHITE BLOOD COUNT 14.8 10^3/uL (4.0-10.5)
--- NOTE | 2018-10-14 14:03 | ER Document Report ---
ED General - General Chief Complaint: High Blood Sugar Stated Complaint: WEAKNESS Time Seen by Provider: 10/14/18 13:23 Primary Care Provider: MELY MCDERMOTT MD [Primary Care Provider] - Follow up as needed Notes: Patient is a 57-year-old male with a long history of insulin-dependent diabetic who has been noncompliant in the past it was found by his mom slightly altered this morning. No trauma noted by EMS. Mom denies any recent trauma. Patient states he has not taken insulin for the last 2 days. Patient does not answer me appropriately as to why. He denies any pain to any specific region of his body. TRAVEL OUTSIDE OF THE [place] IN LAST 30 DAYS: No - Related Data Allergies/Adverse Reactions: No Known Allergies Allergy (Verified 05/07/18 14:15) Past Medical History - Social History Smoking Status: Unknown if Ever Smoked Family History: Reviewed & Not Pertinent, CAD - father at 59 of heart problems, DM - mother - Past Medical History Cardiac Medical History: Reports: Hx Hypercholesterolemia, Hx Hypertension Pulmonary Medical History: Reports: Hx COPD Denies: Hx Tuberculosis Neurological Medical History: Denies: Hx Seizures Endocrine Medical History: Reports: Hx Diabetes Mellitus Type 1, Hx Diabetes Mellitus Type 2 Renal/ Medical History: Reports: Hx Benign Prostatic Hyperplasia. Denies: Hx Peritoneal Dialysis GI Medical History: Reports: Hx Gastroesophageal Reflux Disease Psychiatric Medical History: Reports: Hx Depression Past Surgical History: Reports: Hx Orthopedic Surgery - jaw - Immunizations Hx Diphtheria, Pertussis, Tetanus Vaccination: No Hx Pneumococcal Vaccination: 05/09/13 Review of Systems - Review of Systems -: Yes ROS unobtainable due to patient's medical condition Physical Exam - Vital signs Notes: Reviewed vital signs and nursing note as charted by RN. CONSTITUTIONAL: Patient is slightly lethargic with obvious Kussmaul breathing with extremely dry mucous membranes. Does follow all commands HEAD: Normocephalic; atraumatic EYES: PERRL; Conjunctivae clear, sclerae non-icteric ENT: Normal nose; no rhinorrhea; extremely dry mucous membranes NECK: Supple without meningismus; non-tender; no cervical lymphadenopathy, no masses CARD: Tachycardic and regular; no murmurs; symmetric distal pulses RESP: Normal chest excursion without splinting or tachypnea; breath sounds clear and equal bilaterally ABD/GI: Normal bowel sounds; non-distended; soft, non-tender; no palpable organo megaly or masses BACK: The back appears normal and is non-tender to palpation EXT: Normal ROM in all joints; non-tender to palpation; no edema SKIN: No acute lesions noted NEURO: CN 2-12 intact; 5/5 bilateral upper and lower extremity strength with sensation intact to light touch PSYCH: The patient's mood and manner are appropriate. Grooming and personal hygiene are appropriate. Course - Re-evaluation Re-evalutation: 10/14/18 14:02 Given the history and physical examination I have an extremely high pretest probability for diabetic ketoacidosis. I have ordered 2 L of fluid, place the patient on the monitor, ordered a VBG, basic and cardiac labs, and will reassess. Initial blood sugar was read as "high". 10/14/18 14:13 EKG shows a heart of 108, sinus tachycardia, normal axis, no ST elevation or depression, peaked T waves in leads V3 through V5. Narrow QRS. 10/14/18 14:24 Labs as recorded. Obvious DKA. Potassium 5.8. 2 L of fluid has been given. We will start the patient on insulin drip. - Laboratory Result Diagrams: 10/14/18 13:36 10/14/18 13:36 Laboratory results interpreted by me: 10/14/18 10/14/18 10/14/18 13:36 13:36 13:45 WBC 14.8 H RDW 14.1 H Seg Neutrophils % 88.7 H Lymphocytes % 8.4 L Monocytes % 2.6 L Absolute Neutrophils 13.2 H VBG pH 6.97 L* VBG pCO2 21.3 L VBG HCO3 4.8 L Sodium 135.6 L Potassium 5.8 H Chloride 93 L Carbon Dioxide < 5 L* BUN 29 H Creatinine 2.15 H Est GFR ( Amer) 39 L Est GFR (Non-Af Amer) 32 L Glucose 668 H* Calcium 11.1 H Critical Care Note - Critical Care Note Total time excluding time spent on procedures (mins): 45 Discharge - Discharge Clinical Impression: Diabetic ketoacidosis Qualifiers: Diabetes mellitus type: other specified (including EVETTE) Diabetes mellitus complication detail: without coma Qualified Code(s): E13.10 - Other specified diabetes mellitus with ketoacidosis without coma Condition: Serious Disposition: ADMITTED INPATIENT Admitting Provider: Andrea Unit Admitted: IMCU Referrals: MELY MCDERMOTT MD [Primary Care Provider] - Follow up as needed
[2018-10-14 14:09] LABS: ALANINE AMINOTRANSFERASE 42 U/L (21-72); ALBUMIN 4.8 g/dL (3.5-5.0); ALKALINE PHOSPHATASE 106 U/L (38-126); ASPARTATE AMINO TRANSFERASE 32 U/L (17-59); BILIRUBIN,DIRECT 0.4 mg/dL (0.0-0.4); BILIRUBIN,TOTAL 0.6 mg/dL (0.2-1.3); BLOOD UREA NITROGEN 29 mg/dL (7-20); CALCIUM 11.1 mg/dL (8.4-10.2); POTASSIUM 5.8 mmol/L (3.6-5.0); TOTAL PROTEIN 7.1 g/dL (6.3-8.2)
--- NOTE | 2018-10-14 14:11 | RADIOLOGY REPORT (SQ) ---
EXAM DESCRIPTION: CHEST SINGLE VIEW COMPLETED DATE/TIME: 10/14/2018 1:58 pm REASON FOR STUDY: 8, AMS COMPARISON: 08/27/2018 EXAM PARAMETERS: NUMBER OF VIEWS: One view. TECHNIQUE: Single frontal radiographic view of the chest acquired. RADIATION DOSE: NA LIMITATIONS: The left costophrenic sulcus is not included on the image. FINDINGS: LUNGS AND PLEURA: Hyperinflation of the lungs. No acute pulmonary consolidation. No pne umothorax or pleural effusion. MEDIASTINUM AND HILAR STRUCTURES: No masses. Contour normal. HEART AND VASCULAR STRUCTURES: Heart normal in size. Normal vasculature. BONES: No acute findings. HARDWARE: None in the chest. OTHER: No other significant finding. IMPRESSION: 1. The examination is somewhat limited as above. 2. As on the prior examination, hyperinflation of the lungs. No acute pulmonary findings. TECHNICAL DOCUMENTATION: JOB ID: [id number] [employer]- All Rights Reserved Reading location - IP/workstation name: [email or web address]
[2018-10-14 14:17] LABS: CHLORIDE 93 mmol/L (98-107); SODIUM 135.6 mmol/L (137-145)
[2018-10-14 14:20] LABS: CARBON DIOXIDE < 5 mmol/L (22-30); GLUCOSE 668 mg/dL (75-110)
[2018-10-14] MEDS ORDERED: NORMAL SALINE 100 ML with INSULIN REGULAR, HUMAN 100 UNIT IV PRN ×4 (14:23→15:44)
[2018-10-14 14:26] LABS: VENOUS BLOOD BASE EXCESS -25.7 mmol/L; VENOUS BLOOD HCO3 4.8 mmol/L (20-32); VENOUS BLOOD PCO2 21.3 mmHg (35-63)
[2018-10-14 14:34] LABS: VENOUS BLOOD PH 6.97 (7.30-7.42)
[2018-10-14] MEDS ORDERED: INSULIN REG, HUMAN 100 UNIT/ML 3 ML VIAL (PYX) ONE (15:04)
[2018-10-14] MEDS ORDERED: ONDANSETRON HCL INJ/PF 4 MG/2 ML SDV IV PRN (15:41)
[2018-10-14] MEDS ORDERED: IPRATROPIUM/ALBUTEROL 0.5-2.5 MG/3 ML AMPUL NEB PRN (15:41)
[2018-10-14] MEDS ORDERED: ACETAMINOPHEN 325 MG TABLET PO PRN (15:41)
[2018-10-14] MEDS ORDERED: GLUCAGON,HUMAN RECOMB 1 MG INJ IM PRN (15:44)
[2018-10-14] MEDS ORDERED: DEXTROSE 40% GEL 15 GM TUBE PO PRN ×2 (15:44)
[2018-10-14] MEDS ORDERED: DEXTROSE 50%-WATER 25 GM/50 ML DISP.SYRIN IV PRN ×2 (15:44)
[2018-10-14 16:43] LABS: URINE AMPHETAMINES SCREEN NEGATIVE; URINE BARBITURATES SCREEN NEGATIVE; URINE BENZODIAZEPINES SCREEN NEGATIVE; URINE COCAINE SCREEN UNCONFIRMED POSITIVE; URINE MARIJUANA (THC) SCREEN NEGATIVE; URINE METHADONE SCREEN NEGATIVE; URINE PHENCYCLIDINE SCREEN NEGATIVE
--- NOTE | 2018-10-14 16:58 | PDOC H&P ---
History of Present Illness Admission Date/PCP: 10/14/18 14:39 MELY MCDERMOTT MD Patient complains of: Altered mental status and elevated blood sugar History of Present Illness: MAMTA CUEVA is a 57 year old male This is a 57-year-old male super noncompliance not taking the medications continues to abuse the cocaine several hospital admissions due to the above c onditions recent A1c is more than 15 brought to the emergency department by the mother because of the not acting properly and patient's blood sugar was very high and patient is in a diabetic ketoacidosis Patient start giving the IV fluid and IV insulin Patient is alert awake Patient is denied any chest pain to than any shortness of the breath Patient's feeling weak So many times discussed with the patient and given the patient's parents regarding the patient's current conditions patient continues to use the cocaine continues to be a noncompliance with the medications Past Medical History Cardiac Medical History: Reports: Hyperlipidema, Hypertension Pulmonary Medical History: Reports: Chronic Obstructive Pulmonary Disease (COPD) Denies: Tuberculosis Neurological Medical History: Denies: Seizures Endocrine Medical History: Reports: Diabetes Mellitus Type 2 GI Medical History: Reports: Gastroesophageal Reflux Disease Psychiatric Medical History: Reports: Depression Past Surgical History Past Surgical History: Reports: Orthopedic Surgery - jaw Social History Smoking Status: Unknown if Ever Smoked Frequency of Alcohol Use: Occasional Hx Recreational Drug Use: Yes Drugs: Cocaine, Marijuana Hx Prescription Drug Abuse: No Family History Family History: Reviewed & Not Pertinent, CAD - father at 59 of heart problems, DM - mother Parental Family History Reviewed: Yes Children Family History Reviewed: Yes Sibling(s) Family History Reviewed.: Yes Medication/Allergy Home Medications: Gabapentin [Neurontin] 600 mg PO Q8 #90 tablet 08/24/18 Insulin Aspart [Novolog Flexpen] 6 units SQ TID #30 insuln.pen 08/24/18 Insulin Glargine,Hum.rec.anlog [Lantus Insulin 100 Unit/mL] 20 unit SUBCUT Q12 #2 insuln.pen 08/24/18 Furosemide [Lasix 20 mg Tablet] 10 mg PO QAM #10 tablet 08/27/18 Allergies/Adverse Reactions: No Known Allergies Allergy (Verified 05/07/18 14:15) Review of Systems Constitutional: PRESENT: fatigue, weakness. ABSENT: chills, fever(s), headache(s), weight gain, weight loss Eyes: ABSENT: visual disturbances Ears: ABSENT: hearing changes Cardiovascular: ABSENT: chest pain, dyspnea on exertion, edema, orthropnea, palpitations Respiratory: ABSENT: cough, hemoptysis Gastrointestinal: ABSENT: abdominal pain, constipation, diarrhea, hematemesis, hematochezia, nausea, vomiting Genitourinary: ABSENT: dysuria, hematuria Musculoskeletal: ABSENT: joint swelling Integumentary: ABSENT: rash, wounds Neurological: ABSENT: abnormal gait, abnormal speech, confusion, dizziness, focal weakness, syncope Psychiatric: ABSENT: anxiety, depression, homidical ideation, suicidal ideation Endocrine: ABSENT: cold intolerance, heat intolerance, menstrual abnormalities, polydipsia, polyuria Hematologic/Lymphatic: ABSENT: easy bleeding, easy bruising, lymphadenopathy Physical Exam Vital Signs: Intake & Output 10/13/18 10/14/18 10/15/18 06:59 06:59 06:59 Intake Total 1999 Balance 2000 Weight 54.1 kg General appearance: PRESENT: no acute distress, well-developed, well-nourished Head exam: PRESENT: atraumatic, normocephalic Eye exam: PRESENT: conjunctiva pink, EOMI, PERRLA. ABSENT: scleral icterus Ear exam: PRESENT: normal external ear exam Mouth exam: PRESENT: moist, tongue midline Neck exam: PRESENT: full ROM. ABSENT: carotid bruit, JVD, lymphadenopathy, thyromegaly Respiratory exam: PRESENT: clear to auscultation shoaib Cardiovascular exam: PRESENT: RRR. ABSENT: diastolic murmur, rubs, systolic murmur Vascular exam: PRESENT: normal capillary refill GI/Abdominal exam: PRESENT: normal bowel sounds, soft. ABSENT: distended, guarding, mass, organolmegaly, rebound, tenderness Rectal exam: PRESENT: deferred Neurological exam: PRESENT: alert, awake, oriented to person. ABSENT: motor sensory deficit Psychiatric exam: PRESENT: appropriate affect, normal mood. ABSENT: homicidal ideation, suicidal ideation Skin exam: PRESENT: dry, intact, warm. ABSENT: cyanosis, rash Results Laboratory Results: 10/14/18 13:36 10/14/18 13:36 10/14/18 10/14/18 10/14/18 13:36 13:36 13:45 WBC 14.8 H RBC 4.87 Hgb 15.1 Hct 47.1 MCV 97 MCH 31.0 MCHC 32.1 RDW 14.1 H Plt Count 355 Seg Neutrophils % 88.7 H Lymphocytes % 8.4 L Monocytes % 2.6 L Eosinophils % 0.0 Basophils % 0.3 Absolute Neutrophils 13.2 H Absolute Lymphocytes 1.2 Absolute Monocytes 0.4 Absolute Eosinophils 0.0 Absolute Basophils 0.0 VBG pH 6.97 L* VBG pCO2 21.3 L VBG HCO3 4.8 L VBG Base Excess -25.7 Sodium 135.6 L Potassium 5.8 H Chloride 93 L Carbon Dioxide < 5 L* Anion Gap Not Reportable BUN 29 H Creatinine 2.15 H Est GFR ( Amer) 39 L Est GFR (Non-Af Amer) 32 L Glucose 668 H* Calcium 11.1 H Total Bilirubin 0.6 AST 32 ALT 42 Alkaline Phosphatase 106 Total Protein 7.1 Albumin 4.8 10/14/18 13:36 Troponin I < 0.012 Impressions: Chest X-Ray 10/14/18 13:23 IMPRESSION: 1. The examination is somewhat limited as above. 2. As on the prior examination, hyperinflation of the lungs. No acute pulmonar y findings. Assessment & Plan - Diagnosis (1) Diabetic ketoacidosis Qualifiers: Diabetes mellitus type: other specified (including EVETTE) Diabetes mellitus complication detail: without coma Qualified Code(s): E13.10 - Other specified diabetes mellitus with ketoacidosis without coma Is this a current diagnosis for this admission?: Yes Plan: The patient on insulin drip and IV fluids per protocol (2) Acute kidney injury Is this a current diagnosis for this admission?: Yes Plan: Above conditions continues IV fluid (3) Cocaine abuse Is this a current diagnosis for this admission?: Yes Plan: Consult the psych (4) Depression Qualifiers: Depression Type: major depressive disorder Is this a current diagnosis for this admission?: Yes Plan: Consult the psych (5) Hyperkalemia Is this a current diagnosis for this admission?: Yes Plan: correct the potassiums once the DKA is corrected (6) Noncompliance Is this a current diagnosis for this admission?: Yes - Time Time Spent: 30 to 50 Minutes Medications reviewed and adjusted accordingly: Yes Anticipated discharge: Home Within: Other - Inpatient Certification Based on my medical assessment, after consideration of the patient's comorbidities, presenting symptoms, or acuity I expect that the services needed warrant INPATIENT care.: Yes I certify that my determination is in accordance with my understanding of Medicare's requirements for reasonable and necessary INPATIENT services [42 CFR 412.3e].: Yes Medical Necessity: Significant Comorbidiites Make Outpatient Treatment Too Risky, Need Close Monitoring Due to Risk of Patient Decompensation, Need For IV Fluids Post Hospital Care: D/C Technical Designer Documentation - Plan Summary Plan Summary: Admitting IMCU Discussed with the mother regarding the patient's current conditions Patient is a very noncompliance So many times discussed with the patient continues use the cocaine noncompliance with the medications radial major complications and possible patient understands very well and with the patient's parents know very well
[2018-10-14] MEDS: NORMAL SALINE 1000 ML 1,000 ML IV PRN (19:56)
[2018-10-14] MEDS ORDERED: DEXTROSE 5%-1/2 NORMAL SALINE 1,000 ML IV PRN (20:26)
[2018-10-14 20:32] LABS: BLOOD UREA NITROGEN 32 mg/dL (7-20); CALCIUM 9.5 mg/dL (8.4-10.2); POTASSIUM 5.5 mmol/L (3.6-5.0)
[2018-10-14 20:59] LABS: ANION GAP 28 (5-19)
[2018-10-14 21:00] LABS: CHLORIDE 105 mmol/L (98-107); SODIUM 137.8 mmol/L (137-145)
[2018-10-14 21:01] LABS: GLUCOSE 449 mg/dL (75-110)
[2018-10-14 21:02] LABS: CARBON DIOXIDE 5 mmol/L (22-30)
--- NOTE | 2018-10-14 21:48 | EKG REPORT ---
SEVERITY:- ABNORMAL ECG - SINUS TACHYCARDIA BIATRIAL ABNORMALITIES : Confirmed by: Daniela Dowd MD 14-Oct-2018 21:47:48
[2018-10-14] MEDS: PANTOPRAZOLE SODIUM 40 MG VIAL IV SCH (22:10)
[2018-10-14] MEDS: GABAPENTIN 300 MG CAPSULE PO SCH (22:10)
[2018-10-14] MEDS: HEPARIN SOD (PORCINE) 5,000 UNIT/ML 1 ML SYRINGE SUBCUT SCH (22:10)
[2018-10-15 02:53] LABS: ABSOLUTE BASOPHILS # (AUTO) 0.1 10^3/uL (0.0-0.2); ABSOLUTE EOSINOPHILS # (AUTO) 0.1 10^3/uL (0.0-0.6); ABSOLUTE LYMPHOCYTES (AUTO) 0.9 10^3/uL (0.5-4.7); ABSOLUTE MONOCYTES (AUTO) 0.9 10^3/uL (0.1-1.4); ABSOLUTE NEUT (AUTO) 15.3 10^3/uL (1.7-8.2); BASOPHILS % (AUTO) 0.3 % (0-2); EOSINOPHILS % (AUTO) 0.4 % (0-6); HEMATOCRIT 40.3 % (37.9-51.0); HEMOGLOBIN 14.2 g/dL (13.5-17.0); LYMPHOCYTES % (AUTO) 5.2 % (13-45); MEAN CORPUSCULAR HGB CONC 35.2 g/dL (32.0-36.0); RED BLOOD COUNT 4.59 10^6/uL (4.35-5.55); RED CELL DISTRIBUTION WIDTH 13.4 % (11.5-14.0); SEGMENTED NEUTROPHILS % (AUTO) 89.1 % (42-78); TOTAL CELLS COUNTED % (AUTO) 100 %; WHITE BLOOD COUNT 17.2 10^3/uL (4.0-10.5)
[2018-10-15 03:01] LABS: MEAN CORPUSCULAR VOLUME 88 fl (80-97)
[2018-10-15 03:02] LABS: PLATELET COUNT 240 10^3/uL (150-450)
[2018-10-15 03:32] LABS: ANION GAP 9 (5-19); BLOOD UREA NITROGEN 28 mg/dL (7-20); GLUCOSE 133 mg/dL (75-110); LIPASE 170.6 U/L (23-300)
[2018-10-15 03:55] LABS: CHLORIDE 117 mmol/L (98-107); SODIUM 146.4 mmol/L (137-145)
[2018-10-15 04:49] LABS: CARBON DIOXIDE 20 mmol/L (22-30); POTASSIUM 3.7 mmol/L (3.6-5.0)
[2018-10-15] MEDS: GABAPENTIN 300 MG CAPSULE PO SCH ×3 (05:09→21:43)
[2018-10-15] MEDS: HEPARIN SOD (PORCINE) 5,000 UNIT/ML 1 ML SYRINGE SUBCUT SCH ×3 (05:09→21:44)
[2018-10-15] MEDS ORDERED: GLUCAGON,HUMAN RECOMB 1 MG INJ IM PRN (08:00)
[2018-10-15] MEDS ORDERED: DEXTROSE 40% GEL 15 GM TUBE X 2 PO PRN (08:00)
[2018-10-15] MEDS ORDERED: DEXTROSE 40% GEL 15 GM TUBE PO PRN (08:00)
[2018-10-15] MEDS ORDERED: DEXTROSE 50%-WATER SYRINGE 12.5 GM/25 ML DOSE IV PRN (08:00)
[2018-10-15] MEDS ORDERED: DEXTROSE 50%-WATER SYRINGE 25 GM/50 ML DOSE IV PRN (08:00)
[2018-10-15] MEDS: INSULIN LISPRO 100 UNIT/ML 3 ML VIAL SUBCUT SCH ×4 (09:06→22:02)
[2018-10-15 09:36] LABS: ARTERIAL BLOOD BASE EXCESS -3.8 mmol/L; ARTERIAL BLOOD H2CO3 1.32 mmol/L (1.05-1.35); ARTERIAL BLOOD HCO3 22.2 mmol/L (20-24); ARTERIAL BLOOD O2 SATURATION 97.1 % (94-98); ARTERIAL BLOOD PCO2 43.8 mmHg (35-45); ARTERIAL BLOOD PH 7.32 (7.35-7.45); ARTERIAL BLOOD TOTAL CO2 23.6 mmol/L (23-27)
[2018-10-15 09:38] LABS: ARTERIAL BLOOD FIO2 ROOM AIR
[2018-10-15 09:51] LABS: ANION GAP 5 (5-19); BLOOD UREA NITROGEN 24 mg/dL (7-20); CALCIUM 8.9 mg/dL (8.4-10.2); CARBON DIOXIDE 23 mmol/L (22-30); CHLORIDE 112 mmol/L (98-107); GLUCOSE 100 mg/dL (75-110); POTASSIUM 4.2 mmol/L (3.6-5.0); SODIUM 140.4 mmol/L (137-145)
[2018-10-15] MEDS: PANTOPRAZOLE SODIUM 40 MG VIAL IV SCH ×2 (10:16→21:43)
[2018-10-15] MEDS: INSULIN GLARGINE,HUM.REC.ANLOG 300 UNIT/3 ML INSULN.PEN SUBCUT SCH ×2 (10:16→17:10)
[2018-10-15] MEDS ORDERED: DEXTROSE 5%-1/2 NORMAL SALINE 1,000 ML IV PRN (10:56)
--- NOTE | 2018-10-15 11:08 | PDOC PROGRESS REPORT ---
Subjective Progress Note for:: 10/15/18 Subjective:: Patient is currently doing fair Denied any chest pain to than any shortness of the breath No abdominal pain Patient's anion gap is all normal Electrolytes is all stable Patient is blood sugar is running below 100 and stop the insulin drips and change to the regular insulin Reason For Visit: DKA Physical Exam Vital Signs: Temp Pulse Resp BP Pulse Ox 97.4 F 88 14 110/65 96 10/15/18 07:46 10/15/18 10:34 10/15/18 10:34 10/15/18 07:46 10/15/18 10:34 Intake & Output 10/14/18 10/15/18 10/16/18 06:59 06:59 06:59 Intake Total 3134 8 Output Total 1250 Balance 1884 8 Weight 52.2 kg General appearance: PRESENT: no acute distress Eye exam: PRESENT: PERRLA Respiratory exam: PRESENT: clear to auscultation shoaib Cardiovascular exam: PRESENT: +S1, +S2 GI/Abdominal exam: PRESENT: normal bowel sounds, soft Neurological exam: PRESENT: alert, awake Skin exam: PRESENT: dry Results Laboratory Results: 10/15/18 02:39 10/15/18 08:35 10/14/18 10/14/18 10/14/18 13:36 13:36 13:45 WBC 14.8 H RBC 4.87 Hgb 15.1 Hct 47.1 MCV 97 MCH 31.0 MCHC 32.1 RDW 14.1 H Plt Count 355 Seg Neutrophils % 88.7 H Lymphocytes % 8.4 L Monocytes % 2.6 L Eosinophils % 0.0 Basophils % 0.3 Absolute Neutrophils 13.2 H Absolute Lymphocytes 1.2 Absolute Monocytes 0.4 Absolute Eosinophils 0.0 Absolute Basophils 0.0 Carbonic Acid HCO3/H2CO3 Ratio ABG pH ABG pCO2 ABG pO2 ABG HCO3 ABG O2 Saturation ABG Base Excess VBG pH 6.97 L* VBG pCO2 21.3 L VBG HCO3 4.8 L VBG Base Excess -25.7 FiO2 Sodium 135.6 L Potassium 5.8 H Chloride 93 L Carbon Dioxide < 5 L* Anion Gap Not Reportable BUN 29 H Creatinine 2.15 H Est GFR ( Amer) 39 L Est GFR (Non-Af Amer) 32 L Glucose 668 H* Calcium 11.1 H Magnesium Total Bilirubin 0.6 AST 32 ALT 42 Alkaline Phosphatase 106 Total Protein 7.1 Albumin 4.8 Lipase 10/14/18 10/14/18 10/15/18 17:21 20:00 02:39 WBC 17.2 H RBC 4.59 Hgb 14.2 Hct 40.3 MCV 88 D MCH 31.0 MCHC 35.2 RDW 13.4 Plt Count 240 Seg Neutrophils % 89.1 H Lymphocytes % 5.2 L Monocytes % 5.0 Eosinophils % 0.4 Basophils % 0.3 Absolute Neutrophils 15.3 H Absolute Lymphocytes 0.9 Absolute Monocytes 0.9 Absolute Eosinophils 0.1 Absolute Basophils 0.1 Carbonic Acid HCO3/H2CO3 Ratio ABG pH ABG pCO2 ABG pO2 ABG HCO3 ABG O2 Saturation ABG Base Excess VBG pH VBG pCO2 VBG HCO3 VBG Base Excess FiO2 Sodium 137.8 Potassium 5.5 H Chloride 105 Carbon Dioxide 5 L* Anion Gap 28 H BUN 32 H Creatinine 1.64 H Est GFR ( Amer) 53 L Est GFR (Non-Af Amer) 44 L Glucose 611 H* 449 H* Calcium 9.5 Magnesium Total Bilirubin AST ALT Alkaline Phosphatase Total Protein Albumin Lipase 10/15/18 10/15/18 10/15/18 02:39 08:35 09:15 WBC RBC Hgb Hct MCV MCH MCHC RDW Plt Count Seg Neutrophils % Lymphocytes % Monocytes % Eosinophils % Basophils % Absolute Neutrophils Absolute Lymphocytes Absolute Monocytes Absolute Eosinophils Absolute Basophils Carbonic Acid 1.32 HCO3/H2CO3 Ratio 16:1 ABG pH 7.32 L ABG pCO2 43.8 ABG pO2 100.0 ABG HCO3 22.2 ABG O2 Saturation 97.1 ABG Base Excess -3.8 VBG pH VBG pCO2 VBG HCO3 VBG Base Excess FiO2 ROOM AIR Sodium 146.4 H 140.4 Potassium 3.7 D 4.2 Chloride 117 H 112 H Carbon Dioxide 20 L D 23 Anion Gap 9 5 BUN 28 H 24 H Creatinine 1.25 1.06 Est GFR ( Amer) > 60 > 60 Est GFR (Non-Af Amer) > 60 > 60 Glucose 133 H 100 Calcium 9.0 8.9 Magnesium 2.4 H Total Bilirubin AST ALT Alkaline Phosphatase Total Protein Albumin Lipase 170.6 10/14/18 13:36 Troponin I < 0.012 Impressions: Chest X-Ray 10/14/18 13:23 IMPRESSION: 1. The examination is somewhat limited as above. 2. As on the prior examination, hyperinflation of the lungs. No acute pulmonary findings. Assessment & Plan - Diagnosis (1) Diabetic ketoacidosis Qualifiers: Diabetes mellitus type: other specified (including EVETTE) Diabetes mellitus complication detail: without coma Qualified Code(s): E13.10 - Other specified diabetes mellitus with ketoacidosis without coma Is this a current diagnosis for this admission?: Yes Plan: Continues to current medications Currently off the insulin drip Anion gap is all normal (2) Acute kidney injury Is this a current diagnosis for this admission?: Yes Plan: Currently all resolved (3) Cocaine abuse Is this a current diagnosis for this admission?: Yes Plan: Consult the psych (4) Depression Qualifiers: Depression Type: major depressive disorder Is this a current diagnosis for this admission?: Yes Plan: Consult the psych (5) Hyperkalemia Is this a current diagnosis for this admission?: Yes Plan: resolved (6) Noncompliance Is this a current diagnosis for this admission?: Yes - Time Time Spent with patient: 15-24 minutes Medications reviewed and adjusted accordingly: Yes Anticipated discharge: Home Within: Other - Plan Summary Plan Summary: Continues to current medications
[2018-10-15] MEDS: NORMAL SALINE 1000 ML 1,000 ML IV PRN ×2 (12:22→22:04)
--- NOTE | 2018-10-15 16:49 | PSYCHOLOGICAL NOTE ---
Psych Note - Psych Note Date seen by psych provider: 10/15/18 Time seen by psych provider: 16:10 - Chart review at 1550. Evaluation from 1609- 1629. Psych Note: Reason for Consult: Depression, Cocaine Use Contact Permissions: Unknown Patient is a 57 year old male who is admitted to hospitalist services for DKA, NADEEN, Cocaine Abuse (UDS positive for Cocaine and typically is), Depression, Hyperkalemia and noncompliance. A psychiatric consult was ordered for depression and cocaine use. Patient was laying in bed watching TV and hand two cell phones next to him. He asked if Dr. Mendez sent behavioral health and commented "if he thinks I need some help with Depression and Cocaine then maybe I should do something about it." He identified he had been to [facility] in the past and "that is where I'd want to go unless they will take my disability away." He identified he got Medicaid and disability in May. He also stated he has the Medicaid van for appointments. He stated he had been on antidepressant medication in the past, did not know the name because "it's been so long but it was a tiny blue like pill that I took once a day." He commented "I don't want to get hooked on antidepressant medication." When challenged he has concern about something prescribed but he uses cocaine he went on a tangent about prescribed opiates and people being addicted to those, that's not his thing and how he calls EMS for medical help then they look around might see drugs so call LE and it's none of their business that's not why he called." He admitted to using Cocaine "over 3 years, I get a piece of a rock and use it by myself in my own home." He mentioned "I have hit a little bit of pot but it makes you cough hard so not much." He stated he would take medications and go to appointments. He asked about what antidepressant and who would he be linked up with. He was informed the medication would come from a psychiatrist recommendation based on what he (patient) and this clinician discussed and there are multiple providers at various agencies so cannot say exactly now until an appointment is actually scheduled. He said "you handle that for me." He was made aware this clinician would and he was expected to follow through and up then. Patient was alert and oriented to self, person, place and situation. Mood was depressed with flat affect. He did present with some irritability when challenged about not wanting to take antidepressant but using Cocaine. That irritability was not constant nor maintained for very long. He denied SI/HI. He did not appear to be responding to internal stimuli as evidenced by answering questions when addressed and staying on topic. Thought processes were linear. Conversational speech was within normal limits for rate, tone and prosody. Intellectual abilities are estimated to be average. Insight, judgment and impulse control were fair as evidenced by being on board for medications and appointments this time (has been seen previously and denied wanting help or linkage). Review of chart revealed patient was last seen by behavioral health on 08/23/18, where he kept covers over head most of the time, said he did not want help, that he had been to places in the past, he knows what to do and was given outpatient resources and [facility] resources. Diagnosis: 304.20 (F14.20) Cocaine Use Disorder, Severe 311 (F32.9) Unspecified Depressive Disorder Medication recommendations made by the psychiatric medication provider, Dr. Malcolm MD., includes: Add Effexor 37.5MG twice a day for depression/to curb addiction cravings/increase energy level Add Buspar 10MG twice a day for anxiety/calming effect/can assist with withdrawal effects/depression/sleep Impression/Plan: Patient is cleared from acute psychiatric services. Medication recommendations have been provided. [facility] will link patient to outpatient provider before discharge if he still wants it. He was provided with outpatient resource sheets for both local agencies and [facility] detox. Consulted with Dr. Mejia regarding the management and care of patient. Attending Hospitalist made aware of recommendations. He noted in the next 24 hours patient should be ready for discharge.
[2018-10-16] MEDS: HEPARIN SOD (PORCINE) 5,000 UNIT/ML 1 ML SYRINGE SUBCUT SCH (05:28)
[2018-10-16] MEDS: GABAPENTIN 300 MG CAPSULE PO SCH (05:28)
[2018-10-16 05:52] LABS: ABSOLUTE BASOPHILS # (AUTO) 0.1 10^3/uL (0.0-0.2); ABSOLUTE LYMPHOCYTES (AUTO) 1.1 10^3/uL (0.5-4.7); ABSOLUTE MONOCYTES (AUTO) 0.5 10^3/uL (0.1-1.4); ABSOLUTE NEUT (AUTO) 9.3 10^3/uL (1.7-8.2); BASOPHILS % (AUTO) 0.7 % (0-2); EOSINOPHILS % (AUTO) 0.2 % (0-6); HEMATOCRIT 33.8 % (37.9-51.0); LYMPHOCYTES % (AUTO) 9.7 % (13-45); MEAN CORPUSCULAR HEMOGLOBIN 31.2 pg (27.0-33.4); MEAN CORPUSCULAR HGB CONC 34.8 g/dL (32.0-36.0); MEAN CORPUSCULAR VOLUME 90 fl (80-97); MONOCYTES % (AUTO) 4.6 % (3-13); PLATELET COUNT 205 10^3/uL (150-450); RED BLOOD COUNT 3.77 10^6/uL (4.35-5.55); RED CELL DISTRIBUTION WIDTH 13.6 % (11.5-14.0); SEGMENTED NEUTROPHILS % (AUTO) 84.8 % (42-78); TOTAL CELLS COUNTED % (AUTO) 100 %
[2018-10-16 05:59] LABS: HEMOGLOBIN 11.8 g/dL (13.5-17.0)
[2018-10-16 06:04] LABS: ANION GAP 8 (5-19); BLOOD UREA NITROGEN 16 mg/dL (7-20); CALCIUM 8.1 mg/dL (8.4-10.2); CARBON DIOXIDE 20 mmol/L (22-30); CHLORIDE 104 mmol/L (98-107); GLUCOSE 272 mg/dL (75-110); POTASSIUM 4.1 mmol/L (3.6-5.0)
[2018-10-16 08:43] VITALS: BP 142/70
--- NOTE | 2018-10-16 08:46 | PDOC PROGRESS REPORT ---
Subjective Progress Note for:: 10/16/18 Subjective:: Patient is feeling much better Patient is denied any chest pain to than any shortness of the breath Patient's anion gap is all normal Patient's seen by the psych Patient's wants to go home Reason For Visit: DKA Physical Exam Vital Signs: Temp Pulse Resp BP Pulse Ox 98.6 F 93 16 142/70 H 97 10/16/18 08:05 10/16/18 08:05 10/16/18 08:05 10/16/18 08:05 10/16/18 08:05 Intake & Output 10/15/18 10/16/18 10/17/18 06:59 06:59 06:59 Intake Total 3134 1808 Output Total 1250 2000 Balance 1884 -192 Weight 52.2 kg 55 kg General appearance: PRESENT: no acute distress, well-developed, well-nourished Head exam: PRESENT: atraumatic, normocephalic Eye exam: PRESENT: conjunctiva pink, EOMI, PERRLA. ABSENT: scleral icterus Ear exam: PRESENT: normal external ear exam Mouth exam: PRESENT: moist, tongue midline Neck exam: PRESENT: full ROM. ABSENT: carotid bruit, JVD, lymphadenopathy, t hyromegaly Respiratory exam: PRESENT: clear to auscultation shoaib Cardiovascular exam: PRESENT: RRR. ABSENT: diastolic murmur, rubs, systolic murmur Vascular exam: PRESENT: normal capillary refill GI/Abdominal exam: PRESENT: normal bowel sounds, soft. ABSENT: distended, guarding, mass, organolmegaly, rebound, tenderness Rectal exam: PRESENT: deferred Musculoskeletal exam: PRESENT: ambulatory Neurological exam: PRESENT: alert, awake, oriented to person, oriented to place, oriented to time, oriented to situation, CN II-XII grossly intact. ABSENT: motor sensory deficit Psychiatric exam: PRESENT: appropriate affect, normal mood. ABSENT: homicidal ideation, suicidal ideation Skin exam: PRESENT: dry, intact, warm. ABSENT: cyanosis, rash Results Laboratory Results: 10/16/18 04:25 10/16/18 04:25 10/15/18 10/15/18 10/16/18 08:35 09:15 04:25 WBC 11.0 H RBC 3.77 L Hgb 11.8 L D Hct 33.8 L MCV 90 MCH 31.2 MCHC 34.8 RDW 13.6 Plt Count 205 Seg Neutrophils % 84.8 H Lymphocytes % 9.7 L Monocytes % 4.6 Eosinophils % 0.2 Basophils % 0.7 Absolute Neutrophils 9.3 H Absolute Lymphocytes 1.1 Absolute Monocytes 0.5 Absolute Eosinophils 0.0 Absolute Basophils 0.1 Carbonic Acid 1.32 HCO3/H2CO3 Ratio 16:1 ABG pH 7.32 L ABG pCO2 43.8 ABG pO2 100.0 ABG HCO3 22.2 ABG O2 Saturation 97.1 ABG Base Excess -3.8 FiO2 ROOM AIR Sodium 140.4 Potassium 4.2 Chloride 112 H Carbon Dioxide 23 Anion Gap 5 BUN 24 H Creatinine 1.06 Est GFR ( Amer) > 60 Est GFR (Non-Af Amer) > 60 Glucose 100 Calcium 8.9 Magnesium 10/16/18 04:25 WBC RBC Hgb Hct MCV MCH MCHC RDW Plt Count Seg Neutrophils % Lymphocytes % Monocytes % Eosinophils % Basophils % Absolute Neutrophils Absolute Lymphocytes Absolute Monocytes Absolute Eosinophils Absolute Basophils Carbonic Acid HCO3/H2CO3 Ratio ABG pH ABG pCO2 ABG pO2 ABG HCO3 ABG O2 Saturation ABG Base Excess FiO2 Sodium 132.0 L Potassium 4.1 Chloride 104 Carbon Dioxide 20 L Anion Gap 8 BUN 16 Creatinine 0.84 Est GFR ( Amer) > 60 Est GFR (Non-Af Amer) > 60 Glucose 272 H Calcium 8.1 L Magnesium 2.0 10/14/18 13:36 Troponin I < 0.012 Impressions: Chest X-Ray 10/14/18 13:23 IMPRESSION: 1. The examination is somewhat limited as above. 2. As on the prior examination, hyperinflation of the lungs. No acute pulmonary findings. Assessment & Plan - Diagnosis (1) Diabetic ketoacidosis Qualifiers: Diabetes mellitus type: other specified (including EVETTE) Diabetes mellitus complication detail: without coma Qualified Code(s): E13.10 - Other specified diabetes mellitus with ketoacidosis without coma Is this a current diagnosis for this admission?: Yes Plan: All resolved (2) Acute kidney injury Is this a current diagnosis for this admission?: Yes Plan: Currently all resolved (3) Cocaine abuse Is this a current diagnosis for this admission?: Yes (4) Depression Qualifiers: Depression Type: major depressive disorder Is this a current diagnosis for this admission?: Yes Plan: Start the patient's on Effexor and BuSpar as per psych recommendations (5) Hyperkalemia Is this a current diagnosis for this admission?: Yes Plan: resolved (6) Noncompliance Is this a current diagnosis for this admission?: Yes Plan: Again patient is a very noncompliance Discussed with the patient about if the continues noncompliance patient is to find another the physicians Discussed with the patient's mother also - Time Time Spent with patient: 15-24 minutes Medications reviewed and adjusted accordingly: Yes Anticipated discharge: Home Within: Other - Plan Summary Plan Summary: Adjust the insulin diabetic educations
[2018-10-16] MEDS: INSULIN LISPRO 100 UNIT/ML 3 ML VIAL SUBCUT SCH (08:48)
[2018-10-16] MEDS: PANTOPRAZOLE SODIUM 40 MG VIAL IV SCH (09:54)
[2018-10-16] MEDS ORDERED: INSULIN GLARGINE,HUM.REC.ANLOG 300 UNIT/3 ML INSULN.PEN SUBCUT SCH ×2 (10:00)
[2018-10-16] MEDS ORDERED: BUSPIRONE HCL 10 MG TABLET PO SCH (10:00)
[2018-10-16] MEDS ORDERED: VENLAFAXINE HCL 37.5 MG CAP.SR.24H PO SCH (10:00)
--- NOTE | 2018-10-16 13:44 | PDOC DISCHARGE SUMMARY ---
General - Admit/Disc Date/PCP Admission Date/Primary Care Provider: 10/14/18 14:39 MELY MCDERMOTT MD Discharge Date: 10/16/18 - Discharge Diagnosis (1) Diabetic ketoacidosis Is this a current diagnosis for this admission?: Yes Summary: Currently all resolved (2) Acute kidney injury Is this a current diagnosis for this admission?: Yes Summary: Currently all resolved (3) Cocaine abuse Is this a current diagnosis for this admission?: Yes Summary: Follow with the psych (4) Depression Is this a current diagnosis for this admission?: Yes Summary: As per psych recommendations start the Effexor and the BuSpar (5) Hyperkalemia Is this a current diagnosis for this admission?: Yes Summary: Currently resolved (6) Noncompliance Is this a current diagnosis for this admission?: Yes Summary: Very extensive discussions with the patient's regarding the compliance of the insulin compliance of the medications and the diet and using the substance abuse patient understand very well Discussed with the patient's parents regarding the patient's current conditions with the noncompliance - Additional Information Resuscitation Status: Full Code Discharge Diet: Diabetic Discharge Activity: Activity As Tolerated Prescriptions: Buspirone HCl [Buspar 10 mg Tablet] 10 mg PO Q12 #60 tablet Venlafaxine HCl ER [Effexor Xr 37.5 mg Cap.sr] 37.5 mg PO Q12 #60 cap.sr.24h Home Medications: Gabapentin [Neurontin] 600 mg PO Q8 #90 tablet 08/24/18 Insulin Aspart [Novolog Flexpen] 6 units SQ TID #30 insuln.pen 08/24/18 Insulin Glargine,Hum.rec.anlog [Lantus Insulin 100 Unit/mL] 20 unit SUBCUT Q12 #2 insuln.pen 08/24/18 Buspirone HCl [Buspar 10 mg Tablet] 10 mg PO Q12 #60 tablet 10/16/18 Venlafaxine HCl ER [Effexor Xr 37.5 mg Cap.sr] 37.5 mg PO Q12 #60 cap.sr.24h 10/16/18 History of Present Illness History of Present Illness: MAMTA CUEVA is a 57 year old male This is a 57-year-old male super noncompliance not taking the medications continues to abuse the cocaine several hospital admissions due to the above conditions recent A1c is more than 15 brought to the emergency department by the mother because of the not acting properly and patient's blood sugar was very high and patient is in a diabetic ketoacidosis Patient start giving the IV fluid and IV insulin Patient is alert awake Patient is denied any chest pain to than any shortness of the breath Patient's feeling weak So many times discussed with the patient and given the patient's parents regard ing the patient's current conditions patient continues to use the cocaine continues to be a noncompliance with the medications Hospital Course Hospital Course: This is a 57-year-old male very noncompliance continues use of substance drug abuse not using the insulin as prescribed the patient A1c is more than 15 and came to the emergency department because of the blood sugar was high dehydrated and diabetic ketoacidosis Patient's admitting in the hospital with a insulin drip and IV fluid Patient is back to the baseline all kidney function is improving hyperkalemia is also improved Patient's blood sugars still little up and adjust the insulin Patient is walking the hallway Patient's p.o. intake is good Patient seen by the psychiatrist Patient's desire to want to go home and he pretty much decided to go home even I suggest to stay another day to readjust more medications But patient having no desire to stay Very extensive discussion with the patient's mother and the father continue the patient's noncompliance very well and pretty much they said that nothing they can do for him anymore while patients does not listen history when him to Patient understands very well that noncompliance not taking medications lead to a major complication including diabetic coma and Patient is continues use the cocaine Continues to smoke I believe this patient have a very poor prognosis because of only just a noncompliance and continues to substance drug abuse and not follow I do not think so I can help this patient is much I offer the patient's for next 30 days and then patient should find another physicians Discussed with the patient's parents also about that Physical Exam Vital Signs: Temp Pulse Resp BP Pulse Ox 98.6 F 101 H 14 142/70 H 98 10/16/18 08:05 10/16/18 10:35 10/16/18 10:35 10/16/18 08:05 10/16/18 10:35 Intake & Output 10/15/18 10/16/18 10/17/18 06:59 06:59 06:59 Intake Total 3134 3428 Output Total 1250 1999 Balance 1884 -192 Weight 52.2 kg 55 kg General appearance: PRESENT: no acute distress, well-developed, well-nourished Head exam: PRESENT: atraumatic, normocephalic Eye exam: PRESENT: conjunctiva pink, EOMI, PERRLA. ABSENT: scleral icterus Ear exam: PRESENT: normal external ear exam Mouth exam: PRESENT: moist, tongue midline Neck exam: PRESENT: full ROM. ABSENT: carotid bruit, JVD, lymphadenopathy, thyromegaly Respiratory exam: PRESENT: clear to auscultation shoaib Cardiovascular exam: PRESENT: RRR. ABSENT: diastolic murmur, rubs, systolic murmur Vascular exam: PRESENT: normal capillary refill GI/Abdominal exam: PRESENT: normal bowel sounds, soft. ABSENT: distended, guarding, mass, organolmegaly, rebound, tenderness Rectal exam: PRESENT: deferred Musculoskeletal exam: PRESENT: ambulatory Neurological exam: PRESENT: alert, awake, oriented to person, oriented to place, oriented to time, oriented to situation, CN II-XII grossly intact. ABSENT: motor sensory deficit Psychiatric exam: PRESENT: appropriate affect, normal mood. ABSENT: homicidal ideation, suicidal ideation Skin exam: PRESENT: dry, intact, warm. ABSENT: cyanosis, rash Results Laboratory Results: 10/16/18 04:25 10/16/18 04:25 10/16/18 10/16/18 04:25 04:25 WBC 11.0 H RBC 3.77 L Hgb 11.8 L D Hct 33.8 L MCV 90 MCH 31.2 MCHC 34.8 RDW 13.6 Plt Count 205 Seg Neutrophils % 84.8 H Lymphocytes % 9.7 L Monocytes % 4.6 Eosinophils % 0.2 Basophils % 0.7 Absolute Neutrophils 9.3 H Absolute Lymphocytes 1.1 Absolute Monocytes 0.5 Absolute Eosinophils 0.0 Absolute Basophils 0.1 Sodium 132.0 L Potassium 4.1 Chloride 104 Carbon Dioxide 20 L Anion Gap 8 BUN 16 Creatinine 0.84 Est GFR ( Amer) > 60 Est GFR (Non-Af Amer) > 60 Glucose 272 H Calcium 8.1 L Magnesium 2.0 10/14/18 16:13 Clean Catch Midstream Urine Culture - Final NO GROWTH 2 DAYS 10/14/18 13:36 Troponin I < 0.012 Impressions: Chest X-Ray 10/14/18 13:23 IMPRESSION: 1. The examination is somewhat limited as above. 2. As on the prior examination, hyperinflation of the lungs. No acute pulmonary findings. Qualifiers - * PATIENT BEING DISCHARGED WITH ANY OF THE FOLLOWING DIAGNOSIS: No VTE patient discharged on overlapping Therapy?: Yes Plan Time Spent: Greater than 30 Minutes - Following office Patient is to follow with the clinical documentation improvement specialist
== END 2018-10-16 13:15 | disposition left against medical advice (07) | DRG 638 ==
LOC: ER 13:16 → EH 14:39 → 3N 21:54
PROVIDERS: ADMIT Family Medicine; ATTEND Family Medicine
DX: E11.10 Type 2 diabetes mellitus with ketoacidosis without coma (principal); N17.9 Acute kidney failure, unspecified; E78.00 Pure hypercholesterolemia, unspecified; I10 Essential (primary) hypertension; F14.10 Cocaine abuse, uncomplicated; E87.5 Hyperkalemia; J44.9 Chronic obstructive pulmonary disease, unspecified; K21.9 Gastro-esophageal reflux disease without esophagitis; N40.0 Benign prostatic hyperplasia without lower urinary tract symptoms; F32.9 Major depressive disorder, single episode, unspecified; R41.82 Altered mental status, unspecified; Z79.4 Long term (current) use of insulin; Z91.19 Patient's noncompliance with other medical treatment and regimen
CPT/HCPCS: 36415; 36600; 71045; 80048; 80053; 80307; 82803; 82947; 82962; 83690; 83735; 84484; 85025; 87040; 87086; 93005; 93010; 96360; 99291; J1644; J1815; J3490; J7030; S0164

== ENCOUNTER 2018-10-23 04:06 | Inpatient (IN) | payer MEDICAID ==
[2018-10-23] MEDS ORDERED: NORMAL SALINE 1000 ML 1,000 ML IV ONE (04:28)
[2018-10-23] MEDS ORDERED: ONDANSETRON HCL INJ/PF 4 MG/2 ML SDV IV ONE (04:31)
[2018-10-23] MEDS ORDERED: MORPHINE SULFATE 10 MG/ML INJ IV ONE (04:31)
--- NOTE | 2018-10-23 04:33 | ER Document Report ---
ED General - General Chief Complaint: High Blood Sugar Stated Complaint: BACK PAIN Time Seen by Provider: 10/23/18 04:22 Primary Care Provider: MELY MCDERMOTT MD [Primary Care Provider] - Follow up as needed TRAVEL OUTSIDE OF THE [place] IN LAST 30 DAYS: No - HPI Notes: Patient presents to the emergency department for evaluation. He states he developed back pain and called 911. He states he went to the "[place] to get some juice". He states he had sudden an acute onset of lower back pain. It does not radiate. He denies any bowel or bladder incontinence, no saddle anesthesia, no focal numbness or weakness. He states he has had back pain like this in the past. Denies any fevers or chills. He states he is being compliant with his insulin. He was just recently discharged from the hospital for DKA. - Related Data Allergies/Adverse Reactions: No Known Allergies Allergy (Verified 10/14/18 21:32) Past Medical History - General Information source: Patient, Emergency Med Personnel - Social History Smoking Status: Current Every Day Smoker Frequency of alcohol use: Rare Drug Abuse: Cocaine, Marijuana Family History: CAD - father at 59 of heart problems, DM - mother Patient has suicidal ideation: No Patient has homicidal ideation: No - Past Medical History Cardiac Medical History: Reports: Hx Hypercholesterolemia, Hx Hypertension Pulmonary Medical History: Reports: Hx COPD Denies: Hx Tuberculosis Neurological Medical History: Denies: Hx Seizures Endocrine Medical History: Reports: Hx Diabetes Mellitus Type 1, Hx Diabetes Mellitus Type 2 Renal/ Medical History: Reports: Hx Benign Prostatic Hyperplasia. Denies: Hx Peritoneal Dialysis GI Medical History: Reports: Hx Gastroesophageal Reflux Disease Psychiatric Medical History: Reports: Hx Depression Past Surgical History: Reports: Hx Orthopedic Surgery - jaw - Immunizations Hx Diphtheria, Pertussis, Tetanus Vaccination: No Hx Pneumococcal Vaccination: 05/09/13 Review of Systems - Review of Systems Constitutional: No symptoms reported EENT: No symptoms reported Cardiovascular: No symptoms reported Respiratory: No symptoms reported Gastrointestinal: Nausea Genitourinary: No symptoms reported Musculoskeletal: See HPI Skin: No symptoms reported Neurological/Psychological: No symptoms reported Physical Exam - Vital signs Vitals: Temp Pulse Resp BP Pulse Ox 98.9 F 107 H 21 H 165/94 H 97 10/23/18 04:31 10/23/18 04:31 10/23/18 04:31 10/23/18 04:31 10/23/18 04:31 - Notes Notes: Vital signs reviewed, please refer to chart. Patient is normocephalic, atraumatic. Pupils equal round, reactive to light. Neck is supple without meningismus. Heart is regular rate and rhythm. Lungs are clear to auscultation bilaterally. Abdomen is soft, globally tender without rebound or guarding. Extremities without cyanosis, clubbing 2+ pitting edema bilateral lower extremities. Peripheral pulses are equal. Skin is warm and dry. Patient is awake, alert, neurological exam is nonfocal. He is agitated. Examination of the spine is no midline tenderness or muscular tenderness throughout the lower thoracic and entire lumbar spine. Negative straight leg raise bilaterally. Strength was 5 out of 5 bilateral lower extremities. Course - Re-evaluation Re-evalutation: 10/23/18 04:37 Patient presents emergency department for evaluation. He initially presented with back pain, but his blood sugar was found to be high. DKA orders placed. Patient started on IV fluids. Given small dose of morphine for pain. We will continue evaluation and monitor closely. 10/23/18 05:36 Laboratory investigations are reviewed. Patient is markedly hyperglycemic. He is not acidotic. His bicarb is normal. His venous pH is normal. I am concerned about the possibility of HHS. The patient does appear to be agitated, but this is likely secondary to the cocaine I believe he has ingested. Osmo lality is pending at this time. I spoke with Dr. Mcdermott, he will admit the patient for further care. Insulin drip is ordered. - Vital Signs Vital signs: Temp Pulse Resp BP Pulse Ox 98.9 F 107 H 12 167/96 H 93 10/23/18 04:31 10/23/18 04:31 10/23/18 04:36 10/23/18 04:36 10/23/18 04:36 - Laboratory Result Diagrams: 10/23/18 04:12 10/23/18 04:12 Laboratory results interpreted by me: 10/23/18 10/23/18 10/23/18 04:12 04:12 04:12 RBC 3.96 L Hgb 12.2 L Seg Neutrophils % 82.4 H Lymphocytes % 6.1 L Absolute Lymphocytes 0.4 L VBG HCO3 35.5 H Sodium 125.8 L Potassium 5.2 H Chloride 85 L Carbon Dioxide 32 H BUN 27 H Glucose 1115 H* AST 73 H Alkaline Phosphatase 243 H Creatine Kinase Total Protein 5.8 L Lipase 342.5 H Urine Glucose (UA) 10/23/18 10/23/18 04:12 04:12 RBC Hgb Seg Neutrophils % Lymphocytes % Absolute Lymphocytes VBG HCO3 Sodium Potassium Chloride Carbon Dioxide BUN Glucose AST Alkaline Phosphatase Creatine Kinase 299 H Total Protein Lipase Urine Glucose (UA) >=500 H - Diagnostic Test Radiology results interpreted by me: 10/23/18 05:37 No acute cardiopulmonary disease - EKG Interpretation by Me Additional EKG results interpreted by me: 10/23/18 05:38 Sinus tachycardia at 101 bpm. Normal axis and intervals, no acute ST changes concerning for ischemia or infarction. Discharge - Discharge Clinical Impression: Noncompliance with medication regimen, Hyperglycemia due to type 1 diabetes mellitus Condition: Stable Disposition: ADMITTED INPATIENT Admitting Provider: Andrea Unit Admitted: [facility] Referrals: MELY MCDERMOTT MD [Primary Care Provider] - Follow up as needed
[2018-10-23 04:39] LABS: ABSOLUTE LYMPHOCYTES (AUTO) 0.4 10^3/uL (0.5-4.7); ABSOLUTE MONOCYTES (AUTO) 0.8 10^3/uL (0.1-1.4); BASOPHILS % (AUTO) 0.1 % (0-2); EOSINOPHILS % (AUTO) 0.1 % (0-6); HEMATOCRIT 38.3 % (37.9-51.0); HEMOGLOBIN 12.2 g/dL (13.5-17.0); LYMPHOCYTES % (AUTO) 6.1 % (13-45); MEAN CORPUSCULAR HEMOGLOBIN 30.9 pg (27.0-33.4); MONOCYTES % (AUTO) 11.3 % (3-13); PLATELET COUNT 291 10^3/uL (150-450); RED BLOOD COUNT 3.96 10^6/uL (4.35-5.55); RED CELL DISTRIBUTION WIDTH 13.8 % (11.5-14.0); SEGMENTED NEUTROPHILS % (AUTO) 82.4 % (42-78); TOTAL CELLS COUNTED % (AUTO) 100 %; WHITE BLOOD COUNT 7.3 10^3/uL (4.0-10.5)
[2018-10-23 04:43] LABS: APPEARANCE,URINE CLEAR; BILIRUBIN,URINE NEGATIVE (NEGATIVE); COLOR,URINE COLORLESS; GLUCOSE, URINE >=500 mg/dL (NEGATIVE); KETONES,URINE NEGATIVE (NEGATIVE); LEUKOCYTE ESTERASE,URINE NEGATIVE (NEGATIVE); NITRITE,URINE NEGATIVE (NEGATIVE); PROTEIN,URINE NEGATIVE (NEGATIVE); URINE SPECIFIC GRAVITY 1.018; UROBILINOGEN,URINE NEGATIVE mg/dL (<2.0)
[2018-10-23 04:48] LABS: VENOUS BLOOD BASE EXCESS 8.6 mmol/L; VENOUS BLOOD HCO3 35.5 mmol/L (20-32); VENOUS BLOOD PCO2 59.2 mmHg (35-63); VENOUS BLOOD PH 7.4 (7.30-7.42)
[2018-10-23 05:01] LABS: ALANINE AMINOTRANSFERASE 65 U/L (21-72); ALBUMIN 3.6 g/dL (3.5-5.0); ALKALINE PHOSPHATASE 243 U/L (38-126); ANION GAP 9 (5-19); ASPARTATE AMINO TRANSFERASE 73 U/L (17-59); BILIRUBIN,DIRECT 0.3 mg/dL (0.0-0.4); BILIRUBIN,TOTAL 0.7 mg/dL (0.2-1.3); BLOOD UREA NITROGEN 27 mg/dL (7-20); CALCIUM 9.3 mg/dL (8.4-10.2); CARBON DIOXIDE 32 mmol/L (22-30); CHLORIDE 85 mmol/L (98-107); LIPASE 342.5 U/L (23-300); POTASSIUM 5.2 mmol/L (3.6-5.0); SODIUM 125.8 mmol/L (137-145); TOTAL PROTEIN 5.8 g/dL (6.3-8.2)
[2018-10-23 05:03] LABS: URINE AMPHETAMINES SCREEN NEGATIVE; URINE BARBITURATES SCREEN NEGATIVE; URINE BENZODIAZEPINES SCREEN NEGATIVE; URINE COCAINE SCREEN UNCONFIRMED POSITIVE; URINE MARIJUANA (THC) SCREEN NEGATIVE; URINE METHADONE SCREEN NEGATIVE; URINE PHENCYCLIDINE SCREEN NEGATIVE
[2018-10-23 05:17] LABS: CREATINE KINASE MB 2.84 ng/mL (<4.55); GLUCOSE 1115 mg/dL (75-110)
[2018-10-23 05:18] LABS: TROPONIN I < 0.012 ng/mL
[2018-10-23 05:29] LABS: MEAN CORPUSCULAR VOLUME 97 fl (80-97)
[2018-10-23] MEDS ORDERED: INSULIN REG, HUMAN 100 UNIT/ML 3 ML VIAL (PYX) IV ONE (05:38)
--- NOTE | 2018-10-23 05:48 | RADIOLOGY REPORT (SQ) ---
EXAM DESCRIPTION: XR CHEST 1 VIEW COMPLETED DATE/TME: 10/23/2018 04:39 CLINICAL HISTORY: 57 years, Male, mild hypoxia COMPARISON: 10/14/2018 NUMBER OF VIEWS: One TECHNIQUE: AP view of the chest LIMITATIONS: None. FINDINGS: The lungs are clear. The heart is normal in size. There is no pneumothorax or pleural effusion. There is no acute fracture. IMPRESSION: No acute cardiopulmonary abnormality copyright 2010 [employer]- All Rights Reserved
[2018-10-23] MEDS ORDERED: IPRATROPIUM/ALBUTEROL 0.5-2.5 MG/3 ML AMPUL NEB PRN (06:17)
[2018-10-23] MEDS ORDERED: ACETAMINOPHEN 325 MG TABLET PO PRN (06:17)
[2018-10-23] MEDS ORDERED: NORMAL SALINE 1000 ML 1,000 ML IV PRN (06:17)
[2018-10-23] MEDS ORDERED: ONDANSETRON HCL INJ/PF 4 MG/2 ML SDV IV PRN (06:17)
[2018-10-23] MEDS ORDERED: DEXTROSE 50%-WATER 25 GM/50 ML DISP.SYRIN IV PRN ×2 (06:21)
[2018-10-23] MEDS ORDERED: NORMAL SALINE 100 ML with INSULIN REGULAR, HUMAN 100 UNIT IV PRN ×2 (06:21)
[2018-10-23] MEDS ORDERED: GLUCAGON,HUMAN RECOMB 1 MG INJ IM PRN (06:21)
[2018-10-23] MEDS ORDERED: DEXTROSE 40% GEL 15 GM TUBE PO PRN ×2 (06:21)
--- NOTE | 2018-10-23 07:44 | EKG REPORT ---
SEVERITY:- OTHERWISE NORMAL ECG - SINUS TACHYCARDIA : Confirmed by: Navarro Gomez MD 23-Oct-2018 07:43:51
[2018-10-23 08:15] LABS: ANION GAP 9 (5-19); BLOOD UREA NITROGEN 26 mg/dL (7-20); CARBON DIOXIDE 31 mmol/L (22-30); CHLORIDE 94 mmol/L (98-107); SODIUM 133.6 mmol/L (137-145)
[2018-10-23 08:31] LABS: POTASSIUM 4.2 mmol/L (3.6-5.0)
[2018-10-23 08:32] LABS: GLUCOSE 645 mg/dL (75-110)
--- NOTE | 2018-10-23 08:35 | PDOC H&P ---
History of Present Illness Admission Date/PCP: 10/23/18 05:55 MELY MCDERMOTT MD Patient complains of: Back pain elevated blood sugar History of Present Illness: MAMTA CUEVA is a 57 year old male Is a 57-year-old male very noncompliance multiple hospital admissions because of the DKA and substance abuse call 911 because of the complaining of her back pain in the emergency department patient's found the blood sugar was around thousand but not DKA patient started on IV fluid and insulin drip Patient was giving the morphine Patient urine is still positive for the cocaine and patient does admit he use it 3 days before Patient is denied any chest pain to than any shortness of the breath Patient's lipase is slightly elevated Patient is denied drink any alcohol Patient's claimed that he is taking this insulin's the last dose taking last night When I saw the patient in the emergency department alert awake oriented x3 complaint as above other than that no other complaints Past Medical History Cardiac Medical History: Reports: Hyperlipidema, Hypertension Pulmonary Medical History: Reports: Chronic Obstructive Pulmonary Disease (COPD) Denies: Tuberculosis Neurological Medical History: Denies: Seizures Endocrine Medical History: Reports: Diabetes Mellitus Type 2 Renal/ Medical History: Reports: Chronic Kidney Disease GI Medical History: Reports: Gastroesophageal Reflux Disease Psychiatric Medical History: Reports: Depression Past Surgical History Past Surgical History: Reports: Orthopedic Surgery - jaw Social History Smoking Status: Current Every Day Smoker Frequency of Alcohol Use: Occasional Hx Recreational Drug Use: Yes Drugs: Cocaine Hx Prescription Drug Abuse: No Family History Family History: Reviewed & Not Pertinent, CAD - father at 59 of heart problems, DM - mother Parental Family History Reviewed: Yes Children Family History Reviewed: Yes Sibling(s) Family History Reviewed.: Yes Medication/Allergy Allergies/Adverse Reactions: No Known Allergies Allergy (Verified 10/14/18 21:32) Review of Systems Constitutional: ABSENT: chills, fever(s), headache(s), weight gain, weight loss Eyes: ABSENT: visual disturbances Ears: ABSENT: hearing changes Cardiovascular: ABSENT: chest pain, dyspnea on exertion, edema, orthropnea, palpitations Respiratory: ABSENT: cough, hemoptysis Gastrointestinal: ABSENT: abdominal pain, constipation, diarrhea, hematemesis, hematochezia, nausea, vomiting Genitourinary: ABSENT: dysuria, hematuria Musculoskeletal: ABSENT: joint swelling Integumentary: ABSENT: rash, wounds Neurological: ABSENT: abnormal gait, abnormal speech, confusion, dizziness, focal weakness, syncope Psychiatric: ABSENT: anxiety, depression, homidical ideation, suicidal ideation Endocrine: ABSENT: cold intolerance, heat intolerance, menstrual abnormalities, polydipsia, polyuria Hematologic/Lymphatic: ABSENT: easy bleeding, easy bruising, lymphadenopathy Physical Exam Vital Signs: Temp Pulse Resp BP Pulse Ox 98.9 F 107 H 21 H 129/77 H 99 10/23/18 04:31 10/23/18 04:31 10/23/18 07:01 10/23/18 07:01 10/23/18 07:01 Intake & Output 10/22/18 10/23/18 10/24/18 06:59 06:59 06:59 Intake Total 1000 Balance 1000 General appearance: PRESENT: no acute distress, well-developed, well-nourished Head exam: PRESENT: atraumatic, normocephalic Eye exam: PRESENT: conjunctiva pink, EOMI, PERRLA. ABSENT: scleral icterus Ear exam: PRESENT: normal external ear exam Mouth exam: PRESENT: moist, tongue midline Neck exam: PRESENT: full ROM. ABSENT: carotid bruit, JVD, lymphadenopathy, thyromegaly Respiratory exam: PRESENT: clear to auscultation shoaib Cardiovascular exam: PRESENT: RRR. ABSENT: diastolic murmur, rubs, systolic murmur Vascular exam: PRESENT: normal capillary refill GI/Abdominal exam: PRESENT: normal bowel sounds, soft. ABSENT: distended, guarding, mass, organolmegaly, rebound, tenderness Rectal exam: PRESENT: deferred Extremities exam: PRESENT: pedal edema Neurological exam: PRESENT: alert, awake, oriented to person, oriented to place, oriented to time, oriented to situation, CN II-XII grossly intact. ABSENT: motor sensory deficit Psychiatric exam: PRESENT: appropriate affect, normal mood. ABSENT: homicidal ideation, suicidal ideation Skin exam: PRESENT: dry, intact, warm. ABSENT: cyanosis, rash Results Laboratory Results: 10/23/18 04:12 10/23/18 10/23/18 10/23/18 04:12 04:12 04:12 WBC 7.3 RBC 3.96 L Hgb 12.2 L Hct 38.3 MCV 97 D MCH 30.9 MCHC 32.0 RDW 13.8 Plt Count 291 Seg Neutrophils % 82.4 H Lymphocytes % 6.1 L Monocytes % 11.3 Eosinophils % 0.1 Basophils % 0.1 Absolute Neutrophils 6.0 Absolute Lymphocytes 0.4 L Absolute Monocytes 0.8 Absolute Eosinophils 0.0 Absolute Basophils 0.0 VBG pH 7.40 VBG pCO2 59.2 VBG HCO3 35.5 H VBG Base Excess 8.6 Sodium 125.8 L Potassium 5.2 H Chloride 85 L Carbon Dioxide 32 H Anion Gap 9 BUN 27 H Creatinine 1.07 Est GFR ( Amer) > 60 Est GFR (Non-Af Amer) > 60 Glucose 1115 H* Serum Osmolality Calcium 9.3 Total Bilirubin 0.7 AST 73 H ALT 65 Alkaline Phosphatase 243 H Total Protein 5.8 L Albumin 3.6 Lipase 342.5 H Urine Color Urine Appearance Urine pH Ur Specific [place] Urine Protein Urine Glucose (UA) Urine Ketones Urine Blood Urine Nitrite Ur Leukocyte Esterase 10/23/18 10/23/18 04:12 04:12 WBC RBC Hgb Hct MCV MCH MCHC RDW Plt Count Seg Neutrophils % Lymphocytes % Monocytes % Eosinophils % Basophils % Absolute Neutrophils Absolute Lymphocytes Absolute Monocytes Absolute Eosinophils Absolute Basophils VBG pH VBG pCO2 VBG HCO3 VBG Base Excess Sodium Potassium Chloride Carbon Dioxide Anion Gap BUN Creatinine Est GFR ( Amer) Est GFR (Non-Af Amer) Glucose Serum Osmolality 338 H Calcium Total Bilirubin AST ALT Alkaline Phosphatase Total Protein Albumin Lipase Urine Color COLORLESS Urine Appearance CLEAR Urine pH 9.0 Ur Specific [place] 1.018 Urine Protein NEGATIVE Urine Glucose (UA) >=500 H Urine Ketones NEGATIVE Urine Blood NEGATIVE Urine Nitrite NEGATIVE Ur Leukocyte Esterase NEGATIVE 10/23/18 10/23/18 04:12 04:12 Creatine Kinase 299 H CK-MB (CK-2) 2.84 Troponin I < 0.012 Impressions: Chest X-Ray 10/23/18 04:39 IMPRESSION: No acute cardiopulmonary abnormality copyright 2011 [facility]- All Rights Reserved Assessment & Plan - Diagnosis (1) Hyperglycemia without ketosis Is this a current diagnosis for this admission?: Yes Plan: The patient on insulin drip and IV fluid (2) Type 2 diabetes mellitus Qualifiers: Diabetes mellitus chcf insulin use: with 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 control 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 Is this a current diagnosis for this admission?: Yes Plan: Continues to insulin (3) Noncompliance with medication regimen Is this a current diagnosis for this admission?: Yes Plan: Patient is a very noncompliance (4) Cocaine abuse Is this a current diagnosis for this admission?: Yes Plan: Patient's already seen by the psych very noncompliance (5) Depression Qualifiers: Depression Type: major depressive disorder Is this a current diagnosis for this admission?: Yes Plan: Continues to current medications (6) Hyperkalemia Is this a current diagnosis for this admission?: Yes (7) Back pain Qualifiers: Back pain location: low back pain Is this a current diagnosis for this admission?: Yes Plan: Will continues to gabapentin We will get the x-ray of the LS spine Also get the CT abdomen pelvis to rule out any other retroperitoneal etiology - Time Time Spent: 30 to 50 Minutes Medications reviewed and adjusted accordingly: Yes Anticipated discharge: Home Within: Other - Inpatient Certification Based on my medical assessment, after consideration of the patient's comorbid ities, presenting symptoms, or acuity I expect that the services needed warrant INPATIENT care.: Yes I certify that my determination is in accordance with my understanding of Medicare's requirements for reasonable and necessary INPATIENT services [42 CFR 412.3e].: Yes Medical Necessity: Need Close Monitoring Due to Risk of Patient Decompensation, Need For IV Fluids Post Hospital Care: D/C Supervisor Lump Room Documentation - Plan Summary Plan Summary: Will get the CT scan of the abdomen and pelvis because the patient is complaining of back pain to rule out any pancreatitis issues continues to IV fluid Continues the insulin drips Already discussed with the patient mother and father the new about the patient's current conditions not a very good prognosis because of her noncompliance continues she does have some drug abuse
[2018-10-23] MEDS: GABAPENTIN 300 MG CAPSULE PO SCH ×3 (08:40→21:30)
[2018-10-23] MEDS: NORMAL SALINE 1000 ML 1,000 ML IV PRN ×2 (08:41→18:38)
[2018-10-23] MEDS: FAMOTIDINE 20 MG TABLET PO SCH ×2 (09:47→21:30)
[2018-10-23] MEDS ORDERED: ENOXAPARIN SODIUM INJ 30 MG/0.3 ML DISP.SYRIN SUBCUT SCH (10:00)
--- NOTE | 2018-10-23 10:04 | RADIOLOGY REPORT (SQ) ---
EXAM DESCRIPTION: CT ABD/PELVIS WITH IV ONLY COMPLETED DATE/TIME: 10/23/2018 9:38 am REASON FOR STUDY: abd pain COMPARISON: 08/27/2018 TECHNIQUE: CT scan of the abdomen and pelvis performed using helical scanning technique with dynamic intravenous contrast injection. No oral contrast. Images reviewed with lung, soft tissue, and bone windows. Reconstructed coronal and sagittal MPR images reviewed. Delayed images for evaluation of the urinary system also acquired. All images stored on PACS. All CT scanners at this facility use dose modulation, iterative reconstruction, and/or weight based d osing when appropriate to reduce radiation dose to as low as reasonably achievable (ALARA). [facility]: Dose Right [facility]: CareDose [facility]: Dose Right [facility]: Teradose 4D [facility]: iWOPI CONTRAST TYPE AND DOSE: contrast/concentration: Isovue 350.00 mg/ml; Total Contrast Delivered: 73.0 ml; Total Saline Delivered: 51.0 ml RENAL FUNCTION: GFR > 60. RADIATION DOSE: CT Rad equipment meets quality standard of care and radiation dose reduction techniq ues were employed. CTDIvol: 5.0 - 5.8 mGy. DLP: 593 mGy-cm.. LIMITATIONS: None. FINDINGS: LOWER CHEST: Bibasilar scarring or atelectasis. LIVER: Normal size. Hepatic hemangiomas. No dilated ducts. SPLEEN: Normal size. No focal lesions. PANCREAS: No masses. No significant calcifications. No adjacent inflammation or peripancreatic fluid collections. Pancreatic duct not dilated. GALLBLADDER: No identified stones by CT criteria. No inflammatory changes to suggest cholecystitis. ADRENAL GLANDS: No significant masses or asymmetry. RIGHT KIDNEY AND URETER: No solid masses. No significant calcifications. No hydronephrosis or hyd roureter. LEFT KIDNEY AND URETER: No solid masses. No significant calcifications. No hydronephrosis or hydr oureter. AORTA AND VESSELS: No aneurysm. No dissection. Renal arteries, SMA, celiac without stenosis. RETROPERITONEUM: No retroperitoneal adenopathy, hemorrhage or masses. BOWEL AND PERITONEAL CAVITY: The stomach is distended with ingested material. No masses or inflamma tory changes. No free fluid or peritoneal masses. APPENDIX: The appendix is not visualized in the right lower quadrant. PELVIS: No mass. Small volume free fluid in the low pelvis. Normal bladder. ABDOMINAL WALL: No masses. No hernias. BONES: No significant or acute findings. OTHER: No other significant finding. IMPRESSION: 1. Nonspecific small volume of free fluid in the low pelvis, of uncertain significance. 2. The appendix is not visualized in the right lower quadrant. 3. The stomach is distended with ingested material, similar in configuration prior examination. Cor relate for signs and symptoms of bowel obstruction and consider endoscopic evaluation if warranted cl inically. TECHNICAL DOCUMENTATION: JOB ID: [id number] Quality ID # [id number]: Final reports with documentation of one or more dose reduction techniques (e.g., Au tomated exposure control, adjustment of the mA and/or kV according to patient size, use of iterative reconstruction technique) 2010 [employer]- All Rights Reserved Reading location - IP/workstation name: [email or web address]
[2018-10-23 13:05] LABS: ANION GAP 8 (5-19); BLOOD UREA NITROGEN 20 mg/dL (7-20); CALCIUM 8.9 mg/dL (8.4-10.2); CARBON DIOXIDE 32 mmol/L (22-30); CHLORIDE 97 mmol/L (98-107); GLUCOSE 78 mg/dL (75-110); POTASSIUM 3.6 mmol/L (3.6-5.0)
--- NOTE | 2018-10-23 13:35 | PDOC CONSULTATION ---
Consultation Consult Date: 10/23/18 Consult reason:: abdominal distention History of Present Illness Admission Date/PCP: 10/23/18 05:55 MELY MCDERMOTT MD Patient complains of: low back pain, constipation, rectal bleeding History of Present Illness: MAMTA CUEVA is a 57 year old male seen at the request of Dr. Mcdermott. This patient is a noncompliant diabetic. He was admitted for hyperglycemic crisis. His blood sugar was found to be 1115. Currently this is being treated. Consultation was made for abdominal distention. Upon my evaluation, the patient is eating potato salad and Cristi pasta without difficulty. The patient currently denies any nausea, vomiting, abdominal pain, or distention. He does report low back pain and constipation that is chronic. He also reports prolapsing internal hemorrhoids that spontaneously reduce. His hemorrhoids bleed on occasion. His low back pain is his main concern today. It occurs lateral to the spine, between the iliac crest and the spinous process. He reports that it is worse with palpation. It is dull in nature. Nothing makes it better. Patient also denies chest pain, shortness of breath, fevers, chills, malaise, fatigue, blurry vision, orthostasis, dizziness. Past Medical History Cardiac Medical History: Reports: Hyperlipidema, Hypertension Pulmonary Medical History: Reports: Chronic Obstructive Pulmonary Disease (COPD) Denies: Tuberculosis Neurological Medical History: Denies: Seizures Endocrine Medical History: Reports: Diabetes Mellitus Type 1, Diabetes Mellitus Type 2 Renal/ Medical History: Reports: Chronic Kidney Disease GI Medical History: Reports: Gastroesophageal Reflux Disease Psychiatric Medical History: Reports: Depression Past Surgical History Past Surgical History: Reports: Orthopedic Surgery - jaw Social History Smoking Status: Current Every Day Smoker Frequency of Alcohol Use: Occasional Hx Recreational Drug Use: Yes Drugs: Cocaine Hx Prescription Drug Abuse: No - Advance Directive Resuscitation Status: Full Code Family History Family History: Reviewed & Not Pertinent, CAD - father at 59 of heart problems, DM - mother Parental Family History Reviewed: Yes Children Family History Reviewed: Yes Sibling(s) Family History Reviewed.: Yes Medication/Allergy Home Medications: Gabapentin [Neurontin] 600 mg PO Q8 10/23/18 Insulin Aspart [Novolog Flexpen] 10 unit SUBCUT AC 10/23/18 Insulin Glargine,Hum.rec.anlog [Lantus Insulin Inj 300 Unit/3 ml Pen] 25 unit SUBCUT Q12 10/23/18 Allergies/Adverse Reactions: No Known Allergies Allergy (Verified 10/14/18 21:32) Review of Systems Constitutional: ABSENT: chills, fever(s) Eyes: ABSENT: visual disturbances Ears: ABSENT: hearing changes Nose, Mouth, and Throat: ABSENT: mouth pain, sore throat Cardiovascular: ABSENT: chest pain, dyspnea on exertion Respiratory: ABSENT: cough, dyspnea Gastrointestinal: PRESENT: constipation, other - Rectal bleeding with bowel movements. ABSENT: abdominal pain, bloating Genitourinary: ABSENT: dysuria Musculoskeletal: PRESENT: back pain - See HPI Integumentary: ABSENT: pruritus, rash Neurological: ABSENT: confusion, convulsions, dizziness Psychiatric: ABSENT: anxiety, depression Endocrine: ABSENT: cold intolerance, heat intolerance Hematologic/Lymphatic: ABSENT: easy bruising Physical Exam Vital Signs: Temp Pulse Resp BP Pulse Ox 98.9 F 91 10 L 129/86 H 99 10/23/18 04:31 10/23/18 10:47 10/23/18 09:46 10/23/18 09:01 10/23/18 10:46 Intake & Output 10/22/18 10/23/18 10/24/18 06:59 06:59 06:59 Intake Total 1000 Output Total 1400 Balance 1000 -1400 Weight 67.6 kg General appearance: PRESENT: no acute distress, disheveled Head exam: PRESENT: atraumatic, normocephalic Eye exam: PRESENT: EOMI, PERRLA. ABSENT: scleral icterus Mouth exam: PRESENT: moist, neck supple Teeth exam: PRESENT: poor dentation Neck exam: ABSENT: meningismus, tenderness, thyromegaly, tracheal deviation Respiratory exam: PRESENT: clear to auscultation shoaib, unlabored. ABSENT: chest wall tenderness, rales, tachypnea, wheezes Cardiovascular exam: PRESENT: RRR Pulses: PRESENT: normal radial pulses Vascular exam: PRESENT: normal capillary refill. ABSENT: pallor GI/Abdominal exam: PRESENT: soft. ABSENT: distended, guarding, rebound, tenderness Rectal exam: PRESENT: hemorrhoids - Internal hemorrhoids with mild prolapse during Valsalva. The hemorrhoids spontaneously reduced. No active bleeding. Extremities exam: PRESENT: other - Mild bilateral lower extremity edema, below the knee.. ABSENT: clubbing Neurological exam: PRESENT: alert, awake, oriented to person, oriented to place, oriented to time, oriented to situation, CN II-XII grossly intact Psychiatric exam: ABSENT: agitated, anxious, depressed Focused psych exam: ABSENT: delusional Skin exam: ABSENT: cyanosis, erythema, jaundice Results Laboratory Results: 10/23/18 04:12 10/23/18 12:25 10/23/18 10/23/18 10/23/18 04:12 04:12 04:12 WBC 7.3 RBC 3.96 L Hgb 12.2 L Hct 38.3 MCV 97 D MCH 30.9 MCHC 32.0 RDW 13.8 Plt Count 291 Seg Neutrophils % 82.4 H Lymphocytes % 6.1 L Monocytes % 11.3 Eosinophils % 0.1 Basophils % 0.1 Absolute Neutrophils 6.0 Absolute Lymphocytes 0.4 L Absolute Monocytes 0.8 Absolute Eosinophils 0.0 Absolute Basophils 0.0 VBG pH 7.40 VBG pCO2 59.2 VBG HCO3 35.5 H VBG Base Excess 8.6 Sodium 125.8 L Potassium 5.2 H Chloride 85 L Carbon Dioxide 32 H Anion Gap 9 BUN 27 H Creatinine 1.07 Est GFR ( Amer) > 60 Est GFR (Non-Af Amer) > 60 Glucose 1115 H* Serum Osmolality Calcium 9.3 Total Bilirubin 0.7 AST 73 H ALT 65 Alkaline Phosphatase 243 H Total Protein 5.8 L Albumin 3.6 Lipase 342.5 H Urine Color Urine Appearance Urine pH Ur Specific [place] Urine Protein Urine Glucose (UA) Urine Ketones Urine Blood Urine Nitrite Ur Leukocyte Esterase 10/23/18 10/23/18 10/23/18 04:12 04:12 07:32 WBC RBC Hgb Hct MCV MCH MCHC RDW Plt Count Seg Neutrophils % Lymphocytes % Monocytes % Eosinophils % Basophils % Absolute Neutrophils Absolute Lymphocytes Absolute Monocytes Absolute Eosinophils Absolute Basophils VBG pH VBG pCO2 VBG HCO3 VBG Base Excess Sodium 133.6 L Potassium 4.2 D Chloride 94 L Carbon Dioxide 31 H Anion Gap 9 BUN 26 H Creatinine 0.91 Est GFR ( Amer) > 60 Est GFR (Non-Af Amer) > 60 Glucose 645 H* Serum Osmolality 338 H Calcium 9.0 Total Bilirubin AST ALT Alkaline Phosphatase Total Protein Albumin Lipase Urine Color COLORLESS Urine Appearance CLEAR Urine pH 9.0 Ur Specific [place] 1.018 Urine Protein NEGATIVE Urine Glucose (UA) >=500 H Urine Ketones NEGATIVE Urine Blood NEGATIVE Urine Nitrite NEGATIVE Ur Leukocyte Esterase NEGATIVE 10/23/18 12:25 WBC RBC Hgb Hct MCV MCH MCHC RDW Plt Count Seg Neutrophils % Lymphocytes % Monocytes % Eosinophils % Basophils % Absolute Neutrophils Absolute Lymphocytes Absolute Monocytes Absolute Eosinophils Absolute Basophils VBG pH VBG pCO2 VBG HCO3 VBG Base Excess Sodium 137.0 Potassium 3.6 Chloride 97 L Carbon Dioxide 32 H Anion Gap 8 BUN 20 Creatinine 0.74 Est GFR ( Amer) > 60 Est GFR (Non-Af Amer) > 60 Glucose 78 Serum Osmolality Calcium 8.9 Total Bilirubin AST ALT Alkaline Phosphatase Total Protein Albumin Lipase Urine Color Urine Appearance Urine pH Ur Specific [place] Urine Protein Urine Glucose (UA) Urine Ketones Urine Blood Urine Nitrite Ur Leukocyte Esterase 10/23/18 10/23/18 04:12 04:12 Creatine Kinase 299 H CK-MB (CK-2) 2.84 Troponin I < 0.012 Impressions: Chest X-Ray 10/23/18 04:39 IMPRESSION: No acute cardiopulmonary abnormality copyright 2011 [email or web address]- All Rights Reserved Abdomen/Pelvis CT 10/23/18 06:21 IMPRESSION: 1. Nonspecific small volume of free fluid in the low pelvis, of uncertain significance. 2. The appendix is not visualized in the right lower quadrant. 3. The stomach is distended with ingested material, similar in configuration pr ior examination. Correlate for signs and symptoms of bowel obstruction and consider endoscopic evaluation if warranted clinically. Assessment & Plan - Diagnosis (1) Elevated lipase Is this a current diagnosis for this admission?: Yes (2) Back pain Qualifiers: Back pain location: low back pain Is this a current diagnosis for this admission?: Yes - Plan Summary Plan Summary: This is a 57-year-old male admitted with hyperglycemic crisis. At present, the patient denies any abdominal pain, and he is eating a regular diet without difficulty. The patient does complain of severe constipation, rectal bleeding, and prolapsing internal hemorrhoids. His last colonoscopy was approximately 5 years ago and was normal. The patient may benefit from outpatient colonoscopic examination with ligation of his internal hemorrhoids. This should be performed once his hyperglycemic crisis has been controlled. On examination, the patient does not exhibit significant abdominal pain. He certainly does not exhibit signs of peritonitis (although hyperglycemic crisis can mimic peritonitis). His lipase is mildly elevated, however he does not show clinical or radiologic signs of pancreatitis. I recommend repeat of his lipase tomorrow after significant hydration. I suspect his lipase will be normal at that time. I have reviewed his CT scan images personally. I do not see any evidence of obstruction. The patient does have severe constipation. I will add stool softeners to the patient's medication regimen and have him drink a bottle of magnesium citrate. I will follow this patient with you.
[2018-10-23] MEDS ORDERED: MAGNESIUM CITRATE 296 ML BOTTLE PO ONE (13:38)
[2018-10-23 16:05] LABS: BLOOD UREA NITROGEN 19 mg/dL (7-20); CARBON DIOXIDE 32 mmol/L (22-30); CHLORIDE 100 mmol/L (98-107); GLUCOSE 174 mg/dL (75-110); POTASSIUM 3.8 mmol/L (3.6-5.0)
[2018-10-23 16:10] LABS: SODIUM 133.7 mmol/L (137-145)
[2018-10-23 16:17] LABS: ANION GAP 2 (5-19)
[2018-10-23] MEDS: INSULIN LISPRO 100 UNIT/ML 3 ML VIAL SUBCUT SCH ×2 (16:23→22:42)
[2018-10-23] MEDS: DOCUSATE SODIUM 100 MG CAPSULE PO SCH (17:37)
[2018-10-23] MEDS: INSULIN DETEMIR 100 UNIT/ML 3 ML PEN SUBCUT SCH (22:42)
[2018-10-24 05:42] LABS: HEMATOCRIT 32.1 % (37.9-51.0); HEMOGLOBIN 11.2 g/dL (13.5-17.0); MEAN CORPUSCULAR HEMOGLOBIN 31.3 pg (27.0-33.4); MEAN CORPUSCULAR HGB CONC 34.9 g/dL (32.0-36.0); PLATELET COUNT 280 10^3/uL (150-450); RED BLOOD COUNT 3.59 10^6/uL (4.35-5.55); RED CELL DISTRIBUTION WIDTH 13.7 % (11.5-14.0); WHITE BLOOD COUNT 6.7 10^3/uL (4.0-10.5)
[2018-10-24 05:44] LABS: MEAN CORPUSCULAR VOLUME 90 fl (80-97)
[2018-10-24] MEDS: GABAPENTIN 300 MG CAPSULE PO SCH ×3 (05:46→21:05)
[2018-10-24] MEDS: NORMAL SALINE 1000 ML 1,000 ML IV PRN (05:49)
[2018-10-24 05:58] LABS: ALANINE AMINOTRANSFERASE 62 U/L (21-72); ALBUMIN 2.7 g/dL (3.5-5.0); ALKALINE PHOSPHATASE 90 U/L (38-126); ASPARTATE AMINO TRANSFERASE 73 U/L (17-59); BILIRUBIN,DIRECT 0.1 mg/dL (0.0-0.4); BILIRUBIN,TOTAL 0.2 mg/dL (0.2-1.3); BLOOD UREA NITROGEN 15 mg/dL (7-20); CALCIUM 8.2 mg/dL (8.4-10.2); CARBON DIOXIDE 31 mmol/L (22-30); CHLORIDE 101 mmol/L (98-107); GLUCOSE 83 mg/dL (75-110); LIPASE 148.8 U/L (23-300); POTASSIUM 3.5 mmol/L (3.6-5.0); SODIUM 134.7 mmol/L (137-145); TOTAL PROTEIN 5.1 g/dL (6.3-8.2)
[2018-10-24 06:07] LABS: ANION GAP 2 (5-19)
[2018-10-24] MEDS ORDERED: ONDANSETRON HCL INJ/PF 4 MG/2 ML SDV IV PRN (07:30)
[2018-10-24] MEDS: INSULIN LISPRO 100 UNIT/ML 3 ML VIAL SUBCUT SCH ×4 (08:41→22:07)
[2018-10-24] MEDS: DOCUSATE SODIUM 100 MG CAPSULE PO SCH ×2 (09:08→17:15)
[2018-10-24] MEDS: FAMOTIDINE 20 MG TABLET PO SCH ×2 (09:08→21:05)
[2018-10-24] MEDS: ENOXAPARIN SODIUM INJ 40 MG/0.4 ML DISP.SYRIN SUBCUT SCH (09:08)
[2018-10-24] MEDS: POTASSIUM CHLORIDE 10 MEQ CAPSULE.ER PO SCH (09:08)
[2018-10-24] MEDS: INSULIN DETEMIR 100 UNIT/ML 3 ML PEN SUBCUT SCH ×2 (09:08→22:08)
--- NOTE | 2018-10-24 15:14 | PDOC PROGRESS REPORT ---
Subjective Progress Note for:: 10/24/18 Subjective:: Patient is complaining of back pain Patient's all the hyperglycemia is getting better Patient's otherwise denied any abdominal pain no nausea no vomiting Patient's p.o. intake is good Patient is a very noncompliance continues to use the substance abuse Reason For Visit: HYPERGLYCEMIA Physical Exam Vital Signs: Temp Pulse Resp BP Pulse Ox 97.8 F 83 14 128/78 H 93 10/24/18 11:18 10/24/18 11:52 10/24/18 11:52 10/24/18 11:18 10/24/18 11:52 Intake & Output 10/23/18 10/24/18 10/25/18 06:59 06:59 06:59 Intake Total 1000 4401 Output Total 2450 Balance 1000 1951 Weight 71.3 kg General appearance: PRESENT: no acute distress, well-developed, well-nourished Head exam: PRESENT: atraumatic, normocephalic Eye exam: PRESENT: conjunctiva pink, EOMI, PERRLA. ABSENT: scleral icterus Ear exam: PRESENT: normal external ear exam Mouth exam: PRESENT: moist, tongue midline Neck exam: PRESENT: full ROM. ABSENT: carotid bruit, JVD, lymphadenopathy, thyromegaly Respiratory exam: PRESENT: clear to auscultation shoaib Cardiovascular exam: PRESENT: RRR. ABSENT: diastolic murmur, rubs, systolic murmur Vascular exam: PRESENT: normal capillary refill GI/Abdominal exam: PRESENT: normal bowel sounds, soft. ABSENT: distended, guarding, mass, organolmegaly, rebound, tenderness Rectal exam: PRESENT: deferred Musculoskeletal exam: PRESENT: ambulatory Neurological exam: PRESENT: alert, awake, oriented to person, oriented to place, oriented to time, oriented to situation, CN II-XII grossly intact. ABSENT: motor sensory deficit Psychiatric exam: PRESENT: appropriate affect, normal mood. ABSENT: homicidal ideation, suicidal ideation Skin exam: PRESENT: dry, intact, warm. ABSENT: cyanosis, rash Results Laboratory Results: 10/24/18 05:20 10/24/18 05:20 10/23/18 10/24/18 10/24/18 15:24 05:20 05:20 WBC 6.7 RBC 3.59 L Hgb 11.2 L Hct 32.1 L MCV 90 D MCH 31.3 MCHC 34.9 RDW 13.7 Plt Count 280 Sodium 133.7 L 134.7 L Potassium 3.8 3.5 L Chloride 100 101 Carbon Dioxide 32 H 31 H Anion Gap 2 L 2 L BUN 19 15 Creatinine 0.75 0.80 Est GFR ( Amer) > 60 > 60 Est GFR (Non-Af Amer) > 60 > 60 Glucose 174 H 83 Calcium 9.0 8.2 L Total Bilirubin 0.2 AST 73 H ALT 62 Alkaline Phosphatase 90 Total Protein 5.1 L Albumin 2.7 L Lipase 148.8 10/23/18 10/23/18 04:12 04:12 Creatine Kinase 299 H CK-MB (CK-2) 2.84 Troponin I < 0.012 Impressions: Chest X-Ray 10/23/18 04:39 IMPRESSION: No acute cardiopulmonary abnormality copyright 2011 [place]- All Rights Reserved Abdomen/Pelvis CT 10/23/18 06:21 IMPRESSION: 1. Nonspecific small volume of free fluid in the low pelvis, of uncertain significance. 2. The appendix is not visualized in the right lower quadrant. 3. The stomach is distended with ingested material, similar in configuration prior examination. Correlate for signs and symptoms of bowel obstruction and consider endoscopic evaluation if warranted clinically. 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 use Is this a current diagnosis for this admission?: Yes Plan: Continues to insulin (3) Noncompliance with medication regimen Is this a current diagnosis for this admission?: Yes Plan: Very extensive discussion with the patient's today since last 6-month will try the patient's to help but patient is not follow the advice I think I told the patient's that nothing much I can offer if the patient's continues to not follow the advice and needs to be find another physicians in the next 30 days (4) Cocaine abuse Is this a current diagnosis for this admission?: Yes Plan: Patient's already seen by the psych very noncompliance (5) Depression Qualifiers: Depression Type: major depressive disorder Is this a current diagnosis for this admission?: Yes Plan: Continues to current medications (6) Hyperkalemia Is this a current diagnosis for this admission?: Yes Plan: Currently all resolved (7) Back pain Qualifiers: Back pain location: low back pain Is this a current diagnosis for this admission?: Yes Plan: Avoid the as possible as all narcotics medication in this patient Will continues the gabapentin Physical therapy And also get the x-ray of the back - Time Time Spent with patient: 15-24 minutes Medications reviewed and adjusted accordingly: Yes Anticipated discharge: Home Within: within 24 hours - Plan Summary Plan Summary: Continues to current medication
--- NOTE | 2018-10-24 15:17 | RADIOLOGY REPORT (SQ) ---
EXAM DESCRIPTION: L SPINE WHOLE COMPLETED DATE/TIME: 10/24/2018 2:45 pm REASON FOR STUDY: back pain COMPARISON: X-ray of the sacrum and coccyx dated 06/07/2014. NUMBER OF VIEWS: Five views including obliques. TECHNIQUE: AP, lateral, oblique, and sacral radiographic images acquired of the lumbar spine. LIMITATIONS: None. FINDINGS: MINERALIZATION: Normal. SEGMENTATION: Normal. No transitional anatomy. ALIGNMENT: Normal. VERTEBRAE: Maintained height. No fracture or worrisome bone lesion. DISCS: Preserved height. No significant osteophytes or end plate irregularity. POSTERIOR ELEMENTS: Pedicles and facets are intact. No pars defect or posterior arch defects. HARDWARE: None in the spine. PARASPINAL SOFT TISSUES: Normal. PELVIS: Intact as visualized. No fractures or worrisome bone lesions. SI joints intact. OTHER: Sclerotic lesion in the right iliac bone, unchanged since May 2014. No other significant finding. IMPRESSION: NORMAL 5 VIEW LUMBAR SPINE. TECHNICAL DOCUMENTATION: JOB ID: [id number] [employer]- All Rights Reserved Reading location - IP/workstation name: [email or web address]
--- NOTE | 2018-10-24 15:53 | PDOC PROGRESS REPORT ---
Subjective Progress Note for:: 10/24/18 Subjective:: There is a 57-year-old male admitted with hyperglycemic crisis. Initially, he was found to have abdominal distention, but this is completely resolved. He is eating without difficulty. He denies any chest pain, shortness of breath, fevers, chills, nausea, vomiting, abdominal pain, melena, hematochezia, hematemesis, dizziness, blurry vision. He does report dysuria and lower back pain, but it is improved since yesterday. Reason For Visit: HYPERGLYCEMIA Physical Exam Vital Signs: Temp Pulse Resp BP Pulse Ox 97.8 F 95 14 128/78 H 93 10/24/18 11:18 10/24/18 14:00 10/24/18 11:52 10/24/18 11:18 10/24/18 11:52 Intake & Output 10/23/18 10/24/18 10/25/18 06:59 06:59 06:59 Intake Total 1000 4401 Output Total 2450 Balance 1000 1951 Weight 71.3 kg General appearance: PRESENT: no acute distress, cooperative Head exam: PRESENT: atraumatic, normocephalic Eye exam: PRESENT: EOMI, PERRLA Mouth exam: PRESENT: moist, neck supple Teeth exam: PRESENT: poor dentation Neck exam: ABSENT: meningismus, tenderness, thyromegaly, tracheal deviation Respiratory exam: PRESENT: clear to auscultation shoaib, unlabored. ABSENT: chest wall tenderness, rales, wheezes Cardiovascular exam: PRESENT: RRR Pulses: PRESENT: normal radial pulses Vascular exam: PRESENT: normal capillary refill, pallor GI/Abdominal exam: PRESENT: soft. ABSENT: distended, firm, guarding, tenderness Rectal exam: PRESENT: deferred Extremities exam: PRESENT: other - Mild bilateral lower extremity edema. Neurological exam: PRESENT: alert, awake, oriented to person, oriented to place, oriented to time, oriented to situation, CN II-XII grossly intact Psychiatric exam: ABSENT: agitated, anxious, depressed Focused psych exam: ABSENT: delusional Skin exam: ABSENT: cyanosis, erythema, jaundice Results Laboratory Results: 10/24/18 05:20 10/24/18 05:20 10/23/18 10/24/18 10/24/18 15:24 05:20 05:20 WBC 6.7 RBC 3.59 L Hgb 11.2 L Hct 32.1 L MCV 90 D MCH 31.3 MCHC 34.9 RDW 13.7 Plt Count 280 Sodium 133.7 L 134.7 L Potassium 3.8 3.5 L Chloride 100 101 Carbon Dioxide 32 H 31 H Anion Gap 2 L 2 L BUN 19 15 Creatinine 0.75 0.80 Est GFR ( Amer) > 60 > 60 Est GFR (Non-Af Amer) > 60 > 60 Glucose 174 H 83 Calcium 9.0 8.2 L Total Bilirubin 0.2 AST 73 H ALT 62 Alkaline Phosphatase 90 Total Protein 5.1 L Albumin 2.7 L Lipase 148.8 10/23/18 10/23/18 04:12 04:12 Creatine Kinase 299 H CK-MB (CK-2) 2.84 Troponin I < 0.012 Impressions: Chest X-Ray 10/23/18 04:39 IMPRESSION: No acute cardiopulmonary abnormality copyright 2010 [employer]- All Rights Reserved Abdomen/Pelvis CT 10/23/18 06:21 IMPRESSION: 1. Nonspecific small volume of free fluid in the low pelvis, of uncertain significance. 2. The appendix is not visualized in the right lower quadrant. 3. The stomach is distended with ingested material, similar in configuration prior examination. Correlate for signs and symptoms of bowel obstruction and consider endoscopic evaluation if warranted clinically. Lumbar Spine X-Ray 10/24/18 00:00 IMPRESSION: NORMAL 5 VIEW LUMBAR SPINE. Assessment & Plan - Diagnosis (1) Elevated lipase Is this a current diagnosis for this admission?: Yes (2) Back pain Qualifiers: Back pain location: low back pain Is this a current diagnosis for this admission?: Yes - Plan Summary Plan Summary: This a 57-year-old male originally with abdominal distention. The patient is doing well today. He has no abdominal pain, or difficulty with eating. The patient's lipase this morning is normal. Today he complains of dysuria and is inquiring about STD testing. I will defer this to his medical physician. I wi ll see the patient again on an as-needed basis. Please renotify with any questions or concerns.
[2018-10-24 19:16] LABS: APPEARANCE,URINE CLEAR; BILIRUBIN,URINE NEGATIVE (NEGATIVE); COLOR,URINE YELLOW; GLUCOSE, URINE >=500 mg/dL (NEGATIVE); KETONES,URINE NEGATIVE (NEGATIVE); LEUKOCYTE ESTERASE,URINE NEGATIVE (NEGATIVE); NITRITE,URINE NEGATIVE (NEGATIVE); PROTEIN,URINE NEGATIVE (NEGATIVE); URINE SPECIFIC GRAVITY 1.022; UROBILINOGEN,URINE NEGATIVE mg/dL (<2.0)
[2018-10-25 02:38] LABS: CHLAM PCR NOT DETECTED (NOT DETECT); GON PCR NOT DETECTED (NOT DETECT)
[2018-10-25] MEDS: GABAPENTIN 300 MG CAPSULE PO SCH (05:14)
[2018-10-25 06:10] LABS: HEMATOCRIT 30.9 % (37.9-51.0); HEMOGLOBIN 10.7 g/dL (13.5-17.0); MEAN CORPUSCULAR HEMOGLOBIN 31.1 pg (27.0-33.4); MEAN CORPUSCULAR HGB CONC 34.6 g/dL (32.0-36.0); MEAN CORPUSCULAR VOLUME 90 fl (80-97); PLATELET COUNT 278 10^3/uL (150-450); RED BLOOD COUNT 3.43 10^6/uL (4.35-5.55); RED CELL DISTRIBUTION WIDTH 13.9 % (11.5-14.0); WHITE BLOOD COUNT 5.5 10^3/uL (4.0-10.5)
[2018-10-25 06:33] LABS: BLOOD UREA NITROGEN 16 mg/dL (7-20); CALCIUM 7.7 mg/dL (8.4-10.2); GLUCOSE 84 mg/dL (75-110); LIPASE 240.5 U/L (23-300); POTASSIUM 4.1 mmol/L (3.6-5.0)
[2018-10-25 06:39] LABS: CARBON DIOXIDE 30 mmol/L (22-30); CHLORIDE 103 mmol/L (98-107); SODIUM 135.3 mmol/L (137-145)
[2018-10-25 06:48] LABS: ANION GAP 2 (5-19)
[2018-10-25] MEDS: INSULIN LISPRO 100 UNIT/ML 3 ML VIAL SUBCUT SCH (08:23)
[2018-10-25] MEDS: POTASSIUM CHLORIDE 10 MEQ CAPSULE.ER PO SCH (09:36)
[2018-10-25] MEDS: DOCUSATE SODIUM 100 MG CAPSULE PO SCH (09:37)
[2018-10-25] MEDS: ENOXAPARIN SODIUM INJ 40 MG/0.4 ML DISP.SYRIN SUBCUT SCH (09:38)
[2018-10-25] MEDS: FAMOTIDINE 20 MG TABLET PO SCH (09:38)
[2018-10-25] MEDS: INSULIN DETEMIR 100 UNIT/ML 3 ML PEN SUBCUT SCH (09:38)
[2018-10-25 09:48] VITALS: BP 165/94
--- NOTE | 2018-10-25 14:05 | PDOC DISCHARGE SUMMARY ---
General - Admit/Disc Date/PCP Admission Date/Primary Care Provider: 10/23/18 05:55 MELY MCDERMOTT MD Discharge Date: 10/25/18 - Discharge Diagnosis (1) Hyperglycemia without ketosis Is this a current diagnosis for this admission?: Yes Summary: Currently all resolved (2) Type 2 diabetes mellitus Is this a current diagnosis for this admission?: Yes Summary: Continues to current medications (3) Noncompliance with medication regimen Is this a current diagnosis for this admission?: Yes (4) Cocaine abuse Is this a current diagnosis for this admission?: Yes (5) Depression Is this a current diagnosis for this admission?: Yes (6) Hyperkalemia Is this a current diagnosis for this admission?: Yes Summary: Currently all resolved (7) Back pain Is this a current diagnosis for this admission?: Yes Summary: Currently all stable - Additional Information Resuscitation Status: Full Code Discharge Diet: Diabetic Discharge Activity: Activity As Tolerated Prescriptions: Cephalexin Monohydrate [Keflex 500 mg Capsule] 500 mg PO TID #15 capsule Famotidine [Pepcid 20 mg Tablet] 20 mg PO Q12 #60 tablet Insulin Detemir [Levemir Insulin 100 units/mL] 25 unit SUBCUT Q12 #4 insuln.pen Home Medications: Gabapentin [Neurontin] 600 mg PO Q8 10/23/18 Insulin Aspart [Novolog Flexpen] 10 unit SUBCUT AC 10/23/18 Insulin Glargine,Hum.rec.anlog [Lantus Insulin 100 Unit/mL] 25 unit SUBCUT Q12 10/23/18 Cephalexin Monohydrate [Keflex 500 mg Capsule] 500 mg PO TID #15 capsule 10/25/18 Famotidine [Pepcid 20 mg Tablet] 20 mg PO Q12 #60 tablet 10/25/18 Insulin Detemir [Levemir Insulin 100 units/mL] 25 unit SUBCUT Q12 #4 insuln.pen 10/25/18 History of Present Illness History of Present Illness: MAMTA CUEVA is a 57 year old male Is a 57-year-old male very noncompliance multiple hospital admissions because of the DKA and substance abuse call 911 because of the complaining of her back pain in the emergency department patient's found the blood sugar was around thousand but not DKA patient started on IV fluid and insulin drip Patient was giving the morphine Patient urine is still positive for the cocaine and patient does admit he use it 3 days before Patient is denied any chest pain to than any shortness of the breath Patient's lipase is slightly elevated Patient is denied drink any alcohol Patient's claimed that he is taking this insulin's the last dose taking last night When I saw the patient in the emergency department alert awake oriented x3 complaint as above other than that no other complaints Hospital Course Hospital Course: This is a 57-year-old male's as usual noncompliance continues use the cocaine came to the emergency department with a complaining of back pain and patient's blood sugar was very high without any ketoacidosis Patient's admitting in the hospital start on IV fluid and insulin drip and patie nts feel much better Patient also have initially some abnormal CT scan which surgery was consulted a nd clear for any obstructions or any other etiology Patient does not have any pancreatitis Patient's p.o. intake is good walking the hallway without any problems Patient's concern about STD recheck pretty much initial result is all negative Very extensive discussions with the patient about to continue substance abuse and noncompliance lead to multiple medical issues Discussed with the patient's to find another physician as well patient was noncompliance nothing which help but patient was to continue to follow and give a more chance Physical Exam Vital Signs: Temp Pulse Resp BP Pulse Ox 98.6 F 102 H 16 165/94 H 100 10/25/18 09:47 10/25/18 09:47 10/25/18 09:47 10/25/18 09:47 10/25/18 09:47 Intake & Output 10/24/18 10/25/18 10/26/18 06:59 06:59 06:59 Intake Total 4401 2133 Output Total 2450 1000 Balance 1951 1133 Weight 71.3 kg 74.9 kg General appearance: PRESENT: no acute distress, well-developed, well-nourished Head exam: PRESENT: atraumatic, normocephalic Eye exam: PRESENT: conjunctiva pink, EOMI, PERRLA. ABSENT: scleral icterus Ear exam: PRESENT: normal external ear exam Mouth exam: PRESENT: moist, tongue midline Neck exam: PRESENT: full ROM. ABSENT: carotid bruit, JVD, lymphadenopathy, thyromegaly Respiratory exam: PRESENT: clear to auscultation shoaib Cardiovascular exam: PRESENT: RRR. ABSENT: diastolic murmur, rubs, systolic murmur Pulses: PRESENT: normal dorsalis pedis pul, +2 pedal pulses bilateral Vascular exam: PRESENT: normal capillary refill GI/Abdominal exam: PRESENT: normal bowel sounds, soft. ABSENT: distended, guarding, mass, organolmegaly, rebound, tenderness Rectal exam: PRESENT: deferred Extremities exam: ABSENT: pedal edema Musculoskeletal exam: PRESENT: ambulatory Neurological exam: PRESENT: alert, awake, oriented to person, oriented to place, oriented to time, oriented to situation, CN II-XII grossly intact. ABSENT: motor sensory deficit Psychiatric exam: PRESENT: appropriate affect, normal mood. ABSENT: homicidal ideation, suicidal ideation Skin exam: PRESENT: dry, intact, warm. ABSENT: cyanosis, rash Results Laboratory Results: 10/25/18 05:52 10/25/18 05:52 10/24/18 10/25/18 10/25/18 18:34 05:52 05:52 WBC 5.5 RBC 3.43 L Hgb 10.7 L Hct 30.9 L MCV 90 MCH 31.1 MCHC 34.6 RDW 13.9 Plt Count 278 Sodium 135.3 L Potassium 4.1 Chloride 103 Carbon Dioxide 30 Anion Gap 2 L BUN 16 Creatinine 0.82 Est GFR ( Amer) > 60 Est GFR (Non-Af Amer) > 60 Glucose 84 Calcium 7.7 L Lipase 240.5 Urine Color YELLOW Urine Appearance CLEAR Urine pH 6.0 Ur Specific [place] 1.022 Urine Protein NEGATIVE Urine Glucose (UA) >=500 H Urine Ketones NEGATIVE Urine Blood NEGATIVE Urine Nitrite NEGATIVE Ur Leukocyte Esterase NEGATIVE Urine WBC (Auto) 5 Urine RBC (Auto) 0 10/23/18 10/23/18 04:12 04:12 Creatine Kinase 299 H CK-MB (CK-2) 2.84 Troponin I < 0.012 Impressions: Chest X-Ray 10/23/18 04:39 IMPRESSION: No acute cardiopulmonary abnormality copyright 2011 [employer]- All Rights Reserved Abdomen/Pelvis CT 10/23/18 06:21 IMPRESSION: 1. Nonspecific small volume of free fluid in the low pelvis, of uncertain significance. 2. The appendix is not visualized in the right lower quadrant. 3. The stomach is distended with ingested material, similar in configuration prior examination. Correlate for signs and symptoms of bowel obstruction and consider endoscopic evaluation if warranted clinically. Lumbar Spine X-Ray 10/24/18 00:00 IMPRESSION: NORMAL 5 VIEW LUMBAR SPINE. Qualifiers - * PATIENT BEING DISCHARGED WITH ANY OF THE FOLLOWING DIAGNOSIS: No VTE patient discharged on overlapping Therapy?: Yes Plan Time Spent: Greater than 30 Minutes - Follow in office 1 week
[2018-10-26 08:39] LABS: HEPATITIS A AB IGM Negative (Negative); HEPATITIS B CORE AB IGM Negative (Negative); HEPATITS B SURFACE ANTIGEN Negative (Negative)
[2018-10-28 07:38] LABS: HEPATITIS C VIRUS ANTIBODY <0.1 s/co ratio (0.0-0.9)
[2018-10-28 11:53] LABS: HIV-1 RNA PCR QUANT <20 copies/mL (.)
== END 2018-10-25 10:52 | disposition home or self-care (01) | DRG 639 ==
LOC: ER 04:06 → EH 05:55 → 3W 10:28
PROVIDERS: ADMIT Family Medicine; ATTEND Family Medicine
PROC: 3E0F73Z Introduction of Anti-inflammatory into Respiratory Tract, Via Natural or Artificial Opening (ICD-10-PCS; principal; 2018-10-23)
PROC: 3E02340 Introduction of Influenza Vaccine into Muscle, Percutaneous Approach (ICD-10-PCS; 2018-10-25)
DX: E11.65 Type 2 diabetes mellitus with hyperglycemia (principal); F14.10 Cocaine abuse, uncomplicated; F32.9 Major depressive disorder, single episode, unspecified; E87.5 Hyperkalemia; M54.5 Low back pain; K59.09 Other constipation; E78.5 Hyperlipidemia, unspecified; J44.9 Chronic obstructive pulmonary disease, unspecified; E11.22 Type 2 diabetes mellitus with diabetic chronic kidney disease; K21.9 Gastro-esophageal reflux disease without esophagitis; N18.9 Chronic kidney disease, unspecified; K64.8 Other hemorrhoids; I12.9 Hypertensive chronic kidney disease with stage 1 through stage 4 chronic kidney disease, or unspecified chronic kidney disease; F17.210 Nicotine dependence, cigarettes, uncomplicated; Z91.14 Patient's other noncompliance with medication regimen; Z23 Encounter for immunization; Z79.899 Other long term (current) drug therapy; Z79.4 Long term (current) use of insulin; Z83.3 Family history of diabetes mellitus; Z82.49 Family history of ischemic heart disease and other diseases of the circulatory system
CPT/HCPCS: 36415; 71045; 72110; 74177; 80048; 80053; 80074; 80307; 81001; 82550; 82553; 82803; 82962; 83690; 83930; 84484; 85025; 85027; 86592; 87086; 87491; 87536; 87591; 90686; 93005; 93010; 99285; J1650; J1815; J2270; J2405; J3490; J7030

== ENCOUNTER 2018-12-29 12:06 | Inpatient (IN) | payer MEDICAID ==
[2018-12-29] MEDS ORDERED: NORMAL SALINE 1000 ML 1,000 ML IV ONE ×2 (12:22→13:33)
[2018-12-29] MEDS ORDERED: ONDANSETRON HCL INJ/PF 4 MG/2 ML SDV IV ONE (12:57)
[2018-12-29 13:00] LABS: ABSOLUTE BASOPHILS # (AUTO) 0.1 10^3/uL (0.0-0.2); ABSOLUTE LYMPHOCYTES (AUTO) 0.9 10^3/uL (0.5-4.7); ABSOLUTE MONOCYTES (AUTO) 0.5 10^3/uL (0.1-1.4); ABSOLUTE NEUT (AUTO) 12.5 10^3/uL (1.7-8.2); BASOPHILS % (AUTO) 0.5 % (0-2); HEMATOCRIT 44.6 % (37.9-51.0); HEMOGLOBIN 13.8 g/dL (13.5-17.0); LYMPHOCYTES % (AUTO) 6.6 % (13-45); MEAN CORPUSCULAR HEMOGLOBIN 30.4 pg (27.0-33.4); MEAN CORPUSCULAR VOLUME 98 fl (80-97); MONOCYTES % (AUTO) 3.2 % (3-13); PLATELET COUNT 279 10^3/uL (150-450); RED BLOOD COUNT 4.54 10^6/uL (4.35-5.55); RED CELL DISTRIBUTION WIDTH 13.6 % (11.5-14.0); SEGMENTED NEUTROPHILS % (AUTO) 89.7 % (42-78); TOTAL CELLS COUNTED % (AUTO) 100 %; WHITE BLOOD COUNT 13.9 10^3/uL (4.0-10.5)
[2018-12-29 13:03] LABS: VENOUS BLOOD BASE EXCESS -24.4 mmol/L; VENOUS BLOOD HCO3 3.4 mmol/L (20-32)
[2018-12-29 13:04] LABS: VENOUS BLOOD PH 7.07 (7.30-7.42)
[2018-12-29 13:17] LABS: ALANINE AMINOTRANSFERASE 56 U/L (21-72); ALBUMIN 4.4 g/dL (3.5-5.0); ALKALINE PHOSPHATASE 116 U/L (38-126); ASPARTATE AMINO TRANSFERASE 33 U/L (17-59); BILIRUBIN,DIRECT 0.7 mg/dL (0.0-0.4); BILIRUBIN,TOTAL 0.7 mg/dL (0.2-1.3); BLOOD UREA NITROGEN 30 mg/dL (7-20); CALCIUM 10.7 mg/dL (8.4-10.2); CHLORIDE 92 mmol/L (98-107); SODIUM 133.6 mmol/L (137-145)
[2018-12-29 13:30] LABS: CARBON DIOXIDE < 5 mmol/L (22-30); GLUCOSE 685 mg/dL (75-110); POTASSIUM 6.1 mmol/L (3.6-5.0)
[2018-12-29] MEDS: NORMAL SALINE 1000 ML 1,000 ML IV PRN ×2 (13:42→13:44)
[2018-12-29] MEDS: INSULIN REG, HUMAN 100 UNIT/ML 3 ML VIAL (PYX) IV ONE ×2 (13:50→14:02)
[2018-12-29] MEDS: NORMAL SALINE 100 ML with INSULIN REGULAR, HUMAN 100 UNIT IV PRN ×4 (13:55→23:13)
--- NOTE | 2018-12-29 13:57 | ER Document Report ---
ED General - General Chief Complaint: High Blood Sugar Stated Complaint: BLOOD SUGAR ISSUES Time Seen by Provider: 12/29/18 12:33 TRAVEL OUTSIDE OF THE [place] IN LAST 30 DAYS: No - HPI Notes: Patient is a 58-year-old gentleman who presents the emergency department for evaluation of abdominal pain, not feeling well, elevated blood sugar. He cannot tell me when the last time he took his insulin was. He states he has some abdominal pain. Denies any fevers. He has had some severe nausea but is asking me repeatedly for something to drink. - Related Data Allergies/Adverse Reactions: No Known Allergies Allergy (Verified 10/14/18 21:32) Past Medical History - General Information source: Patient - Social History Smoking Status: Current Some Day Smoker Family History: Reviewed & Not Pertinent, CAD - father at 59 of heart problems, DM - mother - Past Medical History Cardiac Medical History: Reports: Hx Hypercholesterolemia, Hx Hypertension Pulmonary Medical History: Reports: Hx COPD Denies: Hx Tuberculosis Neurological Medical History: Denies: Hx Seizures Endocrine Medical History: Reports: Hx Diabetes Mellitus Type 1, Hx Diabetes Mellitus Type 2 Renal/ Medical History: Reports: Hx Benign Prostatic Hyperplasia. Denies: Hx Peritoneal Dialysis GI Medical History: Reports: Hx Gastroesophageal Reflux Disease Psychiatric Medical History: Reports: Hx Depression Past Surgical History: Reports: Hx Orthopedic Surgery - jaw - Immunizations Hx Diphtheria, Pertussis, Tetanus Vaccination: No Hx Pneumococcal Vaccination: 05/09/13 Review of Systems - Review of Systems Constitutional: Weakness EENT: No symptoms reported Cardiovascular: No symptoms reported Respiratory: No symptoms reported Gastrointestinal: See HPI Genitourinary: No symptoms reported Musculoskeletal: No symptoms reported Skin: No symptoms reported Neurological/Psychological: No symptoms reported Physical Exam - Vital signs Vitals: Resp Pulse Ox 22 H 99 12/29/18 12:08 12/29/18 12:08 - Notes Notes: Patient is a 58-year-old male appears stated age, moderate amount of distress. 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 Head is normocephalic and atraumatic. Pupils are equal, round, reactive to light. Oral mucosa slightly dry. Heart is mildly tachycardic with normal S1-S2. Lungs are clear to oscillation bilaterally. Abdomen is soft and diffusely tender without rebound or guarding. Extremities without cyanosis or clubbing. Patient is awake and alert, oriented x3. Moves all 4 extremities spontaneously. No gross facial asymmetry. Course - Re-evaluation Re-evalutation: 12/29/18 13:51 Patient presents to the emergency department for evaluation. I do actually know this patient from a prior visit. His laboratory investigations were consistent with DKA, which is consistent with his presentation. He was started on insulin drip, IV fluids were administered. Patient's vital signs remained stable. Currently his heart rate is 100, respiratory rate has decreased to 20, blood pressure 151/83. I spoke with Dr. Barrios, covering for Dr. Mendez this weekend, who will admit the patient for further care. 12/29/18 14:04 Notified by nursing that the patient is complaining of some chest pain. EKG ordered. 12/29/18 14:18 Patient's EKG fails to reveal any significant ST changes or changes from prior study. There is some limitation secondary to motion artifact. At the time of the EKG being performed, and following that, he has had no chest pain. Patient will be admitted to the hospital. 12/29/18 14:20 - Vital Signs Vital signs: Temp Pulse Resp BP Pulse Ox 97.4 F 25 H 152/83 H 100 12/29/18 12:22 12/29/18 13:01 12/29/18 13:00 12/29/18 13:01 - Laboratory Result Diagrams: 12/29/18 12:32 12/29/18 12:32 Laboratory results interpreted by me: 12/29/18 12/29/18 12/29/18 12:32 12:32 12:32 WBC 13.9 H MCV 98 H MCHC 31.0 L Seg Neutrophils % 89.7 H Lymphocytes % 6.6 L Absolute Neutrophils 12.5 H VBG pH 7.07 L* VBG pCO2 12.0 L* VBG HCO3 3.4 L Sodium 133.6 L Potassium 6.1 H* Chloride 92 L Carbon Dioxide < 5 L* BUN 30 H Creatinine 1.78 H Est GFR ( Amer) 48 L Est GFR (Non-Af Amer) 40 L Glucose 685 H* Calcium 10.7 H Direct Bilirubin 0.7 H - EKG Interpretation by Me Additional EKG results interpreted by me: 12/29/18 14:18 Sinus tachycardia with a rate of 100 bpm. Normal axis normal intervals, nonspecific ST changes, but no acute changes concerning for ischemia or infarction. Discharge - Discharge Clinical Impression: DKA (diabetic ketoacidoses), Noncompliance with medication regimen Condition: Stable Disposition: ADMITTED INPATIENT Admitting Provider: Andrea Barrios covering Unit Admitted: [facility]
[2018-12-29 14:39] LABS: APPEARANCE,URINE CLEAR; BILIRUBIN,URINE NEGATIVE (NEGATIVE); COLOR,URINE YELLOW; GLUCOSE, URINE >=500 mg/dL (NEGATIVE); KETONES,URINE 80 mg/dL (NEGATIVE); LEUKOCYTE ESTERASE,URINE NEGATIVE (NEGATIVE); NITRITE,URINE NEGATIVE (NEGATIVE); PROTEIN,URINE 30 mg/dL (NEGATIVE); URINE SPECIFIC GRAVITY 1.021; UROBILINOGEN,URINE NEGATIVE mg/dL (<2.0)
[2018-12-29] MEDS ORDERED: NORMAL SALINE 1000 ML 1,000 ML IV PRN (15:06)
[2018-12-29] MEDS ORDERED: DEXTROSE 40% GEL 15 GM TUBE PO PRN ×2 (15:12)
[2018-12-29] MEDS ORDERED: GLUCAGON,HUMAN RECOMB 1 MG INJ IM PRN (15:12)
[2018-12-29] MEDS ORDERED: NORMAL SALINE 100 ML with INSULIN REGULAR, HUMAN 100 UNIT IV PRN ×2 (15:12)
[2018-12-29] MEDS ORDERED: DEXTROSE 50%-WATER 25 GM/50 ML DISP.SYRIN IV PRN ×2 (15:12)
[2018-12-29 16:18] LABS: ARTERIAL BLOOD BASE EXCESS -23.4 mmol/L; ARTERIAL BLOOD FIO2 ROOM AIR; ARTERIAL BLOOD H2CO3 0.45 mmol/L (1.05-1.35); ARTERIAL BLOOD HCO3 4.4 mmol/L (20-24); ARTERIAL BLOOD O2 SATURATION 97.7 % (94-98); ARTERIAL BLOOD PO2 135.3 mmHg (80-100); ARTERIAL BLOOD TOTAL CO2 4.8 mmol/L (23-27)
[2018-12-29 16:20] LABS: ARTERIAL BLOOD PH 7.08 (7.35-7.45)
[2018-12-29] MEDS: ENOXAPARIN SODIUM INJ 40 MG/0.4 ML DISP.SYRIN SUBCUT SCH (16:43)
[2018-12-29 17:17] LABS: LIPASE 830.5 U/L (23-300); PHOSPHORUS 5.5 mg/dL (2.5-4.5)
[2018-12-29 17:18] LABS: BLOOD UREA NITROGEN 28 mg/dL (7-20); CALCIUM 9.2 mg/dL (8.4-10.2); CHLORIDE 106 mmol/L (98-107); CREATINE KINASE 143 U/L (55-170); SODIUM 139.8 mmol/L (137-145)
[2018-12-29 17:25] LABS: INTERNATIONAL RATION (INR) 0.84
[2018-12-29 17:25] LABS: POTASSIUM 4.8 mmol/L (3.6-5.0)
[2018-12-29 17:26] LABS: PARTIAL THROMBOPLASTIN TIME 22.5 SEC (23.5-35.8)
[2018-12-29 17:27] LABS: CARBON DIOXIDE < 5 mmol/L (22-30); GLUCOSE 452 mg/dL (75-110)
[2018-12-29 17:30] LABS: CREATINE KINASE MB 4.21 ng/mL (<4.55); TROPONIN I < 0.012 ng/mL
[2018-12-29 17:31] LABS: FREE T4 (FREE THYROXINE) 0.68 ng/dL (0.78-2.19)
[2018-12-29 17:45] LABS: THYROID STIMULATING HORMONE 1.38 uIU/mL (0.47-4.68)
--- NOTE | 2018-12-29 17:47 | EKG REPORT ---
SEVERITY:- ABNORMAL ECG - SINUS TACHYCARDIA PROBABLE LVH WITH SECONDARY REPOL ABNRM ST ELEVATION , NORMAL VARIANT. : Confirmed by: Navarro Gomez MD 29-Dec-2018 17:46:08
[2018-12-29 19:28] LABS: BLOOD UREA NITROGEN 26 mg/dL (7-20); CALCIUM 9.3 mg/dL (8.4-10.2); GLUCOSE 310 mg/dL (75-110); POTASSIUM 4.4 mmol/L (3.6-5.0)
[2018-12-29 19:33] LABS: CHLORIDE 110 mmol/L (98-107); SODIUM 142.8 mmol/L (137-145)
[2018-12-29 19:40] LABS: ANION GAP 26 (5-19); CARBON DIOXIDE 7 mmol/L (22-30)
[2018-12-29 19:55] LABS: URINE AMPHETAMINES SCREEN NEGATIVE; URINE BARBITURATES SCREEN NEGATIVE; URINE BENZODIAZEPINES SCREEN NEGATIVE; URINE COCAINE SCREEN UNCONFIRMED POSITIVE; URINE MARIJUANA (THC) SCREEN NEGATIVE; URINE METHADONE SCREEN NEGATIVE; URINE PHENCYCLIDINE SCREEN NEGATIVE
[2018-12-29] MEDS: DEXTROSE 5%-1/2 NORMAL SALINE 1,000 ML IV PRN (20:20)
[2018-12-29 21:21] LABS: CREATINE KINASE MB 4.15 ng/mL (<4.55)
[2018-12-29 21:31] LABS: TROPONIN I < 0.012 ng/mL
[2018-12-29] MEDS ORDERED: INSULIN REG, HUMAN 100 UNIT/ML 3 ML VIAL (PYX) ONE (23:10)
[2018-12-30 00:01] LABS: BLOOD UREA NITROGEN 24 mg/dL (7-20); CALCIUM 8.9 mg/dL (8.4-10.2); CHLORIDE 112 mmol/L (98-107); GLUCOSE 207 mg/dL (75-110); POTASSIUM 3.8 mmol/L (3.6-5.0); SODIUM 141.6 mmol/L (137-145)
[2018-12-30 00:54] LABS: CARBON DIOXIDE 9 mmol/L (22-30)
[2018-12-30 01:42] LABS: ANION GAP 21 (5-19)
[2018-12-30] MEDS: DEXTROSE 5%-1/2 NORMAL SALINE 1,000 ML IV PRN (03:01)
[2018-12-30] MEDS ORDERED: INSULIN REG, HUMAN 100 UNIT/ML 3 ML VIAL (PYX) ONE (03:59)
[2018-12-30] MEDS: NORMAL SALINE 100 ML with INSULIN REGULAR, HUMAN 100 UNIT IV PRN ×2 (04:01)
[2018-12-30 04:31] LABS: HEMATOCRIT 39.7 % (37.9-51.0); HEMOGLOBIN 13.3 g/dL (13.5-17.0); MEAN CORPUSCULAR HEMOGLOBIN 30.5 pg (27.0-33.4); MEAN CORPUSCULAR HGB CONC 33.6 g/dL (32.0-36.0); PLATELET COUNT 244 10^3/uL (150-450); RED BLOOD COUNT 4.37 10^6/uL (4.35-5.55); RED CELL DISTRIBUTION WIDTH 12.8 % (11.5-14.0); WHITE BLOOD COUNT 16.3 10^3/uL (4.0-10.5)
[2018-12-30 04:36] LABS: MEAN CORPUSCULAR VOLUME 91 fl (80-97)
[2018-12-30 04:51] LABS: BLOOD UREA NITROGEN 20 mg/dL (7-20); CALCIUM 9.1 mg/dL (8.4-10.2); CHLORIDE 113 mmol/L (98-107); CHOLESTEROL 243.67 mg/dL (0-200); CREATINE KINASE 105 U/L (55-170); POTASSIUM 3.4 mmol/L (3.6-5.0); SODIUM 142.2 mmol/L (137-145); TRIGLYCERIDES 137 mg/dL (<150)
[2018-12-30 04:55] LABS: ABSOLUTE LYMPHOCYTES# (MANUAL) 0.7 10^3/uL (0.5-4.7); ABSOLUTE MONOCYTES # (MANUAL) 0.8 10^3/uL (0.1-1.4); ABSOLUTE NEUTROPHILS# (MANUAL) 14.8 10^3/uL (1.7-8.2); BAND NEUTROPHILS % (MANUAL) 1 % (3-5); BASOPHILS % (MANUAL) 0 % (0-2); EOSINOPHILS % (MANUAL) 0 % (0-6); LYMPHOCYTES % (MANUAL) 4 % (13-45); MONOCYTES % (MANUAL) 5 % (3-13); SEGMENTED NEUTROPHILS % (MAN) 90 % (42-78); TOTAL CELLS COUNTED 100
[2018-12-30 04:56] LABS: HYPOCHROMASIA SLIGHT; TARGET CELLS SLIGHT
[2018-12-30 04:57] LABS: PLATELET CLUMPS PRESENT
[2018-12-30 05:01] LABS: DIRECT LDL 124 mg/dL (<100)
[2018-12-30 05:09] LABS: CREATINE KINASE MB 3.49 ng/mL (<4.55); TROPONIN I 0.013 ng/mL
[2018-12-30] MEDS ORDERED: NORMAL SALINE 1000 ML 1,000 ML IV PRN (05:59)
[2018-12-30] MEDS ORDERED: INSULIN GLARGINE,HUM.REC.ANLOG 1,000 UNIT/10 ML VIAL (PYX) SUBCUT PRN (05:59)
[2018-12-30] MEDS ORDERED: INSULIN GLARGINE,HUM.REC.ANLOG 1,000 UNIT/10 ML VIAL SUBCUT ONE (06:10)
[2018-12-30] MEDS ORDERED: DEXTROSE 50%-WATER SYRINGE 25 GM/50 ML DOSE IV PRN (06:30)
[2018-12-30] MEDS ORDERED: DEXTROSE 40% GEL 15 GM TUBE X 2 PO PRN (06:30)
[2018-12-30] MEDS ORDERED: DEXTROSE 40% GEL 15 GM TUBE PO PRN (06:30)
[2018-12-30] MEDS ORDERED: DEXTROSE 50%-WATER SYRINGE 12.5 GM/25 ML DOSE IV PRN (06:30)
[2018-12-30] MEDS ORDERED: GLUCAGON,HUMAN RECOMB 1 MG INJ IM PRN (06:30)
[2018-12-30 08:04] LABS: ANION GAP 11 (5-19)
[2018-12-30 08:08] LABS: ANION GAP 5 (5-19); BLOOD UREA NITROGEN 20 mg/dL (7-20); CALCIUM 8.9 mg/dL (8.4-10.2); CARBON DIOXIDE 23 mmol/L (22-30); CHLORIDE 113 mmol/L (98-107); GLUCOSE 123 mg/dL (75-110); SODIUM 141.2 mmol/L (137-145)
[2018-12-30 08:11] LABS: CARBON DIOXIDE 18 mmol/L (22-30)
[2018-12-30 08:13] LABS: GLUCOSE 68 mg/dL (75-110)
[2018-12-30 08:15] LABS: POTASSIUM 4.4 mmol/L (3.6-5.0)
--- NOTE | 2018-12-30 08:20 | PDOC PROGRESS REPORT ---
Subjective Progress Note for:: 12/30/18 Subjective:: And was admitted for the as usual DKA due to the noncompliance and a cocaine abuser Patient is currently doing well Denied any chest pain Denied any shortness of the breath No abdominal pain Patient's anion gap is all normal Patient off the insulin drip Patient's is a very noncompliant and varies extensive discussion with the patient's parents they know very well about the patient's noncompliance and nothing much can offer why patients does not have any desire Patient have a psych evaluations done with extensively Patient usually not following office as supposed to Reason For Visit: DKA Physical Exam Vital Signs: Temp Pulse Resp BP Pulse Ox 97.6 F 86 16 123/6 L 98 12/30/18 05:00 12/30/18 07:00 12/30/18 05:00 12/30/18 05:00 12/30/18 05:00 Intake & Output 12/29/18 12/30/18 12/31/18 06:59 06:59 06:59 Intake Total 4556 Output Total 825 Balance 3731 Weight 58.3 kg General appearance: PRESENT: no acute distress, well-developed, well-nourished Head exam: PRESENT: atraumatic, normocephalic Eye exam: PRESENT: conjunctiva pink, EOMI, PERRLA. ABSENT: scleral icterus Ear exam: PRESENT: normal external ear exam Mouth exam: PRESENT: moist, tongue midline Neck exam: PRESENT: full ROM. ABSENT: carotid bruit, JVD, lymphadenopathy, thyromegaly Respiratory exam: PRESENT: clear to auscultation shoaib Cardiovascular exam: PRESENT: RRR. ABSENT: diastolic murmur, rubs, systolic murmur Vascular exam: PRESENT: normal capillary refill GI/Abdominal exam: PRESENT: normal bowel sounds, soft. ABSENT: distended, guarding, mass, organolmegaly, rebound, tenderness Rectal exam: PRESENT: deferred Neurological exam: PRESENT: alert, awake, oriented to person, oriented to place, oriented to time, oriented to situation, CN II-XII grossly intact. ABSENT: motor sensory deficit Psychiatric exam: PRESENT: appropriate affect, normal mood. ABSENT: homicidal ideation, suicidal ideation Skin exam: PRESENT: dry, intact, warm. ABSENT: cyanosis, rash Results Laboratory Results: 12/30/18 03:40 12/30/18 07:38 12/29/18 12/29/18 12/29/18 12:32 12:32 12:32 WBC 13.9 H RBC 4.54 Hgb 13.8 Hct 44.6 MCV 98 H MCH 30.4 MCHC 31.0 L RDW 13.6 Plt Count 279 Seg Neutrophils % 89.7 H Lymphocytes % 6.6 L Monocytes % 3.2 Eosinophils % 0.0 Basophils % 0.5 Absolute Neutrophils 12.5 H Absolute Lymphocytes 0.9 Absolute Monocytes 0.5 Absolute Eosinophils 0.0 Absolute Basophils 0.1 Carbonic Acid HCO3/H2CO3 Ratio ABG pH ABG pCO2 ABG pO2 ABG HCO3 ABG O2 Saturation ABG Base Excess VBG pH 7.07 L* VBG pCO2 12.0 L* VBG HCO3 3.4 L VBG Base Excess -24.4 FiO2 Sodium 133.6 L Potassium 6.1 H* Chloride 92 L Carbon Dioxide < 5 L* Anion Gap Not Reportable BUN 30 H Creatinine 1.78 H Est GFR ( Amer) 48 L Est GFR (Non-Af Amer) 40 L Glucose 685 H* Lactic Acid Calcium 10.7 H Phosphorus Magnesium Total Bilirubin 0.7 AST 33 ALT 56 Alkaline Phosphatase 116 Ammonia Total Protein 7.0 Albumin 4.4 Triglycerides Cholesterol LDL Cholesterol Direct VLDL Cholesterol HDL Cholesterol Amylase Lipase TSH Free T4 Urine Color Urine Appearance Urine pH Ur Specific [place] Urine Protein Urine Glucose (UA) Urine Ketones Urine Blood Urine Nitrite Ur Leukocyte Esterase Urine RBC (Auto) 12/29/18 12/29/18 12/29/18 13:37 15:59 16:30 WBC RBC Hgb Hct MCV MCH MCHC RDW Plt Count Seg Neutrophils % Lymphocytes % Monocytes % Eosinophils % Basophils % Absolute Neutrophils Absolute Lymphocytes Absolute Monocytes Absolute Eosinophils Absolute Basophils Carbonic Acid 0.45 L HCO3/H2CO3 Ratio 9:1 ABG pH 7.08 L* ABG pCO2 15.0 L* ABG pO2 135.3 H ABG HCO3 4.4 L ABG O2 Saturation 97.7 ABG Base Excess -23.4 VBG pH VBG pCO2 VBG HCO3 VBG Base Excess FiO2 ROOM AIR Sodium Potassium Chloride Carbon Dioxide Anion Gap BUN Creatinine Est GFR ( Amer) Est GFR (Non-Af Amer) Glucose Lactic Acid Calcium Phosphorus 5.5 H Magnesium 2.4 H Total Bilirubin AST ALT Alkaline Phosphatase Ammonia Total Protein Albumin Triglycerides Cholesterol LDL Cholesterol Direct VLDL Cholesterol HDL Cholesterol Amylase 167 H Lipase 830.5 H TSH Free T4 Urine Color YELLOW Urine Appearance CLEAR Urine pH 5.0 Ur Specific [place] 1.021 Urine Protein 30 H Urine Glucose (UA) >=500 H Urine Ketones 80 H Urine Blood MODERATE H Urine Nitrite NEGATIVE Ur Leukocyte Esterase NEGATIVE Urine RBC (Auto) 1 12/29/18 12/29/18 12/29/18 16:30 16:30 16:30 WBC RBC Hgb Hct MCV MCH MCHC RDW Plt Count Seg Neutrophils % Lymphocytes % Monocytes % Eosinophils % Basophils % Absolute Neutrophils Absolute Lymphocytes Absolute Monocytes Absolute Eosinophils Absolute Basophils Carbonic Acid HCO3/H2CO3 Ratio ABG pH ABG pCO2 ABG pO2 ABG HCO3 ABG O2 Saturation ABG Base Excess VBG pH VBG pCO2 VBG HCO3 VBG Base Excess FiO2 Sodium 139.8 Potassium 4.8 D Chloride 106 Carbon Dioxide < 5 L* Anion Gap Not Reportable BUN 28 H Creatinine 1.43 H Est GFR ( Amer) > 60 Est GFR (Non-Af Amer) 51 L Glucose 452 H* Lactic Acid Calcium 9.2 Phosphorus Magnesium Total Bilirubin AST ALT Alkaline Phosphatase Ammonia 9.8 Total Protein Albumin Triglycerides Cholesterol LDL Cholesterol Direct VLDL Cholesterol HDL Cholesterol Amylase Lipase TSH 1.38 Free T4 0.68 L Urine Color Urine Appearance Urine pH Ur Specific [place] Urine Protein Urine Glucose (UA) Urine Ketones Urine Blood Urine Nitrite Ur Leukocyte Esterase Urine RBC (Auto) 12/29/18 12/29/18 12/29/18 16:30 16:30 18:55 WBC RBC Hgb Hct MCV MCH MCHC RDW Plt Count Seg Neutrophils % Lymphocytes % Monocytes % Eosinophils % Basophils % Absolute Neutrophils Absolute Lymphocytes Absolute Monocytes Absolute Eosinophils Absolute Basophils Carbonic Acid HCO3/H2CO3 Ratio ABG pH ABG pCO2 ABG pO2 ABG HCO3 ABG O2 Saturation ABG Base Excess VBG pH VBG pCO2 VBG HCO3 VBG Base Excess FiO2 Sodium 142.8 Potassium 4.4 Chloride 110 H Carbon Dioxide 7 L* Anion Gap 26 H BUN 26 H Creatinine 1.35 H Est GFR ( Amer) > 60 Est GFR (Non-Af Amer) 54 L Glucose Cancelled 310 H Lactic Acid 2.5 H Calcium 9.3 Phosphorus Magnesium Total Bilirubin AST ALT Alkaline Phosphatase Ammonia Total Protein Albumin Triglycerides Cholesterol LDL Cholesterol Direct VLDL Cholesterol HDL Cholesterol Amylase Lipase TSH Free T4 Urine Color Urine Appearance Urine pH Ur Specific [place] Urine Protein Urine Glucose (UA) Urine Ketones Urine Blood Urine Nitrite Ur Leukocyte Esterase Urine RBC (Auto) 12/29/18 12/30/18 12/30/18 23:16 03:40 03:40 WBC 16.3 H RBC 4.37 Hgb 13.3 L Hct 39.7 MCV 91 D MCH 30.5 MCHC 33.6 RDW 12.8 Plt Count 244 Seg Neutrophils % Not Reportable Lymphocytes % Not Reportable Monocytes % Not Reportable Eosinophils % Not Reportable Basophils % Not Reportable Absolute Neutrophils Not Reportable Absolute Lymphocytes Not Reportable Absolute Monocytes Not Reportable Absolute Eosinophils Not Reportable Absolute Basophils Not Reportable Carbonic Acid HCO3/H2CO3 Ratio ABG pH ABG pCO2 ABG pO2 ABG HCO3 ABG O2 Saturation ABG Base Excess VBG pH VBG pCO2 VBG HCO3 VBG Base Excess FiO2 Sodium 141.6 142.2 Potassium 3.8 3.4 L Chloride 112 H 113 H Carbon Dioxide 9 L* 18 L Anion Gap 21 H 11 BUN 24 H 20 Creatinine 1.07 1.00 Est GFR ( Amer) > 60 > 60 Est GFR (Non-Af Amer) > 60 > 60 Glucose 207 H 68 L Lactic Acid Calcium 8.9 9.1 Phosphorus Magnesium Total Bilirubin AST ALT Alkaline Phosphatase Ammonia Total Protein Albumin Triglycerides Cholesterol LDL Cholesterol Direct VLDL Cholesterol HDL Cholesterol Amylase Lipase TSH Free T4 Urine Color Urine Appearance Urine pH Ur Specific [place] Urine Protein Urine Glucose (UA) Urine Ketones Urine Blood Urine Nitrite Ur Leukocyte Esterase Urine RBC (Auto) 12/30/18 12/30/18 03:40 07:38 WBC RBC Hgb Hct MCV MCH MCHC RDW Plt Count Seg Neutrophils % Lymphocytes % Monocytes % Eosinophils % Basophils % Absolute Neutrophils Absolute Lymphocytes Absolute Monocytes Absolute Eosinophils Absolute Basophils Carbonic Acid HCO3/H2CO3 Ratio ABG pH ABG pCO2 ABG pO2 ABG HCO3 ABG O2 Saturation ABG Base Excess VBG pH VBG pCO2 VBG HCO3 VBG Base Excess FiO2 Sodium 141.2 Potassium 4.4 D Chloride 113 H Carbon Dioxide 23 Anion Gap 5 BUN 20 Creatinine 0.89 Est GFR ( Amer) > 60 Est GFR (Non-Af Amer) > 60 Glucose 123 H Lactic Acid Calcium 8.9 Phosphorus Magnesium Total Bilirubin AST ALT Alkaline Phosphatase Ammonia Total Protein Albumin Triglycerides 137 Cholesterol 243.67 H LDL Cholesterol Direct 124 H VLDL Cholesterol 27.0 HDL Cholesterol 64 Amylase Lipase TSH Free T4 Urine Color Urine Appearance Urine pH Ur Specific [place] Urine Protein Urine Glucose (UA) Urine Ketones Urine Blood Urine Nitrite Ur Leukocyte Esterase Urine RBC (Auto) 12/29/18 12/29/18 12/29/18 16:30 16:30 20:45 Creatine Kinase 143 139 CK-MB (CK-2) 4.21 Troponin I < 0.012 12/29/18 12/30/18 12/30/18 20:45 03:40 03:40 Creatine Kinase 105 CK-MB (CK-2) 4.15 3.49 Troponin I < 0.012 0.013 Assessment & Plan - Diagnosis (1) DKA (diabetic ketoacidoses) Qualifiers: Diabetes mellitus type: type 2 Diabetes mellitus 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: with local 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 Diabetes mellitus complication detail: without coma Qualified Code(s): E11.10 - Type 2 diabetes mellitus with ketoacidosis without coma; Z79.4 - long-term (current) use of insulin Is this a current diagnosis for this admission?: Yes Plan: Continues to sliding scale Resume the Lantus Continues to monitor Continues to IV fluid (2) Noncompliance with medication regimen Is this a current diagnosis for this admission?: Yes (3) Cocaine abuse Is this a current diagnosis for this admission?: Yes (4) Depression Qualifiers: Depression Type: major depressive disorder Is this a current diagnosis for this admission?: Yes (5) Type 2 diabetes mellitus Qualifiers: Diabetes mellitus intermediate insulin use: with intermediate use Diabetes mellitus complication status: with unspecified complications Qualified Code(s): E11.8 - Type 2 diabetes mellitus with unspecified complications; Z79.4 - long term (current) use of insulin Is this a current diagnosis for this admission?: Yes - Time Time Spent with patient: 15-24 minutes Medications reviewed and adjusted accordingly: Yes Anticipated discharge: Home Within: Other - Plan Summary Plan Summary: Discussed with the patient and the nursing staff Continues to sliding scale Diabetic education's Continues to Lantus
[2018-12-30] MEDS: INSULIN LISPRO 100 UNIT/ML 3 ML VIAL SUBCUT SCH ×4 (08:35→21:19)
[2018-12-30] MEDS: GABAPENTIN 300 MG CAPSULE PO SCH ×3 (09:10→21:19)
[2018-12-30] MEDS: ENOXAPARIN SODIUM INJ 40 MG/0.4 ML DISP.SYRIN SUBCUT SCH (09:10)
[2018-12-30] MEDS: NORMAL SALINE 1000 ML 1,000 ML IV PRN ×2 (09:50→20:22)
--- NOTE | 2018-12-30 12:37 | PDOC H&P ---
History of Present Illness Admission Date/PCP: 12/29/18 14:16 MELY MCDERMOTT MD History of Present Illness: MAMTA CUEVA is a 58 year old male he has a history of type 1 diabetes mellitus cocaine abuse, he came to the emergency room for evaluation of DKA, based on the medication reconciliation, no medication was reported for patient suggesting that he is not on any insulin regimen despite being a type I diabetic, the UDS was positive for cocaine. He came in DKA with lethargy, history taking was a challenge, he was very acidotic the blood sugar was over 600. He was started on insulin drip per protocol, he will continue insulin drip until anion gap is less than 12, the insulin drip is to correct ketosis. Patient also on Accu-Chek every hour we will change IV to 5% dextrose once Accu-Chek as below 250 mg percent Past Medical History Cardiac Medical History: Reports: Hyperlipidema, Hypertension Pulmonary Medical History: Reports: Chronic Obstructive Pulmonary Disease (COPD) Endocrine Medical History: Reports: Diabetes Mellitus Type 1 GI Medical History: Reports: Gastroesophageal Reflux Disease Psychiatric Medical History: Reports: Depression, Substance Abuse Past Surgical History Past Surgical History: Reports: Orthopedic Surgery - jaw Social History Smoking Status: Current Some Day Smoker Frequency of Alcohol Use: None Hx Recreational Drug Use: No Drugs: None, Cocaine Hx Prescription Drug Abuse: No - Advance Directive Resuscitation Status: Full Code Family History Family History: Reviewed & Not Pertinent, CAD - father at 59 of heart problems, DM - mother Parental Family History Reviewed: Yes Children Family History Reviewed: Yes Sibling(s) Family History Reviewed.: Yes Medication/Allergy Home Medications: Gabapentin [Neurontin] 600 mg PO Q8 12/29/18 Allergies/Adverse Reactions: No Known Allergies Allergy (Verified 10/14/18 21:32) Review of Systems ROS unobtainable: Due to mental status Physical Exam Vital Signs: Temp Pulse Resp BP Pulse Ox 99 F 90 14 156/81 H 99 12/30/18 12:23 12/30/18 12:23 12/30/18 12:23 12/30/18 12:23 12/30/18 12:23 Intake & Output 12/29/18 12/30/18 12/31/18 06:59 06:59 06:59 Intake Total 4556 518 Output Total 825 Balance 3731 518 Weight 58.3 kg General appearance: PRESENT: no acute distress Head exam: PRESENT: atraumatic, normocephalic Mouth exam: PRESENT: moist, tongue midline Neck exam: PRESENT: full ROM Respiratory exam: PRESENT: clear to auscultation shoaib Cardiovascular exam: PRESENT: RRR, +S1, +S2 Vascular exam: PRESENT: normal capillary refill GI/Abdominal exam: PRESENT: normal bowel sounds, soft Rectal exam: PRESENT: deferred Neurological exam: PRESENT: altered, CN II-XII grossly intact Psychiatric exam: PRESENT: appropriate affect, normal mood Skin exam: PRESENT: dry, intact, warm Results Laboratory Results: 12/30/18 03:40 12/30/18 07:38 12/29/18 12/29/18 12/29/18 12:32 12:32 12:32 WBC 13.9 H RBC 4.54 Hgb 13.8 Hct 44.6 MCV 98 H MCH 30.4 MCHC 31.0 L RDW 13.6 Plt Count 279 Seg Neutrophils % 89.7 H Lymphocytes % 6.6 L Monocytes % 3.2 Eosinophils % 0.0 Basophils % 0.5 Absolute Neutrophils 12.5 H Absolute Lymphocytes 0.9 Absolute Monocytes 0.5 Absolute Eosinophils 0.0 Absolute Basophils 0.1 Carbonic Acid HCO3/H2CO3 Ratio ABG pH ABG pCO2 ABG pO2 ABG HCO3 ABG O2 Saturation ABG Base Excess VBG pH 7.07 L* VBG pCO2 12.0 L* VBG HCO3 3.4 L VBG Base Excess -24.4 FiO2 Sodium 133.6 L Potassium 6.1 H* Chloride 92 L Carbon Dioxide < 5 L* Anion Gap Not Reportable BUN 30 H Creatinine 1.78 H Est GFR ( Amer) 48 L Est GFR (Non-Af Amer) 40 L Glucose 685 H* Lactic Acid Calcium 10.7 H Phosphorus Magnesium Total Bilirubin 0.7 AST 33 ALT 56 Alkaline Phosphatase 116 Ammonia Total Protein 7.0 Albumin 4.4 Triglycerides Cholesterol LDL Cholesterol Direct VLDL Cholesterol HDL Cholesterol Amylase Lipase TSH Free T4 Urine Color Urine Appearance Urine pH Ur Specific [place] Urine Protein Urine Glucose (UA) Urine Ketones Urine Blood Urine Nitrite Ur Leukocyte Esterase Urine RBC (Auto) 12/29/18 12/29/18 12/29/18 13:37 15:59 16:30 WBC RBC Hgb Hct MCV MCH MCHC RDW Plt Count Seg Neutrophils % Lymphocytes % Monocytes % Eosinophils % Basophils % Absolute Neutrophils Absolute Lymphocytes Absolute Monocytes Absolute Eosinophils Absolute Basophils Carbonic Acid 0.45 L HCO3/H2CO3 Ratio 9:1 ABG pH 7.08 L* ABG pCO2 15.0 L* ABG pO2 135.3 H ABG HCO3 4.4 L ABG O2 Saturation 97.7 ABG Base Excess -23.4 VBG pH VBG pCO2 VBG HCO3 VBG Base Excess FiO2 ROOM AIR Sodium Potassium Chloride Carbon Dioxide Anion Gap BUN Creatinine Est GFR ( Amer) Est GFR (Non-Af Amer) Glucose Lactic Acid Calcium Phosphorus 5.5 H Magnesium 2.4 H Total Bilirubin AST ALT Alkaline Phosphatase Ammonia Total Protein Albumin Triglycerides Cholesterol LDL Cholesterol Direct VLDL Cholesterol HDL Cholesterol Amylase 167 H Lipase 830.5 H TSH Free T4 Urine Color YELLOW Urine Appearance CLEAR Urine pH 5.0 Ur Specific [place] 1.021 Urine Protein 30 H Urine Glucose (UA) >=500 H Urine Ketones 80 H Urine Blood MODERATE H Urine Nitrite NEGATIVE Ur Leukocyte Esterase NEGATIVE Urine RBC (Auto) 1 12/29/18 12/29/18 12/29/18 16:30 16:30 16:30 WBC RBC Hgb Hct MCV MCH MCHC RDW Plt Count Seg Neutrophils % Lymphocytes % Monocytes % Eosinophils % Basophils % Absolute Neutrophils Absolute Lymphocytes Absolute Monocytes Absolute Eosinophils Absolute Basophils Carbonic Acid HCO3/H2CO3 Ratio ABG pH ABG pCO2 ABG pO2 ABG HCO3 ABG O2 Saturation ABG Base Excess VBG pH VBG pCO2 VBG HCO3 VBG Base Excess FiO2 Sodium 139.8 Potassium 4.8 D Chloride 106 Carbon Dioxide < 5 L* Anion Gap Not Reportable BUN 28 H Creatinine 1.43 H Est GFR ( Amer) > 60 Est GFR (Non-Af Amer) 51 L Glucose 452 H* Lactic Acid Calcium 9.2 Phosphorus Magnesium Total Bilirubin AST ALT Alkaline Phosphatase Ammonia 9.8 Total Protein Albumin Triglycerides Cholesterol LDL Cholesterol Direct VLDL Cholesterol HDL Cholesterol Amylase Lipase TSH 1.38 Free T4 0.68 L Urine Color Urine Appearance Urine pH Ur Specific [place] Urine Protein Urine Glucose (UA) Urine Ketones Urine Blood Urine Nitrite Ur Leukocyte Esterase Urine RBC (Auto) 12/29/18 12/29/18 12/29/18 16:30 16:30 18:55 WBC RBC Hgb Hct MCV MCH MCHC RDW Plt Count Seg Neutrophils % Lymphocytes % Monocytes % Eosinophils % Basophils % Absolute Neutrophils Absolute Lymphocytes Absolute Monocytes Absolute Eosinophils Absolute Basophils Carbonic Acid HCO3/H2CO3 Ratio ABG pH ABG pCO2 ABG pO2 ABG HCO3 ABG O2 Saturation ABG Base Excess VBG pH VBG pCO2 VBG HCO3 VBG Base Excess FiO2 Sodium 142.8 Potassium 4.4 Chloride 110 H Carbon Dioxide 7 L* Anion Gap 26 H BUN 26 H Creatinine 1.35 H Est GFR ( Amer) > 60 Est GFR (Non-Af Amer) 54 L Glucose Cancelled 310 H Lactic Acid 2.5 H Calcium 9.3 Phosphorus Magnesium Total Bilirubin AST ALT Alkaline Phosphatase Ammonia Total Protein Albumin Triglycerides Cholesterol LDL Cholesterol Direct VLDL Cholesterol HDL Cholesterol Amylase Lipase TSH Free T4 Urine Color Urine Appearance Urine pH Ur Specific [place] Urine Protein Urine Glucose (UA) Urine Ketones Urine Blood Urine Nitrite Ur Leukocyte Esterase Urine RBC (Auto) 12/29/18 12/30/18 12/30/18 23:16 03:40 03:40 WBC 16.3 H RBC 4.37 Hgb 13.3 L Hct 39.7 MCV 91 D MCH 30.5 MCHC 33.6 RDW 12.8 Plt Count 244 Seg Neutrophils % Not Reportable Lymphocytes % Not Reportable Monocytes % Not Reportable Eosinophils % Not Reportable Basophils % Not Reportable Absolute Neutrophils Not Reportable Absolute Lymphocytes Not Reportable Absolute Monocytes Not Reportable Absolute Eosinophils Not Reportable Absolute Basophils Not Reportable Carbonic Acid HCO3/H2CO3 Ratio ABG pH ABG pCO2 ABG pO2 ABG HCO3 ABG O2 Saturation ABG Base Excess VBG pH VBG pCO2 VBG HCO3 VBG Base Excess FiO2 Sodium 141.6 142.2 Potassium 3.8 3.4 L Chloride 112 H 113 H Carbon Dioxide 9 L* 18 L Anion Gap 21 H 11 BUN 24 H 20 Creatinine 1.07 1.00 Est GFR ( Amer) > 60 > 60 Est GFR (Non-Af Amer) > 60 > 60 Glucose 207 H 68 L Lactic Acid Calcium 8.9 9.1 Phosphorus Magnesium Total Bilirubin AST ALT Alkaline Phosphatase Ammonia Total Protein Albumin Triglycerides Cholesterol LDL Cholesterol Direct VLDL Cholesterol HDL Cholesterol Amylase Lipase TSH Free T4 Urine Color Urine Appearance Urine pH Ur Specific [place] Urine Protein Urine Glucose (UA) Urine Ketones Urine Blood Urine Nitrite Ur Leukocyte Esterase Urine RBC (Auto) 12/30/18 12/30/18 03:40 07:38 WBC RBC Hgb Hct MCV MCH MCHC RDW Plt Count Seg Neutrophils % Lymphocytes % Monocytes % Eosinophils % Basophils % Absolute Neutrophils Absolute Lymphocytes Absolute Monocytes Absolute Eosinophils Absolute Basophils Carbonic Acid HCO3/H2CO3 Ratio ABG pH ABG pCO2 ABG pO2 ABG HCO3 ABG O2 Saturation ABG Base Excess VBG pH VBG pCO2 VBG HCO3 VBG Base Excess FiO2 Sodium 141.2 Potassium 4.4 D Chloride 113 H Carbon Dioxide 23 Anion Gap 5 BUN 20 Creatinine 0.89 Est GFR ( Amer) > 60 Est GFR (Non-Af Amer) > 60 Glucose 123 H Lactic Acid Calcium 8.9 Phosphorus Magnesium Total Bilirubin AST ALT Alkaline Phosphatase Ammonia Total Protein Albumin Triglycerides 137 Cholesterol 243.67 H LDL Cholesterol Direct 124 H VLDL Cholesterol 27.0 HDL Cholesterol 64 Amylase Lipase TSH Free T4 Urine Color Urine Appearance Urine pH Ur Specific [place] Urine Protein Urine Glucose (UA) Urine Ketones Urine Blood Urine Nitrite Ur Leukocyte Esterase Urine RBC (Auto) 12/29/18 12/29/18 12/29/18 16:30 16:30 20:45 Creatine Kinase 143 139 CK-MB (CK-2) 4.21 Troponin I < 0.012 12/29/18 12/30/18 12/30/18 20:45 03:40 03:40 Creatine Kinase 105 CK-MB (CK-2) 4.15 3.49 Troponin I < 0.012 0.013 Assessment & Plan - Diagnosis (1) Diabetes mellitus with ketoacidosis Qualifiers: Diabetes mellitus type: type 1 Diabetes mellitus complication detail: without coma Qualified Code(s): E10.10 - Type 1 diabetes mellitus with ke toacidosis without coma Is this a current diagnosis for this admission?: Yes Plan: Continue insulin drip per protocol (2) Cocaine abuse Is this a current diagnosis for this admission?: Yes (3) Noncompliance Is this a current diagnosis for this admission?: Yes
[2018-12-31 03:59] LABS: ABSOLUTE BASOPHILS # (AUTO) 0.1 10^3/uL (0.0-0.2); ABSOLUTE EOSINOPHILS # (AUTO) 0.1 10^3/uL (0.0-0.6); ABSOLUTE MONOCYTES (AUTO) 0.6 10^3/uL (0.1-1.4); ABSOLUTE NEUT (AUTO) 14.9 10^3/uL (1.7-8.2); BASOPHILS % (AUTO) 0.4 % (0-2); EOSINOPHILS % (AUTO) 0.3 % (0-6); HEMOGLOBIN 12.1 g/dL (13.5-17.0); LYMPHOCYTES % (AUTO) 6.3 % (13-45); MEAN CORPUSCULAR HEMOGLOBIN 30.7 pg (27.0-33.4); MEAN CORPUSCULAR HGB CONC 33.5 g/dL (32.0-36.0); MEAN CORPUSCULAR VOLUME 92 fl (80-97); MONOCYTES % (AUTO) 3.4 % (3-13); PLATELET COUNT 183 10^3/uL (150-450); RED BLOOD COUNT 3.93 10^6/uL (4.35-5.55); RED CELL DISTRIBUTION WIDTH 12.8 % (11.5-14.0); SEGMENTED NEUTROPHILS % (AUTO) 89.6 % (42-78); TOTAL CELLS COUNTED % (AUTO) 100 %; WHITE BLOOD COUNT 16.6 10^3/uL (4.0-10.5)
[2018-12-31 04:27] LABS: ANION GAP 7 (5-19); BLOOD UREA NITROGEN 16 mg/dL (7-20); CALCIUM 8.1 mg/dL (8.4-10.2); CARBON DIOXIDE 23 mmol/L (22-30); CHLORIDE 105 mmol/L (98-107); GLUCOSE 398 mg/dL (75-110); POTASSIUM 3.9 mmol/L (3.6-5.0); SODIUM 134.9 mmol/L (137-145)
[2018-12-31] MEDS: GABAPENTIN 300 MG CAPSULE PO SCH ×3 (05:27→21:05)
[2018-12-31] MEDS: NORMAL SALINE 1000 ML 1,000 ML IV PRN (06:16)
[2018-12-31] MEDS ORDERED: DEXTROSE 50%-WATER 25 GM/50 ML DISP.SYRIN IV PRN ×2 (07:31)
[2018-12-31] MEDS ORDERED: GLUCAGON,HUMAN RECOMB 1 MG INJ IM PRN (07:31)
[2018-12-31] MEDS ORDERED: DEXTROSE 40% GEL 15 GM TUBE PO PRN ×2 (07:31)
[2018-12-31] MEDS: INSULIN LISPRO 100 UNIT/ML 3 ML VIAL SUBCUT SCH ×4 (08:26→21:05)
--- NOTE | 2018-12-31 08:44 | PDOC PROGRESS REPORT ---
Subjective Progress Note for:: 12/31/18 Subjective:: Patient is currently doing well Patient all anion gap is normal Patient's denied any chest pain to than any shortness of the breath No abdominal pain Reason For Visit: DKA Physical Exam Vital Signs: Temp Pulse Resp BP Pulse Ox 97.3 F 89 16 124/67 97 12/31/18 04:06 12/31/18 07:00 12/31/18 04:06 12/31/18 04:06 12/31/18 04:06 Intake & Output 12/30/18 12/31/18 01/01/19 06:59 06:59 06:59 Intake Total 4556 3050 Output Total 825 700 Balance 3731 2350 Weight 58.3 kg 58.7 kg General appearance: PRESENT: no acute distress, well-developed, well-nourished Head exam: PRESENT: atraumatic, normocephalic Eye exam: PRESENT: conjunctiva pink, EOMI, PERRLA. ABSENT: scleral icterus Ear exam: PRESENT: normal external ear exam Mouth exam: PRESENT: moist, tongue midline Neck exam: PRESENT: full ROM. ABSENT: carotid bruit, JVD, lymphadenopathy, thyromegaly Respiratory exam: PRESENT: clear to auscultation shoaib Cardiovascular exam: PRESENT: RRR. ABSENT: diastolic murmur, rubs, systolic murmur Vascular exam: PRESENT: normal capillary refill GI/Abdominal exam: PRESENT: normal bowel sounds, soft. ABSENT: distended, guarding, mass, organolmegaly, rebound, tenderness Rectal exam: PRESENT: deferred Extremities exam: ABSENT: pedal edema Neurological exam: PRESENT: alert, awake, oriented to person, oriented to place, oriented to time, oriented to situation, CN II-XII grossly intact. ABSENT: motor sensory deficit Psychiatric exam: PRESENT: appropriate affect, normal mood. ABSENT: homicidal ideation, suicidal ideation Skin exam: PRESENT: dry, intact, warm. ABSENT: cyanosis, rash Results Laboratory Results: 12/31/18 03:49 12/31/18 03:49 12/31/18 12/31/18 03:49 03:49 WBC 16.6 H RBC 3.93 L Hgb 12.1 L Hct 36.0 L MCV 92 MCH 30.7 MCHC 33.5 RDW 12.8 Plt Count 183 Seg Neutrophils % 89.6 H Lymphocytes % 6.3 L Monocytes % 3.4 Eosinophils % 0.3 Basophils % 0.4 Absolute Neutrophils 14.9 H Absolute Lymphocytes 1.0 Absolute Monocytes 0.6 Absolute Eosinophils 0.1 Absolute Basophils 0.1 Sodium 134.9 L Potassium 3.9 Chloride 105 Carbon Dioxide 23 Anion Gap 7 BUN 16 Creatinine 0.90 Est GFR ( Amer) > 60 Est GFR (Non-Af Amer) > 60 Glucose 398 H Calcium 8.1 L 12/29/18 12/29/18 12/29/18 16:30 16:30 20:45 Creatine Kinase 143 139 CK-MB (CK-2) 4.21 Troponin I < 0.012 12/29/18 12/30/18 12/30/18 20:45 03:40 03:40 Creatine Kinase 105 CK-MB (CK-2) 4.15 3.49 Troponin I < 0.012 0.013 Assessment & Plan - Diagnosis (1) DKA (diabetic ketoacidoses) Qualifiers: Diabetes mellitus type: type 2 Diabetes mellitus penitentiary insulin use: with penitentiary use Diabetes mellitus complication detail: without coma Qualified Code(s): E11.10 - Type 2 diabetes mellitus with ketoacidosis without coma; Z79.4 - chairman (current) use of insulin Is this a current diagnosis for this admission?: Yes Plan: The patient and the Lantus (2) Noncompliance with medication regimen Is this a current diagnosis for this admission?: Yes (3) Cocaine abuse Is this a current diagnosis for this admission?: Yes (4) Depression Qualifiers: Depression Type: major depressive disorder Is this a current diagnosis for this admission?: Yes (5) Type 2 diabetes mellitus Qualifiers: Diabetes mellitus penitentiary insulin use: with penitentiary use Diabetes mellitus complication status: with unspecified complications Qualified Code(s): E11.8 - Type 2 diabetes mellitus with unspecified complications; Z79.4 - residential (current) use of insulin Is this a current diagnosis for this admission?: Yes - Time Time Spent with patient: 15-24 minutes Medications reviewed and adjusted accordingly: Yes Anticipated discharge: Home - Plan Summary Plan Summary: Consult the psych for the substance abuse and the depressions Start the patient on the Lantus
[2018-12-31] MEDS: INSULIN GLARGINE,HUM.REC.ANLOG 1,000 UNIT/10 ML VIAL SUBCUT SCH ×2 (10:15→21:06)
[2018-12-31] MEDS: ENOXAPARIN SODIUM INJ 40 MG/0.4 ML DISP.SYRIN SUBCUT SCH (10:17)
[2019-01-01] MEDS: NORMAL SALINE 1000 ML 1,000 ML IV PRN (02:09)
[2019-01-01] MEDS: GABAPENTIN 300 MG CAPSULE PO SCH (05:06)
[2019-01-01 06:39] LABS: ABSOLUTE BASOPHILS # (AUTO) 0.1 10^3/uL (0.0-0.2); ABSOLUTE LYMPHOCYTES (AUTO) 1.1 10^3/uL (0.5-4.7); ABSOLUTE MONOCYTES (AUTO) 0.4 10^3/uL (0.1-1.4); BASOPHILS % (AUTO) 0.8 % (0-2); EOSINOPHILS % (AUTO) 0.2 % (0-6); HEMATOCRIT 33.9 % (37.9-51.0); HEMOGLOBIN 11.7 g/dL (13.5-17.0); LYMPHOCYTES % (AUTO) 16.7 % (13-45); MEAN CORPUSCULAR HEMOGLOBIN 31.5 pg (27.0-33.4); MEAN CORPUSCULAR HGB CONC 34.6 g/dL (32.0-36.0); MEAN CORPUSCULAR VOLUME 91 fl (80-97); MONOCYTES % (AUTO) 5.7 % (3-13); PLATELET COUNT 151 10^3/uL (150-450); RED BLOOD COUNT 3.72 10^6/uL (4.35-5.55); RED CELL DISTRIBUTION WIDTH 12.9 % (11.5-14.0); SEGMENTED NEUTROPHILS % (AUTO) 76.6 % (42-78); TOTAL CELLS COUNTED % (AUTO) 100 %; WHITE BLOOD COUNT 6.6 10^3/uL (4.0-10.5)
[2019-01-01 07:07] LABS: ANION GAP 8 (5-19); BLOOD UREA NITROGEN 17 mg/dL (7-20); CALCIUM 7.8 mg/dL (8.4-10.2); CARBON DIOXIDE 22 mmol/L (22-30); CHLORIDE 102 mmol/L (98-107); GLUCOSE 316 mg/dL (75-110); POTASSIUM 3.7 mmol/L (3.6-5.0); SODIUM 132.4 mmol/L (137-145)
[2019-01-01 08:14] VITALS: BP 149/88
--- NOTE | 2019-01-01 12:38 | PDOC DISCHARGE SUMMARY ---
General - Admit/Disc Date/PCP Admission Date/Primary Care Provider: 12/29/18 14:16 MELY MCDERMOTT MD Discharge Date: 01/01/19 - Discharge Diagnosis (1) DKA (diabetic ketoacidoses) Is this a current diagnosis for this admission?: Yes Summary: Resolved (2) Noncompliance with medication regimen Is this a current diagnosis for this admission?: Yes (3) Cocaine abuse Is this a current diagnosis for this admission?: Yes (4) Depression Is this a current diagnosis for this admission?: Yes (5) Type 2 diabetes mellitus Is this a current diagnosis for this admission?: Yes - Additional Information Resuscitation Status: Full Code Discharge Diet: Diabetic Discharge Activity: Activity As Tolerated Prescriptions: Gabapentin [Neurontin 300 mg Capsule] 600 mg PO Q8 #90 capsule Insulin Glargine,Hum.rec.anlog [Lantus Insulin 100 Unit/1 ml 10 ml] 20 unit SUBCUT Q12 #3 unit Insulin Aspart [Novolog Flexpen] 0 unit SUBCUT .SLD SCALE #1 pen Omeprazole 40 mg PO DAILY #30 capsule. Home Medications: Gabapentin [Neurontin 300 mg Capsule] 600 mg PO Q8 #90 capsule 01/01/19 Insulin Aspart [Novolog Flexpen] 0 unit SUBCUT .SLD SCALE #1 pen 01/01/19 Insulin Glargine,Hum.rec.anlog [Lantus Insulin 100 Unit/1 ml 10 ml] 20 unit SUBCUT Q12 #3 unit 01/01/19 Omeprazole 40 mg PO DAILY #30 capsule. 01/01/19 History of Present Illness History of Present Illness: MAMTA CUEVA is a 58 year old male This is a 58-year-old male with a significant noncompliance issue substance abuse cocaine abuse came to the emergency department with as usual with a diabetic ketoacidosis Hospital Course Hospital Course: This is a 58-year-old male substance abuse depressions chronic noncompliance not take the medication as prescribed several hospital admissions and several discussions done with the patient and patient's mother and father but patient still can open noncompliance came to the emergency department with the elevated blood sugars not feeling well and patient was under diabetic ketoacidosis Patient was put on IV insulin drips and IV fluids Patient's response very well with that switch to the subcu insulins Patients walk in the hallway without any problems Patient's ketoacidosis is resolved Patient's electrolytes all normal At this point patient's very anxious to go home's Patient had a psych evaluations done and also referred to the outpatients substance abuse counseling Discussed with the patient's parents regarding the patient's current conditions with the noncompliance and multiple complications likely to sudden and other micro-and macro complications with uncontrolled diabetes Understand very well I hope the patient's follow all medications and take properly Physical Exam Vital Signs: Temp Pulse Resp BP Pulse Ox 98.8 F 76 16 156/81 H 97 01/01/19 07:52 01/01/19 07:52 01/01/19 07:52 01/01/19 07:52 01/01/19 07:52 Intake & Output 12/31/18 01/01/19 01/02/19 06:59 06:59 06:59 Intake Total 3050 2160 Output Total 700 1975 Balance 2350 185 Weight 58.7 kg 63.9 kg General appearance: PRESENT: no acute distress, well-developed, well-nourished Head exam: PRESENT: atraumatic, normocephalic Eye exam: PRESENT: conjunctiva pink, EOMI, PERRLA. ABSENT: scleral icterus Ear exam: PRESENT: normal external ear exam Mouth exam: PRESENT: moist, tongue midline Neck exam: PRESENT: full ROM. ABSENT: carotid bruit, JVD, lymphadenopathy, thyromegaly Respiratory exam: PRESENT: clear to auscultation shoaib Cardiovascular exam: PRESENT: RRR. ABSENT: diastolic murmur, rubs, systolic murmur Pulses: PRESENT: normal dorsalis pedis pul, +2 pedal pulses bilateral Vascular exam: PRESENT: normal capillary refill GI/Abdominal exam: PRESENT: normal bowel sounds, soft. ABSENT: distended, guarding, mass, organolmegaly, rebound, tenderness Rectal exam: PRESENT: deferred Extremities exam: ABSENT: pedal edema Musculoskeletal exam: PRESENT: ambulatory Neurological exam: PRESENT: alert, awake, oriented to person, oriented to place, oriented to time, oriented to situation, CN II-XII grossly intact. ABSENT: motor sensory deficit Psychiatric exam: PRESENT: appropriate affect, normal mood. ABSENT: homicidal ideation, suicidal ideation Skin exam: PRESENT: dry, intact, warm. ABSENT: cyanosis, rash Results Laboratory Results: 01/01/19 05:52 01/01/19 05:52 01/01/19 01/01/19 05:52 05:52 WBC 6.6 RBC 3.72 L Hgb 11.7 L Hct 33.9 L MCV 91 MCH 31.5 MCHC 34.6 RDW 12.9 Plt Count 151 Seg Neutrophils % 76.6 Lymphocytes % 16.7 Monocytes % 5.7 Eosinophils % 0.2 Basophils % 0.8 Absolute Neutrophils 5.0 Absolute Lymphocytes 1.1 Absolute Monocytes 0.4 Absolute Eosinophils 0.0 Absolute Basophils 0.1 Sodium 132.4 L Potassium 3.7 Chloride 102 Carbon Dioxide 22 Anion Gap 8 BUN 17 Creatinine 0.62 Est GFR ( Amer) > 60 Est GFR (Non-Af Amer) > 60 Glucose 316 H Calcium 7.8 L 12/29/18 13:37 Clean Catch Midstream Urine Culture - Final Mixed Urogenital Nadya 12/29/18 12/29/18 12/29/18 16:30 16:30 20:45 Creatine Kinase 143 139 CK-MB (CK-2) 4.21 Troponin I < 0.012 12/29/18 12/30/18 12/30/18 20:45 03:40 03:40 Creatine Kinase 105 CK-MB (CK-2) 4.15 3.49 Troponin I < 0.012 0.013 Qualifiers - * PATIENT BEING DISCHARGED WITH ANY OF THE FOLLOWING DIAGNOSIS: No VTE patient discharged on overlapping Therapy?: Yes Acute Heart Failure Is this a Heart Failure Patient?: No Plan Time Spent: Greater than 30 Minutes - Office 1 week Follow outpatient psych
== END 2019-01-01 09:50 | disposition home or self-care (01) | DRG 639 ==
LOC: ER 12:06 → EH 14:16 → 3W 17:06
PROVIDERS: ADMIT Internal Medicine; ATTEND Family Medicine
DX: E10.10 Type 1 diabetes mellitus with ketoacidosis without coma (principal); F14.10 Cocaine abuse, uncomplicated; E78.5 Hyperlipidemia, unspecified; I10 Essential (primary) hypertension; K21.9 Gastro-esophageal reflux disease without esophagitis; F32.9 Major depressive disorder, single episode, unspecified; F17.200 Nicotine dependence, unspecified, uncomplicated; J44.9 Chronic obstructive pulmonary disease, unspecified; Z79.4 Long term (current) use of insulin; Z83.3 Family history of diabetes mellitus; Z82.49 Family history of ischemic heart disease and other diseases of the circulatory system; Z91.14 Patient's other noncompliance with medication regimen
CPT/HCPCS: 36415; 80048; 80053; 80061; 80307; 81001; 82010; 82140; 82150; 82550; 82553; 82803; 82962; 83036; 83605; 83690; 83735; 84100; 84439; 84443; 84484; 85025; 85610; 85730; 87040; 87086; 93005; 93010; 96361; 96374; 99285; C1758; J1650; J1815; J2405; J3490; J7030

== ENCOUNTER 2019-02-13 06:56 | Inpatient (IN) | payer MEDICAID ==
[2019-02-13 07:11] LABS: ABSOLUTE BASOPHILS # (AUTO) 0.1 10^3/uL (0.0-0.2); ABSOLUTE LYMPHOCYTES (AUTO) 0.9 10^3/uL (0.5-4.7); ABSOLUTE MONOCYTES (AUTO) 0.6 10^3/uL (0.1-1.4); ABSOLUTE NEUT (AUTO) 15.1 10^3/uL (1.7-8.2); BASOPHILS % (AUTO) 0.6 % (0-2); HEMATOCRIT 45.6 % (37.9-51.0); HEMOGLOBIN 14.7 g/dL (13.5-17.0); LYMPHOCYTES % (AUTO) 5.2 % (13-45); MEAN CORPUSCULAR HEMOGLOBIN 31.1 pg (27.0-33.4); MEAN CORPUSCULAR HGB CONC 32.2 g/dL (32.0-36.0); MEAN CORPUSCULAR VOLUME 97 fl (80-97); MONOCYTES % (AUTO) 3.4 % (3-13); PLATELET COUNT 331 10^3/uL (150-450); RED BLOOD COUNT 4.71 10^6/uL (4.35-5.55); RED CELL DISTRIBUTION WIDTH 13.4 % (11.5-14.0); SEGMENTED NEUTROPHILS % (AUTO) 90.8 % (42-78); TOTAL CELLS COUNTED % (AUTO) 100 %; WHITE BLOOD COUNT 16.6 10^3/uL (4.0-10.5)
[2019-02-13] MEDS ORDERED: NORMAL SALINE 1000 ML 1,000 ML IV ONE ×3 (07:13→09:17)
[2019-02-13] MEDS ORDERED: ACETAMINOPHEN 325 MG TABLET PO ONE (07:25)
--- NOTE | 2019-02-13 07:43 | ER Document Report ---
ED General - General Chief Complaint: High Blood Sugar Stated Complaint: HYPERGLYCEMIA Time Seen by Provider: 02/13/19 07:12 Primary Care Provider: MELY MCDERMOTT MD [Primary Care Provider] - Follow up as needed TRAVEL OUTSIDE OF THE [place] IN LAST 30 DAYS: No - HPI Notes: Patient is a 58-year-old male that presents to the emergency department for chief complaint of left shoulder pain and weakness. Patient reports history of DKA frequently. He states he has had increasing wea kness over the last few days. He states he has been compliant with his insulin and denies missing any doses. Patient states last night he felt too weak to walk and collapsed down to the ground. He states he hit his left shoulder on the door frame. He denies head injury or complete loss of consciousness. He is complaining of a sharp pain in the left shoulder that is worse with any movement. He denies left upper extremity numbness or weakness. Patient denies fever, chills, chest pain, shortness of breath, nausea/vomiting and dysuria. Past Medical History: Diabetes Past Surgical History: Reviewed in chart Social History: Reviewed in chart Family History: Reviewed and noncontributory for presenting illness Allergies: Reviewed, see documented allergy list. REVIEW OF SYSTEMS: CONSTITUTIONAL : No fever No chills No diaphoresis No recent illness EENT: No vision changes No congestion No sore throat CARDIOVASCULAR: No chest pain No palpitations RESPIRATORY: No shortness of breath No cough No difficulty breathing GASTROINTESTINAL: No abdominal pain No nausea No vomiting No diarrhea GENITOURINARY: No dysuria No hematuria No difficulty urinating MUSCULOSKELETAL: No back pain No leg pain arm pain SKIN: No rashes No lesions LYMPHATIC: No swollen, enlarged glands. NEUROLOGICAL: No lightheadedness No headache weakness No paresthesias PSYCHIATRIC: No anxiety No depression PHYSICAL EXAMINATION: Vital signs reviewed, nursing noted reviewed. GENERAL: Well-appearing, thin and in no acute distress. HEAD: Atraumatic, normocephalic. EYES: Eyes appear normal, extraocular movements intact, sclera anicteric, conjunctiva are normal. ENT: nares patent, oropharynx clear without exudates. dry mucous membranes. NECK: Normal range of motion, supple without lymphadenopathy LUNGS: Breath sounds clear to auscultation bilaterally and equal. No wheezes rales or rhonchi. HEART: Regular rate and rhythm without murmurs ABDOMEN: Soft, nontender, normoactive bowel sounds. No rebound, guarding, or rigidity. No masses appreciated. EXTREMITIES: Diffuse left shoulder tenderness to palpation and decreased ROM secondary to pain. no pitting or edema. NEUROLOGICAL: No focal neurological deficits. Moves all extremities spontaneousl y Motor and sensory grossly intact on exam. PSYCH: Tearful, agitated SKIN: Warm, Dry, normal turgor, no rashes or lesions noted on exposed skin - Related Data Allergies/Adverse Reactions: No Known Allergies Allergy (Verified 10/14/18 21:32) Past Medical History - Social History Smoking Status: Never Smoker Family History: Reviewed & Not Pertinent, CAD - father at 59 of heart problems, DM - mother - Past Medical History Cardiac Medical History: Reports: Hx Hypercholesterolemia, Hx Hypertension Pulmonary Medical History: Reports: Hx COPD Denies: Hx Tuberculosis Neurological Medical History: Denies: Hx Seizures Endocrine Medical History: Reports: Hx Diabetes Mellitus Type 1, Hx Diabetes Mellitus Type 2 Renal/ Medical History: Reports: Hx Benign Prostatic Hyperplasia. Denies: Hx Peritoneal Dialysis GI Medical History: Reports: Hx Gastroesophageal Reflux Disease Psychiatric Medical History: Reports: Hx Depression Past Surgical History: Reports: Hx Orthopedic Surgery - jaw - Immunizations Hx Diphtheria, Pertussis, Tetanus Vaccination: No Hx Pneumococcal Vaccination: 05/09/13 Physical Exam - Vital signs Vitals: Pulse Ox 100 02/13/19 07:45 Course - Re-evaluation Re-evalutation: 02/13/19 08:51 Vitals reviewed. Nursing notes reviewed. Patient started on IV fluids. His [id number] Accu-Chek read as "high". Patient does have a long history of diabetic ketoacidosis. Patient's lab work today is also consistent with DKA. He is acidotic with a pH of 7.27. Blood sugar greater than 800. He has ketosis in his urine without urinary tract infection. Patient's lab work also shows pseudohyponatremia and hyperkalemia. Patient's electrolyte abnormality should improve with insulin infusion and IV hydration. Because of the extent of his hyperkalemia he was given calcium for cardiac stabilization. Patient's care was discussed with Dr. Dickey who will accept [facility] Laboratory 02/13/19 02/13/19 02/13/19 07:01 07:01 07:01 WBC 16.6 H RBC 4.71 Hgb 14.7 Hct 45.6 MCV 97 MCH 31.1 MCHC 32.2 RDW 13.4 Plt Count 331 Seg Neutrophils % 90.8 H Lymphocytes % 5.2 L Monocytes % 3.4 Eosinophils % 0.0 Basophils % 0.6 Absolute Neutrophils 15.1 H Absolute Lymphocytes 0.9 Absolute Monocytes 0.6 Absolute Eosinophils 0.0 Absolute Basophils 0.1 VBG pH VBG pCO2 VBG HCO3 VBG Base Excess Sodium Cancelled Potassium Cancelled Chloride Cancelled Carbon Dioxide Cancelled Anion Gap Cancelled BUN Cancelled Creatinine Cancelled Est GFR ( Amer) Cancelled Est GFR (Non-Af Amer) Cancelled Glucose Cancelled Lactic Acid Calcium Cancelled Total Bilirubin Cancelled Direct Bilirubin Cancelled Neonat Total Bilirubin Cancelled Neonat Direct Bilirubin Cancelled Neonat Indirect Bili Cancelled AST Cancelled ALT Cancelled Alkaline Phosphatase Cancelled Troponin I Cancelled Total Protein Cancelled Albumin Cancelled Urine Color Urine Appearance Urine pH Ur Specific [place] Urine Protein Urine Glucose (UA) Urine Ketones Urine Blood Urine Nitrite Urine Bilirubin Urine Urobilinogen Ur Leukocyte Esterase Urine WBC (Auto) Urine Mucus (Auto) Urine Ascorbic Acid Urine Opiates Screen Urine Methadone Screen Ur Barbiturates Screen Ur Phencyclidine Scrn Ur Amphetamines Screen U Benzodiazepines Scrn Urine Cocaine Screen U Marijuana (THC) Screen Serum Alcohol 02/13/19 02/13/19 02/13/19 07:26 07:26 07:50 WBC RBC Hgb Hct MCV MCH MCHC RDW Plt Count Seg Neutrophils % Lymphocytes % Monocytes % Eosinophils % Basophils % Absolute Neutrophils Absolute Lymphocytes Absolute Monocytes Absolute Eosinophils Absolute Basophils VBG pH 7.27 L VBG pCO2 44.7 VBG HCO3 20.0 VBG Base Excess -6.9 Sodium Potassium Chloride Carbon Dioxide Anion Gap BUN Creatinine Est GFR ( Amer) Est GFR (Non-Af Amer) Glucose Lactic Acid Calcium Total Bilirubin Direct Bilirubin Neonat Total Bilirubin Neonat Direct Bilirubin Neonat Indirect Bili AST ALT Alkaline Phosphatase Troponin I Total Protein Albumin Urine Color STRAW Urine Appearance CLEAR Urine pH 6.0 Ur Specific [place] 1.024 Urine Protein NEGATIVE Urine Glucose (UA) >=500 H Urine Ketones 80 H Urine Blood SMALL H Urine Nitrite NEGATIVE Urine Bilirubin NEGATIVE Urine Urobilinogen NEGATIVE Ur Leukocyte Esterase NEGATIVE Urine WBC (Auto) 1 Urine Mucus (Auto) RARE Urine Ascorbic Acid NEGATIVE Urine Opiates Screen NEGATIVE Urine Methadone Screen NEGATIVE Ur Barbiturates Screen NEGATIVE Ur Phencyclidine Scrn NEGATIVE Ur Amphetamines Screen NEGATIVE U Benzodiazepines Scrn NEGATIVE Urine Cocaine Screen NEGATIVE U Marijuana (THC) Screen NEGATIVE Serum Alcohol 02/13/19 02/13/19 02/13/19 07:50 07:50 07:50 WBC RBC Hgb Hct MCV MCH MCHC RDW Plt Count Seg Neutrophils % Lymphocytes % Monocytes % Eosinophils % Basophils % Absolute Neutrophils Absolute Lymphocytes Absolute Monocytes Absolute Eosinophils Absolute Basophils VBG pH VBG pCO2 VBG HCO3 VBG Base Excess Sodium 128.4 L Potassium 6.4 H* Chloride 84 L Carbon Dioxide 15 L Anion Gap 29 H BUN 47 H Creatinine 1.61 H Est GFR ( Amer) 54 L Est GFR (Non-Af Amer) 44 L Glucose 891 H* Lactic Acid 2.0 Calcium 10.2 Total Bilirubin 0.9 Direct Bilirubin 0.5 H Neonat Total Bilirubin Not Reportable Neonat Direct Bilirubin Not Reportable Neonat Indirect Bili Not Reportable AST 30 ALT 100 H Alkaline Phosphatase 149 H Troponin I < 0.012 Total Protein 7.2 Albumin 4.5 Urine Color Urine Appearance Urine pH Ur Specific [place] Urine Protein Urine Glucose (UA) Urine Ketones Urine Blood Urine Nitrite Urine Bilirubin Urine Urobilinogen Ur Leukocyte Esterase Urine WBC (Auto) Urine Mucus (Auto) Urine Ascorbic Acid Urine Opiates Screen Urine Methadone Screen Ur Barbiturates Screen Ur Phencyclidine Scrn Ur Amphetamines Screen U Benzodiazepines Scrn Urine Cocaine Screen U Marijuana (THC) Screen Serum Alcohol < 10 nt for admission. - Vital Signs Vital signs: Temp Pulse Resp BP Pulse Ox 97.9 F 13 131/85 H 96 02/13/19 07:52 02/13/19 07:52 02/13/19 07:52 02/13/19 07:52 - Laboratory Result Diagrams: 02/13/19 07:01 02/13/19 07:50 Laboratory results interpreted by me: 02/13/19 02/13/19 02/13/19 07:01 07:26 07:50 WBC 16.6 H Seg Neutrophils % 90.8 H Lymphocytes % 5.2 L Absolute Neutrophils 15.1 H VBG pH 7.27 L Sodium Potassium Chloride Carbon Dioxide Anion Gap BUN Creatinine Est GFR ( Amer) Est GFR (Non-Af Amer) Glucose Direct Bilirubin ALT Alkaline Phosphatase Urine Glucose (UA) >=500 H Urine Ketones 80 H Urine Blood SMALL H 02/13/19 07:50 WBC Seg Neutrophils % Lymphocytes % Absolute Neutrophils VBG pH Sodium 128.4 L Potassium 6.4 H* Chloride 84 L Carbon Dioxide 15 L Anion Gap 29 H BUN 47 H Creatinine 1.61 H Est GFR ( Amer) 54 L Est GFR (Non-Af Amer) 44 L Glucose 891 H* Direct Bilirubin 0.5 H ALT 100 H Alkaline Phosphatase 149 H Urine Glucose (UA) Urine Ketones Urine Blood Critical Care Note - Critical Care Note Total time excluding time spent on procedures (mins): 45 Comments: Critical care time 45 exclusive from separate billable procedures for a patient requiring complex medical decision making, and high potential for clinical deterioration. Time spent obtaining history from patient or surrogate, discussions with consultants, development of treatment plan with patient or surrogate, evaluation of patient's response to treatment, examination of patient, ordering and performing treatments and interventions, ordering and review of laboratory studies, re-evaluation of patient's condition, ordering and review of radiographic studies and review of old charts Discharge - Discharge Clinical Impression: Hyperkalemia, NADEEN (acute kidney injury), Dehydration DKA (diabetic ketoacidoses) Qualifiers: Diabetes mellitus type: type 1 Diabetes mellitus complication detail: without coma Qualified Code(s): E10.10 - Type 1 diabetes mellitus with ketoacidosis without coma Condition: Critical Disposition: ADMITTED INPATIENT Admitting Provider: [facility] Admitted: ICU Referrals: MELY MCDERMOTT MD [Primary Care Provider] - Follow up as needed
[2019-02-13 07:45] LABS: APPEARANCE,URINE CLEAR; BILIRUBIN,URINE NEGATIVE (NEGATIVE); COLOR,URINE STRAW; GLUCOSE, URINE >=500 mg/dL (NEGATIVE); KETONES,URINE 80 mg/dL (NEGATIVE); LEUKOCYTE ESTERASE,URINE NEGATIVE (NEGATIVE); NITRITE,URINE NEGATIVE (NEGATIVE); PROTEIN,URINE NEGATIVE (NEGATIVE); URINE SPECIFIC GRAVITY 1.024; UROBILINOGEN,URINE NEGATIVE mg/dL (<2.0)
[2019-02-13 07:48] LABS: URINE AMPHETAMINES SCREEN NEGATIVE; URINE BARBITURATES SCREEN NEGATIVE; URINE BENZODIAZEPINES SCREEN NEGATIVE; URINE COCAINE SCREEN NEGATIVE; URINE MARIJUANA (THC) SCREEN NEGATIVE; URINE METHADONE SCREEN NEGATIVE; URINE PHENCYCLIDINE SCREEN NEGATIVE
[2019-02-13 08:11] LABS: VENOUS BLOOD BASE EXCESS -6.9 mmol/L; VENOUS BLOOD PCO2 44.7 mmHg (35-63); VENOUS BLOOD PH 7.27 (7.30-7.42)
[2019-02-13 08:33] LABS: ALANINE AMINOTRANSFERASE 100 U/L (21-72); ALBUMIN 4.5 g/dL (3.5-5.0); ALKALINE PHOSPHATASE 149 U/L (38-126); ASPARTATE AMINO TRANSFERASE 30 U/L (17-59); BILIRUBIN,DIRECT 0.5 mg/dL (0.0-0.4); BILIRUBIN,TOTAL 0.9 mg/dL (0.2-1.3); BLOOD UREA NITROGEN 47 mg/dL (7-20); CALCIUM 10.2 mg/dL (8.4-10.2); TOTAL PROTEIN 7.2 g/dL (6.3-8.2)
[2019-02-13] MEDS ORDERED: NORMAL SALINE 100 ML with INSULIN REGULAR, HUMAN 100 UNIT IV PRN ×2 (08:33)
[2019-02-13 08:37] LABS: CARBON DIOXIDE 15 mmol/L (22-30); CHLORIDE 84 mmol/L (98-107); SODIUM 128.4 mmol/L (137-145)
[2019-02-13 08:43] LABS: ALCOHOL < 10 mg/dL (NONE DETECTED)
[2019-02-13 08:45] LABS: GLUCOSE 891 mg/dL (75-110)
[2019-02-13 08:46] LABS: ANION GAP 29 (5-19); POTASSIUM 6.4 mmol/L (3.6-5.0)
[2019-02-13] MEDS ORDERED: CALCIUM GLUCONATE 1000 MG/10 ML INJ IV ONE (08:49)
--- NOTE | 2019-02-13 08:57 | RADIOLOGY REPORT (SQ) ---
EXAM DESCRIPTION: CHEST SINGLE VIEW COMPLETED DATE/TIME: 02/13/2019 8:37 am REASON FOR STUDY: hyperglycemia COMPARISON: AP chest 10/23/2018, 10/14/2018, 08/22/2018 CT chest 08/22/2018 EXAM PARAMETERS: NUMBER OF VIEWS: One view. TECHNIQUE: Single frontal radiographic view of the chest acquired. RADIATION DOSE: NA LIMITATIONS: None. FINDINGS: LUNGS AND PLEURA: No opacities, masses or pneumothorax. No pleural effusion. MEDIASTINUM AND HILAR STRUCTURES: No masses. Contour normal. HEART AND VASCULAR STRUCTURES: Heart normal in size. Normal vasculature. BONES: No acute findings. HARDWARE: None in the chest. OTHER: No other significant finding. IMPRESSION: NO ACUTE RADIOGRAPHIC FINDING IN THE CHEST. TECHNICAL DOCUMENTATION: JOB ID: [id number] [employer]- All Rights Reserved Reading location - IP/workstation name: [email or web address]
--- NOTE | 2019-02-13 08:59 | RADIOLOGY REPORT (SQ) ---
EXAM DESCRIPTION: SHOULDER LEFT 2 OR MORE VIEWS COMPLETED DATE/TIME: 02/13/2019 8:37 am REASON FOR STUDY: pain COMPARISON: CT chest 08/22/2018, AP chest 02/13/2019, 05/10/2018 NUMBER OF VIEWS: Three views. TECHNIQUE: Internal rotation, external rotation, and Y view images acquired of the left shoulder. LIMITATIONS: None. FINDINGS: MINERALIZATION: Normal. 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 BONES: No acute fracture. No worrisome bone lesions. JOINTS: No glenohumeral joint malalignment. Old healed left AC joint separation with superior displacement of the clavicle head with respect to t he acromion VISUALIZED LUNGS AND RIBS: No pneumothorax. No rib fracture. SOFT TISSUES: No radiopaque foreign body. OTHER: No other significant finding. IMPRESSION: No acute findings. Old healed left AC separation TECHNICAL DOCUMENTATION: JOB ID: [id number] [employer]- All Rights Reserved Reading location - IP/workstation name: [email or web address]
[2019-02-13] MEDS ORDERED: INSULIN REG, HUMAN 100 UNIT/ML 3 ML VIAL (PYX) ONE (09:18)
[2019-02-13 12:54] LABS: ALANINE AMINOTRANSFERASE 81 U/L (21-72); ALBUMIN 3.6 g/dL (3.5-5.0); ALKALINE PHOSPHATASE 99 U/L (38-126); ANION GAP 15 (5-19); ASPARTATE AMINO TRANSFERASE 28 U/L (17-59); BILIRUBIN,DIRECT 0.3 mg/dL (0.0-0.4); BILIRUBIN,TOTAL 0.5 mg/dL (0.2-1.3); BLOOD UREA NITROGEN 39 mg/dL (7-20); CALCIUM 8.8 mg/dL (8.4-10.2); CARBON DIOXIDE 21 mmol/L (22-30); CHLORIDE 99 mmol/L (98-107); SODIUM 134.8 mmol/L (137-145); TOTAL PROTEIN 6.6 g/dL (6.3-8.2)
[2019-02-13 13:01] LABS: POTASSIUM 4.8 mmol/L (3.6-5.0)
[2019-02-13 13:02] LABS: GLUCOSE 507 mg/dL (75-110)
--- NOTE | 2019-02-13 18:36 | EKG REPORT ---
SEVERITY:- ABNORMAL ECG - SINUS RHYTHM LEFT VENTRICULAR HYPERTROPHY TALL T, CONSIDER METABOLIC/ISCHEMIC ABNRM : Confirmed by: Yang Pritchett 13-Feb-2019 18:35:34
[2019-02-13] MEDS: NORMAL SALINE 1000 ML 1,000 ML IV PRN (18:38)
--- NOTE | 2019-02-13 19:09 | PDOC H&P ---
History of Present Illness Admission Date/PCP: 02/13/19 09:10 MELY MCDERMOTT MD Patient complains of: Hyperglycemia History of Present Illness: MAMTA CUEVA is a 58 year old male patient of Dr Mcdermott who presented to the ED with complain of high blood sugar. Patient reported that he had missed his Lantus insulin for 4 days prior to presentation but has been using his Humalog insulin on sliding scale dosing.He reported progressive generalized weakness that resulted in his fall before coming to the ED. Patient reported both lightheadedness and vertigo sensation before his fall. he reported increase pain in his left shoulder joint. There is functional limitation across his left shoulder joint due to elicited pain. He denied any chest pain, difficulty with b reathing, palpitation, or diaphoresis. No nausea, vomiting or abdominal pain. He denied any fever, chills, dysuria, flank pain or hematuria. His initial ED evaluation revealed significant hyperglycemia with indices suggestive of diabetic ketoacidosis state. Patient has history of frequent DKA. He was advised hospitalization for further evaluation and management. His morbidities include DM type 2, HTN, HLD, GERD, and COPD. Past Medical History Cardiac Medical History: Reports: Hyperlipidema, Hypertension Pulmonary Medical History: Reports: Chronic Obstructive Pulmonary Disease (COPD) Denies: Tuberculosis Neurological Medical History: Denies: Seizures Endocrine Medical History: Reports: Diabetes Mellitus Type 1, Diabetes Mellitus Type 2 GI Medical History: Reports: Gastroesophageal Reflux Disease Psychiatric Medical History: Reports: Depression Past Surgical History Past Surgical History: Reports: Orthopedic Surgery - jaw Social History Smoking Status: Never Smoker Frequency of Alcohol Use: None Hx Recreational Drug Use: No Drugs: None, Cocaine Hx Prescription Drug Abuse: No - Advance Directive Resuscitation Status: Full Code Family History Family History: Reviewed & Not Pertinent, CAD - father at 59 of heart problems, DM - mother Parental Family History Reviewed: Yes Children Family History Reviewed: Yes Sibling(s) Family History Reviewed.: Yes Medication/Allergy Home Medications: Gabapentin [Neurontin 300 mg Capsule] 600 mg PO Q8 02/13/19 Insulin Aspart [Novolog Insulin 100 Unit/1 ml 10 ml] 0 unit SUBCUT .SLD SCALE 02/13/19 Insulin Glargine,Hum.rec.anlog [Lantus Insulin 100 Unit/1 ml 10 ml] 20 unit SUBCUT Q12 07/04/19 Omeprazole 40 mg PO DAILY 02/13/19 Allergies/Adverse Reactions: No Known Allergies Allergy (Verified 10/14/18 21:32) Review of Systems Constitutional: PRESENT: fatigue, weakness Eyes: ABSENT: visual disturbances Ears: ABSENT: hearing changes Nose, Mouth, and Throat: ABSENT: as per HPI, headache(s), mouth pain, sore throat, vertigo, other Cardiovascular: ABSENT: chest pain, dyspnea on exertion, edema, orthropnea, palpitations Respiratory: ABSENT: cough, hemoptysis Gastrointestinal: ABSENT: abdominal pain, constipation, diarrhea, hematemesis, hematochezia, nausea, vomiting Genitourinary: ABSENT: dysuria, hematuria Musculoskeletal: PRESENT: other - left shoulder joint pain Integumentary: ABSENT: rash, wounds Neurological: ABSENT: abnormal gait, abnormal speech, confusion, dizziness, focal weakness, syncope Psychiatric: ABSENT: anxiety, depression, homidical ideation, suicidal ideation Endocrine: ABSENT: cold intolerance, heat intolerance, polydipsia, polyuria Hematologic/Lymphatic: ABSENT: easy bleeding, easy bruising, lymphadenopathy Allergic/Immunologic: ABSENT: seasonal rhinorrhea Physical Exam Vital Signs: Temp Pulse Resp BP Pulse Ox 97.8 F 91 16 113/70 99 02/13/19 16:15 02/13/19 18:33 02/13/19 16:15 02/13/19 16:15 02/13/19 16:15 Intake & Output 02/12/19 02/13/19 02/14/19 06:59 06:59 06:59 Intake Total 3040 Output Total 1800 Balance 1240 Weight 65.771 kg General appearance: PRESENT: no acute distress, well-developed, well-nourished Head exam: PRESENT: atraumatic, normocephalic Eye exam: PRESENT: conjunctiva pink, EOMI, PERRLA. ABSENT: scleral icterus Ear exam: PRESENT: normal external ear exam Mouth exam: PRESENT: moist Neck exam: PRESENT: full ROM. ABSENT: carotid bruit, JVD, lymphadenopathy, thyromegaly Respiratory exam: PRESENT: chest wall tenderness Cardiovascular exam: PRESENT: RRR. ABSENT: diastolic murmur, rubs, systolic murmur Vascular exam: ABSENT: pallor GI/Abdominal exam: PRESENT: normal bowel sounds, soft. ABSENT: distended, guarding, mass, organolmegaly, rebound, tenderness Rectal exam: PRESENT: deferred Extremities exam: PRESENT: tenderness - palpation of legs. ABSENT: pedal edema Musculoskeletal exam: PRESENT: deformity - left shoulder AC joint site prominence, tenderness - left sholuder joint with AROM Neurological exam: PRESENT: alert, awake, oriented to person, oriented to place, oriented to time, oriented to situation, CN II-XII grossly intact. ABSENT: motor sensory deficit Psychiatric exam: PRESENT: appropriate affect, normal mood. ABSENT: homicidal ideation, suicidal ideation Skin exam: PRESENT: dry, warm Results Laboratory Results: 02/13/19 07:01 02/13/19 12:26 02/13/19 02/13/19 02/13/19 07:01 07:01 07:26 WBC 16.6 H RBC 4.71 Hgb 14.7 Hct 45.6 MCV 97 MCH 31.1 MCHC 32.2 RDW 13.4 Plt Count 331 Seg Neutrophils % 90.8 H Lymphocytes % 5.2 L Monocytes % 3.4 Eosinophils % 0.0 Basophils % 0.6 Absolute Neutrophils 15.1 H Absolute Lymphocytes 0.9 Absolute Monocytes 0.6 Absolute Eosinophils 0.0 Absolute Basophils 0.1 VBG pH VBG pCO2 VBG HCO3 VBG Base Excess Sodium Cancelled Potassium Cancelled Chloride Cancelled Carbon Dioxide Cancelled Anion Gap Cancelled BUN Cancelled Creatinine Cancelled Est GFR ( Amer) Cancelled Est GFR (Non-Af Amer) Cancelled Glucose Cancelled Lactic Acid Calcium Cancelled Total Bilirubin Cancelled AST Cancelled ALT Cancelled Alkaline Phosphatase Cancelled Total Protein Cancelled Albumin Cancelled Urine Color STRAW Urine Appearance CLEAR Urine pH 6.0 Ur Specific [place] 1.024 Urine Protein NEGATIVE Urine Glucose (UA) >=500 H Urine Ketones 80 H Urine Blood SMALL H Urine Nitrite NEGATIVE Ur Leukocyte Esterase NEGATIVE Urine WBC (Auto) 1 02/13/19 02/13/19 02/13/19 07:50 07:50 07:50 WBC RBC Hgb Hct MCV MCH MCHC RDW Plt Count Seg Neutrophils % Lymphocytes % Monocytes % Eosinophils % Basophils % Absolute Neutrophils Absolute Lymphocytes Absolute Monocytes Absolute Eosinophils Absolute Basophils VBG pH 7.27 L VBG pCO2 44.7 VBG HCO3 20.0 VBG Base Excess -6.9 Sodium 128.4 L Potassium 6.4 H* Chloride 84 L Carbon Dioxide 15 L Anion Gap 29 H BUN 47 H Creatinine 1.61 H Est GFR ( Amer) 54 L Est GFR (Non-Af Amer) 44 L Glucose 891 H* Lactic Acid 2.0 Calcium 10.2 Total Bilirubin 0.9 AST 30 ALT 100 H Alkaline Phosphatase 149 H Total Protein 7.2 Albumin 4.5 Urine Color Urine Appearance Urine pH Ur Specific [place] Urine Protein Urine Glucose (UA) Urine Ketones Urine Blood Urine Nitrite Ur Leukocyte Esterase Urine WBC (Auto) 02/13/19 02/13/19 11:20 12:26 WBC RBC Hgb Hct MCV MCH MCHC RDW Plt Count Seg Neutrophils % Lymphocytes % Monocytes % Eosinophils % Basophils % Absolute Neutrophils Absolute Lymphocytes Absolute Monocytes Absolute Eosinophils Absolute Basophils VBG pH VBG pCO2 VBG HCO3 VBG Base Excess Sodium Cancelled 134.8 L Potassium Cancelled 4.8 D Chloride Cancelled 99 Carbon Dioxide Cancelled 21 L Anion Gap Cancelled 15 BUN Cancelled 39 H Creatinine Cancelled 1.24 Est GFR ( Amer) Cancelled > 60 Est GFR (Non-Af Amer) Cancelled > 60 Glucose Cancelled 507 H* Lactic Acid Calcium Cancelled 8.8 Total Bilirubin Cancelled 0.5 AST Cancelled 28 ALT Cancelled 81 H Alkaline Phosphatase Cancelled 99 Total Protein Cancelled 6.6 Albumin Cancelled 3.6 Urine Color Urine Appearance Urine pH Ur Specific [place] Urine Protein Urine Glucose (UA) Urine Ketones Urine Blood Urine Nitrite Ur Leukocyte Esterase Urine WBC (Auto) 02/13/19 02/13/19 07:01 07:50 Troponin I Cancelled < 0.012 Impressions: Chest X-Ray 02/13/19 07:13 IMPRESSION: NO ACUTE RADIOGRAPHIC FINDING IN THE CHEST. Shoulder X-Ray 02/13/19 07:25 IMPRESSION: No acute findings. Old healed left AC separation Assessment & Plan - Diagnosis (1) Diabetes mellitus with ketoacidosis Qualifiers: Diabetes mellitus type: type 2 Diabetes mellitus terminal makeup operator insulin use: with terminal makeup operator use Diabetes mellitus complication detail: without coma Qualified Code(s): E11.10 - Type 2 diabetes mellitus with ketoacidosis without coma; Z79.4 - group home (current) use of insulin Is this a current diagnosis for this admission?: Yes Plan: Maintain on Insulin infusion and IV fluid support with electrolyte monitoring. (2) Hyperkalemia Is this a current diagnosis for this admission?: Yes Plan: Monitor his renal indices and replace as necessary. Continue IV fluid support and insulin infusion therapy. (3) Type 2 diabetes mellitus Qualifiers: Diabetes mellitus detention insulin use: with detention use Diabetes mellitus complication status: with ketoacidosis Is this a current diagnosis for this admission?: Yes Plan: Continue home insulin therapy when off insulin infusion as appropriate. (4) Noncompliance with medication regimen Is this a current diagnosis for this admission?: Yes Plan: Patient with frequent episodes of DKA. Emphasized need for medication and dietary compliance during my bedside evaluation. Request DM teaching consultation while on admission. (5) Hypertension Qualifiers: Hypertension type: essential hypertension Qualified Code(s): I10 - Essential (primary) hypertension Is this a current diagnosis for this admission?: Yes Plan: Continue preadmission medication management as indicated. (6) Hyperlipidemia Qualifiers: Hyperlipidemia type: unspecified Qualified Code(s): E78.5 - Hyperlipidemia, unspecified Is this a current diagnosis for this admission?: Yes Plan: Continue preadmission medication management as indicated. (7) COPD (chronic obstructive pulmonary disease) Qualifiers: Emphysema type: unspecified Is this a current diagnosis for this admission?: Yes Plan: Continue preadmission medication management as indicated. (8) GERD (gastroesophageal reflux disease) Qualifiers: Esophagitis presence: esophagitis presence not specified Qualified Code(s): K21.9 - Gastro-esophageal reflux disease without esophagitis Is this a current diagnosis for this admission?: Yes Plan: Continue preadmission medication management as indicated. (9) Pain of left shoulder joint on movement Is this a current diagnosis for this admission?: Yes Plan: Continue preadmission medication management as indicated. - Time Time Spent: 50 to 70 Minutes Medications reviewed and adjusted accordingly: Yes Anticipated discharge: Home Within: Other - Inpatient Certification Based on my medical assessment, after consideration of the patient's comorbidities, presenting symptoms, or acuity I expect that the services needed warrant INPATIENT care.: Yes I certify that my determination is in accordance with my understanding of Medicare's requirements for reasonable and necessary INPATIENT services [42 CFR 412.3e].: Yes Medical Necessity: Significant Comorbidiites Make Outpatient Treatment Too Risky, Need Close Monitoring Due to Risk of Patient Decompensation, Need For IV Fluids, Need For Continuous Telemetry Monitoring, Risk of Complication if Not Cared For in Hospital, Risk of Diagnosis Which Will Require Inpatient Eval/Care/Monitoring Post Hospital Care: D/C Candle Cutter Documentation - Plan Summary Plan Summary: See admitting attending physician orders for details about care plan.
[2019-02-13 19:44] LABS: ABSOLUTE LYMPHOCYTES (AUTO) 1.2 10^3/uL (0.5-4.7); ABSOLUTE MONOCYTES (AUTO) 0.5 10^3/uL (0.1-1.4); ABSOLUTE NEUT (AUTO) 8.6 10^3/uL (1.7-8.2); BASOPHILS % (AUTO) 0.3 % (0-2); EOSINOPHILS % (AUTO) 0.1 % (0-6); HEMATOCRIT 39.6 % (37.9-51.0); HEMOGLOBIN 13.3 g/dL (13.5-17.0); LYMPHOCYTES % (AUTO) 11.4 % (13-45); MEAN CORPUSCULAR HEMOGLOBIN 30.6 pg (27.0-33.4); MEAN CORPUSCULAR HGB CONC 33.6 g/dL (32.0-36.0); PLATELET COUNT 237 10^3/uL (150-450); RED BLOOD COUNT 4.36 10^6/uL (4.35-5.55); RED CELL DISTRIBUTION WIDTH 12.5 % (11.5-14.0); SEGMENTED NEUTROPHILS % (AUTO) 83.2 % (42-78); TOTAL CELLS COUNTED % (AUTO) 100 %; WHITE BLOOD COUNT 10.3 10^3/uL (4.0-10.5)
[2019-02-13 19:45] LABS: MEAN CORPUSCULAR VOLUME 91 fl (80-97)
[2019-02-13] MEDS ORDERED: DEXTROSE 40% GEL 15 GM TUBE X 2 PO PRN (20:00)
[2019-02-13] MEDS ORDERED: DEXTROSE 50%-WATER SYRINGE 12.5 GM/25 ML DOSE IV PRN (20:00)
[2019-02-13] MEDS ORDERED: DEXTROSE 50%-WATER SYRINGE 25 GM/50 ML DOSE IV PRN (20:00)
[2019-02-13] MEDS ORDERED: DEXTROSE 40% GEL 15 GM TUBE PO PRN (20:00)
[2019-02-13] MEDS ORDERED: GLUCAGON,HUMAN RECOMB 1 MG INJ IM PRN (20:00)
[2019-02-13 20:05] LABS: ANION GAP 8 (5-19); BLOOD UREA NITROGEN 31 mg/dL (7-20); CALCIUM 9.2 mg/dL (8.4-10.2); CARBON DIOXIDE 30 mmol/L (22-30); CHLORIDE 101 mmol/L (98-107); GLUCOSE 204 mg/dL (75-110); POTASSIUM 4.1 mmol/L (3.6-5.0); SODIUM 138.5 mmol/L (137-145)
[2019-02-13] MEDS: INSULIN LISPRO 100 UNIT/ML 3 ML VIAL SUBCUT SCH (21:13)
[2019-02-13] MEDS ORDERED: INSULIN GLARGINE,HUM.REC.ANLOG 1,000 UNIT/10 ML VIAL (PYX) SUBCUT ONE (21:15)
[2019-02-13] MEDS: GABAPENTIN 300 MG CAPSULE PO SCH (21:16)
[2019-02-13] MEDS: INSULIN GLARGINE,HUM.REC.ANLOG 1,000 UNIT/10 ML VIAL SUBCUT SCH (21:17)
[2019-02-14] MEDS: NORMAL SALINE 1000 ML 1,000 ML IV PRN ×3 (02:26→23:51)
[2019-02-14] MEDS: GABAPENTIN 300 MG CAPSULE PO SCH ×3 (05:23→22:13)
[2019-02-14] MEDS: PANTOPRAZOLE SODIUM 40 MG TABLET.DR PO SCH (05:23)
[2019-02-14 05:35] LABS: HEMATOCRIT 37.3 % (37.9-51.0); HEMOGLOBIN 12.6 g/dL (13.5-17.0); MEAN CORPUSCULAR HEMOGLOBIN 31.2 pg (27.0-33.4); MEAN CORPUSCULAR HGB CONC 33.9 g/dL (32.0-36.0); MEAN CORPUSCULAR VOLUME 92 fl (80-97); PLATELET COUNT 227 10^3/uL (150-450); RED BLOOD COUNT 4.05 10^6/uL (4.35-5.55); WHITE BLOOD COUNT 11.6 10^3/uL (4.0-10.5)
[2019-02-14 05:52] LABS: ALANINE AMINOTRANSFERASE 72 U/L (21-72); ALBUMIN 3.2 g/dL (3.5-5.0); ALKALINE PHOSPHATASE 97 U/L (38-126); ANION GAP 9 (5-19); ASPARTATE AMINO TRANSFERASE 54 U/L (17-59); BILIRUBIN,DIRECT 0.2 mg/dL (0.0-0.4); BILIRUBIN,TOTAL 0.4 mg/dL (0.2-1.3); BLOOD UREA NITROGEN 35 mg/dL (7-20); CALCIUM 8.4 mg/dL (8.4-10.2); CARBON DIOXIDE 27 mmol/L (22-30); CHLORIDE 98 mmol/L (98-107); CHOLESTEROL 290.39 mg/dL (0-200); POTASSIUM 4.7 mmol/L (3.6-5.0); SODIUM 133.8 mmol/L (137-145); TOTAL PROTEIN 5.8 g/dL (6.3-8.2); TRIGLYCERIDES 316 mg/dL (<150)
[2019-02-14 05:58] LABS: GLUCOSE 398 mg/dL (75-110)
[2019-02-14 06:03] LABS: VLDL CHOLESTEROL 63.2 mg/dL (10-31)
[2019-02-14 06:08] LABS: DIRECT LDL 123 mg/dL (<100)
[2019-02-14] MEDS: INSULIN LISPRO 100 UNIT/ML 3 ML VIAL SUBCUT SCH ×4 (08:14→22:19)
[2019-02-14] MEDS: INSULIN GLARGINE,HUM.REC.ANLOG 1,000 UNIT/10 ML VIAL SUBCUT SCH ×2 (10:37→22:18)
--- NOTE | 2019-02-14 14:00 | EKG REPORT ---
SEVERITY:- ABNORMAL ECG - SINUS RHYTHM CONSIDER LEFT VENTRICULAR HYPERTROPHY ST ELEVATION SUGGESTS PERICARDITIS VS EARLY REPOL CHANGES : Confirmed by: Yang Pritchett 14-Feb-2019 13:59:55
--- NOTE | 2019-02-14 14:33 | PDOC PROGRESS REPORT ---
Subjective Progress Note for:: 02/14/19 Subjective:: Patient reported persistent left shoulder joint pain. His accuchek remain elevated and nursing staff reported noncompliance with dietary restrictions. No chest pain or difficulty with breathing. No fever or chills. Reason For Visit: DKA,LEFT SHOULDER JOINT PAIN,S/P FALL Physical Exam Vital Signs: Temp Pulse Resp BP Pulse Ox 98.2 F 81 16 133/89 H 93 02/14/19 11:33 02/14/19 11:33 02/14/19 11:33 02/14/19 11:33 02/14/19 11:33 Intake & Output 02/13/19 02/14/19 02/15/19 06:59 06:59 06:59 Intake Total 3881 1000 Output Total 2500 Balance 1381 1000 Weight 60.4 kg General appearance: PRESENT: no acute distress, well-developed, well-nourished Head exam: PRESENT: atraumatic, normocephalic Eye exam: PRESENT: conjunctiva pink. ABSENT: scleral icterus Ear exam: PRESENT: normal external ear exam Mouth exam: PRESENT: moist Respiratory exam: PRESENT: clear to auscultation shoaib Cardiovascular exam: PRESENT: RRR. ABSENT: diastolic murmur, rubs, systolic m urmur Vascular exam: ABSENT: pallor GI/Abdominal exam: PRESENT: normal bowel sounds, soft. ABSENT: distended, guarding, mass, organolmegaly, rebound, tenderness Extremities exam: ABSENT: pedal edema Neurological exam: PRESENT: alert, awake, oriented to person, oriented to place, oriented to time, oriented to situation, CN II-XII grossly intact. ABSENT: motor sensory deficit Psychiatric exam: PRESENT: appropriate affect, normal mood. ABSENT: homicidal ideation, suicidal ideation Skin exam: PRESENT: dry, warm Results Laboratory Results: 02/14/19 04:51 02/14/19 04:51 02/13/19 02/13/19 02/14/19 19:25 19:25 04:51 WBC 10.3 11.6 H RBC 4.36 4.05 L Hgb 13.3 L 12.6 L Hct 39.6 37.3 L MCV 91 D 92 MCH 30.6 31.2 MCHC 33.6 33.9 RDW 12.5 13.0 Plt Count 237 227 Seg Neutrophils % 83.2 H Lymphocytes % 11.4 L Monocytes % 5.0 Eosinophils % 0.1 Basophils % 0.3 Absolute Neutrophils 8.6 H Absolute Lymphocytes 1.2 Absolute Monocytes 0.5 Absolute Eosinophils 0.0 Absolute Basophils 0.0 Sodium 138.5 Potassium 4.1 Chloride 101 Carbon Dioxide 30 Anion Gap 8 BUN 31 H Creatinine 1.18 Est GFR ( Amer) > 60 Est GFR (Non-Af Amer) > 60 Glucose 204 H Calcium 9.2 Total Bilirubin AST ALT Alkaline Phosphatase Total Protein Albumin Triglycerides Cholesterol LDL Cholesterol Direct VLDL Cholesterol HDL Cholesterol 02/14/19 04:51 WBC RBC Hgb Hct MCV MCH MCHC RDW Plt Count Seg Neutrophils % Lymphocytes % Monocytes % Eosinophils % Basophils % Absolute Neutrophils Absolute Lymphocytes Absolute Monocytes Absolute Eosinophils Absolute Basophils Sodium 133.8 L Potassium 4.7 Chloride 98 Carbon Dioxide 27 Anion Gap 9 BUN 35 H Creatinine 1.21 Est GFR ( Amer) > 60 Est GFR (Non-Af Amer) > 60 Glucose 398 H Calcium 8.4 Total Bilirubin 0.4 AST 54 ALT 72 Alkaline Phosphatase 97 Total Protein 5.8 L Albumin 3.2 L Triglycerides 316 H Cholesterol 290.39 H LDL Cholesterol Direct 123 H VLDL Cholesterol 63.2 H HDL Cholesterol 51 02/13/19 02/13/19 07:01 07:50 Troponin I Cancelled < 0.012 Impressions: Chest X-Ray 02/13/19 07:13 IMPRESSION: NO ACUTE RADIOGRAPHIC FINDING IN THE CHEST. Shoulder X-Ray 02/13/19 07:25 IMPRESSION: No acute findings. 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 Is this a current diagnosis for this admission?: Yes (2) Hyperkalemia Is this a current diagnosis for this admission?: Yes (3) Type 2 diabetes mellitus Qualifiers: Diabetes mellitus intermodal customer service insulin use: with intermodal customer service use Diabetes mellitus complication status: with ketoacidosis Is this a current diagnosis for this admission?: Yes (4) Noncompliance with medication regimen Is this a current diagnosis for this admission?: Yes (5) Hypertension Qualifiers: Hypertension type: essential hypertension Qualified Code(s): I10 - Essential (primary) hypertension Is this a current diagnosis for this admission?: Yes (6) Hyperlipidemia Qualifiers: Hyperlipidemia type: unspecified Qualified Code(s): E78.5 - Hyperlipidemia, unspecified Is this a current diagnosis for this admission?: Yes (7) COPD (chronic obstructive pulmonary disease) Qualifiers: Emphysema type: unspecified Is this a current diagnosis for this admission?: Yes (8) GERD (gastroesophageal reflux disease) Qualifiers: Esophagitis presence: esophagitis presence not specified Qualified Code(s): K21.9 - Gastro-esophageal reflux disease without esophagitis Is this a current diagnosis for this admission?: Yes (9) Pain of left shoulder joint on movement Is this a current diagnosis for this admission?: Yes - Time Time Spent with patient: 25-34 minutes Medications reviewed and adjusted accordingly: Yes Anticipated discharge: Home Within: Other - Inpatient Certification Based on my medical assessment, after consideration of the patient's comorbiditi es, presenting symptoms, or acuity I expect that the services needed warrant INPATIENT care.: Yes I certify that my determination is in accordance with my understanding of [facility]'s requirements for reasonable and necessary INPATIENT services [42 CFR 412.3e].: Yes Medical Necessity: Significant Comorbidiites Make Outpatient Treatment Too Risky, Need Close Monitoring Due to Risk of Patient Decompensation, Need For IV Fluids, Need For Continuous Telemetry Monitoring, Risk of Complication if Not Cared For in Hospital, Risk of Diagnosis Which Will Require Inpatient Eval/Care/Monitoring Post Hospital Care: D/C Fourdrinier Tender Documentation - Plan Summary Plan Summary: Increase Lantus insulin to 25 units SC bid acbd, start on Simvastatin 20 mg p.o qhs. Continue IV fluid support. Maintain on Humalog insulin sliding scale coverage. Continue current medication management.
[2019-02-14] MEDS: SIMVASTATIN 10 MG TABLET PO SCH (22:15)
[2019-02-14] MEDS: TRAMADOL HCL 50 MG TABLET PO PRN (22:20)
[2019-02-15] MEDS: GABAPENTIN 300 MG CAPSULE PO SCH ×3 (06:43→22:02)
[2019-02-15] MEDS: PANTOPRAZOLE SODIUM 40 MG TABLET.DR PO SCH (06:43)
[2019-02-15] MEDS: TRAMADOL HCL 50 MG TABLET PO PRN ×3 (06:47→22:10)
[2019-02-15] MEDS: INSULIN LISPRO 100 UNIT/ML 3 ML VIAL SUBCUT SCH ×4 (08:44→22:38)
[2019-02-15] MEDS: INSULIN GLARGINE,HUM.REC.ANLOG 1,000 UNIT/10 ML VIAL SUBCUT SCH ×2 (09:41→22:37)
[2019-02-15] MEDS: NORMAL SALINE 1000 ML 1,000 ML IV PRN ×2 (09:43→22:12)
--- NOTE | 2019-02-15 13:23 | PDOC PROGRESS REPORT ---
Subjective Progress Note for:: 02/15/19 Subjective:: No chest pain or difficulty with breathing. No fever or chills. Accuchek is improving. No nausea, vomiting, or abdominal pain. Reason For Visit: DKA,LEFT SHOULDER JOINT PAIN,S/P FALL Physical Exam Vital Signs: Temp Pulse Resp BP Pulse Ox 97.9 F 97 16 134/86 H 96 02/15/19 12:30 02/15/19 12:30 02/15/19 12:30 02/15/19 12:30 02/15/19 12:30 Intake & Output 02/14/19 02/15/19 02/16/19 06:59 06:59 06:59 Intake Total 3881 3886 1464 Output Total 2500 1700 450 Balance 1381 2186 1014 Weight 60.4 kg 64 kg Physical Exam: General appearance: PRESENT: no acute distress, well-developed, well-nourished Head exam: PRESENT: atraumatic, normocephalic Eye exam: PRESENT: conjunctiva pink. ABSENT: scleral icterus Ear exam: PRESENT: normal external ear exam Mouth exam: PRESENT: moist Respiratory exam: PRESENT: clear to auscultation shoaib Cardiovascular exam: PRESENT: RRR. ABSENT: diastolic murmur, rubs, systolic murmur Vascular exam: ABSENT: pallor GI/Abdominal exam: PRESENT: normal bowel sounds, soft. ABSENT: distended, guarding, mass, organomegaly, rebound, tenderness Extremities exam: ABSENT: pedal edema Neurological exam: PRESENT: alert, awake, oriented to person, oriented to place, oriented to time, oriented to situation, CN II-XII grossly intact. ABSENT: motor sensory deficit Psychiatric exam: PRESENT: appropriate affect, normal mood. ABSENT: homicidal ideation, suicidal ideation Skin exam: PRESENT: dry, warm Results Laboratory Results: 02/14/19 04:51 02/14/19 04:51 02/13/19 02/13/19 07:01 07:50 Troponin I Cancelled < 0.012 Impressions: Chest X-Ray 02/13/19 07:13 IMPRESSION: NO ACUTE RADIOGRAPHIC FINDING IN THE CHEST. Shoulder X-Ray 02/13/19 07:25 IMPRESSION: No acute findings. 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 Is this a current diagnosis for this admission?: Yes (2) Hyperkalemia Is this a current diagnosis for this admission?: Yes (3) Type 2 diabetes mellitus Qualifiers: Diabetes mellitus fdc insulin use: with fdc use Diabetes mellitus complication status: with ketoacidosis Is this a current diagnosis for this admission?: Yes (4) Noncompliance with medication regimen Is this a current diagnosis for this admission?: Yes (5) Hypertension Qualifiers: Hypertension type: essential hypertension Qualified Code(s): I10 - Essential (primary) hypertension Is this a current diagnosis for this admission?: Yes (6) Hyperlipidemia Qualifiers: Hyperlipidemia type: unspecified Qualified Code(s): E78.5 - Hyperlipidemia, unspecified Is this a current diagnosis for this admission?: Yes (7) COPD (chronic obstructive pulmonary disease) Qualifiers: Emphysema type: unspecified Is this a current diagnosis for this admission?: Yes (8) GERD (gastroesophageal reflux disease) Qualifiers: Esophagitis presence: esophagitis presence not specified Qualified Code(s): K21.9 - Gastro-esophageal reflux disease without esophagitis Is this a current diagnosis for this admission?: Yes (9) Pain of left shoulder joint on movement Is this a current diagnosis for this admission?: Yes - Time Time Spent with patient: 25-34 minutes Medications reviewed and adjusted accordingly: Yes Anticipated discharge: Home Within: Other - Inpatient Certification Based on my medical assessment, after consideration of the patient's comorbidities, presenting symptoms, or acuity I expect that the services needed warrant INPATIENT care.: Yes I certify that my determination is in accordance with my understanding of Medicare's requirements for reasonable and necessary INPATIENT services [42 CFR 412.3e].: Yes Medical Necessity: Significant Comorbidiites Make Outpatient Treatment Too Risky, Need Close Monitoring Due to Risk of Patient Decompensation, Need For IV Fluids, Need For Continuous Telemetry Monitoring, Risk of Complication if Not Cared For in Hospital, Risk of Diagnosis Which Will Require Inpatient Eval/Care/Monitoring - Plan Summary Plan Summary: Start on Januvia 50 mg p.o daily. Continue al other current medication management
[2019-02-15] MEDS: SITAGLIPTIN PHOSPHATE 50 MG TABLET PO SCH (14:18)
[2019-02-15] MEDS: SIMVASTATIN 10 MG TABLET PO SCH (22:02)
[2019-02-16] MEDS: TRAMADOL HCL 50 MG TABLET PO PRN ×3 (04:08→20:09)
[2019-02-16] MEDS: PANTOPRAZOLE SODIUM 40 MG TABLET.DR PO SCH (06:44)
[2019-02-16] MEDS: GABAPENTIN 300 MG CAPSULE PO SCH ×3 (06:44→22:20)
[2019-02-16] MEDS: NORMAL SALINE 1000 ML 1,000 ML IV PRN (08:21)
[2019-02-16] MEDS: INSULIN LISPRO 100 UNIT/ML 3 ML VIAL SUBCUT SCH ×4 (08:24→22:20)
[2019-02-16] MEDS: INSULIN GLARGINE,HUM.REC.ANLOG 1,000 UNIT/10 ML VIAL SUBCUT SCH ×2 (10:02→22:21)
[2019-02-16] MEDS: SITAGLIPTIN PHOSPHATE 50 MG TABLET PO SCH (10:02)
--- NOTE | 2019-02-16 17:05 | PDOC PROGRESS REPORT ---
Subjective Progress Note for:: 02/16/19 Subjective:: No chest pain or difficulty with breathing. No fever or chills. No nausea, vomiting, or abdominal pain. Reason For Visit: DKA,LEFT SHOULDER JOINT PAIN,S/P FALL Physical Exam Vital Signs: Temp Pulse Resp BP Pulse Ox 98.3 F 104 H 16 141/83 H 97 02/16/19 12:11 02/16/19 14:00 02/16/19 12:11 02/16/19 12:11 02/16/19 12:11 Intake & Output 02/15/19 02/16/19 02/17/19 06:59 06:59 06:59 Intake Total 3886 2926 1237 Output Total 1700 1325 700 Balance 2186 1601 537 Weight 64 kg 68 kg Physical Exam: General appearance: PRESENT: no acute distress, well-developed, well-nourished Head exam: PRESENT: atraumatic, normocephalic Eye exam: PRESENT: conjunctiva pink. ABSENT: pallor, scleral icterus Ear exam: PRESENT: normal external ear exam Mouth exam: PRESENT: moist Respiratory exam: PRESENT: clear to auscultation shoaib Cardiovascular exam: PRESENT: RRR. ABSENT: diastolic murmur, rubs, systolic murmur GI/Abdominal exam: PRESENT: normal bowel sounds, soft. ABSENT: distended, guarding, mass, organomegaly, rebound, tenderness Extremities exam: ABSENT: pedal edema Neurological exam: PRESENT: alert, awake, oriented to person, oriented to place, oriented to time, oriented to situation, CN II-XII grossly intact. ABSENT: motor sensory deficit Psychiatric exam: PRESENT: appropriate affect, normal mood. ABSENT: homicidal ideation, suicidal ideation Skin exam: PRESENT: dry, warm Results Laboratory Results: 02/14/19 04:51 02/14/19 04:51 02/13/19 02/13/19 07:01 07:50 Troponin I Cancelled < 0.012 Impressions: Chest X-Ray 02/13/19 07:13 IMPRESSION: NO ACUTE RADIOGRAPHIC FINDING IN THE CHEST. Shoulder X-Ray 02/13/19 07:25 IMPRESSION: No acute findings. 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 of insulin Is this a current diagnosis for this admission?: Yes (2) Hyperkalemia Is this a current diagnosis for this admission?: Yes (3) Type 2 diabetes mellitus Qualifiers: Diabetes mellitus assisted insulin use: with and 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 Diabetes mellitus complication status: with ketoacidosis Is this a current diagnosis for this admission?: Yes (4) Noncompliance with medication regimen Is this a current diagnosis for this admission?: Yes (5) Hypertension Qualifiers: Hypertension type: essential hypertension Qualified Code(s): I10 - Essential (primary) hypertension Is this a current diagnosis for this admission?: Yes (6) Hyperlipidemia Qualifiers: Hyperlipidemia type: unspecified Qualified Code(s): E78.5 - Hyperlipidemia, unspecified Is this a current diagnosis for this admission?: Yes (7) COPD (chronic obstructive pulmonary disease) Qualifiers: Emphysema type: unspecified Is this a current diagnosis for this admission?: Yes (8) GERD (gastroesophageal reflux disease) Qualifiers: Esophagitis presence: esophagitis presence not specified Qualified Code(s): K21.9 - Gastro-esophageal reflux disease without esophagitis Is this a current diagnosis for this admission?: Yes (9) Pain of left shoulder joint on movement Is this a current diagnosis for this admission?: Yes - Time Time Spent with patient: 25-34 minutes Medications reviewed and adjusted accordingly: Yes Anticipated discharge: Home Within: Other - Inpatient Certification Based on my medical assessment, after consideration of the patient's comorbidities, presenting symptoms, or acuity I expect that the services needed warrant INPATIENT care.: Yes I certify that my determination is in accordance with my understanding of Medicare's requirements for reasonable and necessary INPATIENT services [42 CFR 412.3e].: Yes Medical Necessity: Significant Comorbidiites Make Outpatient Treatment Too Risky, Need Close Monitoring Due to Risk of Patient Decompensation, Need For IV Fluids, Need For Continuous Telemetry Monitoring, Risk of Complication if Not Cared For in Hospital, Risk of Diagnosis Which Will Require Inpatient Eval/Care/Monitoring Post Hospital Care: D/C Program Director/Morning Show Host Documentation - Plan Summary Plan Summary: D/C IV fluid. Decrease Januvia to 25 mg p.o daily. Continue all other current medication management.
[2019-02-16] MEDS: SIMVASTATIN 10 MG TABLET PO SCH (22:20)
[2019-02-17] MEDS: PANTOPRAZOLE SODIUM 40 MG TABLET.DR PO SCH (06:34)
[2019-02-17] MEDS: GABAPENTIN 300 MG CAPSULE PO SCH ×2 (06:34→14:24)
[2019-02-17] MEDS: TRAMADOL HCL 50 MG TABLET PO PRN ×2 (06:41→14:24)
[2019-02-17] MEDS: INSULIN LISPRO 100 UNIT/ML 3 ML VIAL SUBCUT SCH ×2 (08:40→12:00)
[2019-02-17] MEDS ORDERED: SITAGLIPTIN PHOSPHATE 25 MG TABLET PO SCH (10:00)
[2019-02-17] MEDS: INSULIN GLARGINE,HUM.REC.ANLOG 1,000 UNIT/10 ML VIAL SUBCUT SCH (10:41)
--- NOTE | 2019-02-17 12:55 | PDOC DISCHARGE SUMMARY ---
General - Admit/Disc Date/PCP Admission Date/Primary Care Provider: 02/13/19 09:10 MELY MCDERMOTT MD Discharge Date: 02/17/19 - Discharge Diagnosis (1) Diabetes mellitus with ketoacidosis Is this a current diagnosis for this admission?: Yes (2) Hyperkalemia Is this a current diagnosis for this admission?: Yes (3) Type 2 diabetes mellitus Is this a current diagnosis for this admission?: Yes (4) Noncompliance with medication regimen Is this a current diagnosis for this admission?: Yes (5) Hypertension Is this a current diagnosis for this admission?: Yes (6) Hyperlipidemia Is this a current diagnosis for this admission?: Yes (7) COPD (chronic obstructive pulmonary disease) Is this a current diagnosis for this admission?: Yes (8) GERD (gastroesophageal reflux disease) Is this a current diagnosis for this admission?: Yes (9) Pain of left shoulder joint on movement Is this a current diagnosis for this admission?: Yes - Additional Information Resuscitation Status: Full Code Prescriptions: Insulin Glargine,Hum.rec.anlog [Lantus Insulin 100 Unit/1 ml 10 ml] 25 unit SUBCUT Q12 #2000 unit Simvastatin 20 mg PO DAILY #30 tablet Sitagliptin Phosphate [Januvia 25 mg Tablet] 25 mg PO DAILY #30 tablet Syringe and Needle,Insulin,1Ml [Insulin Syringe 1 mL] 1 syr MC ASDIR PRN #200 syringe PRN Reason: Tramadol HCl [Ultram 50 mg Tablet] 50 mg PO Q6HP PRN #60 tablet PRN Reason: Home Medications: Gabapentin [Neurontin 300 mg Capsule] 600 mg PO Q8 02/13/19 Insulin Glargine,Hum.rec.anlog [Lantus Insulin 100 Unit/1 ml 10 ml] 20 unit SUBCUT Q12 02/13/19 Omeprazole 40 mg PO DAILY 02/13/19 Insulin Aspart [Novolog Insulin (Aspart) 100 unit/mL] 0 unit SUBCUT .SLD SCALE 30 Days #1000 units 02/17/19 Insulin Glargine,Hum.rec.anlog [Lantus Insulin 100 Unit/1 ml 10 ml] 25 unit S UBCUT Q12 #2000 unit 02/17/19 Simvastatin 20 mg PO DAILY #30 tablet 02/17/19 Sitagliptin Phosphate [Januvia 25 mg Tablet] 25 mg PO DAILY #30 tablet 02/17/19 Syringe and Needle,Insulin,1Ml [Insulin Syringe 1 mL] 1 syr MC ASDIR PRN #200 syringe 02/17/19 Tramadol HCl [Ultram 50 mg Tablet] 50 mg PO Q6HP PRN #60 tablet 02/17/19 History of Present Illness History of Present Illness: MAMTA CUEVA is a 58 year old male patient of Dr Mcdermott who presented to the ED with complain of high blood sugar. Patient reported that he had missed his Lantus insulin for 4 days prior to presentation but has been using his Humalog insulin on sliding scale dosing.He reported progressive generalized weakness that resulted in his fall before coming to the ED. Patient reported both lightheadedness and vertigo sensation before his fall. he reported increase pain in his left shoulder joint. There is functional limitation across his left shoulder joint due to elicited pain. He denied any chest pain, difficulty with breathing, palpitation, or diaphoresis. No nausea, vomiting or abdominal pain. He denied any fever, chills, dysuria, flank pain or hematuria. His initial ED evaluation revealed significant hyperglycemia with indices suggestive of diabetic ketoacidosis state. Patient has history of frequent DKA. He was advised hospitalization for further evaluation and management. His morbidities include DM type 2, Hypertension, Hyperlipidemia, GERD, and COPD. Hospital Course Hospital Course: Patient was admitted for DKA that resulted from noncompliance with his medication management. He was treated with Insulin infusion and subsequently transition to Lantus insulin with Humalog insulin sliding scale and Januvia therapy. He will be discharged home today and follow up with Dr Mcdermott as instructed upon discharge. Physical Exam Vital Signs: Temp Pulse Resp BP Pulse Ox 98.1 F 118 H 18 141/72 H 94 02/17/19 03:05 02/17/19 07:00 02/16/19 20:40 02/17/19 03:05 02/17/19 03:05 Intake & Output 02/16/19 02/17/19 02/18/19 06:59 06:59 06:59 Intake Total 5494 9897 Output Total 2778 9125 Balance 1601 1742 Weight 68 kg 68.7 kg Physical Exam: General appearance: PRESENT: no acute distress, well-developed, well-nourished Head exam: PRESENT: atraumatic, normocephalic Eye exam: PRESENT: conjunctiva pink. ABSENT: pallor, scleral icterus Ear exam: PRESENT: normal external ear exam Mouth exam: PRESENT: moist Respiratory exam: PRESENT: clear to auscultation shoaib Cardiovascular exam: PRESENT: RRR. ABSENT: diastolic murmur, rubs, systolic murmur GI/Abdominal exam: PRESENT: normal bowel sounds, soft. ABSENT: distended, guarding, mass, organomegaly, rebound, tenderness Extremities exam: ABSENT: pedal edema Neurological exam: PRESENT: alert, awake, oriented to person, oriented to place, oriented to time, oriented to situation, CN II-XII grossly intact. ABSENT: motor sensory deficit Psychiatric exam: PRESENT: appropriate affect, normal mood. ABSENT: homicidal ideation, suicidal ideation Skin exam: PRESENT: dry, warm Results Laboratory Results: 02/14/19 04:51 02/14/19 04:51 02/13/19 02/13/19 07:01 07:50 Troponin I Cancelled < 0.012 Impressions: Chest X-Ray 02/13/19 07:13 IMPRESSION: NO ACUTE RADIOGRAPHIC FINDING IN THE CHEST. Shoulder X-Ray 02/13/19 07:25 IMPRESSION: No acute findings. Old healed left AC separation Qualifiers - * PATIENT BEING DISCHARGED WITH ANY OF THE FOLLOWING DIAGNOSIS: No Acute Heart Failure - Is this a Heart Failure Patient?: No Plan Discharge Plan: D/C home today and follow up with Dr. Mcdermott as instructed upon discharge. I did emphasized dietary and medication compliance during my bedside visit today.
[2019-02-17 14:29] VITALS: BP 159/97
== END 2019-02-17 14:45 | disposition home or self-care (01) | DRG 638 ==
LOC: ER 06:56 → EH 09:10 → 3W 16:08
PROVIDERS: ADMIT Internal Medicine Geriatric Medicine; ATTEND Family Medicine
DX: E11.10 Type 2 diabetes mellitus with ketoacidosis without coma (principal); N17.9 Acute kidney failure, unspecified; E86.0 Dehydration; E87.5 Hyperkalemia; I10 Essential (primary) hypertension; K21.9 Gastro-esophageal reflux disease without esophagitis; J44.9 Chronic obstructive pulmonary disease, unspecified; E78.5 Hyperlipidemia, unspecified; F32.9 Major depressive disorder, single episode, unspecified; Z83.3 Family history of diabetes mellitus; Z82.49 Family history of ischemic heart disease and other diseases of the circulatory system; Z79.4 Long term (current) use of insulin; T38.3X6A Underdosing of insulin and oral hypoglycemic [antidiabetic] drugs, initial encounter; M25.512 Pain in left shoulder
CPT/HCPCS: 36415; 71045; 80053; 80061; 80307; 81001; 82803; 82962; 83036; 83605; 84484; 85025; 85027; 87040; 93005; 93010; 96360; 99291; J0610; J1815; J3490; J7030

== ENCOUNTER 2019-02-21 11:50 | Inpatient (IN) | payer MEDICAID ==
[2019-02-21] MEDS ORDERED: NORMAL SALINE 1000 ML 2,000 ML IV ONE (12:03)
--- NOTE | 2019-02-21 12:06 | ER Document Report ---
ED Medical Screen (RME) - General Chief Complaint: High Blood Sugar Stated Complaint: DIFFICULTY SEEING Time Seen by Provider: 02/21/19 12:03 Primary Care Provider: MELY MCDERMOTT MD [Primary Care Provider] - Follow up as needed Mode of Arrival: Wheelchair Information source: Patient Notes: 58-year-old male presented to ED for diabetes with loss of vision this morning. He has a very high blood sugar he states and does not know why he can control his blood sugar at home. He was recently seen here for DKA. He is crying about losing his vision. He is hypotensive at this time. I have greeted and performed a rapid initial assessment of this patient. A comprehensive ED assessment and evaluation of the patient, analysis of test results and completion of medical decision making process will be conducted by an additional ED providers. Dictation of this chart was performed using voice recognition software; therefore, there may be some unintended grammatical errors. TRAVEL OUTSIDE OF THE [place] IN LAST 30 DAYS: No - Related Data Allergies/Adverse Reactions: No Known Allergies Allergy (Verified 02/21/19 11:52) Past Medical History - Past Medical History Cardiac Medical History: Reports: Hx Hypercholesterolemia, Hx Hypertension Pulmonary Medical History: Reports: Hx COPD Denies: Hx Tuberculosis Neurological Medical History: Denies: Hx Seizures Endocrine Medical History: Reports: Hx Diabetes Mellitus Type 1, Hx Diabetes Mellitus Type 2 Renal/ Medical History: Reports: Hx Benign Prostatic Hyperplasia. Denies: Hx Peritoneal Dialysis GI Medical History: Reports: Hx Gastroesophageal Reflux Disease Psychiatric Medical History: Reports: Hx Depression Past Surgical History: Reports: Hx Orthopedic Surgery - jaw - Immunizations Hx Diphtheria, Pertussis, Tetanus Vaccination: No History of Influenza Vaccine for 05/2017 - 10/2017 Season: Unknown Physical Exam - Vital signs Vitals: Temp Pulse Resp BP Pulse Ox 97.6 F 100 16 87/46 L 99 02/21/19 11:52 02/21/19 11:52 02/21/19 11:52 02/21/19 11:52 02/21/19 11:52 Course - Vital Signs Vital signs: Temp Pulse Resp BP Pulse Ox 97.6 F 100 16 87/46 L 99 02/21/19 11:52 02/21/19 11:52 02/21/19 11:52 02/21/19 11:52 02/21/19 11:52 Doctor's Discharge - Discharge Referrals: MELY MCDERMOTT MD [Primary Care Provider] - Follow up as needed
[2019-02-21 12:31] LABS: ABSOLUTE BASOPHILS # (AUTO) 0.1 10^3/uL (0.0-0.2); TOTAL CELLS COUNTED % (AUTO) 100 %; VENOUS BLOOD BASE EXCESS -17.9 mmol/L; VENOUS BLOOD HCO3 9.4 mmol/L (20-32); VENOUS BLOOD PCO2 27.6 mmHg (35-63)
[2019-02-21] MEDS ORDERED: INSULIN REG, HUMAN 100 UNIT/ML 3 ML VIAL (PYX) IV ONE (12:33)
[2019-02-21 12:34] LABS: VENOUS BLOOD PH 7.15 (7.30-7.42)
--- NOTE | 2019-02-21 12:42 | ER Document Report ---
ED Blood Sugar Problem - General Chief Complaint: High Blood Sugar Stated Complaint: DIFFICULTY SEEING Time Seen by Provider: 02/21/19 12:03 Primary Care Provider: MELY MCDERMOTT MD [Primary Care Provider] - Follow up as needed Mode of Arrival: Wheelchair Information source: Patient TRAVEL OUTSIDE OF THE [place] IN LAST 30 DAYS: No - HPI Patient complains to provider of: elevated BS Onset: Yesterday - pt. rashard recently d/c'd from [facility] with DKA states he has been unable to get his insulin and his BS is running elevated again. Also states his vision has decreased in the past 1-2 days. - Related Data Allergies/Adverse Reactions: No Known Allergies Allergy (Verified 02/21/19 11:52) Past Medical History - Social History Smoking Status: Unknown if Ever Smoked Family History: Reviewed & Not Pertinent, CAD - father at 59 of heart problems, DM - mother - Past Medical History Cardiac Medical History: Reports: Hx Hypercholesterolemia, Hx Hypertension Pulmonary Medical History: Reports: Hx COPD Denies: Hx Tuberculosis Neurological Medical History: Denies: Hx Seizures Endocrine Medical History: Reports: Hx Diabetes Mellitus Type 1, Hx Diabetes May litus Type 2 Renal/ Medical History: Reports: Hx Benign Prostatic Hyperplasia. Denies: Hx Peritoneal Dialysis GI Medical History: Reports: Hx Gastroesophageal Reflux Disease Psychiatric Medical History: Reports: Hx Depression Past Surgical History: Reports: Hx Orthopedic Surgery - jaw - Immunizations Hx Diphtheria, Pertussis, Tetanus Vaccination: No Hx Pneumococcal Vaccination: 05/09/13 Review of Systems - Review of Systems Constitutional: No symptoms reported EENT: See HPI, Blurred vision Cardiovascular: No symptoms reported Respiratory: No symptoms reported Gastrointestinal: No symptoms reported Neurological/Psychological: No symptoms reported -: Yes All other systems reviewed and negative Physical Exam - Vital signs Vitals: Temp Pulse Resp BP Pulse Ox 97.6 F 100 16 87/46 L 99 02/21/19 11:52 02/21/19 11:52 02/21/19 11:52 02/21/19 11:52 02/21/19 11:52 - General General appearance: Appears well In distress: None - HEENT Head: Normocephalic Eyes: Normal Conjunctiva: Normal Extraocular movements intact: Yes Pupils: PERRL Mouth/Lips: Normal Mucous membranes: Normal Pharynx: Normal Neck: Normal - Respiratory Respiratory status: No respiratory distress Breath sounds: Normal - Cardiovascular Rhythm: Regular Heart sounds: Normal auscultation Murmur: No - Abdominal Inspection: Normal Tenderness: Nontender - Extremities General upper extremity: Normal inspection General lower extremity: Normal inspection - Neurological Neuro grossly intact: Yes Cognition: Normal Orientation: AAOx4 Course - Re-evaluation Re-evalutation: 02/21/19 14:44 pt' s exam unchanged -- have started insulin drip -- will call Dr. Morejon for admission - Vital Signs Vital signs: Temp Pulse Resp BP Pulse Ox 97.6 F 100 18 128/108 H 98 02/21/19 11:52 02/21/19 11:52 02/21/19 14:01 02/21/19 14:01 02/21/19 14:01 - Laboratory Result Diagrams: 02/21/19 12:15 02/21/19 13:13 Laboratory results interpreted by me: 02/21/19 02/21/19 02/21/19 12:15 12:15 13:13 RBC 4.23 L Hgb 13.2 L MCV 100 H D MCHC 31.1 L RDW 14.7 H Plt Count 483 H VBG pH 7.15 L* VBG pCO2 27.6 L VBG HCO3 9.4 L Sodium 130.2 L Potassium 5.3 H Chloride 91 L Carbon Dioxide 6 L* Anion Gap 33 H BUN 28 H Creatinine 1.64 H Est GFR ( Amer) 53 L Est GFR (Non-Af Amer) 44 L Glucose 1018 H* Alkaline Phosphatase 143 H - Diagnostic Test Radiology reviewed: Reports reviewed - cxr- neg - EKG Interpretation by Ks EKG shows normal: Sinus rhythm Rate: Normal Rhythm: NSR - nsr with LVH and no acute change Critical Care Note - Critical Care Note Total time excluding time spent on procedures (mins): 30 Discharge - Discharge Clinical Impression: DKA (diabetic ketoacidoses) Qualifiers: Diabetes mellitus type: other specified (including EVETTE) Diabetes mellitus complication detail: without coma Qualified Code(s): E13.10 - Other specified diabetes mellitus with ketoacidosis without coma Condition: Stable Disposition: ADMITTED OBSERVATION Admitting Provider: [facility] Unit Admitted: [facility] Referrals: MELY MCDERMOTT MD [Primary Care Provider] - Follow up as needed
[2019-02-21 12:48] LABS: ABSOLUTE LYMPHOCYTES (AUTO) 1.3 10^3/uL (0.5-4.7); ABSOLUTE MONOCYTES (AUTO) 0.9 10^3/uL (0.1-1.4); BASOPHILS % (AUTO) 0.9 % (0-2); EOSINOPHILS % (AUTO) 0.1 % (0-6); HEMATOCRIT 42.4 % (37.9-51.0); HEMOGLOBIN 13.2 g/dL (13.5-17.0); MEAN CORPUSCULAR HEMOGLOBIN 31.2 pg (27.0-33.4); MEAN CORPUSCULAR HGB CONC 31.1 g/dL (32.0-36.0); MONOCYTES % (AUTO) 9.4 % (3-13); PLATELET COUNT 483 10^3/uL (150-450); RED BLOOD COUNT 4.23 10^6/uL (4.35-5.55); RED CELL DISTRIBUTION WIDTH 14.7 % (11.5-14.0); SEGMENTED NEUTROPHILS % (AUTO) 75.6 % (42-78); WHITE BLOOD COUNT 9.2 10^3/uL (4.0-10.5)
[2019-02-21 13:04] LABS: MEAN CORPUSCULAR VOLUME 100 fl (80-97)
--- NOTE | 2019-02-21 13:10 | RADIOLOGY REPORT (SQ) ---
EXAM DESCRIPTION: CHEST SINGLE VIEW COMPLETED DATE/TIME: 02/21/2019 12:58 pm REASON FOR STUDY: dka COMPARISON: 02/13/2019 EXAM PARAMETERS: NUMBER OF VIEWS: One view. TECHNIQUE: Single frontal radiographic view of the chest acquired. RADIATION DOSE: NA LIMITATIONS: None. FINDINGS: LUNGS AND PLEURA: No opacities, masses or pneumothorax. No pleural effusion. MEDIASTINUM AND HILAR STRUCTURES: No masses. Contour normal. HEART AND VASCULAR STRUCTURES: Heart normal in size. Normal vasculature. BONES: No acute findings. HARDWARE: None in the chest. OTHER: No other significant finding. IMPRESSION: NO ACUTE RADIOGRAPHIC FINDING IN THE CHEST. TECHNICAL DOCUMENTATION: JOB ID: [id number] [employer]- All Rights Reserved Reading location - IP/workstation name: [email or web address]
[2019-02-21 13:57] LABS: ALANINE AMINOTRANSFERASE 42 U/L (21-72); ALBUMIN 4.2 g/dL (3.5-5.0); ALKALINE PHOSPHATASE 143 U/L (38-126); ASPARTATE AMINO TRANSFERASE 34 U/L (17-59); BILIRUBIN,DIRECT 0.4 mg/dL (0.0-0.4); BILIRUBIN,TOTAL 0.5 mg/dL (0.2-1.3); BLOOD UREA NITROGEN 28 mg/dL (7-20); CALCIUM 9.4 mg/dL (8.4-10.2); CREATINE KINASE 86 U/L (55-170); POTASSIUM 5.3 mmol/L (3.6-5.0); TOTAL PROTEIN 7.2 g/dL (6.3-8.2)
[2019-02-21 14:03] LABS: CREATINE KINASE MB 1.88 ng/mL (<4.55)
[2019-02-21 14:05] LABS: CHLORIDE 91 mmol/L (98-107); SODIUM 130.2 mmol/L (137-145); TROPONIN I < 0.012 ng/mL
[2019-02-21 14:06] LABS: GLUCOSE 1018 mg/dL (75-110)
[2019-02-21 14:07] LABS: ANION GAP 33 (5-19); CARBON DIOXIDE 6 mmol/L (22-30)
[2019-02-21] MEDS ORDERED: DEXTROSE 50%-WATER 25 GM/50 ML DISP.SYRIN IV PRN ×2 (14:11)
[2019-02-21] MEDS ORDERED: DEXTROSE 40% GEL 15 GM TUBE PO PRN ×2 (14:11)
[2019-02-21] MEDS ORDERED: GLUCAGON,HUMAN RECOMB 1 MG INJ IM PRN (14:11)
[2019-02-21] MEDS ORDERED: INSULIN REG, HUMAN 100 UNIT/ML 3 ML VIAL (PYX) ONE (14:31)
[2019-02-21] MEDS: NORMAL SALINE 100 ML with INSULIN REGULAR, HUMAN 100 UNIT IV PRN ×2 (14:40)
[2019-02-21 15:07] LABS: APPEARANCE,URINE CLEAR; BILIRUBIN,URINE NEGATIVE (NEGATIVE); COLOR,URINE STRAW; GLUCOSE, URINE >=500 mg/dL (NEGATIVE); KETONES,URINE 80 mg/dL (NEGATIVE); LEUKOCYTE ESTERASE,URINE NEGATIVE (NEGATIVE); NITRITE,URINE NEGATIVE (NEGATIVE); PROTEIN,URINE NEGATIVE (NEGATIVE); URINE SPECIFIC GRAVITY 1.022; UROBILINOGEN,URINE NEGATIVE mg/dL (<2.0)
[2019-02-21 15:22] LABS: URINE AMPHETAMINES SCREEN NEGATIVE; URINE BARBITURATES SCREEN NEGATIVE; URINE BENZODIAZEPINES SCREEN NEGATIVE; URINE COCAINE SCREEN UNCONFIRMED POSITIVE; URINE MARIJUANA (THC) SCREEN NEGATIVE; URINE METHADONE SCREEN NEGATIVE; URINE PHENCYCLIDINE SCREEN NEGATIVE
[2019-02-21 17:13] LABS: ALANINE AMINOTRANSFERASE 45 U/L (21-72); ALBUMIN 3.6 g/dL (3.5-5.0); ALKALINE PHOSPHATASE 102 U/L (38-126); ASPARTATE AMINO TRANSFERASE 27 U/L (17-59); BILIRUBIN,DIRECT 0.4 mg/dL (0.0-0.4); BILIRUBIN,TOTAL 0.4 mg/dL (0.2-1.3); BLOOD UREA NITROGEN 26 mg/dL (7-20); TOTAL PROTEIN 6.2 g/dL (6.3-8.2)
[2019-02-21 17:20] LABS: CHLORIDE 98 mmol/L (98-107); POTASSIUM 4.9 mmol/L (3.6-5.0)
[2019-02-21 17:22] LABS: CARBON DIOXIDE 16 mmol/L (22-30)
[2019-02-21 17:23] LABS: ANION GAP 20 (5-19); GLUCOSE 625 mg/dL (75-110)
[2019-02-21 18:14] LABS: ARTERIAL BLOOD H2CO3 0.86 mmol/L (1.05-1.35); ARTERIAL BLOOD HCO3 17.4 mmol/L (20-24); ARTERIAL BLOOD O2 SATURATION 97.1 % (94-98); ARTERIAL BLOOD PCO2 28.6 mmHg (35-45); ARTERIAL BLOOD PO2 91.2 mmHg (80-100); ARTERIAL BLOOD TOTAL CO2 18.3 mmol/L (23-27)
[2019-02-21 18:15] LABS: ARTERIAL BLOOD FIO2 RA
--- NOTE | 2019-02-21 21:38 | PDOC H&P ---
History of Present Illness Admission Date/PCP: 02/21/19 14:52 MELY MCDERMOTT MD History of Present Illness: MAMTA CUEVA is a 58 year old male,He was recently discharged, 4 days ago from this hospital on 02/17/2019 when he was admitted for the management of diabetes ketoacidosis. He came to the emergency room for evaluation of hyperglycemia, he apparently does not have the insulin that he needed to manage his diabetes mellitus it is foreseeable for him to develop DKA if he does not take the insulin regimen that is needed Past Medical History Cardiac Medical History: Reports: Hyperlipidema, Hypertension Pulmonary Medical History: Reports: Chronic Obstructive Pulmonary Disease (COPD) GI Medical History: Reports: Gastroesophageal Reflux Disease Psychiatric Medical History: Reports: Depression Past Surgical History Past Surgical History: Reports: Orthopedic Surgery - jaw Social History Smoking Status: Former Smoker Number of Years Smokin Last Time Smoked: 01/29 Frequency of Alcohol Use: None Hx Recreational Drug Use: Yes - 02/28 Drugs: Cocaine, Marijuana Hx Prescription Drug Abuse: No - Advance Directive Resuscitation Status: Full Code Family History Family History: Reviewed & Not Pertinent, CAD - father at 59 of heart problems, DM - mother Parental Family History Reviewed: Yes Children Family History Reviewed: Yes Sibling(s) Family History Reviewed.: Yes Medication/Allergy Home Medications: Gabapentin [Neurontin 300 mg Capsule] 600 mg PO Q8 02/21/19 Insulin Aspart [Novolog Flexpen] 0 unit SQ .SLIDING SCALE 02/21/19 Insulin Glargine,Hum.rec.anlog [Lantus (Pyxis) Insulin 100 Unit/1 ml 10 ml] 20 unit SQ Q12 02/21/19 Omeprazole 40 mg PO DAILY 02/21/19 Allergies/Adverse Reactions: No Known Allergies Allergy (Verified 02/21/19 11:52) Review of Systems Constitutional: ABSENT: chills, fever(s), headache(s), weight gain, weight loss Eyes: ABSENT: visual disturbances Ears: ABSENT: hearing changes Cardiovascular: ABSENT: chest pain, dyspnea on exertion, edema, orthropnea, palpitations Respiratory: ABSENT: cough, hemoptysis Gastrointestinal: ABSENT: abdominal pain, constipation, diarrhea, hematemesis, hematochezia, nausea, vomiting Genitourinary: ABSENT: dysuria, hematuria Musculoskeletal: ABSENT: joint swelling Integumentary: ABSENT: rash, wounds Neurological: ABSENT: abnormal gait, abnormal speech, confusion, dizziness, focal weakness, syncope Psychiatric: ABSENT: anxiety, depression, homidical ideation, suicidal ideation Endocrine: ABSENT: cold intolerance, heat intolerance, menstrual abnormalities, polydipsia, polyuria Hematologic/Lymphatic: ABSENT: easy bleeding, easy bruising, lymphadenopathy Physical Exam Vital Signs: Temp Pulse Resp BP Pulse Ox 98.1 F 100 20 106/66 97 02/21/19 20:16 02/21/19 20:16 02/21/19 20:16 02/21/19 20:16 02/21/19 20:16 Intake & Output 02/20/19 02/21/19 02/22/19 06:59 06:59 06:59 Intake Total 2049 Output Total 400 Balance 1650 Weight 60 kg General appearance: PRESENT: no acute distress, well-developed, well-nourished Head exam: PRESENT: atraumatic, normocephalic Eye exam: PRESENT: conjunctiva pink, EOMI, PERRLA Ear exam: PRESENT: normal external ear exam Mouth exam: PRESENT: moist, tongue midline Neck exam: PRESENT: full ROM Respiratory exam: PRESENT: clear to auscultation shoaib Cardiovascular exam: PRESENT: RRR, +S1, +S2 Pulses: PRESENT: normal dorsalis pedis pul, +2 pedal pulses bilateral Vascular exam: PRESENT: normal capillary refill GI/Abdominal exam: PRESENT: normal bowel sounds, soft Rectal exam: PRESENT: deferred Neurological exam: PRESENT: alert, awake, oriented to person, oriented to place, oriented to time, oriented to situation, CN II-XII grossly intact Psychiatric exam: PRESENT: appropriate affect, normal mood Skin exam: PRESENT: dry, intact, warm Results Laboratory Results: 02/21/19 12:15 02/21/19 16:15 02/21/19 02/21/19 02/21/19 12:15 12:15 12:15 WBC 9.2 RBC 4.23 L Hgb 13.2 L Hct 42.4 MCV 100 H D MCH 31.2 MCHC 31.1 L RDW 14.7 H Plt Count 483 H Seg Neutrophils % 75.6 Lymphocytes % 14.0 Monocytes % 9.4 Eosinophils % 0.1 Basophils % 0.9 Absolute Neutrophils 7.0 Absolute Lymphocytes 1.3 Absolute Monocytes 0.9 Absolute Eosinophils 0.0 Absolute Basophils 0.1 Carbonic Acid HCO3/H2CO3 Ratio ABG pH ABG pCO2 ABG pO2 ABG HCO3 ABG O2 Saturation ABG Base Excess VBG pH 7.15 L* VBG pCO2 27.6 L VBG HCO3 9.4 L VBG Base Excess -17.9 FiO2 Sodium Cancelled Potassium Cancelled Chloride Cancelled Carbon Dioxide Cancelled Anion Gap Cancelled BUN Cancelled Creatinine Cancelled Est GFR ( Amer) Cancelled Est GFR (Non-Af Amer) Cancelled Glucose Cancelled Calcium Cancelled Total Bilirubin Cancelled AST Cancelled ALT Cancelled Alkaline Phosphatase Cancelled Total Protein Cancelled Albumin Cancelled Urine Color Urine Appearance Urine pH Ur Specific [place] Urine Protein Urine Glucose (UA) Urine Ketones Urine Blood Urine Nitrite Ur Leukocyte Esterase Urine WBC (Auto) 02/21/19 02/21/19 02/21/19 13:13 14:46 16:15 WBC RBC Hgb Hct MCV MCH MCHC RDW Plt Count Seg Neutrophils % Lymphocytes % Monocytes % Eosinophils % Basophils % Absolute Neutrophils Absolute Lymphocytes Absolute Monocytes Absolute Eosinophils Absolute Basophils Carbonic Acid HCO3/H2CO3 Ratio ABG pH ABG pCO2 ABG pO2 ABG HCO3 ABG O2 Saturation ABG Base Excess VBG pH VBG pCO2 VBG HCO3 VBG Base Excess FiO2 Sodium 130.2 L 134.0 L Potassium 5.3 H 4.9 Chloride 91 L 98 Carbon Dioxide 6 L* 16 L D Anion Gap 33 H 20 H BUN 28 H 26 H Creatinine 1.64 H 1.33 H Est GFR ( Amer) 53 L > 60 Est GFR (Non-Af Amer) 44 L 55 L Glucose 1018 H* 625 H* Calcium 9.4 9.0 Total Bilirubin 0.5 0.4 AST 34 27 ALT 42 45 Alkaline Phosphatase 143 H 102 Total Protein 7.2 6.2 L Albumin 4.2 3.6 Urine Color STRAW Urine Appearance CLEAR Urine pH 5.0 Ur Specific [place] 1.022 Urine Protein NEGATIVE Urine Glucose (UA) >=500 H Urine Ketones 80 H Urine Blood SMALL H Urine Nitrite NEGATIVE Ur Leukocyte Esterase NEGATIVE Urine WBC (Auto) 0 02/21/19 18:06 WBC RBC Hgb Hct MCV MCH MCHC RDW Plt Count Seg Neutrophils % Lymphocytes % Monocytes % Eosinophils % Basophils % Absolute Neutrophils Absolute Lymphocytes Absolute Monocytes Absolute Eosinophils Absolute Basophils Carbonic Acid 0.86 L HCO3/H2CO3 Ratio 20:1 ABG pH 7.40 ABG pCO2 28.6 L ABG pO2 91.2 ABG HCO3 17.4 L ABG O2 Saturation 97.1 ABG Base Excess -6.0 VBG pH VBG pCO2 VBG HCO3 VBG Base Excess FiO2 RA Sodium Potassium Chloride Carbon Dioxide Anion Gap BUN Creatinine Est GFR ( Amer) Est GFR (Non-Af Amer) Glucose Calcium Total Bilirubin AST ALT Alkaline Phosphatase Total Protein Albumin Urine Color Urine Appearance Urine pH Ur Specific [place] Urine Protein Urine Glucose (UA) Urine Ketones Urine Blood Urine Nitrite Ur Leukocyte Esterase Urine WBC (Auto) 02/21/19 02/21/19 02/21/19 12:15 12:15 13:13 Creatine Kinase Cancelled CK-MB (CK-2) Cancelled 1.88 Troponin I Cancelled < 0.012 02/21/19 13:13 Creatine Kinase 86 CK-MB (CK-2) Troponin I Impressions: Chest X-Ray 02/21/19 12:03 IMPRESSION: NO ACUTE RADIOGRAPHIC FINDING IN THE CHEST. Assessment & Plan - Diagnosis (1) Type 1 diabetes mellitus with ketoacidosis, uncontrolled Is this a current diagnosis for this admission?: Yes Plan: Patient is admitted with DKA due to noncompliance, start insulin drip
--- NOTE | 2019-02-21 22:41 | EKG REPORT ---
SEVERITY:- ABNORMAL ECG - SINUS RHYTHM ABERRANT COMPLEX, POSSIBLY SUPRAVENTRICULAR LEFT VENTRICULAR HYPERTROPHY : Confirmed by: Daniela Dowd MD 21-Feb-2019 22:40:08
[2019-02-22] MEDS ORDERED: INSULIN REG, HUMAN 100 UNIT/ML 3 ML VIAL (PYX) ONE (03:41)
[2019-02-22] MEDS: NORMAL SALINE 100 ML with INSULIN REGULAR, HUMAN 100 UNIT IV PRN ×2 (04:00)
[2019-02-22] MEDS ORDERED: DEXTROSE 40% GEL 15 GM TUBE PO PRN (09:00)
[2019-02-22] MEDS ORDERED: DEXTROSE 40% GEL 15 GM TUBE X 2 PO PRN (09:00)
[2019-02-22] MEDS ORDERED: DEXTROSE 50%-WATER SYRINGE 12.5 GM/25 ML DOSE IV PRN (09:00)
[2019-02-22] MEDS ORDERED: GLUCAGON,HUMAN RECOMB 1 MG INJ IM PRN (09:00)
[2019-02-22] MEDS ORDERED: DEXTROSE 50%-WATER SYRINGE 25 GM/50 ML DOSE IV PRN (09:00)
[2019-02-22 10:06] LABS: HEMATOCRIT 34.7 % (37.9-51.0); HEMOGLOBIN 11.7 g/dL (13.5-17.0); MEAN CORPUSCULAR HEMOGLOBIN 30.8 pg (27.0-33.4); MEAN CORPUSCULAR HGB CONC 33.7 g/dL (32.0-36.0); PLATELET COUNT 458 10^3/uL (150-450); RED CELL DISTRIBUTION WIDTH 12.9 % (11.5-14.0); WHITE BLOOD COUNT 10.1 10^3/uL (4.0-10.5)
[2019-02-22 10:07] LABS: MEAN CORPUSCULAR VOLUME 91 fl (80-97)
[2019-02-22 10:24] LABS: ANION GAP 11 (5-19); BLOOD UREA NITROGEN 20 mg/dL (7-20); CALCIUM 8.5 mg/dL (8.4-10.2); CARBON DIOXIDE 21 mmol/L (22-30); CHLORIDE 99 mmol/L (98-107); POTASSIUM 4.7 mmol/L (3.6-5.0); SODIUM 130.6 mmol/L (137-145)
[2019-02-22 10:38] LABS: GLUCOSE 437 mg/dL (75-110)
[2019-02-22] MEDS: INSULIN GLARGINE,HUM.REC.ANLOG 1,000 UNIT/10 ML VIAL SUBCUT SCH ×2 (11:33→21:48)
[2019-02-22] MEDS: INSULIN LISPRO 100 UNIT/ML 3 ML VIAL SUBCUT SCH ×3 (11:33→21:48)
--- NOTE | 2019-02-22 16:40 | PDOC PROGRESS REPORT ---
Subjective Progress Note for:: 02/22/19 Subjective:: Patient admitted for DKA, presently of insulin drip Reason For Visit: DKA Physical Exam Vital Signs: Temp Pulse Resp BP Pulse Ox 98.2 F 89 16 136/78 H 97 02/22/19 11:06 02/22/19 11:06 02/22/19 11:06 02/22/19 11:06 02/22/19 11:06 Intake & Output 02/21/19 02/22/19 02/23/19 06:59 06:59 06:59 Intake Total 2122 629 Output Total 800 Balance 1322 629 Weight 60.9 kg General appearance: PRESENT: no acute distress Eye exam: PRESENT: PERRLA Respiratory exam: PRESENT: clear to auscultation shoaib Cardiovascular exam: PRESENT: +S1, +S2 GI/Abdominal exam: PRESENT: soft Neurological exam: PRESENT: alert Results Laboratory Results: 02/22/19 09:49 02/22/19 09:49 02/21/19 02/21/19 02/22/19 16:15 18:06 09:49 WBC 10.1 RBC 3.80 L Hgb 11.7 L Hct 34.7 L MCV 91 D MCH 30.8 MCHC 33.7 RDW 12.9 Plt Count 458 H Carbonic Acid 0.86 L HCO3/H2CO3 Ratio 20:1 ABG pH 7.40 ABG pCO2 28.6 L ABG pO2 91.2 ABG HCO3 17.4 L ABG O2 Saturation 97.1 ABG Base Excess -6.0 FiO2 RA Sodium 134.0 L Potassium 4.9 Chloride 98 Carbon Dioxide 16 L D Anion Gap 20 H BUN 26 H Creatinine 1.33 H Est GFR ( Amer) > 60 Est GFR (Non-Af Amer) 55 L Glucose 625 H* Calcium 9.0 Total Bilirubin 0.4 AST 27 ALT 45 Alkaline Phosphatase 102 Total Protein 6.2 L Albumin 3.6 02/22/19 09:49 WBC RBC Hgb Hct MCV MCH MCHC RDW Plt Count Carbonic Acid HCO3/H2CO3 Ratio ABG pH ABG pCO2 ABG pO2 ABG HCO3 ABG O2 Saturation ABG Base Excess FiO2 Sodium 130.6 L Potassium 4.7 Chloride 99 Carbon Dioxide 21 L Anion Gap 11 BUN 20 Creatinine 0.88 Est GFR ( Amer) > 60 Est GFR (Non-Af Amer) > 60 Glucose 437 H* Calcium 8.5 Total Bilirubin AST ALT Alkaline Phosphatase Total Protein Albumin 02/21/19 02/21/19 02/21/19 12:15 12:15 13:13 Creatine Kinase Cancelled CK-MB (CK-2) Cancelled 1.88 Troponin I Cancelled < 0.012 02/21/19 13:13 Creatine Kinase 86 CK-MB (CK-2) Troponin I Impressions: Chest X-Ray 02/21/19 12:03 IMPRESSION: NO ACUTE RADIOGRAPHIC FINDING IN THE CHEST. Assessment & Plan - Diagnosis (1) Type 1 diabetes mellitus with ketoacidosis, uncontrolled Is this a current diagnosis for this admission?: Yes Plan: Continue treatment
[2019-02-22] MEDS: GABAPENTIN 300 MG CAPSULE PO SCH (21:47)
[2019-02-23] MEDS: GABAPENTIN 300 MG CAPSULE PO SCH ×3 (05:14→21:01)
[2019-02-23] MEDS: ACETAMINOPHEN 325 MG TABLET PO PRN ×3 (05:16→21:01)
[2019-02-23] MEDS: INSULIN LISPRO 100 UNIT/ML 3 ML VIAL SUBCUT SCH ×4 (08:30→21:12)
[2019-02-23] MEDS: INSULIN GLARGINE,HUM.REC.ANLOG 1,000 UNIT/10 ML VIAL SUBCUT SCH ×2 (10:04→21:12)
--- NOTE | 2019-02-23 15:08 | RADIOLOGY REPORT (SQ) ---
EXAM DESCRIPTION: MRI LT UPPER JOINT WITHOUT COMPLETED DATE/TIME: 02/23/2019 2:54 pm REASON FOR STUDY: left shoulder pain /MRI Left shoulder COMPARISON: None. TECHNIQUE: Left shoulder images acquired and stored on PACS. Multiplanar imaging to include fat sens itive sequences such as T1, water sensitive sequences such as FST2/STIR, cartilage sensitive sequence s such as FSPD/gradient-echo sequences. LIMITATIONS: None. FINDINGS: BONE MARROW AND CORTEX: No worrisome bone lesions or marrow replacement. No occult fractur es. JOINT OR BURSAL EFFUSION: No significant joint or bursal fluid. No suggestion of loose bodies. GLENO-HUMERAL ARTICULATION: Normal articulation. No subluxation. No cystic change. No osteophytes or cartilage loss. ACROMION AND AC JOINT: Type 2 acromion. Mild AC joint arthropathy. ROTATOR CUFF AND INTERVAL: Tendinosis in the subscapularis. No full-thickness tear. No rotator interval tear. No rotator interval thickening to suggest adhesive capsulitis. LABRUM AND BICEPS LABRAL COMPLEX: Intact. No labral tear. Intra-articular long-head biceps tendon n ormal. Distal biceps in normal location in bicipital groove. REMAINDER OF LABRUM AND IGHL : No gross tear or paralabral cyst formation. Labral evaluation is less than optimal without joint distention. No thickening of IGHL to suggest adhesive capsulitis. PERIARTICULAR AND ADJACENT SOFT TISSUES: No masses or abnormal nodes. OTHER: No other significant finding. IMPRESSION: 1. Subscapularis tendinosis. No full thickness tear. 2. AC joint arthropathy. TECHNICAL DOCUMENTATION: JOB ID: [id number] [employer]- All Rights Reserved Reading location - IP/workstation name: [email or web address] [id number]
[2019-02-24] MEDS: ACETAMINOPHEN 325 MG TABLET PO PRN ×3 (02:24→21:46)
[2019-02-24] MEDS: GABAPENTIN 300 MG CAPSULE PO SCH ×3 (06:25→21:46)
[2019-02-24] MEDS: INSULIN LISPRO 100 UNIT/ML 3 ML VIAL SUBCUT SCH ×4 (08:19→21:47)
[2019-02-24] MEDS: INSULIN GLARGINE,HUM.REC.ANLOG 1,000 UNIT/10 ML VIAL SUBCUT SCH ×2 (09:32→21:47)
--- NOTE | 2019-02-24 20:35 | PDOC PROGRESS REPORT ---
Subjective Progress Note for:: 02/24/19 Subjective:: Patient seen by the bedside, MRI of the left shoulder showed osteoarthritis of the AC joint, Reason For Visit: DKA Physical Exam Vital Signs: Temp Pulse Resp BP Pulse Ox 98.2 F 89 16 145/90 H 99 02/24/19 16:15 02/24/19 16:15 02/24/19 16:15 02/24/19 16:15 02/24/19 16:15 Intake & Output 02/23/19 02/24/19 02/25/19 06:59 06:59 06:59 Intake Total 1561 1650 1502 Output Total 2300 600 1025 Balance -739 1050 477 Weight 63.3 kg 65.3 kg General appearance: PRESENT: no acute distress Eye exam: PRESENT: PERRLA Respiratory exam: PRESENT: clear to auscultation shoaib Cardiovascular exam: PRESENT: +S1, +S2 GI/Abdominal exam: PRESENT: soft Neurological exam: PRESENT: alert, CN II-XII grossly intact Results Laboratory Results: 02/22/19 09:49 02/22/19 09:49 02/21/19 02/21/19 02/21/19 12:15 12:15 13:13 Creatine Kinase Cancelled CK-MB (CK-2) Cancelled 1.88 Troponin I Cancelled < 0.012 02/21/19 13:13 Creatine Kinase 86 CK-MB (CK-2) Troponin I Impressions: Chest X-Ray 02/21/19 12:03 IMPRESSION: NO ACUTE RADIOGRAPHIC FINDING IN THE CHEST. Upper Extremity MRI 02/23/19 00:00 IMPRESSION: 1. Subscapularis tendinosis. No full thickness tear. 2. AC joint arthropathy. Assessment & Plan - Diagnosis (1) Type 1 diabetes mellitus with ketoacidosis, uncontrolled Is this a current diagnosis for this admission?: Yes Plan: Continue insulin therapy (2) Osteoarthritis of left shoulder Qualifiers: Osteoarthritis type: primary Qualified Code(s): M19.012 - Primary osteoarthritis, left shoulder Is this a current diagnosis for this admission?: Yes
[2019-02-25] MEDS: GABAPENTIN 300 MG CAPSULE PO SCH ×3 (05:53→21:47)
[2019-02-25] MEDS: ACETAMINOPHEN 325 MG TABLET PO PRN ×2 (05:53→21:46)
[2019-02-25] MEDS: INSULIN LISPRO 100 UNIT/ML 3 ML VIAL SUBCUT SCH ×4 (08:37→21:47)
[2019-02-25] MEDS: INSULIN GLARGINE,HUM.REC.ANLOG 1,000 UNIT/10 ML VIAL SUBCUT SCH ×2 (10:32→21:47)
--- NOTE | 2019-02-25 22:47 | PDOC PROGRESS REPORT ---
Subjective Progress Note for:: 02/25/19 Subjective:: Patient seen by the bedside, he continues to have pain in his shoulder awaiting placement Reason For Visit: DKA Physical Exam Vital Signs: Temp Pulse Resp BP Pulse Ox 98.2 F 99 18 136/86 H 97 02/25/19 19:18 02/25/19 19:18 02/25/19 19:18 02/25/19 19:18 02/25/19 19:18 Intake & Output 02/24/19 02/25/19 02/26/19 06:59 06:59 06:59 Intake Total 1650 1502 1200 Output Total 600 1375 500 Balance 1050 127 700 Weight 65.3 kg 70 kg General appearance: PRESENT: no acute distress Eye exam: PRESENT: PERRLA Respiratory exam: PRESENT: clear to auscultation shoaib Cardiovascular exam: PRESENT: +S1, +S2 GI/Abdominal exam: PRESENT: soft Neurological exam: PRESENT: alert Results Laboratory Results: 02/22/19 09:49 02/22/19 09:49 02/21/19 02/21/19 02/21/19 12:15 12:15 13:13 Creatine Kinase Cancelled CK-MB (CK-2) Cancelled 1.88 Troponin I Cancelled < 0.012 02/21/19 13:13 Creatine Kinase 86 CK-MB (CK-2) Troponin I Impressions: Chest X-Ray 02/21/19 12:03 IMPRESSION: NO ACUTE RADIOGRAPHIC FINDING IN THE CHEST. Upper Extremity MRI 02/23/19 00:00 IMPRESSION: 1. Subscapularis tendinosis. No full thickness tear. 2. AC joint arthropathy. Assessment & Plan - Diagnosis (1) Type 1 diabetes mellitus with ketoacidosis, uncontrolled Is this a current diagnosis for this admission?: Yes (2) Osteoarthritis of left shoulder Qualifiers: Osteoarthritis type: primary Qualified Code(s): M19.012 - Primary osteo arthritis, left shoulder Is this a current diagnosis for this admission?: Yes
[2019-02-26] MEDS: ACETAMINOPHEN 325 MG TABLET PO PRN (02:30)
[2019-02-26] MEDS: GABAPENTIN 300 MG CAPSULE PO SCH ×3 (05:37→22:35)
[2019-02-26] MEDS: INSULIN LISPRO 100 UNIT/ML 3 ML VIAL SUBCUT SCH ×4 (08:44→22:34)
[2019-02-26] MEDS: INSULIN GLARGINE,HUM.REC.ANLOG 1,000 UNIT/10 ML VIAL SUBCUT SCH ×2 (10:28→22:35)
--- NOTE | 2019-02-26 11:21 | PDOC PROGRESS REPORT ---
Subjective Progress Note for:: 02/26/19 Subjective:: Patient is currently doing well except complaint for leg pain Patient is denied any chest pain to than any shortness of the breath Patient's blood sugar is all stable Reason For Visit: DKA Physical Exam Vital Signs: Temp Pulse Resp BP Pulse Ox 98.0 F 88 16 150/81 H 99 02/26/19 07:50 02/26/19 07:50 02/26/19 07:50 02/26/19 07:50 02/26/19 07:50 Intake & Output 02/25/19 02/26/19 02/27/19 06:59 06:59 06:59 Intake Total 1724 1542 Output Total 1375 875 Balance 349 667 Weight 70 kg 70.9 kg General appearance: PRESENT: no acute distress, well-developed, well-nourished Head exam: PRESENT: atraumatic, normocephalic Eye exam: PRESENT: conjunctiva pink, EOMI, PERRLA. ABSENT: scleral icterus Ear exam: PRESENT: normal external ear exam Mouth exam: PRESENT: moist, tongue midline Neck exam: PRESENT: full ROM. ABSENT: carotid bruit, JVD, lymphadenopathy, thyromegaly Respiratory exam: PRESENT: clear to auscultation shoaib Cardiovascular exam: PRESENT: RRR. ABSENT: diastolic murmur, rubs, systolic murmur Vascular exam: PRESENT: normal capillary refill GI/Abdominal exam: PRESENT: normal bowel sounds, soft. ABSENT: distended, guarding, mass, organolmegaly, rebound, tenderness Rectal exam: PRESENT: deferred Musculoskeletal exam: PRESENT: ambulatory Neurological exam: PRESENT: alert, awake, oriented to person, oriented to place, oriented to time, oriented to situation, CN II-XII grossly intact. ABSENT: motor sensory deficit Psychiatric exam: PRESENT: appropriate affect, normal mood. ABSENT: homicidal ideation, suicidal ideation Skin exam: PRESENT: dry, intact, warm. ABSENT: cyanosis, rash Results Laboratory Results: 02/22/19 09:49 02/22/19 09:49 02/21/19 02/21/19 02/21/19 12:15 12:15 13:13 Creatine Kinase Cancelled CK-MB (CK-2) Cancelled 1.88 Troponin I Cancelled < 0.012 02/21/19 13:13 Creatine Kinase 86 CK-MB (CK-2) Troponin I Impressions: Chest X-Ray 02/21/19 12:03 IMPRESSION: NO ACUTE RADIOGRAPHIC FINDING IN THE CHEST. Upper Extremity MRI 02/23/19 00:00 IMPRESSION: 1. Subscapularis tendinosis. No full thickness tear. 2. AC joint arthropathy. Assessment & Plan - Diagnosis (1) Diabetic ketoacidosis Qualifiers: Diabetes mellitus type: other specified (including EVETTE) Diabetes mellitus complication detail: without coma Qualified Code(s): E13.10 - Other specified diabetes mellitus with ketoacidosis without coma Is this a current diagnosis for this admission?: Yes (2) Osteoarthritis of left shoulder Qualifiers: Osteoarthritis type: primary Qualified Code(s): M19.012 - Primary osteoarthritis, left shoulder Is this a current diagnosis for this admission?: Yes (3) COPD (chronic obstructive pulmonary disease) Qualifiers: Emphysema type: unspecified Is this a current diagnosis for this admission?: Yes (4) Cocaine abuse Is this a current diagnosis for this admission?: Yes (5) Noncompliance Is this a current diagnosis for this admission?: Yes - Time Time Spent with patient: 15-24 minutes Medications reviewed and adjusted accordingly: Yes Within: Other - Plan Summary Plan Summary: Continues to current medications Waiting for the placement
[2019-02-26] MEDS ORDERED: TUBERCULIN,PURIF.PROT.DERIV. 5 TU/0.1 ML TEST 1 ML VIAL ID ONE (20:00)
[2019-02-27] MEDS: GABAPENTIN 300 MG CAPSULE PO SCH ×3 (06:33→22:56)
[2019-02-27] MEDS: ACETAMINOPHEN 325 MG TABLET PO PRN ×3 (06:36→22:56)
--- NOTE | 2019-02-27 08:34 | PDOC PROGRESS REPORT ---
Subjective Progress Note for:: 02/27/19 Subjective:: Patient is currently doing well r PPD placement for the intermediate placement Patient is denied any chest pain to than any shortness of the breath Reason For Visit: DKA Physical Exam Vital Signs: Temp Pulse Resp BP Pulse Ox 98.1 F 89 16 148/84 H 97 02/27/19 07:37 02/27/19 07:37 02/27/19 07:37 02/27/19 07:37 02/27/19 07:37 Intake & Output 02/26/19 02/27/19 02/28/19 06:59 06:59 06:59 Intake Total 1542 2226 Output Total 875 2575 Balance 667 -349 Weight 70.9 kg 70.5 kg General appearance: PRESENT: no acute distress, well-developed, well-nourished Head exam: PRESENT: atraumatic, normocephalic Eye exam: PRESENT: conjunctiva pink, EOMI, PERRLA. ABSENT: scleral icterus Ear exam: PRESENT: normal external ear exam Mouth exam: PRESENT: moist, tongue midline Neck exam: PRESENT: full ROM. ABSENT: carotid bruit, JVD, lymphadenopathy, thyromegaly Respiratory exam: PRESENT: clear to auscultation shoaib Cardiovascular exam: ABSENT: diastolic murmur, rubs, systolic murmur Vascular exam: PRESENT: normal capillary refill GI/Abdominal exam: PRESENT: normal bowel sounds, soft. ABSENT: distended, guarding, mass, organolmegaly, rebound, tenderness Rectal exam: PRESENT: deferred Extremities exam: ABSENT: pedal edema Neurological exam: PRESENT: alert, awake, oriented to person, oriented to place, oriented to time, oriented to situation, CN II-XII grossly intact. ABSENT: motor sensory deficit Psychiatric exam: PRESENT: appropriate affect, normal mood. ABSENT: homicidal ideation, suicidal ideation Skin exam: PRESENT: dry, intact, warm. ABSENT: cyanosis, rash Results Laboratory Results: 02/22/19 09:49 02/22/19 09:49 02/21/19 02/21/19 02/21/19 12:15 12:15 13:13 Creatine Kinase Cancelled CK-MB (CK-2) Cancelled 1.88 Troponin I Cancelled < 0.012 02/21/19 13:13 Creatine Kinase 86 CK-MB (CK-2) Troponin I Impressions: Chest X-Ray 02/21/19 12:03 IMPRESSION: NO ACUTE RADIOGRAPHIC FINDING IN THE CHEST. Upper Extremity MRI 02/23/19 00:00 IMPRESSION: 1. Subscapularis tendinosis. No full thickness tear. 2. AC joint arthropathy. Assessment & Plan - Diagnosis (1) Diabetic ketoacidosis Qualifiers: Diabetes mellitus type: other specified (including EVETTE) Diabetes mellitus complication detail: without coma Qualified Code(s): E13.10 - Other specified diabetes mellitus with ketoacidosis without coma Is this a current diagnosis for this admission?: Yes (2) Osteoarthritis of left shoulder Qualifiers: Osteoarthritis type: primary Qualified Code(s): M19.012 - Primary osteoar thritis, left shoulder Is this a current diagnosis for this admission?: Yes (3) COPD (chronic obstructive pulmonary disease) Qualifiers: Emphysema type: unspecified Is this a current diagnosis for this admission?: Yes (4) Cocaine abuse Is this a current diagnosis for this admission?: Yes (5) Noncompliance Is this a current diagnosis for this admission?: Yes - Time Time Spent with patient: 15-24 minutes Medications reviewed and adjusted accordingly: Yes Anticipated discharge: SNF, Other Within: when bed available - Plan Summary Plan Summary: Patient was discharged to the nursing facilities when the bed available
[2019-02-27] MEDS: INSULIN LISPRO 100 UNIT/ML 3 ML VIAL SUBCUT SCH ×4 (08:44→22:50)
[2019-02-27] MEDS: INSULIN GLARGINE,HUM.REC.ANLOG 1,000 UNIT/10 ML VIAL SUBCUT SCH ×2 (10:33→22:57)
[2019-02-28] MEDS: GABAPENTIN 300 MG CAPSULE PO SCH ×3 (05:13→21:19)
[2019-02-28] MEDS: ACETAMINOPHEN 325 MG TABLET PO PRN ×2 (05:13→21:24)
--- NOTE | 2019-02-28 07:59 | PDOC TRANSFER SUMMARY ---
General - Admit/Disc Date/PCP Admission Date/Primary Care Provider: 02/21/19 16:35 MELY MCDERMOTT MD Discharge Date: 02/28/19 - Discharge Diagnosis (1) Diabetic ketoacidosis Is this a current diagnosis for this admission?: Yes Summary: Currently all resolved (2) Osteoarthritis of left shoulder Is this a current diagnosis for this admission?: Yes Summary: PRN OTC Tylenol follow outpatients Orth[facility] (3) COPD (chronic obstructive pulmonary disease) Is this a current diagnosis for this admission?: Yes Summary: PRN nebulizer treatments (4) Cocaine abuse Is this a current diagnosis for this admission?: Yes Summary: Need a psych consult as outpatient already seen inpatient psych several times (5) Noncompliance Is this a current diagnosis for this admission?: Yes (6) Diabetic neuropathy Is this a current diagnosis for this admission?: Yes Summary: Continues to gabapentin (7) Depression Is this a current diagnosis for this admission?: Yes Summary: Follow with the outpatient psych patient several medication in the past (8) GERD (gastroesophageal reflux disease) Is this a current diagnosis for this admission?: Yes Summary: Continues to omeprazole (9) Hyperlipidemia Is this a current diagnosis for this admission?: Yes Summary: Currently stable (10) Hypertension Is this a current diagnosis for this admission?: Yes Summary: Blood pressures go above 140 start the patient on Norvasc 5 mg was taking before the lisinopril mixed the patient hyperkalemia due to the noncompliance causing the renal failure (11) Type 2 diabetes mellitus Is this a current diagnosis for this admission?: Yes Summary: Continues to current medications - Additional Information Resuscitation Status: Full Code Discharge Diet: Diabetic Discharge Activity: Activity As Tolerated, Balance Activity w/Rest Home Medications: Gabapentin [Neurontin 300 mg Capsule] 600 mg PO Q8 02/21/19 Insulin Aspart [Novolog Flexpen] 0 unit SQ .SLIDING SCALE 02/21/19 Insulin Glargine,Hum.rec.anlog [Lantus (Pyxis) Insulin 100 Unit/1 ml 10 ml] 20 unit SQ Q12 02/21/19 Omeprazole 40 mg PO DAILY 02/21/19 History of Present Illness Admission Date/PCP: 02/21/19 16:35 MELY MCDERMOTT MD History of Present Illness: MAMTA CUEVA is a 58 year old male Patient was admitting in the hospital for DKA due to the noncompliance as you will not taking the medications substance drug abuse in patients treated with the insulin drips Hospital Course Hospital Course: This is a 58-year-old male admitting in the hospital for the DKA due to the noncompliance patients treated with the insulin drip since changed to the subcu insulin Patient is to otherwise have a left shoulder pain which x-ray was done which joe wed arthritis currently doing well Patient is otherwise other medical problem is all stable patients to discharge to the judicial administrative assistant facilities because the patient at this point very noncompliance several ER admissions hospital admissions may be needed required to close monitor to prevent the recurrent hospital admissions Physical Exam Vital Signs: Temp Pulse Resp BP Pulse Ox 98.4 F 90 20 156/84 H 97 02/28/19 03:35 02/28/19 07:00 02/28/19 03:35 02/28/19 03:35 02/28/19 03:35 Intake & Output 02/27/19 02/28/19 03/01/19 06:59 06:59 06:59 Intake Total 2226 1979 Output Total 2575 1900 Balance -349 79 Weight 70.5 kg 72.1 kg General appearance: PRESENT: no acute distress, well-developed, well-nourished Head exam: PRESENT: atraumatic, normocephalic Eye exam: PRESENT: conjunctiva pink, EOMI, PERRLA. ABSENT: scleral icterus Ear exam: PRESENT: normal external ear exam Mouth exam: PRESENT: moist, tongue midline Neck exam: ABSENT: carotid bruit, JVD, lymphadenopathy, thyromegaly Respiratory exam: PRESENT: clear to auscultation shoaib. ABSENT: rales, rhonchi, wheezes Cardiovascular exam: PRESENT: RRR. ABSENT: diastolic murmur, rubs, systolic murmur Pulses: PRESENT: normal dorsalis pedis pul Vascular exam: PRESENT: normal capillary refill GI/Abdominal exam: PRESENT: normal bowel sounds, soft. ABSENT: distended, guarding, mass, organolmegaly, rebound, tenderness Rectal exam: PRESENT: deferred Extremities exam: PRESENT: full ROM. ABSENT: calf tenderness, clubbing, pedal edema Musculoskeletal exam: PRESENT: ambulatory Neurological exam: PRESENT: alert, awake, oriented to person, oriented to place, oriented to time, oriented to situation, CN II-XII grossly intact. ABSENT: motor sensory deficit Psychiatric exam: PRESENT: appropriate affect, normal mood. ABSENT: homicidal ideation, suicidal ideation Skin exam: PRESENT: dry, intact, warm. ABSENT: cyanosis, rash Results Laboratory Results: 02/22/19 09:49 02/22/19 09:49 02/21/19 02/21/19 02/21/19 12:15 12:15 13:13 Creatine Kinase Cancelled CK-MB (CK-2) Cancelled 1.88 Troponin I Cancelled < 0.012 02/21/19 13:13 Creatine Kinase 86 CK-MB (CK-2) Troponin I Impressions: Chest X-Ray 02/21/19 12:03 IMPRESSION: NO ACUTE RADIOGRAPHIC FINDING IN THE CHEST. Upper Extremity MRI 02/23/19 00:00 IMPRESSION: 1. Subscapularis tendinosis. No full thickness tear. 2. AC joint arthropathy. Transfer Plan - Time Spent with Patient Time spent with patient: Greater than 30 Minutes Qualifiers - * PATIENT BEING DISCHARGED WITH ANY OF THE FOLLOWING DIAGNOSIS: No VTE patient discharged on overlapping Therapy?: Yes Acute Heart Failure - Is this a Heart Failure Patient?: No Plan Time Spent: Greater than 30 Minutes - Physical therapy evaluationsAnd Follow outpatient psych
[2019-02-28] MEDS: INSULIN LISPRO 100 UNIT/ML 3 ML VIAL SUBCUT SCH ×4 (08:16→21:20)
[2019-02-28] MEDS: INSULIN GLARGINE,HUM.REC.ANLOG 1,000 UNIT/10 ML VIAL SUBCUT SCH ×2 (11:28→21:19)
[2019-02-28] MEDS ORDERED: PROPOFOL INJ 200 MG/20 ML VIAL IV ONE (17:22)
[2019-03-01] MEDS: GABAPENTIN 300 MG CAPSULE PO SCH ×3 (06:54→21:42)
[2019-03-01] MEDS: INSULIN LISPRO 100 UNIT/ML 3 ML VIAL SUBCUT SCH ×4 (08:38→21:45)
[2019-03-01] MEDS: INSULIN GLARGINE,HUM.REC.ANLOG 1,000 UNIT/10 ML VIAL SUBCUT SCH ×2 (10:17→21:43)
--- NOTE | 2019-03-01 10:28 | PDOC PROGRESS REPORT ---
Subjective Progress Note for:: 03/01/19 Subjective:: Patient is currently doing well r PPD placement for the custodial placement Patient is denied any chest pain to than any shortness of the breath Reason For Visit: DKA Physical Exam Vital Signs: Temp Pulse Resp BP Pulse Ox 98.0 F 91 20 141/85 H 94 03/01/19 00:01 03/01/19 07:00 03/01/19 00:01 03/01/19 00:01 03/01/19 00:01 Intake & Output 02/28/19 03/01/19 03/02/19 06:59 06:59 06:59 Intake Total 1979 1524 Output Total 1900 450 Balance 79 1074 Weight 72.1 kg 72 kg General appearance: PRESENT: no acute distress, well-developed, well-nourished Head exam: PRESENT: atraumatic, normocephalic Eye exam: PRESENT: conjunctiva pink, EOMI, PERRLA. ABSENT: scleral icterus Ear exam: PRESENT: normal external ear exam Mouth exam: PRESENT: moist, tongue midline Neck exam: PRESENT: full ROM. ABSENT: carotid bruit, JVD, lymphadenopathy, thyromegaly Respiratory exam: PRESENT: clear to auscultation shoaib Cardiovascular exam: PRESENT: RRR. ABSENT: diastolic murmur, rubs, systolic murmur Pulses: PRESENT: normal dorsalis pedis pul, +2 pedal pulses bilateral Vascular exam: PRESENT: normal capillary refill GI/Abdominal exam: PRESENT: normal bowel sounds, soft. ABSENT: distended, guarding, mass, organolmegaly, rebound, tenderness Rectal exam: PRESENT: deferred Musculoskeletal exam: PRESENT: ambulatory Neurological exam: PRESENT: alert, awake, oriented to person, oriented to place, oriented to time, oriented to situation, CN II-XII grossly intact. ABSENT: motor sensory deficit Psychiatric exam: PRESENT: appropriate affect, normal mood. ABSENT: homicidal ideation, suicidal ideation Skin exam: PRESENT: dry, intact, warm. ABSENT: cyanosis, rash Results Laboratory Results: 02/22/19 09:49 02/22/19 09:49 02/21/19 02/21/19 02/21/19 12:15 12:15 13:13 Creatine Kinase Cancelled CK-MB (CK-2) Cancelled 1.88 Troponin I Cancelled < 0.012 02/21/19 13:13 Creatine Kinase 86 CK-MB (CK-2) Troponin I Impressions: Chest X-Ray 02/21/19 12:03 IMPRESSION: NO ACUTE RADIOGRAPHIC FINDING IN THE CHEST. Upper Extremity MRI 02/23/19 00:00 IMPRESSION: 1. Subscapularis tendinosis. No full thickness tear. 2. AC joint arthropathy. Assessment & Plan - Diagnosis (1) Diabetic ketoacidosis Qualifiers: Diabetes mellitus type: other specified (including EVETTE) Diabetes mellitus complication detail: without coma Qualified Code(s): E13.10 - Other specified diabetes mellitus with ketoacidosis without coma Is this a current diagnosis for this admission?: Yes (2) Osteoarthritis of left shoulder Qualifiers: Osteoarthritis type: primary Qualified Code(s): M19.012 - Primary osteoarthritis, left shoulder Is this a current diagnosis for this admission?: Yes (3) COPD (chronic obstructive pulmonary disease) Qualifiers: Emphysema type: unspecified Is this a current diagnosis for this admission?: Yes (4) Cocaine abuse Is this a current diagnosis for this admission?: Yes (5) Noncompliance Is this a current diagnosis for this admission?: Yes (6) Diabetic neuropathy Is this a current diagnosis for this admission?: Yes (7) Depression Qualifiers: Depression Type: major depressive disorder Is this a current diagnosis for this admission?: Yes (8) GERD (gastroesophageal reflux disease) Qualifiers: Esophagitis presence: esophagitis presence not specified Qualified Code(s): K21.9 - Gastro-esophageal reflux disease without esophagitis Is this a current diagnosis for this admission?: Yes (9) Hyperlipidemia Qualifiers: Hyperlipidemia type: unspecified Qualified Code(s): E78.5 - Hyperlipidemia, unspecified Is this a current diagnosis for this admission?: Yes (10) Hypertension Qualifiers: Hypertension type: essential hypertension Qualified Code(s): I10 - Essential (primary) hypertension Is this a current diagnosis for this admission?: Yes (11) Type 2 diabetes mellitus Qualifiers: Diabetes mellitus senior care insulin use: with ferry terminal agent use Diabetes mellitus complication status: with ketoacidosis Is this a current diagnosis for this admission?: Yes - Time Time Spent with patient: 15-24 minutes Medications reviewed and adjusted accordingly: Yes Anticipated discharge: Other Within: Other - Plan Summary Plan Summary: Continues to current medication
[2019-03-01] MEDS: ACETAMINOPHEN 325 MG TABLET PO PRN (11:52)
[2019-03-01] MEDS: TRAMADOL HCL 50 MG TABLET PO PRN ×2 (14:19→23:04)
[2019-03-02] MEDS: GABAPENTIN 300 MG CAPSULE PO SCH ×3 (06:59→21:33)
[2019-03-02] MEDS: TRAMADOL HCL 50 MG TABLET PO PRN ×2 (06:59→15:50)
[2019-03-02] MEDS ORDERED: LOPERAMIDE HCL 2 MG CAPSULE PO PRN (07:11)
[2019-03-02] MEDS: INSULIN LISPRO 100 UNIT/ML 3 ML VIAL SUBCUT SCH ×4 (08:42→21:33)
--- NOTE | 2019-03-02 09:44 | PDOC PROGRESS REPORT ---
Subjective Progress Note for:: 03/02/19 Subjective:: Patient is currently doing well r PPD placement for the fpc placement Patient is denied any chest pain to than any shortness of the breath Reason For Visit: DKA Physical Exam Vital Signs: Temp Pulse Resp BP Pulse Ox 98.1 F 93 16 142/84 H 94 03/02/19 03:52 03/02/19 03:52 03/02/19 03:52 03/02/19 03:52 03/02/19 03:52 Intake & Output 03/01/19 03/02/19 03/03/19 06:59 06:59 06:59 Intake Total 1524 2360 Output Total 450 1600 Balance 1074 760 Weight 72 kg 72.6 kg General appearance: PRESENT: no acute distress, well-developed, well-nourished Head exam: PRESENT: atraumatic, normocephalic Eye exam: PRESENT: conjunctiva pink, EOMI, PERRLA. ABSENT: scleral icterus Ear exam: PRESENT: normal external ear exam Mouth exam: PRESENT: moist, tongue midline Neck exam: PRESENT: full ROM. ABSENT: carotid bruit, JVD, lymphadenopathy, thyromegaly Respiratory exam: PRESENT: clear to auscultation shoaib Cardiovascular exam: PRESENT: RRR. ABSENT: diastolic murmur, rubs, systolic murmur Vascular exam: PRESENT: normal capillary refill GI/Abdominal exam: PRESENT: normal bowel sounds, soft. ABSENT: distended, guarding, mass, organolmegaly, rebound, tenderness Rectal exam: PRESENT: deferred Musculoskeletal exam: PRESENT: ambulatory Neurological exam: PRESENT: alert, awake, oriented to person, oriented to place, oriented to time, oriented to situation, CN II-XII grossly intact. ABSENT: motor sensory deficit Psychiatric exam: PRESENT: appropriate affect, normal mood. ABSENT: homicidal ideation, suicidal ideation Skin exam: PRESENT: dry, intact, warm. ABSENT: cyanosis, rash Results Laboratory Results: 02/22/19 09:49 02/22/19 09:49 02/21/19 02/21/19 02/21/19 12:15 12:15 13:13 Creatine Kinase Cancelled CK-MB (CK-2) Cancelled 1.88 Troponin I Cancelled < 0.012 02/21/19 13:13 Creatine Kinase 86 CK-MB (CK-2) Troponin I Impressions: Chest X-Ray 02/21/19 12:03 IMPRESSION: NO ACUTE RADIOGRAPHIC FINDING IN THE CHEST. Upper Extremity MRI 02/23/19 00:00 IMPRESSION: 1. Subscapularis tendinosis. No full thickness tear. 2. AC joint arthropathy. Assessment & Plan - Diagnosis (1) Diabetic ketoacidosis Qualifiers: Diabetes mellitus type: other specified (including EVETTE) Diabetes mellitus complication detail: without coma Qualified Code(s): E13.10 - Other specified diabetes mellitus with ketoacidosis without coma Is this a current diagnosis for this admission?: Yes (2) Osteoarthritis of left shoulder Qualifiers: Osteoarthritis type: primary Qualified Code(s): M19.012 - Primary osteoarthritis, left shoulder Is this a current diagnosis for this admission?: Yes (3) COPD (chronic obstructive pulmonary disease) Qualifiers: Emphysema type: unspecified Is this a current diagnosis for this admission?: Yes (4) Cocaine abuse Is this a current diagnosis for this admission?: Yes (5) Noncompliance Is this a current diagnosis for this admission?: Yes (6) Diabetic neuropathy Is this a current diagnosis for this admission?: Yes (7) Depression Qualifiers: Depression Type: major depressive disorder Is this a current diagnosis for this admission?: Yes (8) GERD (gastroesophageal reflux disease) Qualifiers: Esophagitis presence: esophagitis presence not specified Qualified Code(s): K21.9 - Gastro-esophageal reflux disease without esophagitis Is this a current diagnosis for this admission?: Yes (9) Hyperlipidemia Qualifiers: Hyperlipidemia type: unspecified Qualified Code(s): E78.5 - Hyperlipidemia, unspecified Is this a current diagnosis for this admission?: Yes (10) Hypertension Qualifiers: Hypertension type: essential hypertension Qualified Code(s): I10 - Essential (primary) hypertension Is this a current diagnosis for this admission?: Yes (11) Type 2 diabetes mellitus Qualifiers: Diabetes mellitus termite exterminator helper insulin use: with termite exterminator helper use Diabetes mellitus complication status: with ketoacidosis Is this a current diagnosis for this admission?: Yes - Time Time Spent with patient: 15-24 minutes Medications reviewed and adjusted accordingly: Yes Anticipated discharge: Other Within: Other - Plan Summary Plan Summary: Continues to current medications
[2019-03-02] MEDS: INSULIN GLARGINE,HUM.REC.ANLOG 1,000 UNIT/10 ML VIAL SUBCUT SCH ×2 (10:33→21:32)
[2019-03-02] MEDS: IBUPROFEN 600 MG TABLET PO PRN (19:09)
[2019-03-02] MEDS: ACETAMINOPHEN 325 MG TABLET PO PRN (22:37)
[2019-03-03] MEDS: IBUPROFEN 600 MG TABLET PO PRN (03:40)
[2019-03-03] MEDS: GABAPENTIN 300 MG CAPSULE PO SCH ×2 (05:31→15:54)
[2019-03-03] MEDS: INSULIN LISPRO 100 UNIT/ML 3 ML VIAL SUBCUT SCH ×2 (09:02→12:33)
[2019-03-03] MEDS: INSULIN GLARGINE,HUM.REC.ANLOG 1,000 UNIT/10 ML VIAL SUBCUT SCH (09:02)
--- NOTE | 2019-03-03 12:20 | PDOC PROGRESS REPORT ---
Subjective Progress Note for:: 03/03/19 Subjective:: Patient is currently doing same except complaining of left shoulder pain No chest pain no short of breath no abdominal pain Reason For Visit: DKA Physical Exam Vital Signs: Temp Pulse Resp BP Pulse Ox 97.7 F 98 20 143/84 H 93 03/03/19 04:13 03/03/19 07:00 03/03/19 04:13 03/03/19 04:13 03/03/19 04:13 Intake & Output 03/02/19 03/03/19 03/04/19 06:59 06:59 06:59 Intake Total 2360 1080 Output Total 1600 1925 Balance 760 -845 Weight 72.6 kg 73.8 kg General appearance: PRESENT: no acute distress, well-developed, well-nourished Head exam: PRESENT: atraumatic, normocephalic Eye exam: PRESENT: conjunctiva pink, EOMI, PERRLA. ABSENT: scleral icterus Ear exam: PRESENT: normal external ear exam Mouth exam: PRESENT: moist, tongue midline Neck exam: PRESENT: full ROM. ABSENT: carotid bruit, JVD, lymphadenopathy, thyromegaly Respiratory exam: PRESENT: clear to auscultation shoaib Cardiovascular exam: PRESENT: RRR. ABSENT: diastolic murmur, rubs, systolic murmur Vascular exam: PRESENT: normal capillary refill GI/Abdominal exam: PRESENT: normal bowel sounds, soft. ABSENT: distended, guarding, mass, organolmegaly, rebound, tenderness Rectal exam: PRESENT: deferred Neurological exam: PRESENT: alert, awake, oriented to person, oriented to place, oriented to time, oriented to situation, CN II-XII grossly intact. ABSENT: barby r sensory deficit Psychiatric exam: PRESENT: appropriate affect, normal mood. ABSENT: homicidal ideation, suicidal ideation Skin exam: PRESENT: dry, intact, warm. ABSENT: cyanosis, rash Results Laboratory Results: 02/22/19 09:49 02/22/19 09:49 02/21/19 02/21/19 02/21/19 12:15 12:15 13:13 Creatine Kinase Cancelled CK-MB (CK-2) Cancelled 1.88 Troponin I Cancelled < 0.012 02/21/19 13:13 Creatine Kinase 86 CK-MB (CK-2) Troponin I Impressions: Chest X-Ray 02/21/19 12:03 IMPRESSION: NO ACUTE RADIOGRAPHIC FINDING IN THE CHEST. Upper Extremity MRI 02/23/19 00:00 IMPRESSION: 1. Subscapularis tendinosis. No full thickness tear. 2. AC joint arthropathy. Assessment & Plan - Diagnosis (1) Diabetic ketoacidosis Qualifiers: Diabetes mellitus type: other specified (including EVETTE) Diabetes mellitus complication detail: without coma Qualified Code(s): E13.10 - Other specified diabetes mellitus with ketoacidosis without coma Is this a current diagnosis for this admission?: Yes (2) Osteoarthritis of left shoulder Qualifiers: Osteoarthritis type: primary Qualified Code(s): M19.012 - Primary osteoarthritis, left shoulder Is this a current diagnosis for this admission?: Yes Plan: Consult the Dr. Wing (3) COPD (chronic obstructive pulmonary disease) Qualifiers: Emphysema type: unspecified Is this a current diagnosis for this admission?: Yes (4) Cocaine abuse Is this a current diagnosis for this admission?: Yes (5) Noncompliance Is this a current diagnosis for this admission?: Yes (6) Diabetic neuropathy Is this a current diagnosis for this admission?: Yes (7) Depression Qualifiers: Depression Type: major depressive disorder Is this a current diagnosis for this admission?: Yes (8) GERD (gastroesophageal reflux disease) Qualifiers: Esophagitis presence: esophagitis presence not specified Qualified Code(s): K21.9 - Gastro-esophageal reflux disease without esophagitis Is this a current diagnosis for this admission?: Yes (9) Hyperlipidemia Qualifiers: Hyperlipidemia type: unspecified Qualified Code(s): E78.5 - Hyperlipidemia, unspecified Is this a current diagnosis for this admission?: Yes (10) Hypertension Qualifiers: Hypertension type: essential hypertension Qualified Code(s): I10 - Essential (primary) hypertension Is this a current diagnosis for this admission?: Yes (11) Type 2 diabetes mellitus Qualifiers: Diabetes mellitus terminal block assembler insulin use: with terminal block assembler use Diabetes mellitus complication status: with ketoacidosis Is this a current diagnosis for this admission?: Yes - Time Time Spent with patient: 15-24 minutes Medications reviewed and adjusted accordingly: Yes Anticipated discharge: Other Within: Other - Plan Summary Plan Summary: Continues to current medications
[2019-03-03 15:46] VITALS: BP 137/83
== END 2019-03-03 17:57 | DRG 639 ==
LOC: ER 11:50 → EH 14:52 → OBSVTOIN 16:35 → 3W 17:27
PROVIDERS: ADMIT Internal Medicine; ATTEND Family Medicine
DX: E10.10 Type 1 diabetes mellitus with ketoacidosis without coma (principal); E78.5 Hyperlipidemia, unspecified; I10 Essential (primary) hypertension; J44.9 Chronic obstructive pulmonary disease, unspecified; K21.9 Gastro-esophageal reflux disease without esophagitis; F32.9 Major depressive disorder, single episode, unspecified; Z87.891 Personal history of nicotine dependence; Z91.14 Patient's other noncompliance with medication regimen; M19.012 Primary osteoarthritis, left shoulder; F14.10 Cocaine abuse, uncomplicated; E10.40 Type 1 diabetes mellitus with diabetic neuropathy, unspecified
CPT/HCPCS: 36415; 36600; 71045; 80048; 80053; 80307; 81001; 82550; 82553; 82803; 82962; 84484; 85025; 85027; 87070; 93005; 93010; 96361; 96374; 99285; J1815; J2704; J3490; J7030

== ENCOUNTER 2020-02-10 12:46 | Inpatient (IN) | payer MEDICAID ==
[2020-02-10] MEDS ORDERED: ONDANSETRON HCL INJ/PF 4 MG/2 ML SDV IV ONE (14:23)
[2020-02-10] MEDS ORDERED: PANTOPRAZOLE SODIUM 40 MG VIAL IV ONE (14:23)
[2020-02-10] MEDS ORDERED: NORMAL SALINE 1000 ML 1,000 ML IV ONE ×3 (14:23→17:27)
--- NOTE | 2020-02-10 14:25 | ER Document Report ---
ED Medical Screen (RME) - General Chief Complaint: Vomiting Stated Complaint: VOMITING Time Seen by Provider: 02/10/20 14:17 Primary Care Provider: MELY MCDERMOTT MD [Primary Care Provider] - Follow up as needed Information source: Patient Notes: Patient presents complaining of abdominal pain with nausea and vomiting today. Patient reports vomiting numerous episodes. Patient states he has had blood in his emesis. Patient reports feeling lightheaded. Patient does report drinking alcohol yesterday. Patient has a history of neuropathy, diabetes and COPD. Patient complains of difficulty breathing and shortness of breath with pain in his chest. I have greeted and performed a rapid initial assessment of this patient. A comprehensive ED assessment and evaluation of the patient, analysis of test results and completion of the medical decision making process will be conducted by additional ED providers. TRAVEL OUTSIDE OF THE [place] IN LAST 30 DAYS: No - Related Data Allergies/Adverse Reactions: No Known Allergies Allergy (Verified 02/21/19 11:52) Past Medical History - Past Medical History Cardiac Medical History: Reports: Hx Hypercholesterolemia, Hx Hypertension Pulmonary Medical History: Reports: Hx COPD Denies: Hx Tuberculosis Neurological Medical History: Denies: Hx Seizures Endocrine Medical History: Reports: Hx Diabetes Mellitus Type 1, Hx Diabetes Mellitus Type 2 Renal/ Medical History: Reports: Hx Benign Prostatic Hyperplasia. Denies: Hx Peritoneal Dialysis GI Medical History: Reports: Hx Gastroesophageal Reflux Disease Psychiatric Medical History: Reports: Hx Depression Past Surgical History: Reports: Hx Orthopedic Surgery - jaw - Immunizations Hx Diphtheria, Pertussis, Tetanus Vaccination: No Physical Exam - Vital signs Vitals: Temp Pulse Resp BP Pulse Ox 97.5 F 103 H 12 103/43 L 98 02/10/20 12:54 02/10/20 12:54 02/10/20 12:54 02/10/20 12:54 02/10/20 12:54 - Respiratory Respiratory status: Tachypnea Chest status: Pain on movement - Abdominal Tenderness: Tender - Generalized abdominal tenderness Course - Vital Signs Vital signs: Temp Pulse Resp BP Pulse Ox 97.5 F 103 H 12 103/43 L 98 02/10/20 12:54 02/10/20 12:54 02/10/20 12:54 02/10/20 12:54 02/10/20 12:54 Doctor's Discharge - Discharge Referrals: MELY MCDERMOTT MD [Primary Care Provider] - Follow up as needed
--- NOTE | 2020-02-10 15:15 | RADIOLOGY REPORT (SQ) ---
EXAM DESCRIPTION: CHEST SINGLE VIEW IMAGES COMPLETED DATE/TIME: 02/10/2020 3:04 pm REASON FOR STUDY: jyothi laird COMPARISON: 02/21/2019 EXAM PARAMETERS: NUMBER OF VIEWS: One view. TECHNIQUE: Single frontal radiographic view of the chest acquired. RADIATION DOSE: NA LIMITATIONS: None. FINDINGS: LUNGS AND PLEURA: No opacities, masses or pneumothorax. No pleural effusion. MEDIASTINUM AND HILAR STRUCTURES: No masses. Contour normal. HEART AND VASCULAR STRUCTURES: Heart normal in size. Normal vasculature. BONES: No acute findings. HARDWARE: None in the chest. OTHER: No other significant finding. IMPRESSION: NO ACUTE RADIOGRAPHIC FINDING IN THE CHEST. TECHNICAL DOCUMENTATION: JOB ID: [id number] [employer]- All Rights Reserved Reading location - IP/workstation name: [email or web address]
[2020-02-10 15:53] LABS: HEMATOCRIT 42.4 % (37.9-51.0); HEMOGLOBIN 13.3 g/dL (13.5-17.0); MEAN CORPUSCULAR HEMOGLOBIN 30.7 pg (27.0-33.4); MEAN CORPUSCULAR HGB CONC 31.3 g/dL (32.0-36.0); MEAN CORPUSCULAR VOLUME 98 fl (80-97); RED BLOOD COUNT 4.32 10^6/uL (4.35-5.55); WHITE BLOOD COUNT 23.2 10^3/uL (4.0-10.5)
[2020-02-10 16:02] LABS: PROTHROMBIN TIME 13.2 SEC (11.4-15.4)
[2020-02-10 16:13] LABS: PLATELET COUNT 205 10^3/uL (150-450)
[2020-02-10 16:16] LABS: ABSOLUTE LYMPHOCYTES# (MANUAL) 2.3 10^3/uL (0.5-4.7); ABSOLUTE MONOCYTES # (MANUAL) 0.2 10^3/uL (0.1-1.4); BAND NEUTROPHILS % (MANUAL) 1 % (3-5); BASOPHILS % (MANUAL) 0 % (0-2); EOSINOPHILS % (MANUAL) 0 % (0-6); LYMPHOCYTES % (MANUAL) 10 % (13-45); MONOCYTES % (MANUAL) 1 % (3-13); SEGMENTED NEUTROPHILS % (MAN) 88 % (42-78); TOTAL CELLS COUNTED 100
[2020-02-10 16:18] LABS: TOXIC VACUOLATION PRESENT
[2020-02-10 16:19] LABS: ANISOCYTOSIS SLIGHT; BURR CELLS SLIGHT; PLATELET CLUMPS PRESENT; PLATELET COMMENT ADEQUATE; PLATELET LARGE PRESENT; POIKILOCYTOSIS SLIGHT
[2020-02-10 16:21] LABS: PARTIAL THROMBOPLASTIN TIME < 23.0 SEC (23.5-35.8)
[2020-02-10 16:40] LABS: ALBUMIN 4.6 g/dL (3.5-5.0); ALKALINE PHOSPHATASE 101 U/L (38-126); ASPARTATE AMINO TRANSFERASE 26 U/L (17-59); BILIRUBIN,DIRECT 0.2 mg/dL (0.0-0.4); BILIRUBIN,TOTAL 0.8 mg/dL (0.2-1.3); BLOOD UREA NITROGEN 43 mg/dL (7-20); CALCIUM 9.6 mg/dL (8.4-10.2); CHLORIDE 85 mmol/L (98-107); POTASSIUM 5.5 mmol/L (3.6-5.0); TOTAL PROTEIN 7.3 g/dL (6.3-8.2)
[2020-02-10 16:50] LABS: ANION GAP 35 (5-19); CARBON DIOXIDE 9 mmol/L (22-30); GLUCOSE 918 mg/dL (75-110)
[2020-02-10 17:04] LABS: VENOUS BLOOD BASE EXCESS -17.5 mmol/L; VENOUS BLOOD HCO3 8.6 mmol/L (20-32); VENOUS BLOOD PCO2 22.5 mmHg (35-63); VENOUS BLOOD PH 7.2 (7.30-7.42)
[2020-02-10] MEDS ORDERED: DEXTROSE 40% GEL 15 GM TUBE PO PRN ×2 (17:06)
[2020-02-10] MEDS ORDERED: NORMAL SALINE 100 ML with INSULIN REGULAR, HUMAN 100 UNIT IV PRN ×2 (17:06)
[2020-02-10] MEDS ORDERED: GLUCAGON,HUMAN RECOMB 1 MG INJ IM PRN (17:06)
[2020-02-10] MEDS ORDERED: DEXTROSE 50%-WATER 25 GM/50 ML DISP.SYRIN IV PRN ×2 (17:06)
--- NOTE | 2020-02-10 17:09 | ER Document Report ---
ED General - General Chief Complaint: Vomiting Stated Complaint: VOMITING Time Seen by Provider: 02/10/20 14:17 Primary Care Provider: MELY MCDERMOTT MD [Primary Care Provider] - Follow up as needed Mode of Arrival: Ambulatory Information source: Patient TRAVEL OUTSIDE OF THE [place] IN LAST 30 DAYS: No - HPI Onset: Other - over the last few days Onset/Duration: Gradual Quality of pain: Achy, Burning, Cramping Severity: Severe Pain Level: 3 Associated symptoms: Nausea, Vomiting Exacerbated by: Food Relieved by: Denies Similar symptoms previously: Yes Recently seen / treated by doctor: No Notes: 59 year old male with a history of DM, HTN, HLD, COPD, BPH, GERD, Depression her e in the ER for nausea, vomiting, abdominal pains and high blood sugars. The patient tells me he has been taking his medications as prescribed but this seems unlikely given his blood glucose is in the 900s. The patient denies recent infections, known sick contacts, or recent travel. - Related Data Allergies/Adverse Reactions: No Known Allergies Allergy (Verified 02/21/19 11:52) Past Medical History - General Information source: Patient - Social History Smoking Status: Current Every Day Smoker Frequency of alcohol use: Heavy Family History: Reviewed & Not Pertinent, CAD - father at 59 of heart problems, DM - mother - Past Medical History Cardiac Medical History: Reports: Hx Hypercholesterolemia, Hx Hypertension Pulmonary Medical History: Reports: Hx COPD Denies: Hx Tuberculosis Neurological Medical History: Denies: Hx Seizures Endocrine Medical History: Reports: Hx Diabetes Mellitus Type 1, Hx Diabetes Mellitus Type 2 Renal/ Medical History: Reports: Hx Benign Prostatic Hyperplasia. Denies: Hx Peritoneal Dialysis GI Medical History: Reports: Hx Gastroesophageal Reflux Disease Psychiatric Medical History: Reports: Hx Depression Past Surgical History: Reports: Hx Orthopedic Surgery - jaw - Immunizations Hx Diphtheria, Pertussis, Tetanus Vaccination: No Hx Pneumococcal Vaccination: 05/09/13 Review of Systems - Review of Systems Constitutional: Weakness, Other - high blood sugars EENT: No symptoms reported Cardiovascular: No symptoms reported Respiratory: No symptoms reported Gastrointestinal: Abdominal pain, Nausea, Vomiting Physical Exam - Vital signs Vitals: Temp Pulse Resp BP Pulse Ox 97.5 F 103 H 12 103/43 L 98 02/10/20 12:54 02/10/20 12:54 02/10/20 12:54 02/10/20 12:54 02/10/20 12:54 - Notes Notes: GENERAL: Well-appearing, well-nourished and in no acute distress. HEAD: Atraumatic, normocephalic. EYES: Pupils equal round and reactive to light, extraocular movements intact, sclera anicteric, conjunctiva are normal. ENT: External ears normal, nares patent, oropharynx clear without exudates. Moist mucous membranes. NECK: Normal range of motion, supple without lymphadenopathy or JVD. LUNGS: Breath sounds clear to auscultation bilaterally and equal. No wheezes rales or rhonchi. HEART: Regular rate and rhythm without murmurs, rubs or gallops. ABDOMEN: Soft, mild tenderenss throughout his abdomen, normoactive bowel sounds. No guarding, no rebound. No masses appreciated. EXTREMITIES: Normal range of motion, no pitting or edema. No clubbing or cyanosis. NEUROLOGICAL: Cranial nerves II through XII grossly intact. Normal speech, normal gait. PSYCH: Normal mood, normal affect. SKIN: Warm, Dry, normal turgor, no rashes or lesions noted. Course - Re-evaluation Re-evalutation: 02/10/20 17:28 The patient is in DKA and he has a very high blood sugar and he is acute renal failure. Patient treated with IV fluids and an Insulin infusion and her was admitted to [facility] for further treatment and care. The patient had been drinking alcohol yesterday (had 4-5 drinks). Medical noncompliance seems like the most likely cause of the patient's hyperglycemica today. Patient has a high WBC count but this seems likely due to him being in DKA and being very dehydrated. Patient is not febrile and he is not having infectious symptoms. The patient has noticed some flecks of blood in his vomit but his H/H are within normal. Patient likely has mild Francesca María tearing from his frequent vomiting. Critical care time was spent evaluating the patient, speaking physician consultants (his old PCP was called and the hospitalist), treating the patient, and frequently re-evaluating the patient. - Vital Signs Vital signs: Temp Pulse Resp BP Pulse Ox 97.5 F 103 H 12 103/43 L 97 02/10/20 12:54 02/10/20 12:54 02/10/20 12:54 02/10/20 12:54 02/10/20 14:24 - Laboratory Result Diagrams: 02/10/20 15:35 02/10/20 15:35 Laboratory results interpreted by me: 02/10/20 02/10/20 02/10/20 15:35 15:35 15:35 WBC 23.2 H RBC 4.32 L Hgb 13.3 L MCV 98 H MCHC 31.3 L Seg Neuts % (Manual) 88 H Band Neutrophils % 1 L Lymphocytes % (Manual) 10 L Monocytes % (Manual) 1 L Abs Neuts (Manual) 20.6 H APTT < 23.0 L VBG pH VBG pCO2 VBG HCO3 Sodium 129.4 L Potassium 5.5 H Chloride 85 L Carbon Dioxide 9 L* Anion Gap 35 H BUN 43 H Creatinine 2.43 H Est GFR ( Amer) 33 L Est GFR (MDRD) Non-Af 28 L Glucose 918 H* 02/10/20 16:48 WBC RBC Hgb MCV MCHC Seg Neuts % (Manual) Band Neutrophils % Lymphocytes % (Manual) Monocytes % (Manual) Abs Neuts (Manual) APTT VBG pH 7.20 L VBG pCO2 22.5 L VBG HCO3 8.6 L Sodium Potassium Chloride Carbon Dioxide Anion Gap BUN Creatinine Est GFR ( Amer) Est GFR (MDRD) Non-Af Glucose - Diagnostic Test Radiology reviewed: Image reviewed, Reports reviewed Critical Care Note - Critical Care Note Total time excluding time spent on procedures (mins): 35 Discharge - Discharge Clinical Impression: Diabetic ketoacidosis Qualifiers: Diabetes mellitus type: type 2 Diabetes mellitus complication detail: without coma Qualified Code(s): E11.10 - Type 2 diabetes mellitus with ketoacidosis without coma Acute renal failure Qualifiers: Acute renal failure type: unspecified Qualified Code(s): N17.9 - Acute kidney failure, unspecified Condition: Serious Disposition: ADMITTED INPATIENT Admitting Provider: Az (Hospitalist) Unit Admitted: IMCU Referrals: MELY MCDERMOTT MD [Primary Care Provider] - Follow up as needed
[2020-02-10] MEDS ORDERED: ACETAMINOPHEN 325 MG TABLET PO ONE (17:19)
[2020-02-10] MEDS ORDERED: INSULIN REG, HUMAN 100 UNIT/ML 3 ML VIAL (PYX) ONE (17:22)
[2020-02-10 18:29] LABS: APPEARANCE,URINE CLEAR; BILIRUBIN,URINE NEGATIVE (NEGATIVE); COLOR,URINE STRAW; GLUCOSE, URINE >=500 mg/dL (NEGATIVE); KETONES,URINE 80 mg/dL (NEGATIVE); LEUKOCYTE ESTERASE,URINE NEGATIVE (NEGATIVE); NITRITE,URINE NEGATIVE (NEGATIVE); PROTEIN,URINE NEGATIVE (NEGATIVE); URINE SPECIFIC GRAVITY 1.018; UROBILINOGEN,URINE NEGATIVE mg/dL (<2.0)
[2020-02-10 18:56] LABS: URINE BENZODIAZEPINES SCREEN NEGATIVE; URINE MARIJUANA (THC) SCREEN NEGATIVE; URINE METHADONE SCREEN NEGATIVE; URINE PHENCYCLIDINE SCREEN NEGATIVE
[2020-02-10 19:06] LABS: URINE COCAINE SCREEN UNCONFIRMED POSITIVE
[2020-02-10 19:07] LABS: URINE BARBITURATES SCREEN NEGATIVE
[2020-02-10] MEDS ORDERED: ONDANSETRON HCL INJ/PF 4 MG/2 ML SDV IV PRN (19:13)
[2020-02-10] MEDS ORDERED: ONDANSETRON 4 MG TAB.RAPDIS PO PRN (19:13)
[2020-02-10] MEDS ORDERED: ACETAMINOPHEN 325 MG TABLET PO PRN (19:13)
[2020-02-10] MEDS ORDERED: IPRATROPIUM/ALBUTEROL 0.5-2.5 MG/3 ML AMPUL NEB PRN (19:13)
[2020-02-10] MEDS ORDERED: NORMAL SALINE 1000 ML 1,000 ML IV PRN (19:29)
--- NOTE | 2020-02-10 19:29 | PDOC H&P ---
History of Present Illness Admission Date/PCP: 02/10/20 18:04 MELY MCDERMOTT MD History of Present Illness: MAMTA CUEVA is a 59 year old male with past medical history significant for uncontrolled type 2 diabetes mellitus, medication noncompliance, cocaine abuse, tobacco abuse, HLD who presents to the ED with 1 day history of progressive nausea/vomiting/abdominal pain which prompted patient to be evaluated in the ED. He was found to have blood sugar of 900s, stating he takes his home insulin however ED staff said this is a questionable statement. Patient states he typically takes 20 units of Lantus daily and sliding scale short acting insulin. Patient also states he is currently abusing cocaine regularly as well as tobacco. He states he is having some trouble urinating and has a weak urine stream. I have started him on Flomax for this likely BPH. His UDS is pending on admission.patient does admit to drug abuse. Started on insulin drip and IV fluids as appropriate for DKA. Trend BMP and replete electrolytes as needed. Past Medical History Cardiac Medical History: Reports: Hyperlipidema, Hypertension Pulmonary Medical History: Reports: Chronic Obstructive Pulmonary Disease (COPD) Denies: Tuberculosis Neurological Medical History: Denies: Seizures Endocrine Medical History: Reports: Diabetes Mellitus Type 1, Diabetes Mellitus Type 2 GI Medical History: Reports: Gastroesophageal Reflux Disease Psychiatric Medical History: Reports: Depression Past Surgical History Past Surgical History: Reports: Orthopedic Surgery - jaw Social History Smoking Status: Current Every Day Smoker Frequency of Alcohol Use: None Hx Recreational Drug Use: Yes - 02/28 Drugs: Cocaine, Marijuana Hx Prescription Drug Abuse: No - Advance Directive Resuscitation Status: Full Code Surrogate healthcare decision maker:: Horace Leigh Family History Family History: Reviewed & Not Pertinent, CAD - father at 59 of heart p roblems, DM - mother Parental Family History Reviewed: Yes Children Family History Reviewed: Yes Sibling(s) Family History Reviewed.: Yes Medication/Allergy Home Medications: Gabapentin [Neurontin 300 mg Capsule] 600 mg PO Q8 02/21/19 Insulin Aspart [Novolog Flexpen] 0 unit SQ .SLIDING SCALE 02/21/19 Insulin Glargine,Hum.rec.anlog [Lantus (Pyxis) Insulin 100 Unit/1 ml 10 ml] 20 unit SQ Q12 02/21/19 Omeprazole 40 mg PO DAILY 02/21/19 Allergies/Adverse Reactions: No Known Allergies Allergy (Verified 02/10/20 18:03) Review of Systems All systems: reviewed and no additional remarkable complaints except as stated - Per HPI, otherwise negative Physical Exam Vital Signs: Temp Pulse Resp BP Pulse Ox 97.5 F 110 H 18 123/55 L 97 02/10/20 12:54 02/10/20 18:21 02/10/20 18:21 02/10/20 18:21 02/10/20 18:21 Intake & Output 02/09/20 02/10/20 02/11/20 06:59 06:59 06:59 Intake Total 1006 Balance 1006 Weight 69.7 kg General appearance: PRESENT: no acute distress, well-developed, well-nourished Head exam: PRESENT: atraumatic, normocephalic Eye exam: PRESENT: conjunctiva pink Mouth exam: PRESENT: moist Respiratory exam: PRESENT: clear to auscultation shoaib. ABSENT: rales, rhonchi, wheezes Cardiovascular exam: PRESENT: RRR. ABSENT: diastolic murmur, rubs, systolic murmur GI/Abdominal exam: PRESENT: normal bowel sounds, soft, tenderness - Very mild tenderness diffusely. ABSENT: distended, guarding, mass, organolmegaly, rebound Rectal exam: PRESENT: deferred Musculoskeletal exam: PRESENT: ambulatory Neurological exam: PRESENT: alert, awake, oriented to person, oriented to place, oriented to time, oriented to situation Psychiatric exam: PRESENT: appropriate affect Skin exam: PRESENT: dry, intact, warm Results Laboratory Results: 02/10/20 15:35 02/10/20 15:35 02/10/20 02/10/20 02/10/20 15:35 15:35 16:30 WBC 23.2 H RBC 4.32 L Hgb 13.3 L Hct 42.4 MCV 98 H MCH 30.7 MCHC 31.3 L RDW 14.0 Plt Count 205 Seg Neutrophils % Not Reportable VBG pH VBG pCO2 VBG HCO3 VBG Base Excess Sodium 129.4 L Potassium 5.5 H Chloride 85 L Carbon Dioxide 9 L* Anion Gap 35 H BUN 43 H Creatinine 2.43 H Est GFR ( Amer) 33 L Glucose 918 H* Calcium 9.6 Total Bilirubin 0.8 AST 26 Alkaline Phosphatase 101 Total Protein 7.3 Albumin 4.6 Lipase 42.2 Urine Color Urine Appearance Urine pH Ur Specific [place] Urine Protein Urine Glucose (UA) Urine Ketones Urine Blood Urine Nitrite Ur Leukocyte Esterase Urine WBC (Auto) Urine RBC (Auto) Blood Type B POSITIVE Antibody Screen NEGATIVE 02/10/20 02/10/20 16:48 18:09 WBC RBC Hgb Hct MCV MCH MCHC RDW Plt Count Seg Neutrophils % VBG pH 7.20 L VBG pCO2 22.5 L VBG HCO3 8.6 L VBG Base Excess -17.5 Sodium Potassium Chloride Carbon Dioxide Anion Gap BUN Creatinine Est GFR ( Amer) Glucose Calcium Total Bilirubin AST Alkaline Phosphatase Total Protein Albumin Lipase Urine Color STRAW Urine Appearance CLEAR Urine pH 5.0 Ur Specific [place] 1.018 Urine Protein NEGATIVE Urine Glucose (UA) >=500 H Urine Ketones 80 H Urine Blood SMALL H Urine Nitrite NEGATIVE Ur Leukocyte Esterase NEGATIVE Urine WBC (Auto) 0 Urine RBC (Auto) 0 Blood Type Antibody Screen 02/10/20 15:35 Troponin I < 0.012 Impressions: Chest X-Ray 02/10/20 14:22 IMPRESSION: NO ACUTE RADIOGRAPHIC FINDING IN THE CHEST. Assessment and Plan - Diagnosis (1) Diabetic ketoacidosis Qualifiers: Diabetes mellitus type: type 2 Diabetes mellitus complication detail: without coma Qualified Code(s): E11.10 - Type 2 diabetes mellitus with ketoacidosis without coma Is this a current diagnosis for this admission?: Yes Plan: Blood sugar in the 900s on admission Insulin drip started IV fluids Hemoglobin A1c Correct electrolyte abnormalities as needed Likely this episode is been precipitated by another instance of medication noncompliance as it seems to be frequent in the patient's history (2) Acute kidney injury Is this a current diagnosis for this admission?: Yes Plan: Suspect prerenal due to dehydration from DKA IV fluids Trend BMP Check bladder scan in the setting of new BPH Start Flomax (3) COPD (chronic obstructive pulmonary disease) Qualifiers: Emphysema type: unspecified Is this a current diagnosis for this admission?: Yes Plan: No exacerbation at this time As needed duo nebs (4) Cocaine abuse Is this a current diagnosis for this admission?: Yes Plan: UDS pending Patient openly admits to using cocaine and tobacco products currently (5) Hyperlipidemia Qualifiers: Hyperlipidemia type: unspecified Qualified Code(s): E78.5 - Hyperlipidemia, unspecified Is this a current diagnosis for this admission?: Yes (6) Hypertension Qualifiers: Hypertension type: essential hypertension Qualified Code(s): I10 - Essential (primary) hypertension Is this a current diagnosis for this admission?: Yes Plan: Home medications (7) Noncompliance with medication regimen Is this a current diagnosis for this admission?: Yes - Time Time Spent with patient: 35 or more minutes Medications reviewed and adjusted accordingly: Yes Within: within 72 hours - Inpatient Certification Based on my medical assessment, after consideration of the patient's comorbidities, presenting symptoms, or acuity I expect that the services needed warrant INPATIENT care.: Yes I certify that my determination is in accordance with my understanding of Medicare's requirements for reasonable and necessary INPATIENT services [42 CFR 412.3e].: Yes Medical Necessity: Significant Comorbidiites Make Outpatient Treatment Too Risky, Need Close Monitoring Due to Risk of Patient Decompensation, Need For IV Fluids, Risk of Complication if Not Cared For in Hospital, Risk of Diagnosis Which Will Require Inpatient Eval/Care/Monitoring
--- NOTE | 2020-02-10 19:30 | ADVANCED CARE ---
- Diagnosis (1) Diabetic ketoacidosis Diagnosis Current: Yes (2) Acute kidney injury Diagnosis Current: Yes (3) COPD (chronic obstructive pulmonary disease) Diagnosis Current: Yes (4) Cocaine abuse Diagnosis Current: Yes (5) Hyperlipidemia Diagnosis Current: Yes (6) Hypertension Diagnosis Current: Yes (7) Noncompliance with medication regimen Diagnosis Current: Yes Attendance: Patient Resuscitation Status: Full Code Discussion: All aspects of code status discussed with patient/POA including cardioversion, chest compressions, and intubation and the patient/POA indicated they wish to be full code MPOA is designated as: Horace Leigh Time Spent: Greater than 17 minutes
[2020-02-10 20:09] LABS: BLOOD UREA NITROGEN 42 mg/dL (7-20); CALCIUM 8.5 mg/dL (8.4-10.2)
[2020-02-10 20:14] LABS: CARBON DIOXIDE 11 mmol/L (22-30); CHLORIDE 98 mmol/L (98-107)
[2020-02-10 20:52] LABS: POTASSIUM 4.1 mmol/L (3.6-5.0)
[2020-02-10 20:53] LABS: ANION GAP 27 (5-19)
[2020-02-10 20:55] LABS: GLUCOSE 680 mg/dL (75-110)
[2020-02-10] MEDS: TAMSULOSIN HCL 0.4 MG CAP.SR.24H PO SCH (21:29)
[2020-02-11] MEDS ORDERED: DEXTROSE 5%-NORMAL SALINE 1,000 ML IV PRN (06:12)
[2020-02-11 07:11] LABS: HEMATOCRIT 34.8 % (37.9-51.0); MEAN CORPUSCULAR HEMOGLOBIN 30.7 pg (27.0-33.4); MEAN CORPUSCULAR HGB CONC 34.4 g/dL (32.0-36.0); PLATELET COUNT 244 10^3/uL (150-450); RED CELL DISTRIBUTION WIDTH 13.3 % (11.5-14.0); WHITE BLOOD COUNT 20.6 10^3/uL (4.0-10.5)
[2020-02-11 08:22] LABS: MEAN CORPUSCULAR VOLUME 89 fl (80-97)
[2020-02-11 08:25] LABS: ABSOLUTE LYMPHOCYTES# (MANUAL) 0.8 10^3/uL (0.5-4.7); ABSOLUTE MONOCYTES # (MANUAL) 1.4 10^3/uL (0.1-1.4); BAND NEUTROPHILS % (MANUAL) 2 % (3-5); BASOPHILS % (MANUAL) 0 % (0-2); EOSINOPHILS % (MANUAL) 0 % (0-6); LYMPHOCYTES % (MANUAL) 2 % (13-45); MONOCYTES % (MANUAL) 7 % (3-13); SEGMENTED NEUTROPHILS % (MAN) 87 % (42-78); TOTAL CELLS COUNTED 100
[2020-02-11 08:26] LABS: PLATELET COMMENT ADEQUATE; POLYCHROMASIA SLIGHT
[2020-02-11 08:41] LABS: BLOOD UREA NITROGEN 30 mg/dL (7-20); CALCIUM 8.7 mg/dL (8.4-10.2); GLUCOSE 135 mg/dL (75-110); POTASSIUM 3.9 mmol/L (3.6-5.0)
[2020-02-11 08:47] LABS: ANION GAP 5 (5-19); CHLORIDE 113 mmol/L (98-107)
[2020-02-11 08:56] LABS: CARBON DIOXIDE 26 mmol/L (22-30)
[2020-02-11] MEDS ORDERED: INSULIN REG, HUMAN 100 UNIT/ML 3 ML VIAL (PYX) ONE (09:07)
[2020-02-11] MEDS: ENOXAPARIN SODIUM INJ 40 MG/0.4 ML DISP.SYRIN SUBCUT SCH (10:21)
[2020-02-11] MEDS: DOCUSATE SODIUM 100 MG/10 ML UDC PO SCH (10:21)
[2020-02-11] MEDS: INSULIN LISPRO 100 UNIT/ML 3 ML VIAL SUBCUT SCH ×4 (11:26→22:15)
--- NOTE | 2020-02-11 14:47 | PDOC PROGRESS REPORT ---
Subjective Progress Note for:: 02/11/20 Subjective:: 02/11/2020 Discussed overnight events with the overnight physician and nursing staff. Reportedly, patient was continued on his insulin drip though his blood sugar had dropped to around 100. Overnight physician stopped the insulin drip when he was notified the patient's blood sugar was continuing to drop and he started the patient on D5W appropriately. Patient's blood sugar did eventually begin to rise and this morning I have started him on his usual home dose of Lantus along with sliding scale insulin. Lantus will be timed for tonight when I expect his blood sugar to be much higher.his gap is now closed and his creatinine is significantly improved. His UDS was positive for cocaine. Reason For Visit: DKA,HYPERGLYCEMIA,COCAINE ABUSE,TOBACCO ABUSE Physical Exam Vital Signs: Temp Pulse Resp BP Pulse Ox 98.1 F 110 H 16 129/65 H 100 02/11/20 06:15 02/10/20 18:21 02/11/20 13:01 02/11/20 13:00 02/11/20 13:01 Intake & Output 02/10/20 02/11/20 02/12/20 06:59 06:59 06:59 Intake Total 3936 1015 Output Total 1200 Balance 2736 1015 Weight 69.7 kg General appearance: PRESENT: no acute distress, well-developed, well-nourished Head exam: PRESENT: atraumatic, normocephalic Eye exam: PRESENT: conjunctiva pink Respiratory exam: PRESENT: clear to auscultation shoaib. ABSENT: rales, rhonchi, wheezes Cardiovascular exam: PRESENT: RRR. ABSENT: diastolic murmur, rubs, systolic murmur GI/Abdominal exam: PRESENT: normal bowel sounds, soft. ABSENT: distended, guarding, mass, organolmegaly, rebound, tenderness Rectal exam: PRESENT: deferred Neurological exam: PRESENT: alert, awake, oriented to person, oriented to place, oriented to time, oriented to situation Psychiatric exam: PRESENT: appropriate affect Skin exam: PRESENT: dry, intact, warm Results Laboratory Results: 02/11/20 06:48 02/11/20 06:48 02/10/20 02/10/20 02/10/20 15:35 15:35 16:30 WBC 23.2 H RBC 4.32 L Hgb 13.3 L Hct 42.4 MCV 98 H MCH 30.7 MCHC 31.3 L RDW 14.0 Plt Count 205 Seg Neutrophils % Not Reportable VBG pH VBG pCO2 VBG HCO3 VBG Base Excess Sodium 129.4 L Potassium 5.5 H Chloride 85 L Carbon Dioxide 9 L* Anion Gap 35 H BUN 43 H Creatinine 2.43 H Est GFR ( Amer) 33 L Glucose 918 H* Calcium 9.6 Magnesium Total Bilirubin 0.8 AST 26 Alkaline Phosphatase 101 Total Protein 7.3 Albumin 4.6 Lipase 42.2 Urine Color Urine Appearance Urine pH Ur Specific [place] Urine Protein Urine Glucose (UA) Urine Ketones Urine Blood Urine Nitrite Ur Leukocyte Esterase Urine WBC (Auto) Urine RBC (Auto) Blood Type B POSITIVE Antibody Screen NEGATIVE 02/10/20 02/10/20 02/10/20 16:48 18:09 19:25 WBC RBC Hgb Hct MCV MCH MCHC RDW Plt Count Seg Neutrophils % VBG pH 7.20 L VBG pCO2 22.5 L VBG HCO3 8.6 L VBG Base Excess -17.5 Sodium 136.2 L Potassium 4.1 D Chloride 98 Carbon Dioxide 11 L Anion Gap 27 H BUN 42 H Creatinine 2.09 H Est GFR ( Amer) 40 L Glucose 680 H* Calcium 8.5 Magnesium Total Bilirubin AST Alkaline Phosphatase Total Protein Albumin Lipase Urine Color STRAW Urine Appearance CLEAR Urine pH 5.0 Ur Specific [place] 1.018 Urine Protein NEGATIVE Urine Glucose (UA) >=500 H Urine Ketones 80 H Urine Blood SMALL H Urine Nitrite NEGATIVE Ur Leukocyte Esterase NEGATIVE Urine WBC (Auto) 0 Urine RBC (Auto) 0 Blood Type Antibody Screen 02/10/20 02/11/20 02/11/20 19:25 06:48 06:48 WBC 20.6 H RBC 3.90 L Hgb 12.0 L Hct 34.8 L MCV 89 D MCH 30.7 MCHC 34.4 RDW 13.3 Plt Count 244 Seg Neutrophils % Not Reportable VBG pH VBG pCO2 VBG HCO3 VBG Base Excess Sodium Potassium Chloride Carbon Dioxide Anion Gap BUN Creatinine Est GFR ( Amer) Glucose Cancelled Calcium Magnesium 2.6 H Total Bilirubin AST Alkaline Phosphatase Total Protein Albumin Lipase 46.8 Urine Color Urine Appearance Urine pH Ur Specific [place] Urine Protein Urine Glucose (UA) Urine Ketones Urine Blood Urine Nitrite Ur Leukocyte Esterase Urine WBC (Auto) Urine RBC (Auto) Blood Type Antibody Screen 02/11/20 06:48 WBC RBC Hgb Hct MCV MCH MCHC RDW Plt Count Seg Neutrophils % VBG pH VBG pCO2 VBG HCO3 VBG Base Excess Sodium 143.5 Potassium 3.9 Chloride 113 H Carbon Dioxide 26 D Anion Gap 5 BUN 30 H Creatinine 1.37 H Est GFR ( Amer) > 60 Glucose 135 H Calcium 8.7 Magnesium Total Bilirubin AST Alkaline Phosphatase Total Protein Albumin Lipase Urine Color Urine Appearance Urine pH Ur Specific [place] Urine Protein Urine Glucose (UA) Urine Ketones Urine Blood Urine Nitrite Ur Leukocyte Esterase Urine WBC (Auto) Urine RBC (Auto) Blood Type Antibody Screen 02/10/20 15:35 Troponin I < 0.012 Impressions: Chest X-Ray 02/10/20 14:22 IMPRESSION: NO ACUTE RADIOGRAPHIC FINDING IN THE CHEST. Assessment and Plan - Diagnosis (1) Diabetic ketoacidosis Qualifiers: Diabetes mellitus type: type 2 Diabetes mellitus complication detail: without coma Qualified Code(s): E11.10 - Type 2 diabetes mellitus with ketoacidosis without coma Is this a current diagnosis for this admission?: Yes Plan: Blood sugar in the 900s on admission Insulin drip started IV fluids Hemoglobin A1c Correct electrolyte abnormalities as needed Likely this episode is been precipitated by another instance of medication noncompliance as it seems to be frequent in the patient's history 02/11/2020 Gap closed Blood sugar went low overnight and insulin drip was stopped, D5W started; blood sugar came up notably thereafter Home dose Lantus and sliding scale insulin started with Accu-Cheks (2) Acute kidney injury Is this a current diagnosis for this admission?: Yes (3) COPD (chronic obstructive pulmonary disease) Qualifiers: Emphysema type: unspecified Is this a current diagnosis for this admission?: Yes (4) Cocaine abuse Is this a current diagnosis for this admission?: Yes Plan: UDS positive for cocaine Patient openly admits to using cocaine and tobacco products currently (5) Hyperlipidemia Qualifiers: Hyperlipidemia type: unspecified Qualified Code(s): E78.5 - Hyperlipidemia, unspecified Is this a current diagnosis for this admission?: Yes (6) Hypertension Qualifiers: Hypertension type: essential hypertension Qualified Code(s): I10 - Essential (primary) hypertension Is this a current diagnosis for this admission?: Yes (7) Noncompliance with medication regimen Is this a current diagnosis for this admission?: Yes - Time Time Spent with patient: 15-24 minutes Medications reviewed and adjusted accordingly: Yes Anticipated discharge: Home Within: within 24 hours
[2020-02-11] MEDS: GABAPENTIN 300 MG CAPSULE PO SCH ×2 (15:49→22:14)
[2020-02-11] MEDS: TAMSULOSIN HCL 0.4 MG CAP.SR.24H PO SCH (19:34)
[2020-02-11 20:44] LABS: ANION GAP 15 (5-19); BLOOD UREA NITROGEN 23 mg/dL (7-20); CALCIUM 8.5 mg/dL (8.4-10.2); CARBON DIOXIDE 17 mmol/L (22-30); CHLORIDE 107 mmol/L (98-107); GLUCOSE 374 mg/dL (75-110); POTASSIUM 4.5 mmol/L (3.6-5.0)
[2020-02-11] MEDS ORDERED: INSULIN GLARGINE,HUM.REC.ANLOG 1,000 UNIT/10 ML VIAL SUBCUT SCH (22:00)
[2020-02-11] MEDS ORDERED: INSULIN GLARGINE,HUM.REC.ANLOG 1,000 UNIT/10 ML VIAL (PYX) SUBCUT ONE (22:11)
[2020-02-12 05:13] LABS: ABSOLUTE LYMPHOCYTES (AUTO) 1.1 10^3/uL (0.5-4.7); ABSOLUTE NEUT (AUTO) 15.4 10^3/uL (1.7-8.2); BASOPHILS % (AUTO) 0.1 % (0-2); HEMATOCRIT 38.7 % (37.9-51.0); LYMPHOCYTES % (AUTO) 6.2 % (13-45); MEAN CORPUSCULAR HEMOGLOBIN 30.6 pg (27.0-33.4); MEAN CORPUSCULAR HGB CONC 33.7 g/dL (32.0-36.0); MEAN CORPUSCULAR VOLUME 91 fl (80-97); MONOCYTES % (AUTO) 5.7 % (3-13); PLATELET COUNT 238 10^3/uL (150-450); RED BLOOD COUNT 4.26 10^6/uL (4.35-5.55); RED CELL DISTRIBUTION WIDTH 13.7 % (11.5-14.0); TOTAL CELLS COUNTED % (AUTO) 100 %; WHITE BLOOD COUNT 17.5 10^3/uL (4.0-10.5)
[2020-02-12] MEDS: GABAPENTIN 300 MG CAPSULE PO SCH ×2 (05:15→14:10)
[2020-02-12] MEDS: INSULIN LISPRO 100 UNIT/ML 3 ML VIAL SUBCUT SCH ×5 (08:42→17:36)
[2020-02-12] MEDS ORDERED: FAMOTIDINE 20 MG TABLET PO SCH (10:00)
[2020-02-12] MEDS: DOCUSATE SODIUM 100 MG/10 ML UDC PO SCH (10:17)
[2020-02-12] MEDS: ENOXAPARIN SODIUM INJ 40 MG/0.4 ML DISP.SYRIN SUBCUT SCH (10:20)
[2020-02-12] MEDS ORDERED: INSULIN GLARGINE,HUM.REC.ANLOG 1,000 UNIT/10 ML VIAL SUBCUT SCH (10:30)
[2020-02-12 17:15] LABS: APPEARANCE,URINE CLEAR; BILIRUBIN,URINE NEGATIVE (NEGATIVE); COLOR,URINE YELLOW; GLUCOSE, URINE >=500 mg/dL (NEGATIVE); KETONES,URINE 20 mg/dL (NEGATIVE); PROTEIN,URINE 30 mg/dL (NEGATIVE); URINE SPECIFIC GRAVITY 1.026; UROBILINOGEN,URINE NEGATIVE mg/dL (<2.0)
[2020-02-12] MEDS: TAMSULOSIN HCL 0.4 MG CAP.SR.24H PO SCH (17:36)
--- NOTE | 2020-02-12 17:46 | PDOC DISCHARGE SUMMARY ---
Impression - Admit/DC Date/PCP Admission Date/Primary Care Provider: 02/10/20 18:04 NO LOCALMD Discharge Date: 02/12/20 - Discharge Diagnosis (1) Diabetic ketoacidosis Is this a current diagnosis for this admission?: Yes (2) Acute kidney injury Is this a current diagnosis for this admission?: Yes (3) COPD (chronic obstructive pulmonary disease) Is this a current diagnosis for this admission?: Yes (4) Cocaine abuse Is this a current diagnosis for this admission?: Yes (5) Hyperlipidemia Is this a current diagnosis for this admission?: Yes (6) Hypertension Is this a current diagnosis for this admission?: Yes (7) Noncompliance with medication regimen Is this a current diagnosis for this admission?: Yes - Additional Information Resuscitation Status: Full Code Discharge Diet: As Tolerated, Diabetic Discharge Activity: Activity As Tolerated Referrals: MELY MCDERMOTT MD [ACTIVE STAFF] - Follow up as needed Prescriptions: Tamsulosin HCl [Flomax 0.4 mg Cap.sr] 0.4 mg PO PCSUPPER #30 cap.sr.24h Insulin Glargine,Hum.rec.anlog [Lantus Insulin 100 Unit/1 ml 10 ml] 30 units SQ Q12 #1 vial Nystatin [Mycostatin 500,000 Unit/5 ml Susp Udcup] 500,000 unit PO QID #28 udc Famotidine [Pepcid 20 mg Tablet] 20 mg PO Q12 #60 tablet Home Medications: Gabapentin [Neurontin 300 mg Capsule] 600 mg PO Q8 02/21/19 Insulin Aspart [Novolog Flexpen] 0 unit SQ .SLIDING SCALE 02/21/19 Famotidine [Pepcid 20 mg Tablet] 20 mg PO Q12 #60 tablet 02/12/20 Insulin Glargine,Hum.rec.anlog [Lantus Insulin 100 Unit/1 ml 10 ml] 30 units SQ Q12 #1 vial 02/12/20 Nystatin [Mycostatin 500,000 Unit/5 ml Susp Udcup] 500,000 unit PO QID #28 udc 02/12/20 Tamsulosin HCl [Flomax 0.4 mg Cap.sr] 0.4 mg PO PCSUPPER #30 cap.sr.24h 02/12/20 History of Present Illiness History of Present Illness: MAMTA CUEVA is a 59 year old male with past medical history significant for uncontrolled type 2 diabetes mellitus, medication noncompliance, cocaine abuse, tobacco abuse, HLD who presents to the ED with 1 day history of progressive nausea/vomiting/abdominal pain which prompted patient to be evaluated in the ED. He was found to have blood sugar of 900s, stating he takes his home insulin however ED staff said this is a questionable statement. Patient states he typically takes 20 units of Lantus daily and sliding scale short acting insulin. Patient also states he is currently abusing cocaine regularly as well as tobacco. He states he is having some trouble urinating and has a weak urine stream. I have started him on Flomax for this likely BPH. His UDS is pending on admission.patient does admit to drug abuse. Started on insulin drip and IV fluids as appropriate for DKA. Trend BMP and replete electrolytes as needed. Hospital Course Hospital Course: Patient admitted for DKA likely due to noncompliance with insulin as has occurred with this patient many times in the past per records. Patient came in with extremely high blood sugar and anion gap. Blood sugar resolved to the 200s and 300s with anion gap closed. Patient was transitioned off of insulin drip and onto his home Lantus and lispro. I increase his Lantus dosing to 30 units twice daily. I also tried to add mealtime lispro at 5 units 3 times daily AC however the patient adamantly refused despite my detailed explanation of why this is important in addition to the nurses explanation as to why we must try to better control the patient's blood sugar. He will not be discharged on mealtime insulin as he has made it very clear he does not want this and will not take it. He states that is due to his fear that his blood sugar will go too low although his blood sugar during this discussion was approximately 250. Patient did have some difficult urination and weak urine stream diagnosis BPH, patient was started on Flomax with notable improvement. I recommended that the patient follow-up with a urologist outpatient and he agreed, then he followed this agreement with a rather strange story about his being accused of masturbation in a urologist office in the past. I recommended that he go to a urologist other than that 1 for his follow-up. He must also follow-up with his PCP and have his blood sugar checked and his insulin dosing changed based on his needs. He will need to keep a log of his blood sugars and bring this log to his next follow-up appointment. I counseled the patient on cessation of cocaine use though the patient did not seem interested in discussing this here. Blood sugar at discharge is 178 which patient states is significantly improved from his typical mid and upper 200s at home. Unfortunately, if the patient does not take his insulin as prescribed and monitor his blood sugars while avoiding street drugs, I am concerned that he will come back for many future admissions in DKA. Physical Exam Vital Signs: Temp Pulse Resp BP Pulse Ox 97.9 F 90 17 147/86 H 98 02/12/20 11:23 02/12/20 16:50 02/12/20 16:50 02/12/20 11:23 02/12/20 16:50 Intake & Output 02/11/20 02/12/20 02/13/20 06:59 06:59 06:59 Intake Total 3936 2015 1037 Output Total 1200 675 680 Balance 2736 1340 357 Weight 69.7 kg 69.1 kg General appearance: PRESENT: no acute distress, well-developed, well-nourished Head exam: PRESENT: atraumatic, normocephalic Eye exam: PRESENT: conjunctiva pink Mouth exam: PRESENT: moist Respiratory exam: PRESENT: clear to auscultation shoaib. ABSENT: rales, rhonchi, wheezes Cardiovascular exam: PRESENT: RRR. ABSENT: diastolic murmur, rubs, systolic m urmur GI/Abdominal exam: PRESENT: normal bowel sounds, soft. ABSENT: distended, guarding, mass, organolmegaly, rebound, tenderness Rectal exam: PRESENT: deferred Neurological exam: PRESENT: alert, awake, oriented to person, oriented to place, oriented to time, oriented to situation Psychiatric exam: PRESENT: appropriate affect Skin exam: PRESENT: dry, intact, warm Results Laboratory Results: WBC 17.5 10^3/uL (4.0-10.5) H 02/12/20 04:26 RBC 4.26 10^6/uL (4.35-5.55) L 02/12/20 04:26 Hgb 13.0 g/dL (13.5-17.0) L 02/12/20 04:26 Hct 38.7 % (37.9-51.0) 02/12/20 04:26 MCV 91 fl (80-97) 02/12/20 04:26 MCH 30.6 pg (27.0-33.4) 02/12/20 04:26 MCHC 33.7 g/dL (32.0-36.0) 02/12/20 04:26 RDW 13.7 % (11.5-14.0) 02/12/20 04:26 Plt Count 238 10^3/uL (150-450) 02/12/20 04:26 Lymph % (Auto) 6.2 % (13-45) L 02/12/20 04:26 [place] % (Auto) 5.7 % (3-13) 02/12/20 04:26 Eos % (Auto) 0.0 % (0-6) 02/12/20 04:26 Baso % (Auto) 0.1 % (0-2) 02/12/20 04:26 Absolute Neuts (auto) 15.4 10^3/uL (1.7-8.2) H 02/12/20 04:26 Absolute Lymphs (auto) 1.1 10^3/uL (0.5-4.7) 02/12/20 04:26 Absolute Monos (auto) 1.0 10^3/uL (0.1-1.4) 02/12/20 04:26 Absolute Eos (auto) 0.0 10^3/uL (0.0-0.6) 02/12/20 04:26 Absolute Basos (auto) 0.0 10^3/uL (0.0-0.2) 02/12/20 04:26 Total Counted 100 02/11/20 06:48 Seg Neutrophils % 88.0 % (42-78) H 02/12/20 04:26 Seg Neuts % (Manual) 87 % (42-78) H 02/11/20 06:48 Band Neutrophils % 2 % (3-5) L 02/11/20 06:48 Lymphocytes % (Manual) 2 % (13-45) L 02/11/20 06:48 Atypical Lymphs % 2 % (0) 02/11/20 06:48 Monocytes % (Manual) 7 % (3-13) 02/11/20 06:48 Eosinophils % (Manual) 0 % (0-6) 02/11/20 06:48 Basophils % (Manual) 0 % (0-2) 02/11/20 06:48 Abs Neuts (Manual) 18.3 10^3/uL (1.7-8.2) H 02/11/20 06:48 Abs Lymphs (Manual) 0.8 10^3/uL (0.5-4.7) 02/11/20 06:48 Abs Monocytes (Manual) 1.4 10^3/uL (0.1-1.4) 02/11/20 06:48 Absolute Eos (Manual) 0.0 10^3/uL (0.0-0.6) 02/11/20 06:48 Abs Basophils (Manual) 0.0 10^3/uL (0.0-0.2) 02/11/20 06:48 Toxic Vacuolation PRESENT 02/10/20 15:35 Clumped Platelets PRESENT 02/10/20 15:35 Large Platelets PRESENT 02/10/20 15:35 Platelet Comment ADEQUATE 02/11/20 06:48 Polychromasia SLIGHT 02/11/20 06:48 Poikilocytosis SLIGHT 02/10/20 15:35 Anisocytosis SLIGHT 02/10/20 15:35 Casimiro Cells SLIGHT 02/10/20 15:35 PT 13.2 SEC (11.4-15.4) 02/10/20 15:35 INR 1.00 02/10/20 15:35 APTT < 23.0 SEC (23.5-35.8) L 02/10/20 15:35 VBG pH 7.20 (7.30-7.42) L 02/10/20 16:48 VBG pCO2 22.5 mmHg (35-63) L 02/10/20 16:48 VBG HCO3 8.6 mmol/L (20-32) L 02/10/20 16:48 VBG Base Excess -17.5 mmol/L 02/10/20 16:48 Sodium 139.1 mmol/L (137-145) 02/11/20 19:56 Potassium 4.5 mmol/L (3.6-5.0) 02/11/20 19:56 Chloride 107 mmol/L (98-107) 02/11/20 19:56 Carbon Dioxide 17 mmol/L (22-30) L 02/11/20 19:56 Anion Gap 15 (5-19) 02/11/20 19:56 BUN 23 mg/dL (7-20) H 02/11/20 19:56 Creatinine 1.22 mg/dL (0.52-1.25) 02/11/20 19:56 Est GFR ( Amer) > 60 (>60) 02/11/20 19:56 Est GFR (MDRD) Non-Af > 60 (>60) 02/11/20 19:56 Glucose 374 mg/dL (75-110) H 02/11/20 19:56 POC Glucose 178 mg/dL (70-110) H 02/12/20 16:25 Hemoglobin A1c % 11.9 % (4.7-6.0) H 02/11/20 06:48 Calcium 8.5 mg/dL (8.4-10.2) 02/11/20 19:56 Magnesium 2.6 mg/dL (1.6-2.3) H 02/11/20 06:48 Total Bilirubin 0.8 mg/dL (0.2-1.3) 02/10/20 15:35 Direct Bilirubin 0.2 mg/dL (0.0-0.4) 02/10/20 15:35 Neonat Total Bilirubin Not Reportable 02/10/20 15:35 Neonat Direct Bilirubin Not Reportable 02/10/20 15:35 Neonat Indirect Bili Not Reportable 02/10/20 15:35 AST 26 U/L (17-59) 02/10/20 15:35 ALT 19 U/L (<50) 02/10/20 15:35 Alkaline Phosphatase 101 U/L (38-126) 02/10/20 15:35 Troponin I < 0.012 ng/mL 02/10/20 15:35 Total Protein 7.3 g/dL (6.3-8.2) 02/10/20 15:35 Albumin 4.6 g/dL (3.5-5.0) 02/10/20 15:35 Lipase 46.8 U/L (23-300) 02/11/20 06:48 Urine Color YELLOW 02/12/20 16:55 Urine Appearance CLEAR 02/12/20 16:55 Urine pH 6.0 (5.0-9.0) 02/12/20 16:55 Ur Specific [place] 1.026 02/12/20 16:55 Urine Protein 30 mg/dL (NEGATIVE) H 02/12/20 16:55 Urine Glucose (UA) >=500 mg/dL (NEGATIVE) H 02/12/20 16:55 Urine Ketones 20 mg/dL (NEGATIVE) H 02/12/20 16:55 Urine Blood NEGATIVE (NEGATIVE) 02/12/20 16:55 Urine Nitrite NEGATIVE (NEGATIVE) 02/10/20 18:09 Urine Nitrite (Reflex) NEGATIVE (NEGATIVE) 02/12/20 16:55 Urine Bilirubin NEGATIVE (NEGATIVE) 02/12/20 16:55 Urine Urobilinogen NEGATIVE mg/dL (<2.0) 02/12/20 16:55 Ur Leukocyte Esterase NEGATIVE (NEGATIVE) 02/10/20 18:09 Leukocyte Esterase Rfl NEGATIVE (NEGATIVE) 02/12/20 16:55 Urine WBC (Auto) 0 /HPF 02/10/20 18:09 Urine RBC (Auto) 0 /HPF 02/12/20 16:55 Urine WBC (Reflex) 1 /HPF 02/12/20 16:55 Squamous Epi Cells Auto <1 /HPF 02/10/20 18:09 Urine Mucus (Auto) RARE /LPF 02/12/20 16:55 Urine Ascorbic Acid NEGATIVE (NEGATIVE) 02/12/20 16:55 Urine Opiates Screen NEGATIVE 02/10/20 18:09 Urine Methadone Screen NEGATIVE 02/10/20 18:09 Ur Barbiturates Screen NEGATIVE 02/10/20 18:09 Ur Phencyclidine Scrn NEGATIVE 02/10/20 18:09 Ur Amphetamines Screen 02/10/20 18:09 U Benzodiazepines Scrn NEGATIVE 02/10/20 18:09 Urine Cocaine Screen UNCONFIRMED POSITIVE 02/10/20 18:09 U Marijuana (THC) Screen NEGATIVE 02/10/20 18:09 Serum Alcohol < 10 mg/dL (NONE DETECTED) 02/10/20 15:35 Blood Type B POSITIVE 02/10/20 16:30 Antibody Screen NEGATIVE 02/10/20 16:30 02/10/20 15:35 Troponin I < 0.012 Impressions: Chest X-Ray 02/10/20 14:22 IMPRESSION: NO ACUTE RADIOGRAPHIC FINDING IN THE CHEST. Plan Plan of Treatment: Follow-up with PCP Follow-up with urology Stop using cocaine Time Spent: Greater than 30 Minutes Stroke Is this a Stroke Patient?: No Acute Heart Failure - Is this a Heart Failure Patient?: No
[2020-02-12 17:47] VITALS: BP 121/55
[2020-02-12] MEDS ORDERED: NYSTATIN 500000 UNIT/5 ML UDCUP PO SCH (18:00)
[2020-02-12 20:21] LABS: ANION GAP 7 (5-19); BLOOD UREA NITROGEN 14 mg/dL (7-20); CALCIUM 8.3 mg/dL (8.4-10.2); CARBON DIOXIDE 26 mmol/L (22-30); CHLORIDE 103 mmol/L (98-107); GLUCOSE 203 mg/dL (75-110); POTASSIUM 3.9 mmol/L (3.6-5.0)
== END 2020-02-12 19:25 | disposition home or self-care (01) | DRG 638 ==
LOC: ER 12:46 → EH 18:04 → 3W 02-11 17:01
PROVIDERS: ADMIT Internal Medicine; ATTEND Internal Medicine
DX: E11.10 Type 2 diabetes mellitus with ketoacidosis without coma (principal); N17.9 Acute kidney failure, unspecified; I10 Essential (primary) hypertension; E78.5 Hyperlipidemia, unspecified; J44.9 Chronic obstructive pulmonary disease, unspecified; K21.9 Gastro-esophageal reflux disease without esophagitis; N40.0 Benign prostatic hyperplasia without lower urinary tract symptoms; F14.10 Cocaine abuse, uncomplicated; F17.210 Nicotine dependence, cigarettes, uncomplicated; Z91.14 Patient's other noncompliance with medication regimen; Z79.4 Long term (current) use of insulin; Z79.899 Other long term (current) drug therapy
CPT/HCPCS: 36415; 71045; 80048; 80053; 80307; 81001; 82803; 82962; 83036; 83690; 83735; 84484; 85025; 85610; 85730; 86850; 86900; 86901; 96361; 96374; 96375; 99285; C9113; J1650; J1815; J2405; J3490; J7030; J7042; J7050

== ENCOUNTER 2020-04-05 11:34 | Inpatient (IN) | payer MEDICAID, MEDICARE ==
[2020-04-05 12:40] LABS: HEMATOCRIT 46.7 % (37.9-51.0); HEMOGLOBIN 14.7 g/dL (13.5-17.0); MEAN CORPUSCULAR HEMOGLOBIN 30.4 pg (27.0-33.4); MEAN CORPUSCULAR HGB CONC 31.6 g/dL (32.0-36.0); MEAN CORPUSCULAR VOLUME 96 fl (80-97); RED BLOOD COUNT 4.85 10^6/uL (4.35-5.55); RED CELL DISTRIBUTION WIDTH 13.9 % (11.5-14.0); WHITE BLOOD COUNT 17.7 10^3/uL (4.0-10.5)
[2020-04-05 12:53] LABS: ABSOLUTE LYMPHOCYTES# (MANUAL) 0.5 10^3/uL (0.5-4.7); ABSOLUTE MONOCYTES # (MANUAL) 0.5 10^3/uL (0.1-1.4); BASOPHILS % (MANUAL) 0 % (0-2); EOSINOPHILS % (MANUAL) 0 % (0-6); LYMPHOCYTES % (MANUAL) 3 % (13-45); MONOCYTES % (MANUAL) 3 % (3-13); PLATELET CLUMPS PRESENT; PLATELET COMMENT ADEQUATE; RBC MORPHOLOGY COMMENT NORMO-CYTIC/CHROMIC; SEGMENTED NEUTROPHILS % (MAN) 94 % (42-78); TOTAL CELLS COUNTED 100
[2020-04-05 12:55] LABS: PLATELET COUNT 180 10^3/uL (150-450)
[2020-04-05] MEDS ORDERED: ONDANSETRON HCL INJ/PF 4 MG/2 ML SDV IV ONE ×2 (13:50→16:46)
[2020-04-05] MEDS ORDERED: HYDROMORPHONE HCL INJ/PF 2 MG/ML AMPULE IV ONE (13:50)
--- NOTE | 2020-04-05 14:00 | ER Document Report ---
ED General - General Chief Complaint: High Blood Sugar Stated Complaint: BLOOD SUGAR ISSUES Time Seen by Provider: 04/05/20 13:22 Primary Care Provider: CASTILLO FERNÁNDEZ [Primary Care Provider] - Follow up as needed Notes: 59-year-old male brought to the emergency department due to weakness, altered mental status and elevated blood sugar. Patient states he is not actually out of his insulin, he simply has not taken it since Sunday because he did not bring it with him when he traveled [place] of [place]. Patient states he can usually skip couple days on his insulin without any difficulty. Patient now complains of abdominal pain, nausea and vomiting, and muscle cramping. Denies fevers or chills, denies chest pain or trouble breathing. Complains of increased thirst and increased frequency. TRAVEL OUTSIDE OF THE [place] IN LAST 30 DAYS: No - Related Data Allergies/Adverse Reactions: No Known Allergies Allergy (Verified 02/10/20 18:03) Home Medications: Insulin Past Medical History - General Information source: Patient - Social History Smoking Status: Never Smoker Frequency of alcohol use: None Drug Abuse: Cocaine - Has not used in several weeks. Family History: CAD - father at 59 of heart problems, DM - mother - Past Medical History Cardiac Medical History: Reports: Hx Hypercholesterolemia, Hx Hypertension Pulmonary Medical History: Reports: Hx COPD Denies: Hx Tuberculosis Neurological Medical History: Denies: Hx Seizures Endocrine Medical History: Reports: Hx Diabetes Mellitus Type 1, Hx Diabetes Mellitus Type 2 Renal/ Medical History: Reports: Hx Benign Prostatic Hyperplasia. Denies: Hx Peritoneal Dialysis GI Medical History: Reports: Hx Gastroesophageal Reflux Disease Psychiatric Medical History: Reports: Hx Depression Past Surgical History: Reports: Hx Orthopedic Surgery - jaw - Immunizations Hx Diphtheria, Pertussis, Tetanus Vaccination: No Hx Pneumococcal Vaccination: 05/09/13 Review of Systems - Review of Systems Constitutional: See HPI, Malaise, Weakness. denies: Chills, Diaphoresis, Fever EENT: No symptoms reported Cardiovascular: No symptoms reported Respiratory: No symptoms reported Gastrointestinal: See HPI, Abdominal pain, Nausea, Vomiting. denies: Diarrhea Genitourinary: See HPI, Frequency -: Yes All other systems reviewed and negative Physical Exam - Vital signs Vitals: Resp Pulse Ox 23 H 100 04/05/20 11:40 04/05/20 11:40 Interpretation: Tachycardic, Tachypneic - Notes Notes: GENERAL: Alert, interacts well. No acute distress, but appears annoyed. HEAD: Normocephalic, atraumatic EYES: Pupils equal, round and reactive to light, extraocular movements intact. ENT: Oral mucosa dry, edentulous, tongue midline. NECK: Full range of motion, supple, trachea midline. LUNGS: Clear to auscultation bilaterally, no wheezes, rales or rhonchi, no r espiratory distress, mildly tachypneic. HEART: Tachycardic rate and rhythm, no murmurs, gallops, rubs. ABDOMEN: Soft, epigastric tenderness to palpation, nondistended, bowel sounds present in all 4 quadrants. EXTREMITIES: Moves all 4 extremities spontaneously, no edema, radial and dorsalis pedis pulses 2/4 bilaterally. No cyanosis. NEUROLOGICAL: Alert and oriented x3, normal speech. PSYCH: Somewhat irritable. SKIN: Warm, Dry, normal turgor, no rashes or lesions noted. Course - Re-evaluation Re-evalutation: 04/05/20 16:53 CBC shows leukocytosis of 17.7, CMP shows marked derangements including pseudohyponatremia 130.8, elevated potassium at 7.1 with peaked T waves but no QRS widening, this was treated with calcium gluconate, sodium bicarb, insulin bolus and drip, the bolus was for the elevated potassium not for the elevated glucose, [place] and fluids. There is an anion gap, it is surprising that his laboratory studies are more consistent with DKA than HHS given that he is type II diabetic. Patient does have acute renal failure with a BUN of 50 and a creatinine of 2.67, glucose elevated at 1084. Urinalysis shows ketones. Patient was discussed with Dr. Read who agrees to admit the patient to her service on the [facility]. - Vital Signs Vital signs: Temp Pulse Resp BP Pulse Ox 97.5 F 108 H 16 92/52 L 100 04/05/20 12:04 04/05/20 12:04 04/05/20 15:07 04/05/20 15:07 04/05/20 15:07 - Laboratory Result Diagrams: 04/05/20 12:19 04/05/20 15:19 Laboratory results interpreted by me: 04/05/20 04/05/20 04/05/20 12:19 15:06 15:19 WBC 17.7 H MCHC 31.6 L Seg Neuts % (Manual) 94 H Lymphocytes % (Manual) 3 L Abs Neuts (Manual) 16.6 H Sodium Potassium Chloride Carbon Dioxide BUN Creatinine Est GFR ( Amer) Est GFR (MDRD) Non-Af Glucose Creatine Kinase 1290 H CK-MB (CK-2) Total Protein Urine Glucose (UA) >=500 H Urine Ketones 20 H Urine Blood SMALL H 04/05/20 04/05/20 15:19 15:19 WBC MCHC Seg Neuts % (Manual) Lymphocytes % (Manual) Abs Neuts (Manual) Sodium 130.8 L Potassium 7.1 H* Chloride 85 L Carbon Dioxide 6 L* BUN 50 H Creatinine 2.67 H Est GFR ( Amer) 30 L Est GFR (MDRD) Non-Af 25 L Glucose 1084 H* Creatine Kinase CK-MB (CK-2) 6.66 H Total Protein 6.2 L Urine Glucose (UA) Urine Ketones Urine Blood - EKG Interpretation by Me Additional EKG results interpreted by me: 04/05/20 16:57 EKG shows sinus tachycardia at a rate of 104, normal axis, normal intervals, no ST segment or lesions or depressions, no T wave inversions, T waves are peaked, rapid R wave progression. Critical Care Note - Critical Care Note Total time excluding time spent on procedures (mins): 45 Discharge - Discharge Clinical Impression: Hyperkalemia, Hyponatremia DKA (diabetic ketoacidoses) Qualifiers: Diabetes mellitus type: type 2 Diabetes mellitus termite technician insulin use: with termite technician use Diabetes mellitus complication detail: without coma Qualified Code(s): E11.10 - Type 2 diabetes mellitus with ketoacidosis without coma; Z79.4 - nursing home (current) use of insulin Condition: Fair Disposition: ADMITTED INPATIENT Admitting Provider: [facility] Unit Admitted: IMCU Referrals: LOCALMD,NO [Primary Care Provider] - Follow up as needed
[2020-04-05] MEDS: RINGERS SOLUTION,LACTATED 1,000 ML IV PRN ×2 (14:51→16:35)
[2020-04-05 15:41] LABS: APPEARANCE,URINE CLEAR; BILIRUBIN,URINE NEGATIVE (NEGATIVE); COLOR,URINE STRAW; GLUCOSE, URINE >=500 mg/dL (NEGATIVE); KETONES,URINE 20 mg/dL (NEGATIVE); LEUKOCYTE ESTERASE,URINE NEGATIVE (NEGATIVE); NITRITE,URINE NEGATIVE (NEGATIVE); PROTEIN,URINE NEGATIVE (NEGATIVE); URINE SPECIFIC GRAVITY 1.021; UROBILINOGEN,URINE NEGATIVE mg/dL (<2.0)
[2020-04-05 15:59] LABS: ALKALINE PHOSPHATASE 92 U/L (38-126); ASPARTATE AMINO TRANSFERASE 40 U/L (17-59); BILIRUBIN,DIRECT 0.4 mg/dL (0.0-0.4); BILIRUBIN,TOTAL 0.7 mg/dL (0.2-1.3); BLOOD UREA NITROGEN 50 mg/dL (7-20); CALCIUM 9.2 mg/dL (8.4-10.2); TOTAL PROTEIN 6.2 g/dL (6.3-8.2)
[2020-04-05 16:05] LABS: CREATINE KINASE MB 6.66 ng/mL (<4.55)
[2020-04-05 16:08] LABS: TROPONIN I < 0.012 ng/mL
[2020-04-05 16:16] LABS: CHLORIDE 85 mmol/L (98-107)
[2020-04-05 16:21] LABS: CARBON DIOXIDE 6 mmol/L (22-30); GLUCOSE 1084 mg/dL (75-110); POTASSIUM 7.1 mmol/L (3.6-5.0)
[2020-04-05] MEDS ORDERED: SODIUM BICARBONATE 8.4% INJ 50 MEQ/50 ML DISP.SYRIN IV ONE (16:24)
[2020-04-05] MEDS ORDERED: NORMAL SALINE 1000 ML 1,000 ML IV ONE ×2 (16:24→18:31)
[2020-04-05] MEDS ORDERED: INSULIN REG, HUMAN 100 UNIT/ML 3 ML VIAL (PYX) IV ONE ×3 (16:24→19:30)
[2020-04-05] MEDS ORDERED: CALCIUM GLUCONATE 1000 MG/10 ML INJ IV ONE (16:24)
[2020-04-05 16:48] LABS: ANION GAP 40 (5-19)
[2020-04-05] MEDS ORDERED: ACETAMINOPHEN 325 MG TABLET PO PRN (18:19)
[2020-04-05] MEDS ORDERED: DEXTROSE 40% GEL 15 GM TUBE PO PRN ×2 (18:19)
[2020-04-05] MEDS ORDERED: GLUCAGON,HUMAN RECOMB 1 MG INJ SUBCUT PRN (18:19)
[2020-04-05] MEDS ORDERED: NORMAL SALINE 1000 ML 1,000 ML IV PRN ×2 (18:19→18:35)
[2020-04-05] MEDS ORDERED: ONDANSETRON HCL INJ/PF 4 MG/2 ML SDV IV PRN (18:19)
[2020-04-05] MEDS ORDERED: DEXTROSE 50%-WATER 25 GM/50 ML DISP.SYRIN IV PRN ×2 (18:19)
[2020-04-05] MEDS ORDERED: NORMAL SALINE 100 ML with INSULIN REGULAR, HUMAN 100 UNIT IV PRN ×2 (18:27)
[2020-04-05 19:30] LABS: URINE AMPHETAMINES SCREEN NEGATIVE; URINE BARBITURATES SCREEN NEGATIVE; URINE BENZODIAZEPINES SCREEN NEGATIVE; URINE MARIJUANA (THC) SCREEN NEGATIVE; URINE METHADONE SCREEN NEGATIVE; URINE PHENCYCLIDINE SCREEN NEGATIVE
[2020-04-05 19:31] LABS: URINE COCAINE SCREEN UNCONFIRMED POSITIVE
[2020-04-05] MEDS ORDERED: INSULIN REG, HUMAN 100 UNIT/ML 3 ML VIAL (PYX) ONE (19:34)
--- NOTE | 2020-04-05 19:34 | EKG REPORT ---
SEVERITY:- OTHERWISE NORMAL ECG - SINUS TACHYCARDIA : Confirmed by: Daniela Dowd MD 05-Apr-2020 19:34:03
[2020-04-05] MEDS: PATIROMER 8.4 GM SUSP PACKET PO SCH (19:46)
[2020-04-05] MEDS ORDERED: 1/2 NORMAL SALINE 1,000 ML IV PRN (20:14)
--- NOTE | 2020-04-05 20:15 | PDOC H&P ---
History of Present Illness Admission Date/PCP: 04/05/20 17:28 Patient complains of: Vomiting History of Present Illness: MAMTA CUEVA is a 59 year old male, medical history of T2DM poorly compliant, HLD, who was admitted due to vomiting. The patient has been visiting a friend in the area and did not bring enough insulin with him. He ran out of his medications 3 days prior. He is normally on Lantus 30 u bedtime and sliding scale insulin 4 u if above 200BG, 6 units if above 300, 10 units above 400. 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 hence he came to the ED. In the ED, VS were stable. He was noted to have a BG of 1084, K 7.1, Crea 2.67, AG 40, +ve ketones urine. He was given bicarb push, insulin drip and PLR IV fluids. He was subsequently admitted for further management. Past Medical History Cardiac Medical History: Reports: Hyperlipidema, Hypertension Pulmonary Medical History: Reports: Chronic Obstructive Pulmonary Disease (COPD) Denies: Tuberculosis Neurological Medical History: Denies: Seizures Endocrine Medical History: Reports: Diabetes Mellitus Type 2 Renal/ Medical History: Reports: Chronic Kidney Disease GI Medical History: Reports: Gastroesophageal Reflux Disease Psychiatric Medical History: Reports: Depression Past Surgical History Past Surgical History: Reports: Orthopedic Surgery - jaw Social History Information Source: Patient Smoking Status: Never Smoker Frequency of Alcohol Use: None Hx Recreational Drug Use: Yes - 02/28 Drugs: Cocaine, Marijuana Hx Prescription Drug Abuse: No - Advance Directive Resuscitation Status: Full Code Family History Family History: Reviewed & Not Pertinent, CAD - father at 59 of heart problems, DM - mother Parental Family History Reviewed: Yes Children Family History Reviewed: Yes Sibling(s) Family History Reviewed.: Yes Medication/Allergy Home Medications: Gabapentin [Neurontin 300 mg Capsule] 600 mg PO Q8 02/21/19 Insulin Aspart [Novolog Flexpen] 10 unit SQ TID 02/21/19 Famotidine [Pepcid 20 mg Tablet] 20 mg PO Q12 #60 tablet 02/12/20 Tamsulosin HCl [Flomax 0.4 mg Cap.sr] 0.4 mg PO PCSUPPER #30 cap.sr.24h 02/12/20 Insulin Glargine,Hum.rec.anlog [Lantus Insulin 100 Unit/mL Insulin Pen] 20 units SQ BID 04/05/20 Allergies/Adverse Reactions: No Known Allergies Allergy (Verified 02/10/20 18:03) Review of Systems Constitutional: PRESENT: as per HPI Cardiovascular: PRESENT: as per HPI Respiratory: PRESENT: as per HPI Gastrointestinal: PRESENT: abdominal pain, nausea, vomiting Musculoskeletal: PRESENT: as per HPI Neurological: PRESENT: as per HPI Physical Exam Vital Signs: Temp Pulse Resp BP Pulse Ox 97.5 F 108 H 15 133/76 H 100 04/05/20 12:04 04/05/20 12:04 04/05/20 18:00 04/05/20 19:01 04/05/20 19:01 Intake & Output 04/04/20 04/05/20 04/06/20 06:59 06:59 06:59 Intake Total 3000 Balance 3000 Weight 81.647 kg General appearance: PRESENT: no acute distress, cooperative, disheveled Head exam: PRESENT: atraumatic, normocephalic Eye exam: PRESENT: EOMI, PERRLA Mouth exam: PRESENT: moist Neck exam: PRESENT: full ROM. ABSENT: JVD Respiratory exam: PRESENT: clear to auscultation shoaib, symmetrical, unlabored Cardiovascular exam: PRESENT: RRR, +S1, +S2 Pulses: PRESENT: normal carotid pulses Vascular exam: PRESENT: normal capillary refill GI/Abdominal exam: PRESENT: tenderness - Epigastric area Extremities exam: PRESENT: joint swelling Musculoskeletal exam: PRESENT: full ROM Neurological exam: PRESENT: alert, awake, oriented to person, oriented to place, oriented to time Psychiatric exam: PRESENT: normal mood Results Laboratory Results: 04/05/20 12:19 04/05/20 04/05/20 04/05/20 12:19 12:19 15:06 WBC 17.7 H RBC 4.85 Hgb 14.7 Hct 46.7 MCV 96 MCH 30.4 MCHC 31.6 L RDW 13.9 Plt Count 180 Seg Neutrophils % Not Reportable Sodium Cancelled Potassium Cancelled Chloride Cancelled Carbon Dioxide Cancelled Anion Gap Cancelled BUN Cancelled Creatinine Cancelled Est GFR ( Amer) Cancelled Est GFR (Non-Af Amer) Cancelled Glucose Cancelled Calcium Cancelled Total Bilirubin Cancelled AST Cancelled Alkaline Phosphatase Cancelled Total Protein Cancelled Albumin Cancelled Lipase Urine Color STRAW Urine Appearance CLEAR Urine pH 5.0 Ur Specific [place] 1.021 Urine Protein NEGATIVE Urine Glucose (UA) >=500 H Urine Ketones 20 H Urine Blood SMALL H Urine Nitrite NEGATIVE Ur Leukocyte Esterase NEGATIVE Urine WBC (Auto) 1 04/05/20 04/05/20 15:19 15:19 WBC RBC Hgb Hct MCV MCH MCHC RDW Plt Count Seg Neutrophils % Sodium 130.8 L Potassium 7.1 H* Chloride 85 L Carbon Dioxide 6 L* Anion Gap 40 H BUN 50 H Creatinine 2.67 H Est GFR ( Amer) 30 L Est GFR (Non-Af Amer) Glucose 1084 H* Calcium 9.2 Total Bilirubin 0.7 AST 40 Alkaline Phosphatase 92 Total Protein 6.2 L Albumin 4.0 Lipase 53.9 Urine Color Urine Appearance Urine pH Ur Specific [place] Urine Protein Urine Glucose (UA) Urine Ketones Urine Blood Urine Nitrite Ur Leukocyte Esterase Urine WBC (Auto) 04/05/20 04/05/20 15:19 15:19 Creatine Kinase 1290 H CK-MB (CK-2) 6.66 H Troponin I < 0.012 Assessment and Plan - Diagnosis (1) Diabetes mellitus with ketoacidosis Qualifiers: Diabetes mellitus type: type 2 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 Accucheck q1hr. Transition to basal bolus once AG closed. Overlap with drip before transition - with potassium of 7.1 he was not started on replacement but was given bicarb in the ED. Will monitor BMP every 2 hrs and start K replacement once he reaches 5 - Na 130.8 corrected 147. on half normal saline 250 ml/hr, will switch to D5 containing once BG below 200 (2) Hyperkalemia Is this a current diagnosis for this admission?: Yes Plan: - K 7.1 likely 2/2 DKA - this will probably drop fast because the patient was given bicarb and started on insulin drip - EKG mild peaked T waves - replace once it fall below 5 - BMP q2. Please call Corporate Services Manager with result (3) Acute kidney injury Is this a current diagnosis for this admission?: Yes Plan: - Crea 2.67 unknown baseline - likely 2/2 dehydration from DKA - on NSS 250ml/hr - will monitor daily BMP (4) Hyperlipidemia Qualifiers: Hyperlipidemia type: unspecified Qualified Code(s): E78.5 - Hyperlipidemia, unspecified Is this a current diagnosis for this admission?: Yes Plan: - takes statin unsure which one - will start on lipitor tomorrow (5) Leukocytosis Qualifiers: Leukocytosis type: unspecified Qualified Code(s): D72.829 - Elevated white blood cell count, unspecified Is this a current diagnosis for this admission?: Yes Plan: - likely reactive from vomiting. will monitor (6) Hyponatremia Is this a current diagnosis for this admission?: Yes Plan: - pseudohyponatremia corrected 147 - on half normal saline - Time Time Spent with patient: 25-34 minutes Medications reviewed and adjusted accordingly: Yes Anticipated Discharge Disposition: Home, Self Care Anticipated Discharge Timeframe: To be determined - Inpatient Certification Based on my medical assessment, after consideration of the patient's comorbidities, presenting symptoms, or acuity I expect that the services needed warrant INPATIENT care.: Yes I certify that my determination is in accordance with my understanding of Medicare's requirements for reasonable and necessary INPATIENT services [42 CFR 412.3e].: Yes Medical Necessity: Need For IV Fluids
[2020-04-05 21:29] LABS: BLOOD UREA NITROGEN 50 mg/dL (7-20); CALCIUM 9.5 mg/dL (8.4-10.2)
[2020-04-05 21:34] LABS: CHLORIDE 100 mmol/L (98-107)
[2020-04-05 21:43] LABS: ANION GAP 29 (5-19)
[2020-04-05 21:44] LABS: CARBON DIOXIDE 11 mmol/L (22-30)
[2020-04-05 21:45] LABS: GLUCOSE 685 mg/dL (75-110); POTASSIUM 4.9 mmol/L (3.6-5.0)
[2020-04-05] MEDS ORDERED: POTASSI CL 20 MEQ/50 ML RIDER 20 MEQ/50 ML RTUPB IV SCH (22:00)
[2020-04-05] MEDS: PANTOPRAZOLE SODIUM 40 MG VIAL IV SCH (23:14)
[2020-04-05] MEDS: HEPARIN SOD (PORCINE) 5,000 UNIT/ML 1 ML VIAL SUBCUT SCH (23:15)
[2020-04-05] MEDS: POTASSI CL 20 MEQ/NS 1L 1000 ML IV PRN (23:35)
[2020-04-06 00:57] LABS: BLOOD UREA NITROGEN 44 mg/dL (7-20); CALCIUM 9.3 mg/dL (8.4-10.2); CHLORIDE 104 mmol/L (98-107); GLUCOSE 394 mg/dL (75-110); POTASSIUM 4.5 mmol/L (3.6-5.0)
[2020-04-06] MEDS: POTASSI CL 20 MEQ/NS 1L 1000 ML IV PRN ×4 (01:16→08:20)
[2020-04-06 01:44] LABS: ANION GAP 16 (5-19)
[2020-04-06 01:46] LABS: CARBON DIOXIDE 22 mmol/L (22-30)
[2020-04-06] MEDS: HEPARIN SOD (PORCINE) 5,000 UNIT/ML 1 ML VIAL SUBCUT SCH ×3 (05:28→21:55)
[2020-04-06 07:17] LABS: ANION GAP 9 (5-19); BLOOD UREA NITROGEN 34 mg/dL (7-20); CALCIUM 8.6 mg/dL (8.4-10.2); CARBON DIOXIDE 25 mmol/L (22-30); CHLORIDE 116 mmol/L (98-107); GLUCOSE 131 mg/dL (75-110); POTASSIUM 5.1 mmol/L (3.6-5.0)
[2020-04-06] MEDS ORDERED: INSULIN GLARGINE,HUM.REC.ANLOG 1,000 UNIT/10 ML VIAL (PYX) SUBCUT ONE (09:32)
[2020-04-06] MEDS: INSULIN GLARGINE,HUM.REC.ANLOG 1,000 UNIT/10 ML VIAL SUBCUT SCH (09:34)
[2020-04-06] MEDS: PANTOPRAZOLE SODIUM 40 MG VIAL IV SCH ×2 (09:34→21:54)
[2020-04-06] MEDS ORDERED: INSULIN GLARGINE,HUM.REC.ANLOG 1,000 UNIT/10 ML VIAL SUBCUT SCH (10:00)
[2020-04-06] MEDS ORDERED: INSULIN LISPRO 100 UNIT/ML 3 ML VIAL SUBCUT SCH (11:00)
[2020-04-06] MEDS: INSULIN LISPRO 100 UNIT/ML 3 ML VIAL SUBCUT SCH ×2 (12:13→15:42)
[2020-04-06] MEDS ORDERED: 1/2 NORMAL SALINE 1,000 ML IV PRN (16:29)
--- NOTE | 2020-04-06 16:36 | PDOC PROGRESS REPORT ---
Subjective Progress Note for:: 04/06/20 Subjective:: Seen and examined at bedside. Feels better overall denies any vomiting, abdominal pain. AG closed at around midnight. Good appetite. Reason For Visit: DKA(DIABETIC KETOACIDOSES),HYPERKALEMIA, Physical Exam Vital Signs: Temp Pulse Resp BP Pulse Ox 97.9 F 94 17 153/81 H 98 04/06/20 11:17 04/06/20 14:00 04/06/20 11:17 04/06/20 11:17 04/06/20 11:17 Intake & Output 04/05/20 04/06/20 04/07/20 06:59 06:59 06:59 Intake Total 6775 1999 Output Total 725 Balance 6050 1999 Weight 64.6 kg General appearance: PRESENT: no acute distress, cooperative Head exam: PRESENT: atraumatic, normocephalic Eye exam: PRESENT: EOMI, PERRLA Mouth exam: PRESENT: moist Neck exam: PRESENT: full ROM Respiratory exam: PRESENT: clear to auscultation shoaib, symmetrical, unlabored Cardiovascular exam: PRESENT: RRR, +S1, +S2 Pulses: PRESENT: +2 pedal pulses bilateral Vascular exam: PRESENT: normal capillary refill GI/Abdominal exam: PRESENT: normal bowel sounds, soft. ABSENT: tenderness Rectal exam: PRESENT: deferred Musculoskeletal exam: PRESENT: full ROM Neurological exam: PRESENT: alert, awake, oriented to person, oriented to place, oriented to time Psychiatric exam: PRESENT: normal mood Results Laboratory Results: 04/05/20 12:19 04/06/20 06:25 04/05/20 04/05/20 04/05/20 15:19 19:05 20:59 Sodium 130.8 L Cancelled 139.9 Potassium 7.1 H* Cancelled 4.9 D Chloride 85 L Cancelled 100 Carbon Dioxide 6 L* Cancelled 11 L Anion Gap 40 H Cancelled 29 H BUN 50 H Cancelled 50 H Creatinine 2.67 H Cancelled 2.24 H Est GFR ( Amer) 30 L Cancelled 37 L Est GFR (Non-Af Amer) Cancelled Glucose 1084 H* Cancelled 685 H* Calcium 9.2 Cancelled 9.5 Total Bilirubin 0.7 AST 40 Alkaline Phosphatase 92 Total Protein 6.2 L Albumin 4.0 04/06/20 04/06/20 04/06/20 00:27 04:22 06:25 Sodium 142.1 Cancelled 149.5 H Potassium 4.5 Cancelled 5.1 H Chloride 104 Cancelled 116 H Carbon Dioxide 22 D Cancelled 25 Anion Gap 16 Cancelled 9 BUN 44 H Cancelled 34 H Creatinine 1.89 H Cancelled 1.36 H Est GFR ( Amer) 45 L Cancelled > 60 Est GFR (Non-Af Amer) Cancelled Glucose 394 H Cancelled 131 H Calcium 9.3 Cancelled 8.6 Total Bilirubin AST Alkaline Phosphatase Total Protein Albumin 04/05/20 04/05/20 15:19 15:19 Creatine Kinase 1290 H CK-MB (CK-2) 6.66 H Troponin I < 0.012 Assessment and Plan - Diagnosis (1) Diabetes mellitus with ketoacidosis Qualifiers: Diabetes mellitus type: type 2 Diabetes 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 AG close 12 min - known diabetic poorly compliant -Normally on Lantus 30 units at bedtime, sliding scale insulin - BG 1084>130 , K 7.1>5.1, AG 40>9, +ve urine ketones - transitioned to subc basal bolus - on carb controlled diet (2) Hyperkalemia Is this a current diagnosis for this admission?: Yes Plan: - K 7.1>5.1 likely 2/2 DKA - EKG mild peaked T waves - replace once below 5 (3) Acute kidney injury Is this a current diagnosis for this admission?: Yes Plan: - Crea 2.67>1.36 unknown baseline - likely 2/2 dehydration from DKA - half normal saline - will monitor daily BMP (4) Hyperlipidemia Qualifiers: Hyperlipidemia type: unspecified Qualified Code(s): E78.5 - Hyperlipidemia, unspecified Is this a current diagnosis for this admission?: Yes Plan: - takes statin unsure which one - started on lipitor (5) Leukocytosis Qualifiers: Leukocytosis type: unspecified Qualified Code(s): D72.829 - Elevated white blood cell count, unspecified Is this a current diagnosis for this admission?: Yes Plan: - likely reactive from vomiting. will monitor (6) Hyponatremia Is this a current diagnosis for this admission?: Yes Plan: - pseudohyponatremia corrected 147 - on half normal saline - Plan Summary Summary: Plan is to continue basal/ bolus today and continue IV fluids for NADEEN. He can be discharged tomorrow once BG is controlled. He is on lantus 30 u and sloiding scale insulin as home meds. - Time Time Spent with patient: 15-24 minutes Anticipated Discharge Disposition: Home, Self Care Anticipated Discharge Timeframe: within 24 hours
[2020-04-06] MEDS: PATIROMER 8.4 GM SUSP PACKET PO SCH (18:46)
[2020-04-06] MEDS ORDERED: ATORVASTATIN CALCIUM 40 MG TABLET PO SCH (22:00)
[2020-04-07 05:57] LABS: ALKALINE PHOSPHATASE 61 U/L (38-126); ASPARTATE AMINO TRANSFERASE 47 U/L (17-59); BILIRUBIN,DIRECT 0.2 mg/dL (0.0-0.4); BILIRUBIN,TOTAL 0.6 mg/dL (0.2-1.3); BLOOD UREA NITROGEN 15 mg/dL (7-20); CALCIUM 8.2 mg/dL (8.4-10.2); GLUCOSE 212 mg/dL (75-110); POTASSIUM 4.3 mmol/L (3.6-5.0); TOTAL PROTEIN 5.3 g/dL (6.3-8.2)
[2020-04-07 06:02] LABS: ANION GAP 6 (5-19); CARBON DIOXIDE 24 mmol/L (22-30); CHLORIDE 103 mmol/L (98-107)
[2020-04-07] MEDS: HEPARIN SOD (PORCINE) 5,000 UNIT/ML 1 ML VIAL SUBCUT SCH (06:09)
[2020-04-07] MEDS: INSULIN LISPRO 100 UNIT/ML 3 ML VIAL SUBCUT SCH ×2 (08:35→16:18)
[2020-04-07] MEDS: PANTOPRAZOLE SODIUM 40 MG VIAL IV SCH (11:00)
[2020-04-07] MEDS: INSULIN GLARGINE,HUM.REC.ANLOG 1,000 UNIT/10 ML VIAL SUBCUT SCH (11:02)
--- NOTE | 2020-04-07 15:03 | PDOC DISCHARGE SUMMARY ---
Impression - Admit/DC Date/PCP Admission Date/Primary Care Provider: 04/05/20 17:28 Discharge Date: 04/07/20 - Assessment Summary: Plan is to continue basal/ bolus today and continue IV fluids for NADEEN. He can be discharged tomorrow once BG is controlled. He is on lantus 30 u and sloiding scale insulin as home meds. - Additional Information Resuscitation Status: Full Code Discharge Diet: Diabetic Discharge Activity: Activity As Tolerated Referrals: MELY MCDERMOTT MD [ACTIVE STAFF] - 04/15/20 11:15 am Prescriptions: Atorvastatin Calcium [Lipitor 40 mg Tablet] 40 mg PO QHS 15 Days #15 tablet Home Medications: Gabapentin [Neurontin 300 mg Capsule] 600 mg PO Q8 02/21/19 Insulin Aspart [Novolog Flexpen] 10 unit SQ TID 02/21/19 Famotidine [Pepcid 20 mg Tablet] 20 mg PO Q12 #60 tablet 02/12/20 Tamsulosin HCl [Flomax 0.4 mg Cap.sr] 0.4 mg PO PCSUPPER #30 cap.sr.24h 02/12/20 Insulin Glargine,Hum.rec.anlog [Lantus Insulin 100 Unit/mL Insulin Pen] 20 units SQ BID 04/05/20 Atorvastatin Calcium [Lipitor 40 mg Tablet] 40 mg PO QHS 15 Days #15 tablet 04/07/20 History of Present Illiness History of Present Illness: MAMTA CUEVA is a 59 year old male medical history of T2DM poorly compliant, HLD, who was admitted due to vomiting. The patient has been visiting a friend in the area and did not bring enough insulin with him. He ran out of his medications 3 days prior. He is normally on Lantus 30 u bedtime and sliding scale insulin 4 u if above 200BG, 6 units if above 300, 10 units above 400. 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 hence he came to the ED. In the ED, VS were stable. He was noted to have a BG of 1084, K 7.1, Crea 2.67, AG 40, +ve ketones urine. He was given bicarb push, insulin drip and PLR IV fluids. He was subsequently admitted for further management. Hospital Course Hospital Course: Unremarkable. With IV fluids the anion gap closed and electrolytes corrected. Blood sugars are less than 300 which is adequate at this time since his initial glucose was 1084 Physical Exam Vital Signs: Temp Pulse Resp BP Pulse Ox 97.9 F 83 17 155/80 H 97 04/07/20 10:00 04/07/20 07:45 04/07/20 07:45 04/07/20 07:45 04/07/20 07:45 Intake & Output 04/06/20 04/07/20 04/08/20 06:59 06:59 06:59 Intake Total 6775 2427 Output Total 725 600 Balance 6050 1827 Weight 64.6 kg 68.1 kg General appearance: PRESENT: no acute distress Respiratory exam: PRESENT: clear to auscultation shoaib, symmetrical, unlabored. ABSENT: rales, rhonchi, tachypnea, wheezes Cardiovascular exam: PRESENT: RRR, +S1, +S2 GI/Abdominal exam: PRESENT: normal bowel sounds, soft. ABSENT: tenderness Extremities exam: ABSENT: pedal edema Neurological exam: PRESENT: alert, awake, oriented to person, oriented to place, oriented to time, oriented to situation, CN II-XII grossly intact Psychiatric exam: PRESENT: appropriate affect. ABSENT: agitated, anxious Results Laboratory Results: WBC 17.7 10^3/uL (4.0-10.5) H 04/05/20 12:19 RBC 4.85 10^6/uL (4.35-5.55) 04/05/20 12:19 Hgb 14.7 g/dL (13.5-17.0) 04/05/20 12:19 Hct 46.7 % (37.9-51.0) 04/05/20 12:19 MCV 96 fl (80-97) 04/05/20 12:19 MCH 30.4 pg (27.0-33.4) 04/05/20 12:19 MCHC 31.6 g/dL (32.0-36.0) L 04/05/20 12:19 RDW 13.9 % (11.5-14.0) 04/05/20 12:19 Plt Count 180 10^3/uL (150-450) 04/05/20 12:19 Lymph % (Auto) Not Reportable 04/05/20 12:19 [place] % (Auto) Not Reportable 04/05/20 12:19 Eos % (Auto) Not Reportable 04/05/20 12:19 Baso % (Auto) Not Reportable 04/05/20 12:19 Absolute Neuts (auto) Not Reportable 04/05/20 12:19 Absolute Lymphs (auto) Not Reportable 04/05/20 12:19 Absolute Monos (auto) Not Reportable 04/05/20 12:19 Absolute Eos (auto) Not Reportable 04/05/20 12:19 Absolute Basos (auto) Not Reportable 04/05/20 12:19 Total Counted 100 04/05/20 12:19 Seg Neutrophils % Not Reportable 04/05/20 12:19 Seg Neuts % (Manual) 94 % (42-78) H 04/05/20 12:19 Lymphocytes % (Manual) 3 % (13-45) L 04/05/20 12:19 Monocytes % (Manual) 3 % (3-13) 04/05/20 12:19 Eosinophils % (Manual) 0 % (0-6) 04/05/20 12:19 Basophils % (Manual) 0 % (0-2) 04/05/20 12:19 Abs Neuts (Manual) 16.6 10^3/uL (1.7-8.2) H 04/05/20 12:19 Abs Lymphs (Manual) 0.5 10^3/uL (0.5-4.7) 04/05/20 12:19 Abs Monocytes (Manual) 0.5 10^3/uL (0.1-1.4) 04/05/20 12:19 Absolute Eos (Manual) 0.0 10^3/uL (0.0-0.6) 04/05/20 12:19 Abs Basophils (Manual) 0.0 10^3/uL (0.0-0.2) 04/05/20 12:19 Clumped Platelets PRESENT 04/05/20 12:19 Platelet Comment ADEQUATE 04/05/20 12:19 RBC Morph Comment NORMO-CYTIC/CHROMIC 04/05/20 12:19 Sodium 132.7 mmol/L (137-145) L 04/07/20 04:38 Potassium 4.3 mmol/L (3.6-5.0) 04/07/20 04:38 Chloride 103 mmol/L (98-107) 04/07/20 04:38 Carbon Dioxide 24 mmol/L (22-30) 04/07/20 04:38 Anion Gap 6 (5-19) 04/07/20 04:38 BUN 15 mg/dL (7-20) 04/07/20 04:38 Creatinine 0.99 mg/dL (0.52-1.25) 04/07/20 04:38 Est GFR ( Amer) > 60 (>60) 04/07/20 04:38 Est GFR (Non-Af Amer) Cancelled 04/06/20 04:22 Est GFR (MDRD) Non-Af > 60 (>60) 04/07/20 04:38 Glucose 212 mg/dL (75-110) H 04/07/20 04:38 POC Glucose 216 mg/dL (70-110) H 04/07/20 12:04 Hemoglobin A1c % 13.4 % (4.7-6.0) H 04/06/20 04:22 Calcium 8.2 mg/dL (8.4-10.2) L 04/07/20 04:38 Total Bilirubin 0.6 mg/dL (0.2-1.3) 04/07/20 04:38 Direct Bilirubin 0.2 mg/dL (0.0-0.4) 04/07/20 04:38 Neonat Total Bilirubin Not Reportable 04/07/20 04:38 Neonat Direct Bilirubin Not Reportable 04/07/20 04:38 Neonat Indirect Bili Not Reportable 04/07/20 04:38 AST 47 U/L (17-59) 04/07/20 04:38 ALT 20 U/L (<50) 04/07/20 04:38 Alkaline Phosphatase 61 U/L (38-126) 04/07/20 04:38 Creatine Kinase 1290 U/L (55-170) H 04/05/20 15:19 CK-MB (CK-2) 6.66 ng/mL (<4.55) H 04/05/20 15:19 Troponin I < 0.012 ng/mL 04/05/20 15:19 Total Protein 5.3 g/dL (6.3-8.2) L 04/07/20 04:38 Albumin 3.0 g/dL (3.5-5.0) L 04/07/20 04:38 Lipase 53.9 U/L (23-300) 04/05/20 15:19 EGFR Cancelled 04/06/20 04:22 Urine Color STRAW 04/05/20 15:06 Urine Appearance CLEAR 04/05/20 15:06 Urine pH 5.0 (5.0-9.0) 04/05/20 15:06 Ur Specific [place] 1.021 04/05/20 15:06 Urine Protein NEGATIVE mg/dL (NEGATIVE) 04/05/20 15:06 Urine Glucose (UA) >=500 mg/dL (NEGATIVE) H 04/05/20 15:06 Urine Ketones 20 mg/dL (NEGATIVE) H 04/05/20 15:06 Urine Blood SMALL (NEGATIVE) H 04/05/20 15:06 Urine Nitrite NEGATIVE (NEGATIVE) 04/05/20 15:06 Urine Bilirubin NEGATIVE (NEGATIVE) 04/05/20 15:06 Urine Urobilinogen NEGATIVE mg/dL (<2.0) 04/05/20 15:06 Ur Leukocyte Esterase NEGATIVE (NEGATIVE) 04/05/20 15:06 Urine WBC (Auto) 1 /HPF 04/05/20 15:06 U Hyaline Cast (Auto) 4 /LPF 04/05/20 15:06 Squamous Epi Cells Auto <1 /HPF 04/05/20 15:06 Urine Mucus (Auto) RARE /LPF 04/05/20 15:06 Urine Ascorbic Acid NEGATIVE (NEGATIVE) 04/05/20 15:06 Urine Opiates Screen NEGATIVE 04/05/20 15:06 Urine Methadone Screen NEGATIVE 04/05/20 15:06 Ur Barbiturates Screen NEGATIVE 04/05/20 15:06 Ur Phencyclidine Scrn NEGATIVE 04/05/20 15:06 Ur Amphetamines Screen NEGATIVE 04/05/20 15:06 U Benzodiazepines Scrn NEGATIVE 04/05/20 15:06 Urine Cocaine Screen UNCONFIRMED POSITIVE 04/05/20 15:06 U Marijuana (THC) Screen NEGATIVE 04/05/20 15:06 04/05/20 15:19 CK-MB (CK-2) 6.66 H Troponin I < 0.012 Plan Health Concerns: Noncompliant with medication regimen as well as chronic cocaine use Plan of Treatment: Medications as noted above Goals: Better compliance would be a start. His recurrent pattern of behavior makes this an unlikely outcome. Time Spent: Greater than 30 Minutes Stroke Is this a Stroke Patient?: No Acute Heart Failure - Is this a Heart Failure Patient?: No
[2020-04-07 15:48] VITALS: BP 134/58
== END 2020-04-07 15:57 | disposition home or self-care (01) | DRG 638 ==
LOC: ER 11:34 → EH 17:28 → 3S 20:15
PROVIDERS: ADMIT Internal Medicine; ATTEND Hospitalist
DX: E11.10 Type 2 diabetes mellitus with ketoacidosis without coma (principal); E87.1 Hypo-osmolality and hyponatremia; N17.9 Acute kidney failure, unspecified; T38.3X6A Underdosing of insulin and oral hypoglycemic [antidiabetic] drugs, initial encounter; E78.5 Hyperlipidemia, unspecified; D72.829 Elevated white blood cell count, unspecified; K21.9 Gastro-esophageal reflux disease without esophagitis; E86.0 Dehydration; J44.9 Chronic obstructive pulmonary disease, unspecified; I12.9 Hypertensive chronic kidney disease with stage 1 through stage 4 chronic kidney disease, or unspecified chronic kidney disease; E11.22 Type 2 diabetes mellitus with diabetic chronic kidney disease; N18.9 Chronic kidney disease, unspecified; Z79.4 Long term (current) use of insulin; Z91.138 Patient's unintentional underdosing of medication regimen for other reason; Z83.3 Family history of diabetes mellitus; Z82.49 Family history of ischemic heart disease and other diseases of the circulatory system; Z79.899 Other long term (current) drug therapy
CPT/HCPCS: 36415; 80048; 80053; 80307; 81001; 82550; 82553; 82962; 83036; 83690; 84484; 85025; 93005; 93010; 96361; 96374; 96375; 96376; 99285; C9113; J0610; J1170; J1644; J1815; J2405; J3480; J3490; J7030; J7050; J7120